=== PATIENT | female | born 1935 | race Caucasian/White ===

== ENCOUNTER 2022-05-05 15:39 | Inpatient (IN) ==
[2022-05-05] MEDS ORDERED: IOPAMIDOL 100 ML BOTTLE IV ONE (15:40)
[2022-05-05] MEDS ORDERED: DILTIAZEM 25 MG/5 ML VIAL IV ONE ×2 (16:05→16:45)
[2022-05-05 17:00] LABS: POC Calcium, Ionized 1.21 (1.16-1.32); POC Creatinine 0.6 (0.6-1.2); POC Potassium 4.7 (3.3-5.1)
[2022-05-05] MEDS: DILTIAZEM 125 MG in DEXTROSE 5% IN WATER 100 ML IV SCH (17:00)
[2022-05-05 17:12] LABS: Basophils # (Auto) 0.02 K/mcL (0.00-0.30); Basophils % (Auto) 0.2 % (0.0-2.0); Eosinophils # (Auto) 0 K/mcL (0.00-0.70); Eosinophils % (Auto) 0 % (0.0-7.0); Hematocrit 31.5 % (34.1-44.9); Hemoglobin 10.1 g/dL (11.2-15.7); Lymphocytes # (Auto) 0.75 K/mcL (1.50-4.80); Lymphocytes % (Auto) 5.7 % (15.5-49.0); Mean Cell Volume 96.3 fL (80.0-100.0); Mean Corpuscular HGB Conc 32.1 g/dL (31.0-36.0); Mean Platelet Volume 9.5 fL (8.8-12.5); Monocytes # (Auto) 1.39 K/mcL (0.10-0.90); Monocytes % (Auto) 10.6 % (1.0-12.0); Neutrophils % (Auto) 81.9 % (38.0-78.0); Platelet Count 271 K/mcL (140-440); RBC 3.27 M/mcL (3.59-5.38); Red Cell Distribution Width 15.8 % (11.5-14.5); WBC 13.1 K/mcL (4.5-11.0)
--- NOTE | 2022-05-05 17:13 | Emergency Department Note ---
HPI General Chief complaint: Weakness Stated complaint: weakness Time Seen by Provider: 05/05/22 15:51 Source: patient and EMS Mode of arrival: EMS Limitations: altered mental status History of Present Illness HPI Narrative: Narrative: Is an 86-year-old female with a history of atrial fibrillation, on Eliquis Cardi zem and metoprolol presents to the emergency department with weakness. She lives alone but her neighbors and friends check on her frequently they checked on her today and felt that she was not acting right. Patient reports that she did not take her medications this morning and is unclear why she did not take her medications. Patient denies any focal weakness she did just noticed that the right side of her face is swollen she does not believe that she has had any fevers. She does report some associated shortness of breath but no chest pain or lightheadedness. Patient states that she has had some falls she is unsure if she hit her head but she denies hitting the right side of her face. Related Data Home Medications Medication Instructions Recorded Confirmed apixaban 2.5 mg tablet (Eliquis) 2.5 mg PO BID 05/05/22 05/08/22 aspirin 81 mg tablet,delayed 81 mg PO QDAY 05/05/22 05/08/22 release atorvastatin 80 mg tablet 40 mg PO HS 05/05/22 05/08/22 diltiazem HCl 180 mg 180 mg PO QDAY 05/05/22 05/08/22 capsule,extended release 24 hr ferrous sulfate 325 mg (65 mg 325 mg PO QDAY 05/05/22 05/08/22 iron) tablet (FeroSul) furosemide 20 mg tablet 20 mg PO QDAY 05/05/22 05/08/22 gabapentin 100 mg capsule 100 mg PO HS 05/05/22 05/08/22 glipizide 2.5 mg tablet, extended 2.5 mg PO QDAY 05/05/22 05/08/22 release 24 hr hydrocodone 10 mg-acetaminophen 2 tab PO BIDP PRN Pain 05/05/22 05/08/22 325 mg tablet metformin 1,000 mg tablet 1,000 mg PO BIDCC 05/05/22 05/08/22 metoprolol succinate 100 mg 100 mg PO BID 05/05/22 05/08/22 tablet,extended release 24 hr omeprazole 20 mg capsule,delayed 20 mg PO QAMAC 05/05/22 05/08/22 release Allergies Allergy/AdvReac Type Severity Reaction Status Date / Time No Known Drug Allergies Allergy Verified 02/26/22 10:01 Review of Systems ROS ROS Narrative: Narrative: All systems ED: reviewed and negative except as stated. 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) Hip pain, bilateral (Chronic) Compression fracture of spine (Chronic) Other hyperlipidemia (Chronic) Supraventricular tachycardia (Chronic) Pacemaker (Chronic) Other iron deficiency anemias (Chronic) Dyspnea (Chronic) 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 arterial hypertension (Chronic) Trigger finger, right ring finger (Chronic) Dependent edema (Chronic) Chronic kidney disease, stage 3a (Chronic) 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, stage I (Chronic) DM (diabetes mellitus), type 2, uncontrolled w/neurologic complication (Chronic) Other low back pain (Chronic) Bilateral sacroiliitis (Acute) Medical History (Updated 05/07/22 @ 09:18 by Alejandro Johnson MD) Adenomatous colon polyp Atherosclerotic heart disease of [place] coronary artery with angina pectoris Back pain 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, stage I Chronic kidney disease, stage 3a Compression fracture of spine Dependent edema DM (diabetes mellitus), type 2, uncontrolled w/neurologic complication Dyspnea Encephalitis age 5 Hip pain, bilateral Myocardial infarction (~1992) Osteopenia Other hyperlipidemia Other iron deficiency anemias Other low back pain Pacemaker Secondary pulmonary arterial hypertension Supraventricular tachycardia Trigger finger, right ring finger Ulnar neuropathy of right upper extremity Surgical History (Updated 03/02/22 @ 16:31 by Rossi Ochoa) History of angioplasty and stent History of hysterectomy History of oophorectomy cyst History of permanent cardiac pacemaker placement (~11/03/09) History of surgery (~03/23/19) Proximal left anterior descending artery drug eluting stent History of tonsillectomy and adenoidectomy Hx of atrioventricular node ablation (~04/05/19) Family History (Updated 03/02/22 @ 16:38 by Rossi Ochoa) Mother Stroke Coronary heart disease Father Stroke Sister Breast cancer Other Family history of coronary artery disease Family history of diabetes mellitus type II Social History Smoking Status: Never smoker Alcohol Intake Frequency: a few times a week Substance Use: does not use Exam Narrative Narrative: Narrative: Vital signs noted General: Awake. Alert. No distress. HEENT: Swelling to the right angle of the mandible, there is slight erythema that extends down the neck Neck: Supple, trachea midline Cardiovascular: Tachycardic irregularly irregular. No murmur. No rubs. No gallops. Respiratory: No respiratory distress. Breath sounds equal. Lungs clear. Gastrointestinal: Soft. No tenderness Musculoskeletal: No pain. No soft tissue swelling. Good ROM. No signs injury Skin: Right facial erythema Neurologic: Alert and oriented x3 moves all extremities equally and fully, speech is fluent face is symmetric General Limitations: altered mental status Course Vital Signs Vital signs: Vital Signs Temperature 97.7 F 05/05/22 15:43 Pulse Rate 161 H 05/05/22 15:43 Respiratory Rate 18 05/05/22 15:43 Blood Pressure 141/98 05/05/22 15:43 Pulse Oximetry (%) 97 05/05/22 15:43 Oxygen Delivery Method 05/05/22 15:43 Temperature 98.5 F 05/10/22 00:01 Pulse Rate 103 H 05/08/22 21:01 Respiratory Rate 22 05/09/22 00:01 Blood Pressure 109/64 05/10/22 00:01 Pulse Oximetry (%) 96 05/10/22 00:01 Oxygen Delivery Method 05/10/22 00:01 Oxygen Flow Rate (L/min) 0 05/07/22 20:00 [facility] Narrative Medical decision making narrative: Narrative: Patient presents to the emergency department with weakness she is found to be in A. fib with RVR her heart rate is 160. Labs are drawn patient was given a bolus of 10 mg diltiazem she did have some improvement in her heart rate she will be given another 10 mg bolus and started on a diltiazem drip. Chemistry is p ending. Patient is signed out to oncoming physician I have also obtained a CT scan of her head given that she is on anticoagulation and of her face to ensure that there is no fluid collection or other surgical process. Lab Data Result diagrams: 05/09/22 05:59 05/09/22 05:58 Labs: Lab Results 05/05/22 05/05/22 05/05/22 Range/Units 16:00 16:00 16:00 WBC 13.1 H (4.5-11.0) K/mcL RBC 3.27 L (3.59-5.38) M/mcL Hgb 10.1 L (11.2-15.7) g/dL Hct 31.5 L (34.1-44.9) % POC Hct (36-48) MCV 96.3 (80.0-100.0) fL MCH 30.9 (26.0-34.0) pg MCHC 32.1 (31.0-36.0) g/dL RDW 15.8 H (11.5-14.5) % Plt Count 271 (140-440) K/mcL MPV 9.5 (8.8-12.5) fL Immature Gran % (Auto) 1.6 H (0.0-0.5) % Neut % (Auto) 81.9 H (38.0-78.0) % Lymph % (Auto) 5.7 L (15.5-49.0) % [place] % (Auto) 10.6 (1.0-12.0) % Eos % (Auto) 0 (0.0-7.0) % Baso % (Auto) 0.2 (0.0-2.0) % Lymph # (Auto) 0.75 L (1.50-4.80) K/mcL [place] # (Auto) 1.39 H (0.10-0.90) K/mcL Eos # (Auto) 0 (0.00-0.70) K/mcL Baso # (Auto) 0.02 (0.00-0.30) K/mcL Immature Gran # 0.21 H (0.00-0.05) K/mcl Absolute Neutrophils 10.73 H (1.80-8.00) K/mcL D-Dimer 0.87 H (0.27-0.50) ug/mL POC Sodium (133-145) POC Potassium (3.3-5.1) POC Chloride (96-108) POC Total CO2 (22-30) POC BUN (6-20) POC Creatinine (0.6-1.2) POC Glucose (70-105) POC WB Ioniz Calcium (1.16-1.32) Phosphorus 2.4 L (2.5-4.5) mg/dL Magnesium 1.5 L (1.6-2.5) mg/dL Total Bilirubin 1.1 H (0.1-1.0) mg/dL Direct Bilirubin 0.4 H (<0.3) mg/dL AST 19 (<32) U/L ALT 10 (<40) U/L Alkaline Phosphatase 99 (39-117) U/L Total Creatine Kinase 85 (24-170) U/L Total Protein 5.5 L (5.9-8.4) gm/dL Albumin 3.0 L (3.2-5.2) gm/dL Globulin 2.5 (2.2-3.7) gm/dL TSH (0.27-5.01) uIU/mL POC Troponin I (0.02-0.08) 05/05/22 05/05/22 05/05/22 Range/Units 16:00 16:44 16:47 WBC (4.5-11.0) K/mcL RBC (3.59-5.38) M/mcL Hgb (11.2-15.7) g/dL Hct (34.1-44.9) % POC Hct 33.0 L (36-48) MCV (80.0-100.0) fL MCH (26.0-34.0) pg MCHC (31.0-36.0) g/dL RDW (11.5-14.5) % Plt Count (140-440) K/mcL MPV (8.8-12.5) fL Immature Gran % (Auto) (0.0-0.5) % Neut % (Auto) (38.0-78.0) % Lymph % (Auto) (15.5-49.0) % [place] % (Auto) (1.0-12.0) % Eos % (Auto) (0.0-7.0) % Baso % (Auto) (0.0-2.0) % Lymph # (Auto) (1.50-4.80) K/mcL [place] # (Auto) (0.10-0.90) K/mcL Eos # (Auto) (0.00-0.70) K/mcL Baso # (Auto) (0.00-0.30) K/mcL Immature Gran # (0.00-0.05) K/mcl Absolute Neutrophils (1.80-8.00) K/mcL D-Dimer (0.27-0.50) ug/mL POC Sodium 142 (133-145) POC Potassium 4.7 (3.3-5.1) POC Chloride 112 H (96-108) POC Total CO2 21.0 L (22-30) POC BUN 21 H (6-20) POC Creatinine 0.6 (0.6-1.2) POC Glucose 184 H (70-105) POC WB Ioniz Calcium 1.21 (1.16-1.32) Phosphorus (2.5-4.5) mg/dL Magnesium (1.6-2.5) mg/dL Total Bilirubin (0.1-1.0) mg/dL Direct Bilirubin (<0.3) mg/dL AST (<32) U/L ALT (<40) U/L Alkaline Phosphatase (39-117) U/L Total Creatine Kinase (24-170) U/L Total Protein (5.9-8.4) gm/dL Albumin (3.2-5.2) gm/dL Globulin (2.2-3.7) gm/dL TSH 0.64 (0.27-5.01) uIU/mL POC Troponin I 0.02 (0.02-0.08) 05/05/22 Range/Units 19:35 WBC (4.5-11.0) K/mcL RBC (3.59-5.38) M/mcL Hgb (11.2-15.7) g/dL Hct (34.1-44.9) % POC Hct (36-48) MCV (80.0-100.0) fL MCH (26.0-34.0) pg MCHC (31.0-36.0) g/dL RDW (11.5-14.5) % Plt Count (140-440) K/mcL MPV (8.8-12.5) fL Immature Gran % (Auto) (0.0-0.5) % Neut % (Auto) (38.0-78.0) % Lymph % (Auto) (15.5-49.0) % [place] % (Auto) (1.0-12.0) % Eos % (Auto) (0.0-7.0) % Baso % (Auto) (0.0-2.0) % Lymph # (Auto) (1.50-4.80) K/mcL [place] # (Auto) (0.10-0.90) K/mcL Eos # (Auto) (0.00-0.70) K/mcL Baso # (Auto) (0.00-0.30) K/mcL Immature Gran # (0.00-0.05) K/mcl Absolute Neutrophils (1.80-8.00) K/mcL D-Dimer (0.27-0.50) ug/mL POC Sodium (133-145) POC Potassium (3.3-5.1) POC Chloride (96-108) POC Total CO2 (22-30) POC BUN (6-20) POC Creatinine (0.6-1.2) POC Glucose (70-105) POC WB Ioniz Calcium (1.16-1.32) Phosphorus (2.5-4.5) mg/dL Magnesium (1.6-2.5) mg/dL Total Bilirubin (0.1-1.0) mg/dL Direct Bilirubin (<0.3) mg/dL AST (<32) U/L ALT (<40) U/L Alkaline Phosphatase (39-117) U/L Total Creatine Kinase (24-170) U/L Total Protein (5.9-8.4) gm/dL Albumin (3.2-5.2) gm/dL Globulin (2.2-3.7) gm/dL TSH (0.27-5.01) uIU/mL POC Troponin I 0.01 L (0.02-0.08) EKG Data EKG #1: EKG attestation: Yes I reviewed and interpreted this EKG., Yes There are no EKG findings of acute coronary syndrome and Yes This EKG will be read by face man EKG results narrative: A. fib with RVR rate is 160 there is left anterior fascicular block no evidence of acute ischemia, QTC is 545 Discharge Plan Patient/Caregiver Discharge Instructions Pt seen by SUPERVISOR PIPE JOINTS/PA only: No Clinical Impression: Atrial fibrillation with rapid ventricular response Patient Disposition: Still a Patient Condition: Serious Discharge Date/Time: 05/06/22 00:08
[2022-05-05 17:39] LABS: ALT/SGPT 10 U/L (<40); AST/SGOT 19 U/L (<32); Alkaline Phosphatase 99 U/L (39-117); Bilirubin,Direct 0.4 mg/dL (<0.3); Bilirubin,Total 1.1 mg/dL (0.1-1.0); Creatine Kinase 85 U/L (24-170); Globulin 2.5 gm/dL (2.2-3.7); Phosphorous 2.4 mg/dL (2.5-4.5)
[2022-05-05] MEDS ORDERED: MAGNESIUM SULFATE 2 GM/50 ML BAG IV ONE (17:42)
--- NOTE | 2022-05-05 18:03 | Cat Scan Report ---
History: Bruise in the right side of the face and head, poor historian, probable fall TECHNIQUE: The brain was imaged without contrast in axial plane at 2.5 mm intervals. Intravenous nonionic contrast was injected and the face was then scanned in and axial plane. Sagittal and coronal reformats of the brain and face were created separately. The radiation exposure was limited using dose reduction technology. FINDINGS: Brain: There is a moderate-sized old infarct with encephalomalacia in the right cerebellar hemisphere. There is an ill-defined zone of decreased attenuation in the right globus pallidus measuring approximately 4 x 5 mm in size. This most likely represents an infarct but is of undetermined age. No intracranial hemorrhage or cerebral edema are present. There has mild to moderate generalized atrophy. Patchy areas of decreased attenuation are present in the centrum semiovale above the tentorium due to age-related ischemia or degeneration. Ventricles are prominent but proportionate to the atrophy. There is no abnormal extra-axial fluid collection. Bone show no skull fracture. Face: The right mandibular condyle is subluxed anteriorly. There is no associated fracture. Mild arthritis is present in both TMJs with flattening of the articular surfaces of both condyles. No facial fracture is present. There is moderate edema in the right side of the face in the region of the right ear, right masseter muscle, right parotid gland and lateral to the temporal mandibular joint. No hematoma is present. The orbits are normal. The sinuses are clear, except for a trace amount of fluid in the right side of the sphenoid sinus.. The mastoids are normally aerated. No skull base fracture is present. There is degenerative disc disease and arthritis throughout the neck. There is mild grade 1 spondylolisthesis at C4-5 and severe disc space narrowing at C5-6. IMPRESSION: Edema in the right side of the face with no associated fracture or hematoma. 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 Benitez was called with the results Interpreted and Authenticated by: Yoni Da Silva 05/05/22
[2022-05-05] MEDS ORDERED: METOPROLOL TARTRATE 5 MG/5 ML VIAL IV ONE (18:08)
--- NOTE | 2022-05-05 18:14 | Emergency Department Note ---
Course Vital Signs Vital signs: Vital Signs Temperature 36.5 C 05/05/22 15:43 Pulse Rate 161 H 05/05/22 15:43 Respiratory Rate 18 05/05/22 15:43 Blood Pressure 141/98 05/05/22 15:43 Pulse Oximetry (%) 97 05/05/22 15:43 Oxygen Delivery Method 05/05/22 15:43 Temperature 36.5 C 05/05/22 15:43 Pulse Rate 166 H 05/05/22 23:18 Respiratory Rate 22 05/05/22 23:18 Blood Pressure 140/92 05/05/22 23:00 Pulse Oximetry (%) 99 05/05/22 23:18 Oxygen Delivery Method 05/05/22 15:43 MDM MDM Narrative Medical decision making narrative: Patient with a history of A. fib on Eliquis Cardizem and Lopressor noncompliant her medication today brought in for weakness evaluated by Dr. Gore found to be in A. fib RVR given several rounds of Cardizem and started on an infusion as well as received 1 L of fluids. Other than the rapid heart rate vital signs are otherwise stable. Remains on the drip at 10 heart rate still around 150s to 160s Signed out to me pending diagnostic results and admission: On my evaluation she is very pleasant, no chest pain no shortness of breath. CBC mild leukocytosis nonspecific 13 electrolytes showed normal sodium potassium, normal creatinine. Magnesium slightly low 1.5 replenished with 2 g IV Troponin negative Chest x-ray per my preliminary interpretation no obvious acute finding CT of the head shows no acute intracranial process, CT of the face shows some right-sided edema without any bony fractures or dislocations or acute infection, spoke with Dr. Da Silva he thinks it is more of a bruise. Given she is still in RVR and takes both Cardizem and metoprolol at baseline and missed both of her medications today and will give her 5 of Lopressor to attempt further rate control, which did not seem to do much. D-dimer elevated CT PE is negative, TSH within normal On reevaluation no new complaints however still remains in RVR runs 160, did repeat her EKG; Continues to show A. fib RVR heart rate [address] elevations. Did discuss case with cardiology Dr. Emery, given her persistent tachycardia/RVR: he recommends that we can titrate the Cardizem drip up to 20, however if she still remains tachycardic at that point he would not get more aggressive for now and would simply let her continue overnight and see how she is tomorrow after more time on the infusion. Other considerations would be eventual cardioversion, amiodarone, digoxin etc. but he would not recommend any of these at this time and would not be too aggressive considering blood pressure stable, no active chest pain, and labs otherwise reassuring/negative troponin etc. Dr Johnson agree to admit Lab Data Result diagrams: 05/05/22 16:00 Labs: Lab Results 05/05/22 05/05/22 05/05/22 Range/Units 16:00 16:00 16:00 WBC 13.1 H (4.5-11.0) K/mcL RBC 3.27 L (3.59-5.38) M/mcL Hgb 10.1 L (11.2-15.7) g/dL Hct 31.5 L (34.1-44.9) % POC Hct (36-48) MCV 96.3 (80.0-100.0) fL MCH 30.9 (26.0-34.0) pg MCHC 32.1 (31.0-36.0) g/dL RDW 15.8 H (11.5-14.5) % Plt Count 271 (140-440) K/mcL MPV 9.5 (8.8-12.5) fL Immature Gran % (Auto) 1.6 H (0.0-0.5) % Neut % (Auto) 81.9 H (38.0-78.0) % Lymph % (Auto) 5.7 L (15.5-49.0) % [place] % (Auto) 10.6 (1.0-12.0) % Eos % (Auto) 0 (0.0-7.0) % Baso % (Auto) 0.2 (0.0-2.0) % Lymph # (Auto) 0.75 L (1.50-4.80) K/mcL [place] # (Auto) 1.39 H (0.10-0.90) K/mcL Eos # (Auto) 0 (0.00-0.70) K/mcL Baso # (Auto) 0.02 (0.00-0.30) K/mcL Immature Gran # 0.21 H (0.00-0.05) K/mcl Absolute Neutrophils 10.73 H (1.80-8.00) K/mcL D-Dimer 0.87 H (0.27-0.50) ug/mL POC Sodium (133-145) POC Potassium (3.3-5.1) POC Chloride (96-108) POC Total CO2 (22-30) POC BUN (6-20) POC Creatinine (0.6-1.2) POC Glucose (70-105) POC WB Ioniz Calcium (1.16-1.32) Phosphorus 2.4 L (2.5-4.5) mg/dL Magnesium 1.5 L (1.6-2.5) mg/dL Total Bilirubin 1.1 H (0.1-1.0) mg/dL Direct Bilirubin 0.4 H (<0.3) mg/dL AST 19 (<32) U/L ALT 10 (<40) U/L Alkaline Phosphatase 99 (39-117) U/L Total Creatine Kinase 85 (24-170) U/L Total Protein 5.5 L (5.9-8.4) gm/dL Albumin 3.0 L (3.2-5.2) gm/dL Globulin 2.5 (2.2-3.7) gm/dL TSH (0.27-5.01) uIU/mL POC Troponin I (0.02-0.08) 05/05/22 05/05/22 05/05/22 Range/Units 16:00 16:44 16:47 WBC (4.5-11.0) K/mcL RBC (3.59-5.38) M/mcL Hgb (11.2-15.7) g/dL Hct (34.1-44.9) % POC Hct 33.0 L (36-48) MCV (80.0-100.0) fL MCH (26.0-34.0) pg MCHC (31.0-36.0) g/dL RDW (11.5-14.5) % Plt Count (140-440) K/mcL MPV (8.8-12.5) fL Immature Gran % (Auto) (0.0-0.5) % Neut % (Auto) (38.0-78.0) % Lymph % (Auto) (15.5-49.0) % [place] % (Auto) (1.0-12.0) % Eos % (Auto) (0.0-7.0) % Baso % (Auto) (0.0-2.0) % Lymph # (Auto) (1.50-4.80) K/mcL [place] # (Auto) (0.10-0.90) K/mcL Eos # (Auto) (0.00-0.70) K/mcL Baso # (Auto) (0.00-0.30) K/mcL Immature Gran # (0.00-0.05) K/mcl Absolute Neutrophils (1.80-8.00) K/mcL D-Dimer (0.27-0.50) ug/mL POC Sodium 142 (133-145) POC Potassium 4.7 (3.3-5.1) POC Chloride 112 H (96-108) POC Total CO2 21.0 L (22-30) POC BUN 21 H (6-20) POC Creatinine 0.6 (0.6-1.2) POC Glucose 184 H (70-105) POC WB Ioniz Calcium 1.21 (1.16-1.32) Phosphorus (2.5-4.5) mg/dL Magnesium (1.6-2.5) mg/dL Total Bilirubin (0.1-1.0) mg/dL Direct Bilirubin (<0.3) mg/dL AST (<32) U/L ALT (<40) U/L Alkaline Phosphatase (39-117) U/L Total Creatine Kinase (24-170) U/L Total Protein (5.9-8.4) gm/dL Albumin (3.2-5.2) gm/dL Globulin (2.2-3.7) gm/dL TSH 0.64 (0.27-5.01) uIU/mL POC Troponin I 0.02 (0.02-0.08) 05/05/22 Range/Units 19:35 WBC (4.5-11.0) K/mcL RBC (3.59-5.38) M/mcL Hgb (11.2-15.7) g/dL Hct (34.1-44.9) % POC Hct (36-48) MCV (80.0-100.0) fL MCH (26.0-34.0) pg MCHC (31.0-36.0) g/dL RDW (11.5-14.5) % Plt Count (140-440) K/mcL MPV (8.8-12.5) fL Immature Gran % (Auto) (0.0-0.5) % Neut % (Auto) (38.0-78.0) % Lymph % (Auto) (15.5-49.0) % [place] % (Auto) (1.0-12.0) % Eos % (Auto) (0.0-7.0) % Baso % (Auto) (0.0-2.0) % Lymph # (Auto) (1.50-4.80) K/mcL [place] # (Auto) (0.10-0.90) K/mcL Eos # (Auto) (0.00-0.70) K/mcL Baso # (Auto) (0.00-0.30) K/mcL Immature Gran # (0.00-0.05) K/mcl Absolute Neutrophils (1.80-8.00) K/mcL D-Dimer (0.27-0.50) ug/mL POC Sodium (133-145) POC Potassium (3.3-5.1) POC Chloride (96-108) POC Total CO2 (22-30) POC BUN (6-20) POC Creatinine (0.6-1.2) POC Glucose (70-105) POC WB Ioniz Calcium (1.16-1.32) Phosphorus (2.5-4.5) mg/dL Magnesium (1.6-2.5) mg/dL Total Bilirubin (0.1-1.0) mg/dL Direct Bilirubin (<0.3) mg/dL AST (<32) U/L ALT (<40) U/L Alkaline Phosphatase (39-117) U/L Total Creatine Kinase (24-170) U/L Total Protein (5.9-8.4) gm/dL Albumin (3.2-5.2) gm/dL Globulin (2.2-3.7) gm/dL TSH (0.27-5.01) uIU/mL POC Troponin I 0.01 L (0.02-0.08) Discharge Plan Patient/Caregiver Discharge Instructions Pt seen by RAILROAD OPERATING ENGINEER/PA only: No Clinical Impression: Atrial fibrillation with rapid ventricular response Patient Disposition: Xfer As Inpt ([facility]) Condition: Serious Discharge Date/Time: 05/06/22 00:08
--- NOTE | 2022-05-05 23:35 | Internal Med History&Physical ---
HPI History of Present Illness Patient information: Note initiated : 05/05/22 at 11:34 pm Service Date, if different from initiated Date: [] Patient: Nolvia Jalloh 86 y/o F admitted on for weakness. Chief Complaint: [] Chief complaint: atrial fibrillation History of present illness: Ms. 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 The following history is severely limited by the patient's clinical situations and lack of family or caregiver at the bedside. Patient does not recall why she is being sent to the hospital. She currently denies any chest pain palpitations or chest pressure. She denies any shortness of breath. She denies any lightheadedness or dizziness. She denies any pain or discomfort at the moment. Vital signs at ED presentation significant for severe tachycardia with heart rate up to the 160s beats per minutes. Labs significant for leukocytosis with WBC 13.1, as well as hemoglobin and hematocrit 10.1 and 31.5, respectively. Only remarkable electrolyte imbalance is mild hypodysemia with serum magnesium level 1.5. D- dimer 0.87. Serum troponin 0.01. CT angiogram of the chest negative for any pulmonary embolism or any focal infiltrate. Patient was started on Cardizem drip after several rounds of Cardizem pushes failed to successfully rate controlled the patient. Constitutional Constitutional: Absent chills, excessive sweating, fatigue, fever(s) or weakness EENT Eyes: Absent blurry vision, change in vision, loss of vision or other visual disturbances Ears: Absent decreased hearing or tinnitus Nose, mouth and throat: Absent abnormal hearing, dry mouth, headache(s), nasal congestion or sore throat Cardiovascular Cardiovascular: Absent chest pain, chest pain at rest, edema, irregular heart rhythm or palpatations Respiratory Respiratory: Absent cough, dyspnea or wheezing Gastrointestinal Gastrointestinal: Absent abdominal pain, constipation, diarrhea, nausea or vomiting Musculoskeletal Musculoskeletal: Absent back pain, deformity, limited range of motion, muscle cramps, muscle weakness or numbness Integumentary Integumentary: Absent lesions, rash or wounds Neurological Neurological: Absent focal weakness, headache(s) or numbness Psychiatric Psychiatric: Absent anxiety, depression or hallucinations PFSH PFSH All Active Problems (Updated 05/06/22 @ 00:20 by Alejandro Johnson MD) Hypomagnesemia (Acute) Anemia, normocytic normochromic (Acute) Diabetic polyneuropathy associated with type 2 diabetes mellitus (Acute) Atrial fibrillation with rapid ventricular response (Acute) Encephalitis (Chronic) Myocardial infarction (Chronic ~1992) Adenomatous colon polyp (Chronic) Back pain (Chronic) Osteopenia (Chronic) 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) Hip pain, bilateral (Chronic) Compression fracture of spine (Chronic) Other hyperlipidemia (Chronic) Supraventricular tachycardia (Chronic) Pacemaker (Chronic) Other iron deficiency anemias (Chronic) Dyspnea (Chronic) 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) Trigger finger, right ring finger (Chronic) Dependent edema (Chronic) Chronic kidney disease, stage 3a (Chronic) 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, stage I (Chronic) DM (diabetes mellitus), type 2, uncontrolled w/neurologic complication (Chronic) Other low back pain (Chronic) Bilateral sacroiliitis (Acute) Medical History (Updated 05/06/22 @ 00:20 by Alejandro Johnson MD) Adenomatous colon polyp Atherosclerotic heart disease of [place] coronary artery with angina pectoris Back pain 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, stage I Chronic kidney disease, stage 3a Compression fracture of spine Dependent edema DM (diabetes mellitus), type 2, uncontrolled w/neurologic complication Dyspnea Encephalitis age 5 Hip pain, bilateral Myocardial infarction (~1992) Osteopenia Other hyperlipidemia Other iron deficiency anemias Other low back pain Pacemaker Secondary pulmonary arterial hypertension Supraventricular tachycardia Trigger finger, right ring finger Ulnar neuropathy of right upper extremity Surgical History (Updated 03/02/22 @ 16:31 by Rossi Ochoa) History of angioplasty and stent History of hysterectomy History of oophorectomy cyst History of permanent cardiac pacemaker placement (~11/03/09) History of surgery (~03/23/19) Proximal left anterior descending artery drug eluting stent History of tonsillectomy and adenoidectomy Hx of atrioventricular node ablation (~04/05/19) Family History (Updated 03/02/22 @ 16:38 by Rossi Ochoa) Mother Stroke Coronary heart disease Father Stroke Sister Breast cancer Other Family history of coronary artery disease Family history of diabetes mellitus type II Social History (Updated 03/02/22 @ 16:35 by Rossi Ochoa) marital status: occupational status: retired smoking status: Never smoker alcohol intake frequency: a few times a week substance use type: does not use MEDS/ALLERGIES Home Medications and Allergies Home Medications Medication Instructions Recorded Confirmed Type apixaban 2.5 mg tablet (Eliquis) 1 tab PO BID 05/05/22 05/06/22 History aspirin 81 mg tablet,delayed 1 tab PO QDAY 05/05/22 05/05/22 History release atorvastatin 80 mg tablet 0.5 tab PO HS 05/05/22 05/05/22 History diltiazem HCl 180 mg 1 cap PO QDAY 05/05/22 05/06/22 History capsule,extended release 24 hr ferrous sulfate 325 mg (65 mg 1 tab PO QDAY 05/05/22 05/06/22 History iron) tablet (FeroSul) furosemide 20 mg tablet 1 tab PO QDAY 05/05/22 05/06/22 History gabapentin 100 mg capsule 1 cap PO HS 05/05/22 05/06/22 History glipizide 2.5 mg tablet, extended 1 tab PO QDAY 05/05/22 05/06/22 History release 24 hr hydrocodone 10 mg-acetaminophen 2 tab PO BID 05/05/22 05/06/22 History 325 mg tablet metformin 1,000 mg tablet 1 tab PO BID 05/05/22 05/06/22 History metoprolol succinate 100 mg 1 tab PO BID 05/05/22 05/06/22 History tablet,extended release 24 hr omeprazole 20 mg capsule,delayed 1 cap PO QDAY 05/05/22 05/06/22 History release Allergies Allergy/AdvReac Type Severity Reaction Status Date / Time No Known Drug Allergies Allergy Verified 02/26/22 10:01 EXAM Constitutional Vitals: Temp Pulse Resp BP Pulse Ox O2 Del Method 36.5 C 166 H 22 140/92 99 05/05/22 15:43 05/05/22 23:18 05/05/22 23:18 05/05/22 23:00 05/05/22 23:18 05/05/22 15:43 General appearance: cooperative and no acute distress Head Head exam: Present atraumatic and normocephalic Eye Eye exam: Present EOMI and PERRL ENT ENT exam: Present mucous membranes moist, normal exam and normal external ear exam Neck Neck exam: Present normal inspection; Absent lymphadenopathy, tenderness or thyromegaly Respiratory Respiratory exam: Absent accessory muscle use, respiratory distress or wheezes Cardiovascular Cardiovascular exam: Present irregular rhythm and tachycardia; Absent JVD Additional comments: pacemaker GI/Abdominal GI/Abdominal exam: Present normal bowel sounds and soft; Absent organomegaly or tenderness Extremities Exam Extremities exam: Present full ROM, normal capillary refill and normal inspection; Absent tenderness Neurological Exam Neurological exam: Present alert and CN II-XII intact; Absent motor sensory deficit or oriented X3 Psychiatric Psychiatric exam: Present normal affect and normal mood; Absent anxious or depressed Skin Skin exam: Present dry and intact DATA Data Completed and Pending Labs: Labs from last 24 hours 05/05/22 05/05/22 05/05/22 19:35 16:47 16:44 WBC RBC Hgb Hct POC Hct 33.0 L MCV MCH MCHC RDW Plt Count MPV Immature Gran % (Auto) Neut % (Auto) Lymph % (Auto) [place] % (Auto) Eos % (Auto) Baso % (Auto) Lymph # (Auto) [place] # (Auto) Eos # (Auto) Baso # (Auto) Immature Gran # Absolute Neutrophils D-Dimer POC Sodium 142 POC Potassium 4.7 POC Chloride 112 H POC Total CO2 21.0 L POC BUN 21 H POC Creatinine 0.6 POC Glucose 184 H POC WB Ioniz Calcium 1.21 Phosphorus Magnesium Total Bilirubin Direct Bilirubin AST ALT Alkaline Phosphatase Total Creatine Kinase Total Protein Albumin Globulin TSH POC Troponin I 0.01 L 0.02 05/05/22 05/05/22 05/05/22 16:00 16:00 16:00 WBC RBC Hgb Hct POC Hct MCV MCH MCHC RDW Plt Count MPV Immature Gran % (Auto) Neut % (Auto) Lymph % (Auto) [place] % (Auto) Eos % (Auto) Baso % (Auto) Lymph # (Auto) [place] # (Auto) Eos # (Auto) Baso # (Auto) Immature Gran # Absolute Neutrophils D-Dimer 0.87 H POC Sodium POC Potassium POC Chloride POC Total CO2 POC BUN POC Creatinine POC Glucose POC WB Ioniz Calcium Phosphorus 2.4 L Magnesium 1.5 L Total Bilirubin 1.1 H Direct Bilirubin 0.4 H AST 19 ALT 10 Alkaline Phosphatase 99 Total Creatine Kinase 85 Total Protein 5.5 L Albumin 3.0 L Globulin 2.5 TSH 0.64 POC Troponin I Pending 05/05/22 16:00 WBC 13.1 H RBC 3.27 L Hgb 10.1 L Hct 31.5 L POC Hct MCV 96.3 MCH 30.9 MCHC 32.1 RDW 15.8 H Plt Count 271 MPV 9.5 Immature Gran % (Auto) 1.6 H Neut % (Auto) 81.9 H Lymph % (Auto) 5.7 L [place] % (Auto) 10.6 Eos % (Auto) 0 Baso % (Auto) 0.2 Lymph # (Auto) 0.75 L [place] # (Auto) 1.39 H Eos # (Auto) 0 Baso # (Auto) 0.02 Immature Gran # 0.21 H Absolute Neutrophils 10.73 H D-Dimer POC Sodium POC Potassium POC Chloride POC Total CO2 POC BUN POC Creatinine POC Glucose POC WB Ioniz Calcium Phosphorus Magnesium Total Bilirubin Direct Bilirubin AST ALT Alkaline Phosphatase Total Creatine Kinase Total Protein Albumin Globulin TSH POC Troponin I A/P Assessment and plan (1) Atrial fibrillation with rapid ventricular response: Status: Acute (2) Other hyperlipidemia: Status: Chronic (3) Pacemaker: Status: Chronic (4) 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 Atrial fibrillation with RVR: Inpatient ICU with telemetry Diltiazem drip, with max rate of 20mg/hr. Okay to have the heart rate up in the 150s bpm once the max rate of Diltiazem drip is reached Hold Diltiazem extended release formula, switch to immediate release formula for now for dose titration, start with Cardizem immediate release 60mg PO QID Metoprolol ER Eliquis 2D echocardiogram Physical therapy Occupational therapy 2. T2DM with associated diabetic polyneuropathy and nephropathy: HgA1c Hold oral hypoglycemics Insulin Lispro SSI AC HS Accu Chek AC HS Hypoglycemia protocol Diabetic diet Neurontin 3. Essential HTN: Hold Diltiazem extended release formula, switch to immediate release formula for now for dose titration, start with Cardizem immediate release 60mg PO QID Metoprolol ER Lasix PO 4. Dyslipidemia: Continue statin therapy 5. Normocytic normochromic anemia: Ferrous sulfate cbc w/ auto diff in the morning to trend H/H 6. Hypomagnesemia: Mg oral replacement Repeat serum Mg level in the morning to trend GI ppx: oral PPI DVT ppx: Eliquis Code statin: Full Prongosis: extremely guarded Disposition: Inpatient ICU; PT OT Critical Care Time: 60min Time Spent With Patient Time: Total time spent is greater than 50% in coordination of care (as documented) at patient's floor/unit and/or counseling patient: Total time spent with greater than 50% in coordination of care (as documented) at patient's floor/unit and/or counseling patient:: 50 - 70 minutes Total Critical Care Time: 60
[2022-05-06] MEDS ORDERED: HYDROcodone/APAP 10/325MG TABLET PO PRN (00:22)
[2022-05-06] MEDS ORDERED: DEXTROSE 50% 50 ML VIAL IV PRN (00:22)
[2022-05-06] MEDS ORDERED: PROMETHAZINE 25 MG/ML VIAL IV PRN (00:22)
[2022-05-06] MEDS ORDERED: IPRATROPIUM/ALBUTEROL 3 ML AMPUL.NEB NEB PRN (00:22)
[2022-05-06] MEDS ORDERED: DEXTROSE 31 GM ORAL.SUSP PO PRN (00:22)
[2022-05-06] MEDS ORDERED: ONDANSETRON 4 MG/2 ML VIAL IV PRN (00:22)
[2022-05-06] MEDS ORDERED: HYDROcodone/APAP 10/325MG TABLET PO ONE ×2 (00:49→00:54)
[2022-05-06] MEDS: DILTIAZEM 30 MG TABLET PO SCH ×5 (01:00→21:02)
[2022-05-06] MEDS ORDERED: DILTIAZEM 30 MG TABLET ONE (01:04)
[2022-05-06] MEDS: DILTIAZEM 125 MG in DEXTROSE 5% IN WATER 100 ML IV SCH ×5 (03:05→21:03)
[2022-05-06] MEDS ORDERED: DILTIAZEM 125 MG/25 ML VIAL IV ONE (03:22)
[2022-05-06 07:24] LABS: ALT/SGPT 10 U/L (<40); AST/SGOT 19 U/L (<32); Albumin 2.8 gm/dL (3.2-5.2); Alkaline Phosphatase 112 U/L (39-117); Bilirubin,Total 1.1 mg/dL (0.1-1.0); Blood Urea Nitrogen 14 mg/dL (8-23); Calcium 9.1 mg/dL (8.6-10.4); Carbon Dioxide 18 mmol/L (22-30); Chloride 105 mmol/L (96-108); Globulin 2.9 gm/dL (2.2-3.7); Glomerular Filtration Rate 77; Glucose 176 mg/dL (70-105); Phosphorous 2.8 mg/dL (2.5-4.5)
[2022-05-06 07:26] LABS: Basophils # (Auto) 0.02 K/mcL (0.00-0.30); Basophils % (Auto) 0.2 % (0.0-2.0); Eosinophils # (Auto) 0 K/mcL (0.00-0.70); Eosinophils % (Auto) 0 % (0.0-7.0); Hematocrit 34.4 % (34.1-44.9); Hemoglobin 11.1 g/dL (11.2-15.7); Lymphocytes # (Auto) 0.97 K/mcL (1.50-4.80); Lymphocytes % (Auto) 7.6 % (15.5-49.0); Mean Cell Volume 95.6 fL (80.0-100.0); Mean Corpuscular HGB Conc 32.3 g/dL (31.0-36.0); Mean Platelet Volume 9.3 fL (8.8-12.5); Monocytes # (Auto) 1.36 K/mcL (0.10-0.90); Monocytes % (Auto) 10.7 % (1.0-12.0); Neutrophils % (Auto) 80.6 % (38.0-78.0); Platelet Count 270 K/mcL (140-440); Red Cell Distribution Width 15.9 % (11.5-14.5); WBC 12.7 K/mcL (4.5-11.0)
[2022-05-06] MEDS ORDERED: SENNOSIDES 1 TABLET PO PRN (07:41)
[2022-05-06 08:33] LABS: Hemoglobin A1C 7.5 % Hgb (4.0-6.0)
[2022-05-06] MEDS: 0.9 % SODIUM CHLORIDE 10 ML SYRINGE IV SCH ×3 (08:58→21:04)
[2022-05-06] MEDS: FUROSEMIDE 20 MG TABLET PO SCH (09:03)
[2022-05-06] MEDS: METOPROLOL SUCCINATE 50 MG TAB.XL.24H PO SCH ×2 (09:03→21:02)
[2022-05-06] MEDS: ASPIRIN 81 MG TAB.CHEW PO SCH (09:03)
[2022-05-06] MEDS: FERROUS SULFATE 325 MG TABLET PO SCH (09:03)
[2022-05-06] MEDS: DOCUSATE SODIUM 100 MG CAPSULE PO SCH ×2 (09:03→21:01)
[2022-05-06] MEDS: OMEPRAZOLE 20 MG CAPSULE PO SCH (09:03)
[2022-05-06] MEDS: APIXABAN 5 MG TABLET PO SCH ×2 (09:03→21:04)
[2022-05-06] MEDS: MAGNESIUM OXIDE 400 MG TABLET PO SCH (09:03)
--- NOTE | 2022-05-06 09:11 | XRay Report ---
HISTORY: Increased weakness FINDINGS: The lungs are clear and well expanded. There is no evidence of pneumonia, mass or congestive heart failure. Heart size is within upper limits of normal. There is a dual-chamber pacemaker. No pleural effusion is present. Large amount calcified plaque is present along the wall of a normal caliber thoracic aorta. IMPRESSION: No acute abnormality Interpreted and Authenticated by: Yoni Da Silva 05/06/22
--- NOTE | 2022-05-06 09:37 | Cat Scan Report ---
History: Elevated serum d-dimer level, chest pain, short of breath, increased weakness and confusion, atrial fibrillation TECHNIQUE: Following injection of intravenous nonionic contrast the chest was imaged during the pulmonary arterial phase from the thoracic inlet through the diaphragms. Sagittal, coronal and MIPS images were created. The radiation exposure was limited using dose reduction technology. FINDINGS: The pulmonary arteries are normal with no filling defects. Main pulmonary arteries are within upper limits of normal in diameter. The main pulmonary artery is 3.6 cm. This corresponds to ascending aorta measuring 3.9 cm. The heart is mildly enlarged. There is moderate dilatation of the right atrium and milder dilatation left atrium. There is a dual-chamber pacemaker in the right atrium and right ventricle. Large amount calcified plaque is present in the coronary arteries. Aorta is normal in caliber and also has moderate atherosclerotic disease. There are linear opacities in the lingula and right middle lobe and both lower lobes which may be scar or discoid atelectasis. There is no evidence of pneumonia or emphysema. No lung mass or pleural effusion are present. There are no abnormally enlarged lymph nodes. There are several old compression fractures. There is cement in the bodies of T11 and L2 and there are mild to moderate compression fractures involving the superior endplates of L1 and L3. No acute fracture is detected. There are couple nonobstructing stones in the left kidney. They measure up to 6 mm. Is also an ill-defined zone of increased attenuation in the cortex laterally in the upper third of the left kidney. This is a nonspecific finding. IMPRESSION: No evidence of pulmonary emboli Scar versus discoid atelectasis in both lung bases Cardiomegaly with atherosclerotic coronary artery disease Interpreted and Authenticated by: Yoni Da Silva 05/06/22
[2022-05-06] MEDS ORDERED: morphine 2 MG/ML VIAL IV PRN (09:43)
--- NOTE | 2022-05-06 09:53 | Internal Med Progress Note ---
SUBJECTIVE Subjective Patient information: Note initiated : 05/06/22 at 9:51 am Service Date, if different from initiated Date: [] Patient: Nolvia Jalloh 86 y/o F admitted on 05/06/22 for weakness. Chief Complaint: [] Interval history: Ms. 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 The following history is sev erely limited by the patient's clinical situations and lack of family or caregiver at the bedside. Patient does not recall why she is being sent to the hospital. She currently denies any chest pain palpitations or chest pressure. She denies any shortness of breath. She denies any lightheadedness or dizziness. She denies any pain or discomfort at the moment. Vital signs at ED presentation significant for severe tachycardia with heart rate up to the 160s beats per minutes. Labs significant for leukocytosis with WBC 13.1, as well as hemoglobin and hematocrit 10.1 and 31.5, respectively. Only remarkable electrolyte imbalance is mild hypodysemia with serum magnesium level 1.5. D- dimer 0.87. Serum troponin 0.01. CT angiogram of the chest negative for any pulmonary embolism or any focal infiltrate. Patient was started on Cardizem drip after several rounds of Cardizem pushes failed to successfully rate controlled the patient. 05/06: Patient's heart rate was up in the 150s earlier this morning but when I saw the patient at the bedside and it went down to 110 beats per minutes. Patient denies any chest pain palpitations or shortness of breath. She is still complaining of right facial swelling and pain. She denies any fever chills or diaphoresis. She is complain of general body weakness. Will start IV antibiotics with Zosyn after blood cultures. We will also offer pain regimen including ibuprofen, oxycodone, and IV morphine as needed for mild to moderate or severe pain, respectively. Continue Cardizem and metoprolol ER while attempting to down titrate Cardizem drip. 2D echocardiogram. Physical therapy and Occupational Therapy evaluation and treatments for placement pending. Constitutional Vitals: Vital Signs Temp Pulse Resp BP Pulse Ox O2 Del Method 36.7 C 106 H 18 123/77 100 05/06/22 08:00 05/06/22 03:31 05/06/22 09:00 05/06/22 09:00 05/06/22 09:00 05/06/22 06:00 Period Temp Pulse Resp BP Sys/Tidwell Pulse Ox O2 Del Method O2 Flow Rate Last 24 Hr 36.5 C-37.1 C 106-169 14-34 102-151/68-126 84-100 Room Air- Room Air Intake and Output 05/05/22 05/06/22 05/06/22 21:59 05:59 13:59 Intake Total 5 170 125 Output Total 150 Balance 5 170 -25 Weight 53.977 kg 50.802 kg Intake & Output: Intake & Output 05/05/22 05/06/22 05/06/22 21:59 05:59 13:59 Intake Total 5 170 125 Output Total 150 Balance 5 170 -25 Weight 53.977 kg 50.802 kg Intake: IV 5 170 125 Cardizem 125 mg In Dextrose 5% 5 120 125 in Water 100 ml @ 5 MG/HR 5 mls /hr IV Q12H [facility] Rx#:[id number] Oral 0 Output: Void Amount 150 Other: Urine Appearance Clear Urine Color Yellow Bright Yellow Urine Odor Normal Head Head exam: Present atraumatic and normal inspection Eye Eye exam: Present normal appearance ENT ENT exam: Present mucous membranes moist, normal exam and normal external ear exam Additional comments: Right facial swelling, warmth, tenderness to palpation Neck Neck exam: Present normal inspection Respiratory Respiratory exam: Present normal respiratory exam Cardiovascular Cardiovascular exam: Present irregular rhythm and tachycardia Additional comments: Pacemaker in place GI/Abdominal GI/Abdominal exam: Present normal bowel sounds Back Exam Back exam: Present normal inspection Neurological Exam Neurological exam: Present alert and oriented X3 Skin Skin exam: Present intact and warm OBJ DATA Labs CBC & Chem 7: 05/06/22 05:53 05/06/22 05:53 Labs: Abnormal Lab Results 05/06/22 05/06/22 05/06/22 05:53 05:53 05:53 WBC 12.7 H RBC Hgb 11.1 L Hct POC Hct RDW 15.9 H Immature Gran % (Auto) 0.9 H Neut % (Auto) 80.6 H Lymph % (Auto) 7.6 L Lymph # (Auto) 0.97 L [place] # (Auto) 1.36 H Immature Gran # 0.12 H Absolute Neutrophils 10.22 H D-Dimer POC Chloride Carbon Dioxide 18 L POC Total CO2 POC BUN Glucose 176 H POC Glucose Hemoglobin A1c 7.5 H Phosphorus Magnesium Total Bilirubin 1.1 H Direct Bilirubin Total Protein 5.7 L Albumin 2.8 L POC Troponin I 05/05/22 05/05/22 05/05/22 19:35 16:44 16:00 WBC RBC Hgb Hct POC Hct 33.0 L RDW Immature Gran % (Auto) Neut % (Auto) Lymph % (Auto) Lymph # (Auto) [place] # (Auto) Immature Gran # Absolute Neutrophils D-Dimer 0.87 H POC Chloride 112 H Carbon Dioxide POC Total CO2 21.0 L POC BUN 21 H Glucose POC Glucose 184 H Hemoglobin A1c Phosphorus Magnesium Total Bilirubin Direct Bilirubin Total Protein Albumin POC Troponin I 0.01 L 05/05/22 05/05/22 16:00 16:00 WBC 13.1 H RBC 3.27 L Hgb 10.1 L Hct 31.5 L POC Hct RDW 15.8 H Immature Gran % (Auto) 1.6 H Neut % (Auto) 81.9 H Lymph % (Auto) 5.7 L Lymph # (Auto) 0.75 L [place] # (Auto) 1.39 H Immature Gran # 0.21 H Absolute Neutrophils 10.73 H D-Dimer POC Chloride Carbon Dioxide POC Total CO2 POC BUN Glucose POC Glucose Hemoglobin A1c Phosphorus 2.4 L Magnesium 1.5 L Total Bilirubin 1.1 H Direct Bilirubin 0.4 H Total Protein 5.5 L Albumin 3.0 L POC Troponin I Meds: Medications Acetaminophen (Acetaminophen 325 Mg Tablet) 650 mg PO Q4-6HP PRN; Protocol PRN Reason: Per Pain Protocol/Fever > 101 Hydrocodone Bitart/Acetaminophen (Hydrocodone/Apap 10/325mg Tablet) 2 tab PO BIDP PRN; Protocol PRN Reason: PAIN LEVEL > 6 Albuterol/Ipratropium (Ipratropium/Albuterol 3 Ml Ampul.Neb) 3 ml NEB Q4HRT PRN PRN Reason: Wheezing Apixaban (Apixaban 5 Mg Tablet) 2.5 mg PO BID [facility] Last Admin: 05/06/22 09:03 Dose: 2.5 mg Aspirin (Aspirin 81 Mg Tab.Chew) 81 mg PO DAILY [facility] Last Admin: 05/06/22 09:03 Dose: 81 mg Atorvastatin Calcium (Atorvastatin 40 Mg Tablet) 40 mg PO HS [facility] Dextrose (Dextrose 50% 50 Ml Vial) 0 ml IV UD PRN PRN Reason: Per Sliding Scale Diagnostic Test (Pha) (Accu-Chek 1 Each Strip) 1 each FS ACHS [facility] Last Admin: 05/06/22 08:58 Dose: 1 each Diltiazem HCl (Diltiazem 30 Mg Tablet) 60 mg PO QID [facility] Last Admin: 05/06/22 09:03 Dose: 60 mg Docusate Sodium (Docusate Sodium 100 Mg Capsule) 100 mg PO BID [facility] Last Admin: 05/06/22 09:03 Dose: 100 mg Ferrous Sulfate (Ferrous Sulfate 325 Mg Tablet) [facility] Last Admin: 05/06/22 09:03 Dose: 325 mg Furosemide (Furosemide 20 Mg Tablet) 20 mg PO QDAY [facility] Last Admin: 05/06/22 09:03 Dose: 20 mg Gabapentin (Gabapentin 100 Mg Capsule) 100 mg PO HS [facility] Glucose (Dextrose 31 Gm Oral.Susp) 15 gm PO PRN PRN PRN Reason: Hypoglycemia Diltiazem HCl 125 mg/ Dextrose 125 mls @ 5 mls/hr IV Q6H [facility]; Protocol Last Admin: 05/06/22 09:43 Dose: 20 mg/hr, 20 mls/hr Ibuprofen (Ibuprofen 600 Mg Tablet) 600 mg PO QIDP PRN; Protocol PRN Reason: PAIN/FEVER > 101 Insulin Human Lispro (Insulin Lispro 1 Unit/0.01 Ml Unit) 0 unit SQ [facility]; Protocol Magnesium Oxide (Magnesium Oxide 400 Mg Tablet) 400 mg PO DAILY [facility] Last Admin: 05/06/22 09:03 Dose: 400 mg Metoprolol Succinate (Metoprolol Succinate 50 Mg Tab.Xl.24h) 100 mg PO BID [facility] Last Admin: 05/06/22 09:03 Dose: 100 mg Morphine Sulfate (Morphine 2 Mg/Ml Vial) 2 mg IV Q4HP PRN; Protocol PRN Reason: Per Pain Protocol Omeprazole (Omeprazole 20 Mg Capsule) 20 mg PO QAMAC [facility] Last Admin: 05/06/22 09:03 Dose: 20 mg Ondansetron HCl (Ondansetron 4 Mg/2 Ml Vial) 4 mg IV Q4-6HP PRN; Protocol PRN Reason: Nausea And Vomiting Oxycodone HCl (Oxycodone Hcl 5 Mg Tablet) 5 mg PO Q4-6HP PRN; Protocol PRN Reason: Per Pain Protocol Promethazine HCl (Promethazine 25 Mg/Ml Vial) 25 mg IV Q4-6HP PRN; Protocol PRN Reason: Nausea And Vomiting Senna (Sennosides 1 Tablet) 1 tab PO DAILYP PRN PRN Reason: Constipation Sodium Chloride (0.9 % Sodium Chloride 10 Ml Syringe) 10 ml IV Q8 [facility] Last Admin: 05/06/22 08:58 Dose: Not Given A/P Assessment and plan (1) Atrial fibrillation with rapid ventricular response: Status: Acute (2) Other hyperlipidemia: Status: Chronic (3) Pacemaker: Status: Chronic (4) 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 Atrial fibrillation with RVR: Inpatient ICU with telemetry Diltiazem drip, with max rate of 20mg/hr. Okay to have the heart rate up in the 150s bpm once the max rate of Diltiazem drip is reached Hold Diltiazem extended release formula, switch to immediate release formula for now for dose titration, start with Cardizem immediate release 60mg PO QID Metoprolol ER Eliquis 2D echocardiogram Physical therapy Occupational therapy 2. T2DM with associated diabetic polyneuropathy and nephropathy: HgA1c 7.5 Hold oral hypoglycemics Insulin Lispro SSI AC HS Accu Chek AC HS Hypoglycemia protocol Diabetic diet Neurontin 3. Essential HTN: Hold Diltiazem extended release formula, switch to immediate release formula for now for dose titration, start with Cardizem immediate release 60mg PO QID Metoprolol ER Lasix PO 4. Dyslipidemia: Continue statin therapy 5. Normocytic normochromic anemia: Ferrous sulfate cbc w/ auto diff in the morning to trend H/H 6. Hypomagnesemia: Mg oral replacement Repeat serum Mg level in the morning to trend 7. Right parotitis: DDx: infectious causes such as mumps, influenza, coxsackievirus, and noninfectious causes such as sialolithiasis, tumors (not seen by facial CT) Lactic acid Procalcitonin Blood culture cbc w/ auto diff in the morning to trend WBC Zosyn, switch to Augmentin when discharge We will also offer pain regimen including ibuprofen, oxycodone, and IV morphine as needed for mild to moderate or severe pain, respectively GI ppx: oral PPI DVT ppx: Eliquis Code statin: DNR Prongosis: Guarded Disposition: Inpatient ICU; PT OT Critical Care Time: 60min Time Spent With Patient Time: Total time spent is greater than 50% in coordination of care (as documented) at patient's floor/unit and/or counseling patient: Total time spent with greater than 50% in coordination of care (as documented) at patient's floor/unit and/or counseling patient:: 50 - 70 minutes Critical Care Time: Yes Total Critical Care Time: 60 QUALITY VTE Deep Vein Thrombosis/Pulmonary Embolism Present on Admission: Yes
[2022-05-06] MEDS: PIPERACILLIN SODIUM/TAZOBACTAM 3.375 GM in DEXTROSE 5% IN WATER 50 ML IV SCH ×3 (10:44→21:05)
[2022-05-06] MEDS: INSULIN LISPRO 1 UNIT/0.01 ML UNIT SQ SCH ×4 (11:07→21:02)
[2022-05-06] MEDS: ACETAMINOPHEN 325 MG TABLET PO PRN (16:52)
[2022-05-06] MEDS: GABAPENTIN 100 MG CAPSULE PO SCH (21:01)
[2022-05-06] MEDS: ATORVASTATIN 40 MG TABLET PO SCH (21:02)
[2022-05-07] MEDS: DILTIAZEM 125 MG in DEXTROSE 5% IN WATER 100 ML IV SCH ×3 (00:35→10:40)
[2022-05-07] MEDS: 0.9 % SODIUM CHLORIDE 10 ML SYRINGE IV SCH ×3 (05:38→21:24)
[2022-05-07] MEDS: PIPERACILLIN SODIUM/TAZOBACTAM 3.375 GM in DEXTROSE 5% IN WATER 50 ML IV SCH ×3 (05:38→21:28)
[2022-05-07 07:09] LABS: Basophils # (Auto) 0.02 K/mcL (0.00-0.30); Basophils % (Auto) 0.2 % (0.0-2.0); Eosinophils # (Auto) 0.02 K/mcL (0.00-0.70); Eosinophils % (Auto) 0.2 % (0.0-7.0); Hemoglobin 9.9 g/dL (11.2-15.7); Lymphocytes # (Auto) 0.81 K/mcL (1.50-4.80); Lymphocytes % (Auto) 7.2 % (15.5-49.0); Mean Cell Volume 100.3 fL (80.0-100.0); Mean Corpuscular HGB Conc 31.9 g/dL (31.0-36.0); Mean Platelet Volume 9.5 fL (8.8-12.5); Monocytes # (Auto) 1.25 K/mcL (0.10-0.90); Monocytes % (Auto) 11.1 % (1.0-12.0); Neutrophils % (Auto) 80.4 % (38.0-78.0); Platelet Count 289 K/mcL (140-440); RBC 3.09 M/mcL (3.59-5.38); WBC 11.3 K/mcL (4.5-11.0)
[2022-05-07 07:18] LABS: ALT/SGPT 10 U/L (<40); AST/SGOT 19 U/L (<32); Albumin 2.6 gm/dL (3.2-5.2); Alkaline Phosphatase 125 U/L (39-117); Bilirubin,Total 1.1 mg/dL (0.1-1.0); Blood Urea Nitrogen 16 mg/dL (8-23); Carbon Dioxide 20 mmol/L (22-30); Chloride 108 mmol/L (96-108); Globulin 2.5 gm/dL (2.2-3.7); Glomerular Filtration Rate 66; Glucose 164 mg/dL (70-105)
[2022-05-07] MEDS: DILTIAZEM 30 MG TABLET PO SCH (08:11)
[2022-05-07] MEDS: OMEPRAZOLE 20 MG CAPSULE PO SCH (08:11)
[2022-05-07] MEDS: DOCUSATE SODIUM 100 MG CAPSULE PO SCH ×2 (08:11→21:23)
[2022-05-07] MEDS: ASPIRIN 81 MG TAB.CHEW PO SCH (08:11)
[2022-05-07] MEDS: FERROUS SULFATE 325 MG TABLET PO SCH (08:11)
[2022-05-07] MEDS: MAGNESIUM OXIDE 400 MG TABLET PO SCH (08:11)
[2022-05-07] MEDS: APIXABAN 5 MG TABLET PO SCH ×2 (08:12→21:23)
[2022-05-07] MEDS: FUROSEMIDE 20 MG TABLET PO SCH (08:12)
[2022-05-07] MEDS: METOPROLOL SUCCINATE 50 MG TAB.XL.24H PO SCH ×2 (08:12→21:23)
[2022-05-07] MEDS: INSULIN LISPRO 1 UNIT/0.01 ML UNIT SQ SCH ×4 (08:16→21:23)
--- NOTE | 2022-05-07 09:09 | Internal Med Progress Note ---
SUBJECTIVE Subjective Patient information: Note initiated : 05/07/22 at 9:07 am Service Date, if different from initiated Date: [] Patient: Nolvia Jalloh 86 y/o F admitted on 05/06/22 for weakness. Chief Complaint: [] Interval history: Ms. 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 The following history is sev erely limited by the patient's clinical situations and lack of family or caregiver at the bedside. Patient does not recall why she is being sent to the hospital. She currently denies any chest pain palpitations or chest pressure. She denies any shortness of breath. She denies any lightheadedness or dizziness. She denies any pain or discomfort at the moment. Vital signs at ED presentation significant for severe tachycardia with heart rate up to the 160s beats per minutes. Labs significant for leukocytosis with WBC 13.1, as well as hemoglobin and hematocrit 10.1 and 31.5, respectively. Only remarkable electrolyte imbalance is mild hypodysemia with serum magnesium level 1.5. D- dimer 0.87. Serum troponin 0.01. CT angiogram of the chest negative for any pulmonary embolism or any focal infiltrate. Patient was started on Cardizem drip after several rounds of Cardizem pushes failed to successfully rate controlled the patient. 05/06: Patient's heart rate was up in the 150s earlier this morning but when I saw the patient at the bedside and it went down to 110 beats per minutes. Patient denies any chest pain palpitations or shortness of breath. She is still complaining of right facial swelling and pain. She denies any fever chills or diaphoresis. She is complain of general body weakness. Will start IV antibiotics with Zosyn after blood cultures. We will also offer pain regimen including ibuprofen, oxycodone, and IV morphine as needed for mild to moderate or severe pain, respectively. Continue Cardizem and metoprolol ER while attempting to down titrate Cardizem drip. 2D echocardiogram. Physical therapy and Occupational Therapy evaluation and treatments for placement pending. 05/07: Low-grade fever 37.7 this morning. Blood culture growing gram-positive cocci in both sets. Heart rate in the 1 teens, Cardizem drip still on at 10 Mg per hour. 2D echocardiogram preformed, results pending. Patient denies any chest pain palpitations or shortness of breath. She is still complaining of right facial swelling and pain. She denies any fever chills or diaphoresis. She is complain of general body weakness. Repeat blood cultures X2 on 05/08. Continue to watch for echocardiogram results. Continue Zosyn. Switch from Diltiazem from 60mg PO QID to Diltiazem extended release 360mg PO daily, continue metoprolol ER 100mg PO BID. Continue to wean down/off Diltiazem drip. Physical therapy and Occupational Therapy evaluation and treatments for placement pending. Constitutional Vitals: Vital Signs Temp Pulse Resp BP Pulse Ox O2 Del Method O2 Flow Rate 36.6 C 102 H 21 124/91 93 0 05/07/22 08:01 05/07/22 07:01 05/07/22 08:01 05/07/22 08:01 05/07/22 07:01 05/07/22 05:00 05/07/22 00:00 Period Temp Pulse Resp BP Sys/Tidwell Pulse Ox O2 Del Method O2 Flow Rate Last 24 Hr 36.6 C-37.7 C 53-136 13-25 96-128/56-103 92-100 Room Air-Room Air 0-0 Intake and Output 05/06/22 05/07/22 05/07/22 21:59 05:59 13:59 Intake Total 589 200 124 Output Total 125 401 Balance 464 -201 124 Weight 51.71 kg Intake & Output: Intake & Output 05/06/22 05/07/22 05/07/22 21:59 05:59 13:59 Intake Total 589 200 124 Output Total 125 401 Balance 464 -201 124 Weight 51.71 kg Intake: IV 109 100 124 Cardizem 125 mg In Dextrose 5% 9 100 74 in Water 100 ml @ 5 MG/HR 5 mls /hr IV Q6H [facility] Rx#:[id number] Zosyn 3.375 gm In Dextrose 5% 100 50 in Water 50 ml @ 100 mls/hr IV Q8H [facility] Rx#:[id number] Oral 480 100 Output: Urine Catheter Amount 400 Void Amount 125 # of times incontinent of urine 1 Other: Meal Dinner Percent of Meal Consumed 75% Feeding Ability Independent Urine Appearance Clear Uretheral ([place]) Clear Clear Urine Color Dark Radha Yellow Uretheral ([place]) Yellow Yellow Urine Odor Normal Head Head exam: Present atraumatic and normal inspection Eye Eye exam: Present normal appearance ENT ENT exam: Present mucous membranes moist, normal exam and normal external ear exam Additional comments: Right facial swelling, warmth, tenderness to palpation Neck Neck exam: Present normal inspection Respiratory Respiratory exam: Present normal respiratory exam Cardiovascular Cardiovascular exam: Present irregular rhythm and tachycardia Additional comments: Pacemaker in place GI/Abdominal GI/Abdominal exam: Present normal bowel sounds Back Exam Back exam: Present normal inspection Neurological Exam Neurological exam: Present alert and oriented X3 Skin Skin exam: Present intact and warm OBJ DATA Labs CBC & Chem 7: 05/07/22 05:56 05/07/22 05:56 Labs: Abnormal Lab Results 05/07/22 05/07/22 05/06/22 05:56 05:56 09:58 WBC 11.3 H RBC 3.09 L Hgb 9.9 L Hct 31.0 L POC Hct MCV 100.3 H RDW 16.0 H Immature Gran % (Auto) 0.9 H Neut % (Auto) 80.4 H Lymph % (Auto) 7.2 L Lymph # (Auto) 0.81 L [place] # (Auto) 1.25 H Immature Gran # 0.10 H Absolute Neutrophils 9.09 H D-Dimer POC Chloride Carbon Dioxide 20 L POC Total CO2 POC BUN Glucose 164 H POC Glucose Hemoglobin A1c Phosphorus Magnesium Total Bilirubin 1.1 H Direct Bilirubin Alkaline Phosphatase 125 H Total Protein 5.1 L Albumin 2.6 L Procalcitonin 0.28 H POC Troponin I 05/06/22 05/06/22 05/06/22 05:53 05:53 05:53 WBC 12.7 H RBC Hgb 11.1 L Hct POC Hct MCV RDW 15.9 H Immature Gran % (Auto) 0.9 H Neut % (Auto) 80.6 H Lymph % (Auto) 7.6 L Lymph # (Auto) 0.97 L [place] # (Auto) 1.36 H Immature Gran # 0.12 H Absolute Neutrophils 10.22 H D-Dimer POC Chloride Carbon Dioxide 18 L POC Total CO2 POC BUN Glucose 176 H POC Glucose Hemoglobin A1c 7.5 H Phosphorus Magnesium Total Bilirubin 1.1 H Direct Bilirubin Alkaline Phosphatase Total Protein 5.7 L Albumin 2.8 L Procalcitonin POC Troponin I 05/05/22 05/05/22 05/05/22 19:35 16:44 16:00 WBC RBC Hgb Hct POC Hct 33.0 L MCV RDW Immature Gran % (Auto) Neut % (Auto) Lymph % (Auto) Lymph # (Auto) [place] # (Auto) Immature Gran # Absolute Neutrophils D-Dimer 0.87 H POC Chloride 112 H Carbon Dioxide POC Total CO2 21.0 L POC BUN 21 H Glucose POC Glucose 184 H Hemoglobin A1c Phosphorus Magnesium Total Bilirubin Direct Bilirubin Alkaline Phosphatase Total Protein Albumin Procalcitonin POC Troponin I 0.01 L 05/05/22 05/05/22 16:00 16:00 WBC 13.1 H RBC 3.27 L Hgb 10.1 L Hct 31.5 L POC Hct MCV RDW 15.8 H Immature Gran % (Auto) 1.6 H Neut % (Auto) 81.9 H Lymph % (Auto) 5.7 L Lymph # (Auto) 0.75 L [place] # (Auto) 1.39 H Immature Gran # 0.21 H Absolute Neutrophils 10.73 H D-Dimer POC Chloride Carbon Dioxide POC Total CO2 POC BUN Glucose POC Glucose Hemoglobin A1c Phosphorus 2.4 L Magnesium 1.5 L Total Bilirubin 1.1 H Direct Bilirubin 0.4 H Alkaline Phosphatase Total Protein 5.5 L Albumin 3.0 L Procalcitonin POC Troponin I Meds: Medications Acetaminophen (Acetaminophen 325 Mg Tablet) 650 mg PO Q4-6HP PRN; Protocol PRN Reason: Per Pain Protocol/Fever > 101 Hydrocodone Bitart/Acetaminophen (Hydrocodone/Apap 10/325mg Tablet) 2 tab PO BIDP PRN; Protocol PRN Reason: PAIN LEVEL > 6 Albuterol/Ipratropium (Ipratropium/Albuterol 3 Ml Ampul.Neb) 3 ml NEB Q4HRT PRN PRN Reason: Wheezing Apixaban (Apixaban 5 Mg Tablet) 2.5 mg PO BID [facility] Last Admin: 05/07/22 08:12 Dose: 2.5 mg Aspirin (Aspirin 81 Mg Tab.Chew) 81 mg PO DAILY [facility] Last Admin: 05/07/22 08:11 Dose: 81 mg Atorvastatin Calcium (Atorvastatin 40 Mg Tablet) 40 mg PO HS [facility] Last Admin: 05/06/22 21:02 Dose: 40 mg Dextrose (Dextrose 50% 50 Ml Vial) 0 ml IV UD PRN PRN Reason: Per Sliding Scale Diagnostic Test (Pha) (Accu-Chek 1 Each Strip) 1 each FS [facility] Last Admin: 05/07/22 08:04 Dose: 1 each Diltiazem HCl (Diltiazem 180 Mg Cap.Xl.24h) 360 mg PO DAILY [facility] Docusate Sodium (Docusate Sodium 100 Mg Capsule) 100 mg PO BID [facility] Last Admin: 05/07/22 08:11 Dose: 100 mg Ferrous Sulfate (Ferrous Sulfate 325 Mg Tablet) 325 mg PO QAC [facility] Last Admin: 05/07/22 08:11 Dose: 325 mg Furosemide (Furosemide 20 Mg Tablet) 20 mg PO QDAY [facility] Last Admin: 05/07/22 08:12 Dose: 20 mg Gabapentin (Gabapentin 100 Mg Capsule) 100 mg PO [facility] Last Admin: 05/06/22 21:01 Dose: 100 mg Glucose (Dextrose 31 Gm Oral.Susp) 15 gm PO PRN PRN PRN Reason: Hypoglycemia Diltiazem HCl 125 mg/ Dextrose 125 mls @ 5 mls/hr IV Q6H [facility]; Protocol Last Titration: 05/07/22 08:20 Dose: 10 mg/hr, 10 mls/hr Piperacillin Sod/Tazobactam (Sod 3.375 gm/ Dextrose) 50 mls @ 100 mls/hr IV Q8H [facility]; Protocol Last Infusion: 05/07/22 06:08 Dose: Infused Ibuprofen (Ibuprofen 600 Mg Tablet) 600 mg PO QIDP PRN; Protocol PRN Reason: PAIN/FEVER > 101 Insulin Human Lispro (Insulin Lispro 1 Unit/0.01 Ml Unit) 0 unit SQ [facility]; Protocol Last Admin: 05/07/22 08:16 Dose: 1 units Magnesium Oxide (Magnesium Oxide 400 Mg Tablet) 400 mg PO DAILY [facility] Last Admin: 05/07/22 08:11 Dose: 400 mg Metoprolol Succinate (Metoprolol Succinate 50 Mg Tab.Xl.24h) 100 mg PO BID [facility] Last Admin: 05/07/22 08:12 Dose: 100 mg Morphine Sulfate (Morphine 2 Mg/Ml Vial) 2 mg IV Q4HP PRN; Protocol PRN Reason: Per Pain Protocol Omeprazole (Om[facility]ole 20 Mg Capsule) [facility] Admin: 05/07/22 08:11 Dose: 20 mg Ondansetron HCl (Ondansetron 4 Mg/2 Ml Vial) 4 mg IV Q4-6HP PRN; Protocol PRN Reason: Nausea And Vomiting Oxycodone HCl (Oxycodone Hcl 5 Mg Tablet) 5 mg PO Q4-6HP PRN; Protocol PRN Reason: Per Pain Protocol Promethazine HCl (Promethazine 25 Mg/Ml Vial) 25 mg IV Q4-6HP PRN; Protocol PRN Reason: Nausea And Vomiting Senna (Sennosides 1 Tablet) 1 tab PO DAILYP PRN PRN Reason: Constipation Sodium Chloride (0.9 % Sodium Chloride 10 Ml Syringe) 10 ml IV Q8 [facility] Last Admin: 05/07/22 05:38 Dose: 10 ml A/P Assessment and plan (1) Atrial fibrillation with rapid ventricular response: Status: Acute (2) Other hyperlipidemia: Status: Chronic (3) Pacemaker: Status: Chronic (4) 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 Atrial fibrillation with RVR: Inpatient ICU with telemetry Diltiazem drip, with max rate of 20mg/hr. Okay to have the heart rate up in the 150s bpm once the max rate of Diltiazem drip is reached Hold Diltiazem extended release formula, switch to immediate release formula for now for dose titration, start with Cardizem immediate release 60mg PO QID Switch from Diltiazem from 60mg PO QID to Diltiazem extended release 360mg PO daily Eliquis 2D echocardiogram, results pending Physical therapy Occupational therapy 2. T2DM with associated diabetic polyneuropathy and nephropathy: HgA1c 7.5 Hold oral hypoglycemics Insulin Lispro SSI AC HS Accu Chek AC HS Hypoglycemia protocol Diabetic diet Neurontin 3. Essential HTN: Switch from Diltiazem from 60mg PO QID to Diltiazem extended release 360mg PO daily Metoprolol ER Lasix PO 4. Dyslipidemia: Continue statin therapy 5. Normocytic normochromic anemia: Ferrous sulfate cbc w/ auto diff in the morning to trend H/H 6. Hypomagnesemia: Mg oral replacement Repeat serum Mg level in the morning to trend 7. Right parotitis: DDx: infectious causes such as mumps, influenza, coxsackievirus, and noninfectious causes such as sialolithiasis, tumors (not seen by facial CT) Lactic acid Procalcitonin Blood cultures, gram positive cocci in both sets, see #8 cbc w/ auto diff in the morning to trend WBC Zosyn, switch to Augmentin when discharge We will also offer pain regimen including ibuprofen, oxycodone, and IV morphine as needed for mild to moderate or severe pain, respectively 8. Gram positive cocci bacteremia: Repeat blood cultures X2 on 05/08 2D echocardiogram results pending Zosyn cbc w/ auto diff in the morning to trend WBC GI ppx: oral PPI DVT ppx: Eliquis Code statin: DNR Prongosis: Guarded Disposition: Inpatient ICU; PT OT Critical Care Time: 60min Time Spent With Patient Time: Total time spent is greater than 50% in coordination of care (as documented) at patient's floor/unit and/or counseling patient: Total time spent with greater than 50% in coordination of care (as documented) at patient's floor/unit and/or counseling patient:: 50 - 70 minutes Critical Care Time: Yes Total Critical Care Time: 60 QUALITY VTE Deep Vein Thrombosis/Pulmonary Embolism Present on Admission: Yes
[2022-05-07] MEDS: DILTIAZEM 180 MG CAP.XL.24H PO SCH (10:12)
[2022-05-07] MEDS ORDERED: DILTIAZEM 125 MG in DEXTROSE 5% IN WATER 100 ML IV PRN (10:30)
[2022-05-07] MEDS: ACETAMINOPHEN 325 MG TABLET PO PRN (12:52)
--- NOTE | 2022-05-07 13:45 | EKG ---
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 Measurements Intervals [place] Rate: 160 P: MT: QRS: -78 QRSD: 73 T: 243 QT: 334 QTc: 545 Interpretive Statements Atrial fibrillation with rapid V-rate Low voltage, extremity leads Repolarization abnormality, prob rate related Electronically Signed On 05-07-2022 13:45:04 PDT by Felipe Bella D.O. /store/M0/[id number]
--- NOTE | 2022-05-07 13:49 | EKG ---
[facility] Test Date: 2022-05-05 Pat Name: Nolvia Jalloh Department: ED Room: Gender: Female Family Caseworker: : 1935 Requested By: Jose Rodriguez Order Number: [id number] Reading MD: Felipe Bella D.O. Measurements Intervals [place] Rate: 162 P: ND: QRS: 269 QRSD: 79 T: 256 QT: 259 QTc: 426 Interpretive Statements Atrial fibrillation with rapid V-rate repolarization abnormalities, probably rate related Electronically Signed On 05-07-2022 13:49:09 PDT by Felipe Bella D.O. /store/M0/[id number]
[2022-05-07] MEDS: ATORVASTATIN 40 MG TABLET PO SCH (21:23)
[2022-05-07] MEDS: GABAPENTIN 100 MG CAPSULE PO SCH (21:23)
[2022-05-08] MEDS: 0.9 % SODIUM CHLORIDE 10 ML SYRINGE IV SCH ×3 (05:46→20:46)
[2022-05-08] MEDS: PIPERACILLIN SODIUM/TAZOBACTAM 3.375 GM in DEXTROSE 5% IN WATER 50 ML IV SCH ×3 (05:46→20:46)
[2022-05-08] MEDS: HYDROcodone/APAP 10/325MG TABLET PO PRN ×2 (05:57→20:45)
[2022-05-08] MEDS: FERROUS SULFATE 325 MG TABLET PO SCH (07:37)
[2022-05-08] MEDS: OMEPRAZOLE 20 MG CAPSULE PO SCH (07:37)
[2022-05-08] MEDS: ASPIRIN 81 MG TAB.CHEW PO SCH (07:38)
[2022-05-08] MEDS: MAGNESIUM OXIDE 400 MG TABLET PO SCH (07:38)
[2022-05-08] MEDS: FUROSEMIDE 20 MG TABLET PO SCH (07:38)
[2022-05-08] MEDS: DOCUSATE SODIUM 100 MG CAPSULE PO SCH ×2 (07:38→20:45)
[2022-05-08] MEDS: APIXABAN 5 MG TABLET PO SCH ×2 (07:38→20:43)
[2022-05-08] MEDS: METOPROLOL SUCCINATE 50 MG TAB.XL.24H PO SCH ×2 (07:38→20:44)
[2022-05-08] MEDS: INSULIN LISPRO 1 UNIT/0.01 ML UNIT SQ SCH ×4 (07:38→20:43)
[2022-05-08] MEDS: DILTIAZEM 180 MG CAP.XL.24H PO SCH (07:38)
[2022-05-08 07:50] LABS: Basophils # (Auto) 0.03 K/mcL (0.00-0.30); Basophils % (Auto) 0.2 % (0.0-2.0); Eosinophils # (Auto) 0.07 K/mcL (0.00-0.70); Eosinophils % (Auto) 0.6 % (0.0-7.0); Hematocrit 33.8 % (34.1-44.9); Hemoglobin 10.7 g/dL (11.2-15.7); Lymphocytes # (Auto) 1.12 K/mcL (1.50-4.80); Lymphocytes % (Auto) 9.1 % (15.5-49.0); Mean Cell Volume 99.1 fL (80.0-100.0); Mean Corpuscular HGB Conc 31.7 g/dL (31.0-36.0); Mean Platelet Volume 9.7 fL (8.8-12.5); Monocytes # (Auto) 1.09 K/mcL (0.10-0.90); Monocytes % (Auto) 8.8 % (1.0-12.0); Neutrophils % (Auto) 80.7 % (38.0-78.0); Platelet Count 329 K/mcL (140-440); RBC 3.41 M/mcL (3.59-5.38); Red Cell Distribution Width 15.8 % (11.5-14.5); WBC 12.3 K/mcL (4.5-11.0)
[2022-05-08 08:13] LABS: ALT/SGPT 20 U/L (<40); AST/SGOT 44 U/L (<32); Albumin 2.8 gm/dL (3.2-5.2); Albumin/Globulin Ratio 0.9 (1.0-2.3); Alkaline Phosphatase 149 U/L (39-117); Bilirubin,Total 0.9 mg/dL (0.1-1.0); Blood Urea Nitrogen 18 mg/dL (8-23); Calcium 9.1 mg/dL (8.6-10.4); Carbon Dioxide 22 mmol/L (22-30); Chloride 106 mmol/L (96-108); Glomerular Filtration Rate 57; Glucose 137 mg/dL (70-105); Phosphorous 2.2 mg/dL (2.5-4.5)
--- NOTE | 2022-05-08 09:31 | Internal Med Progress Note ---
SUBJECTIVE Subjective Patient information: Note initiated : 05/08/22 at 9:26 am Service Date, if different from initiated Date: [] Patient: Nolvia Jalloh 86 y/o F admitted on 05/06/22 for weakness. Chief Complaint: [] Interval history: Ms. 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 The following history is sev erely limited by the patient's clinical situations and lack of family or caregiver at the bedside. Patient does not recall why she is being sent to the hospital. She currently denies any chest pain palpitations or chest pressure. She denies any shortness of breath. She denies any lightheadedness or dizziness. She denies any pain or discomfort at the moment. Vital signs at ED presentation significant for severe tachycardia with heart rate up to the 160s beats per minutes. Labs significant for leukocytosis with WBC 13.1, as well as hemoglobin and hematocrit 10.1 and 31.5, respectively. Only remarkable electrolyte imbalance is mild hypodysemia with serum magnesium level 1.5. D- dimer 0.87. Serum troponin 0.01. CT angiogram of the chest negative for any pulmonary embolism or any focal infiltrate. Patient was started on Cardizem drip after several rounds of Cardizem pushes failed to successfully rate controlled the patient. 05/06: Patient's heart rate was up in the 150s earlier this morning but when I saw the patient at the bedside and it went down to 110 beats per minutes. Patient denies any chest pain palpitations or shortness of breath. She is still complaining of right facial swelling and pain. She denies any fever chills or diaphoresis. She is complain of general body weakness. Will start IV antibiotics with Zosyn after blood cultures. We will also offer pain regimen including ibuprofen, oxycodone, and IV morphine as needed for mild to moderate or severe pain, respectively. Continue Cardizem and metoprolol ER while attempting to down titrate Cardizem drip. 2D echocardiogram. Physical therapy and Occupational Therapy evaluation and treatments for placement pending. 05/07: Low-grade fever 37.7 this morning. Blood culture growing gram-positive cocci in both sets. Heart rate in the 1 teens, Cardizem drip still on at 10 Mg per hour. 2D echocardiogram preformed, results pending. Patient denies any chest pain palpitations or shortness of breath. She is still complaining of right facial swelling and pain. She denies any fever chills or diaphoresis. She is complain of general body weakness. Repeat blood cultures X2 on 05/08. Continue to watch for echocardiogram results. Continue Zosyn. Switch from Diltiazem from 60mg PO QID to Diltiazem extended release 360mg PO daily, continue metoprolol ER 100mg PO BID. Continue to wean down/off Diltiazem drip. Physical therapy and Occupational Therapy evaluation and treatments for placement pending. 05/08: Afebrile overnight. Patient is on room air. Patient's has been off Cardizem drip since yesterday morning, on Cardizem extended release 360 mg p.o. daily and metoprolol ER 100 mg p.o. twice daily. Current heart rates up in the 130s beats per minutes. Blood pressure normal. WBC 12.3, initial blood culture still growing gram-positive cocci no further identity is available at the moment. Patient is still commenting of same degree of right facial pain. She is able to tolerate her diet and chew on her food. Denies chest pain or palpitation. Repeat blood cultures X2 today. MRI face w/ w/o. Continue Zosyn. Diltiazem extended release 360mg PO daily, continue metoprolol ER 100mg PO BID. Cardizem drip stands by. Physical therapy and Occupational Therapy evaluation and treatments for placement pending. Constitutional Vitals: Vital Signs Temp Pulse Resp BP Pulse Ox O2 Del Method O2 Flow Rate 36.4 C 131 H 19 102/75 92 0 05/08/22 08:14 05/08/22 05:00 05/08/22 09:01 05/08/22 09:01 05/08/22 07:01 05/07/22 20:00 05/07/22 20:00 Period Temp Pulse Resp BP Sys/[place] Pulse Ox O2 Del Method O2 Flow Rate Last 24 Hr 36.4 C-36.8 C 65-140 13-27 86-168/51-155 92-99 Room Air-Room Air 0 Intake and Output 05/07/22 05/08/22 05/08/22 21:59 05:59 13:59 Intake Total 100 730 Output Total 101 Balance -1 730 Weight 52.889 kg Intake & Output: Intake & Output 05/07/22 05/08/22 05/08/22 21:59 05:59 13:59 Intake Total 100 730 Output Total 101 Balance -1 730 Weight 52.889 kg Intake: IV 100 50 Cardizem 125 mg In Dextrose 5% 0 in Water 100 ml @ 5 MG/HR 5 mls /hr IV Q6H [facility] Rx#:[id number] Zosyn 3.375 gm In Dextrose 5% 100 50 in Water 50 ml @ 100 mls/hr IV Q8H [facility] Rx#:[id number] Oral 680 Output: Void Amount 100 # of times incontinent of urine 1 Other: Urine Color Dark Yellow Urine Odor Strong Stool Color Black Stool Consistency Iram Head Head exam: Present atraumatic and normal inspection Eye Eye exam: Present normal appearance ENT ENT exam: Present mucous membranes moist, normal exam and normal external ear exam Additional comments: Right facial tenderness, swelling, induration. Neck Neck exam: Present normal inspection Respiratory Respiratory exam: Present normal respiratory exam Cardiovascular Cardiovascular exam: Present irregular rhythm and tachycardia GI/Abdominal GI/Abdominal exam: Present normal bowel sounds Back Exam Back exam: Present normal inspection Neurological Exam Neurological exam: Present alert and oriented X3 Skin Skin exam: Present intact and warm OBJ DATA Labs CBC & Chem 7: 05/08/22 05:54 05/08/22 05:54 Labs: Abnormal Lab Results 05/08/22 05/08/22 05/07/22 05:54 05:54 05:56 WBC 12.3 H RBC 3.41 L Hgb 10.7 L Hct 33.8 L POC Hct MCV RDW 15.8 H Immature Gran % (Auto) 0.6 H Neut % (Auto) 80.7 H Lymph % (Auto) 9.1 L Lymph # (Auto) 1.12 L Moffat # (Auto) 1.09 H Immature Gran # 0.07 H Absolute Neutrophils 9.94 H D-Dimer POC Chloride Carbon Dioxide 20 L POC Total CO2 POC BUN Glucose 137 H 164 H POC Glucose Hemoglobin A1c Phosphorus 2.2 L Magnesium Total Bilirubin 1.1 H Direct Bilirubin AST 44 H Alkaline Phosphatase 149 H 125 H Total Protein 5.8 L 5.1 L Albumin 2.8 L 2.6 L Albumin/Globulin Ratio 0.9 L Procalcitonin POC Troponin I 05/07/22 05/06/22 05/06/22 05:56 09:58 05:53 WBC 11.3 H RBC 3.09 L Hgb 9.9 L Hct 31.0 L POC Hct MCV 100.3 H RDW 16.0 H Immature Gran % (Auto) 0.9 H Neut % (Auto) 80.4 H Lymph % (Auto) 7.2 L Lymph # (Auto) 0.81 L Moffat # (Auto) 1.25 H Immature Gran # 0.10 H Absolute Neutrophils 9.09 H D-Dimer POC Chloride Carbon Dioxide 18 L POC Total CO2 POC BUN Glucose 176 H POC Glucose Hemoglobin A1c Phosphorus Magnesium Total Bilirubin 1.1 H Direct Bilirubin AST Alkaline Phosphatase Total Protein 5.7 L Albumin 2.8 L Albumin/Globulin Ratio Procalcitonin 0.28 H POC Troponin I 05/06/22 05/06/22 05/05/22 05:53 05:53 19:35 WBC 12.7 H RBC Hgb 11.1 L Hct POC Hct MCV RDW 15.9 H Immature Gran % (Auto) 0.9 H Neut % (Auto) 80.6 H Lymph % (Auto) 7.6 L Lymph # (Auto) 0.97 L Moffat # (Auto) 1.36 H Immature Gran # 0.12 H Absolute Neutrophils 10.22 H D-Dimer POC Chloride Carbon Dioxide POC Total CO2 POC BUN Glucose POC Glucose Hemoglobin A1c 7.5 H Phosphorus Magnesium Total Bilirubin Direct Bilirubin AST Alkaline Phosphatase Total Protein Albumin Albumin/Globulin Ratio Procalcitonin POC Troponin I 0.01 L 05/05/22 05/05/22 05/05/22 16:44 16:00 16:00 WBC RBC Hgb Hct POC Hct 33.0 L MCV RDW Immature Gran % (Auto) Neut % (Auto) Lymph % (Auto) Lymph # (Auto) Moffat # (Auto) Immature Gran # Absolute Neutrophils D-Dimer 0.87 H POC Chloride 112 H Carbon Dioxide POC Total CO2 21.0 L POC BUN 21 H Glucose POC Glucose 184 H Hemoglobin A1c Phosphorus 2.4 L Magnesium 1.5 L Total Bilirubin 1.1 H Direct Bilirubin 0.4 H AST Alkaline Phosphatase Total Protein 5.5 L Albumin 3.0 L Albumin/Globulin Ratio Procalcitonin POC Troponin I 05/05/22 16:00 WBC 13.1 H RBC 3.27 L Hgb 10.1 L Hct 31.5 L POC Hct MCV RDW 15.8 H Immature Gran % (Auto) 1.6 H Neut % (Auto) 81.9 H Lymph % (Auto) 5.7 L Lymph # (Auto) 0.75 L Moffat # (Auto) 1.39 H Immature Gran # 0.21 H Absolute Neutrophils 10.73 H D-Dimer POC Chloride Carbon Dioxide POC Total CO2 POC BUN Glucose POC Glucose Hemoglobin A1c Phosphorus Magnesium Total Bilirubin Direct Bilirubin AST Alkaline Phosphatase Total Protein Albumin Albumin/Globulin Ratio Procalcitonin POC Troponin I Meds: Medications Acetaminophen (Acetaminophen 325 Mg Tablet) 650 mg PO Q4-6HP PRN; Protocol PRN Reason: Per Pain Protocol/Fever > 101 Last Admin: 05/07/22 12:52 Dose: 650 mg Hydrocodone Bitart/Acetaminophen (Hydrocodone/Apap 10/325mg Tablet) 2 tab PO BIDP PRN; Protocol PRN Reason: PAIN LEVEL > 6 Last Admin: 05/08/22 05:57 Dose: 2 tab Albuterol/Ipratropium (Ipratropium/Albuterol 3 Ml Ampul.Neb) 3 ml NEB Q4HRT PRN PRN Reason: Wheezing Apixaban (Apixaban 5 Mg Tablet) 2.5 mg PO BID [facility] Last Admin: 05/08/22 07:38 Dose: 2.5 mg Aspirin (Aspirin 81 Mg Tab.Chew) 81 mg PO DAILY [facility] Last Admin: 05/08/22 07:38 Dose: 81 mg Atorvastatin Calcium (Atorvastatin 40 Mg Tablet) 40 mg PO HS [facility] Last Admin: 05/07/22 21:23 Dose: 40 mg Dextrose (Dextrose 50% 50 Ml Vial) 0 ml IV UD PRN PRN Reason: Per Sliding Scale Diagnostic Test (Pha) (Accu-Chek 1 Each Strip) 1 each FS ACHS [facility] Last Admin: 05/08/22 07:27 Dose: 1 each Diltiazem HCl (Diltiazem 180 Mg Cap.Xl.24h) 360 mg PO DAILY [facility] Last Admin: 05/08/22 07:38 Dose: 360 mg Docusate Sodium (Docusate Sodium 100 Mg Capsule) 100 mg PO BID [facility] Last Admin: 05/08/22 07:38 Dose: 100 mg Ferrous Sulfate (Ferrous Sulfate 325 Mg Tablet) 325 mg PO QAC [facility] Last Admin: 05/08/22 07:37 Dose: 325 mg Furosemide (Furosemide 20 Mg Tablet) 20 mg PO QDAY [facility] Last Admin: 05/08/22 07:38 Dose: 20 mg Gabapentin (Gabapentin 100 Mg Capsule) 100 mg PO [facility] Last Admin: 05/07/22 21:23 Dose: 100 mg Glucose (Dextrose 31 Gm Oral.Susp) 15 gm PO PRN PRN PRN Reason: Hypoglycemia Piperacillin Sod/Tazobactam (Sod 3.375 gm/ Dextrose) 50 mls @ 100 mls/hr IV Q8H [facility]; Protocol Last Infusion: 05/08/22 06:17 Dose: Infused Diltiazem HCl 125 mg/ Dextrose 125 mls @ 5 mls/hr IV Q12HP PRN; Protocol PRN Reason: Tachyarrhythmias Ibuprofen (Ibuprofen 600 Mg Tablet) 600 mg PO QIDP PRN; Protocol PRN Reason: PAIN/FEVER > 101 Insulin Human Lispro (Insulin Lispro 1 Unit/0.01 Ml Unit) 0 unit SQ [facility]; Protocol Last Admin: 05/08/22 07:38 Dose: 2 units Magnesium Oxide (Magnesium Oxide 400 Mg Tablet) 400 mg PO DAILY [facility] Last Admin: 05/08/22 07:38 Dose: 400 mg Metoprolol Succinate (Metoprolol Succinate 50 Mg Tab.Xl.24h) 100 mg PO BID [facility] Last Admin: 05/08/22 07:38 Dose: 100 mg Morphine Sulfate (Morphine 2 Mg/Ml Vial) 2 mg IV Q4HP PRN; Protocol PRN Reason: Per Pain Protocol Omeprazole (Omeprazole 20 Mg Capsule) 20 mg PO [facility] Last Admin: 05/08/22 07:37 Dose: 20 mg Ondansetron HCl (Ondansetron 4 Mg/2 Ml Vial) 4 mg IV Q4-6HP PRN; Protocol PRN Reason: Nausea And Vomiting Oxycodone HCl (Oxycodone Hcl 5 Mg Tablet) 5 mg PO Q4-6HP PRN; Protocol PRN Reason: Per Pain Protocol Promethazine HCl (Promethazine 25 Mg/Ml Vial) 25 mg IV Q4-6HP PRN; Protocol PRN Reason: Nausea And Vomiting Senna (Sennosides 1 Tablet) 1 tab PO DAILYP PRN PRN Reason: Constipation Last Admin: 05/08/22 07:38 Dose: 1 tab Sodium Chloride (0.9 % Sodium Chloride 10 Ml Syringe) 10 ml IV Q8 [facility] Last Admin: 05/08/22 05:46 Dose: 10 ml A/P Assessment and plan (1) Atrial fibrillation with rapid ventricular response: Status: Acute (2) Other hyperlipidemia: Status: Chronic (3) Pacemaker: Status: Chronic (4) 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 Atrial fibrillation with RVR: Inpatient ICU with telemetry Diltiazem drip, with max rate of 20mg/hr. Okay to have the heart rate up in the 150s bpm once the max rate of Diltiazem drip is reached Diltiazem extended release 360mg PO daily, continue metoprolol ER 100mg PO BID. Cardizem drip stands by [employer] 2D echocardiogram Physical therapy Occupational therapy 2. T2DM with associated diabetic polyneuropathy and nephropathy: HgA1c 7.5 Hold oral hypoglycemics Insulin Lispro SSI AC HS Accu Chek AC HS Hypoglycemia protocol Diabetic diet Neurontin 3. Essential HTN: Diltiazem extended release 360mg PO daily Metoprolol ER 100mg PO BID Cardizem drip stands by Lasix PO 4. Dyslipidemia: Continue statin therapy 5. Normocytic normochromic anemia: Ferrous sulfate cbc w/ auto diff in the morning to trend H/H 6. Hypomagnesemia: Mg oral replacement Repeat serum Mg level in the morning to trend 7. Right parotitis: DDx: infectious causes such as mumps, influenza, coxsackievirus, and noninfectious causes such as sialolithiasis, tumors (not seen by facial CT) Lactic acid Procalcitonin Blood cultures, gram positive cocci in both sets, see #8 cbc w/ auto diff in the morning to trend WBC Zosyn, switch to Augmentin when discharge We will also offer pain regimen including ibuprofen, oxycodone, and IV morphine as needed for mild to moderate or severe pain, respectively MRI face w/ w/o 8. Gram positive cocci bacteremia: Repeat blood cultures X2 on 05/08 2D echocardiogram, no vegetations Zosyn cbc w/ auto diff in the morning to trend WBC GI ppx: oral PPI DVT ppx: Eliquis Code statin: DNR Prongosis: Guarded Disposition: Inpatient ICU; PT OT Critical Care Time: 60min Time Spent With Patient Time: Total time spent is greater than 50% in coordination of care (as documented) at patient's floor/unit and/or counseling patient: Total time spent with greater than 50% in coordination of care (as documented) at patient's floor/unit and/or counseling patient:: 50 - 70 minutes Critical Care Time: Yes Total Critical Care Time: 60 QUALITY VTE Deep Vein Thrombosis/Pulmonary Embolism Present on Admission: Yes
[2022-05-08] MEDS ORDERED: IOPAMIDOL 100 ML BOTTLE IV ONE ×2 (12:06→12:31)
[2022-05-08] MEDS: ATORVASTATIN 40 MG TABLET PO SCH (20:45)
[2022-05-08] MEDS: GABAPENTIN 100 MG CAPSULE PO SCH (20:45)
[2022-05-09] MEDS: PIPERACILLIN SODIUM/TAZOBACTAM 3.375 GM in DEXTROSE 5% IN WATER 50 ML IV SCH (05:51)
[2022-05-09] MEDS: 0.9 % SODIUM CHLORIDE 10 ML SYRINGE IV SCH ×3 (05:52→20:43)
[2022-05-09] MEDS: ACETAMINOPHEN 325 MG TABLET PO PRN ×2 (05:52→12:27)
[2022-05-09 06:47] LABS: Basophils # (Auto) 0.02 K/mcL (0.00-0.30); Basophils % (Auto) 0.2 % (0.0-2.0); Eosinophils # (Auto) 0.14 K/mcL (0.00-0.70); Eosinophils % (Auto) 1.5 % (0.0-7.0); Hematocrit 32.9 % (34.1-44.9); Hemoglobin 10.5 g/dL (11.2-15.7); Lymphocytes # (Auto) 1.15 K/mcL (1.50-4.80); Lymphocytes % (Auto) 12.6 % (15.5-49.0); Mean Corpuscular HGB Conc 31.9 g/dL (31.0-36.0); Mean Platelet Volume 9.6 fL (8.8-12.5); Monocytes # (Auto) 0.92 K/mcL (0.10-0.90); Neutrophils % (Auto) 74.4 % (38.0-78.0); Platelet Count 314 K/mcL (140-440); RBC 3.29 M/mcL (3.59-5.38); Red Cell Distribution Width 15.4 % (11.5-14.5); WBC 9.2 K/mcL (4.5-11.0)
[2022-05-09 07:21] LABS: ALT/SGPT 23 U/L (<40); AST/SGOT 37 U/L (<32); Albumin 2.6 gm/dL (3.2-5.2); Albumin/Globulin Ratio 0.9 (1.0-2.3); Alkaline Phosphatase 112 U/L (39-117); Bilirubin,Total 0.6 mg/dL (0.1-1.0); Blood Urea Nitrogen 15 mg/dL (8-23); Calcium 8.8 mg/dL (8.6-10.4); Carbon Dioxide 21 mmol/L (22-30); Chloride 105 mmol/L (96-108); Globulin 2.8 gm/dL (2.2-3.7); Glomerular Filtration Rate 57; Glucose 173 mg/dL (70-105); Phosphorous 2.7 mg/dL (2.5-4.5)
[2022-05-09] MEDS: OMEPRAZOLE 20 MG CAPSULE PO SCH (07:27)
[2022-05-09] MEDS: MAGNESIUM OXIDE 400 MG TABLET PO SCH (08:00)
[2022-05-09] MEDS: ASPIRIN 81 MG TAB.CHEW PO SCH (08:00)
[2022-05-09] MEDS: FUROSEMIDE 20 MG TABLET PO SCH (08:00)
[2022-05-09] MEDS: FERROUS SULFATE 325 MG TABLET PO SCH (08:00)
[2022-05-09] MEDS: DOCUSATE SODIUM 100 MG CAPSULE PO SCH ×2 (08:00→20:40)
[2022-05-09] MEDS: APIXABAN 5 MG TABLET PO SCH ×2 (08:00→20:41)
[2022-05-09] MEDS: INSULIN LISPRO 1 UNIT/0.01 ML UNIT SQ SCH ×5 (08:00→20:42)
[2022-05-09] MEDS: DILTIAZEM 180 MG CAP.XL.24H PO SCH (08:00)
[2022-05-09] MEDS: METOPROLOL SUCCINATE 50 MG TAB.XL.24H PO SCH ×2 (08:01→20:41)
[2022-05-09] MEDS: oxyCODONE HCL 5 MG TABLET PO PRN (08:11)
--- NOTE | 2022-05-09 08:31 | Cat Scan Report ---
INDICATION: right facial swelling COMPARISON: May 05, 2022 FINDINGS: Intravenous contrast was administered and helical images were obtained from above the frontal sinuses through the mandible with multiplanar reformatting. There is senescent change of aging and prominence of the ventricles compatible normal pressure hydrocephalus. No suspicious enhancement is noted. All the paranasal sinuses are clear. There is asymmetric enlargement of the right parotid gland when compared to the left. The axial plane and measures approximately 48 x 40 mm. It is also denser than the left parotid gland. There is no fluid collections identified. No adenopathy is seen. IMPRESSION: Significant asymmetric enlargement of the right parotid gland when compared to the left. Could be related to sialoadenitis. Infiltrative lesions of the right parotid gland such as lymphoma, amyloid, sarcoidosis, Sjogren's disease, or other etiology needs consideration. This is similar to previous examination. No drainable fluid collections. Interpreted and Authenticated by: Enrique Donis M.D. 05/09/22
[2022-05-09] MEDS ORDERED: DEXTROSE 50% 50 ML VIAL IV PRN (12:10)
[2022-05-09] MEDS ORDERED: DEXTROSE 31 GM ORAL.SUSP PO PRN (12:10)
--- NOTE | 2022-05-09 12:11 | Internal Med Progress Note ---
SUBJECTIVE Subjective Patient information: Note initiated : 05/09/22 at 12:05 pm Service Date, if different from initiated Date: [] Patient: Nolvia Jalloh 86 y/o F admitted on 05/06/22 for weakness. Chief Complaint: [] Interval history: Ms. 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 The following history is se verely limited by the patient's clinical situations and lack of family or caregiver at the bedside. Patient does not recall why she is being sent to the hospital. She currently denies any chest pain palpitations or chest pressure. She denies any shortness of breath. She denies any lightheadedness or dizziness. She denies any pain or discomfort at the moment. Vital signs at ED presentation significant for severe tachycardia with heart rate up to the 160s beats per minutes. Labs significant for leukocytosis with WBC 13.1, as well as hemoglobin and hematocrit 10.1 and 31.5, respectively. Only remarkable electrolyte imbalance is mild hypodysemia with serum magnesium level 1.5. D- dimer 0.87. Serum troponin 0.01. CT angiogram of the chest negative for any pulmonary embolism or any focal infiltrate. Patient was started on Cardizem drip after several rounds of Cardizem pushes failed to successfully rate controlled the patient. 05/06: Patient's heart rate was up in the 150s earlier this morning but when I saw the patient at the bedside and it went down to 110 beats per minutes. Patient denies any chest pain palpitations or shortness of breath. She is still complaining of right facial swelling and pain. She denies any fever chills or diaphoresis. She is complain of general body weakness. Will start IV antibiotics with Zosyn after blood cultures. We will also offer pain regimen including ibuprofen, oxycodone, and IV morphine as needed for mild to moderate or severe pain, respectively. Continue Cardizem and metoprolol ER while attempting to down titrate Cardizem drip. 2D echocardiogram. Physical therapy and Occupational Therapy evaluation and treatments for placement pending. 05/07: Low-grade fever 37.7 this morning. Blood culture growing gram-positive cocci in both sets. Heart rate in the 1 teens, Cardizem drip still on at 10 Mg per hour. 2D echocardiogram preformed, results pending. Patient denies any chest pain palpitations or shortness of breath. She is still complaining of right facial swelling and pain. She denies any fever chills or diaphoresis. She is complain of general body weakness. Repeat blood cultures X2 on 05/08. Continue to watch for echocardiogram results. Continue Zosyn. Switch from Diltiazem from 60mg PO QID to Diltiazem extended release 360mg PO daily, continue metoprolol ER 100mg PO BID. Continue to wean down/off Diltiazem drip. Physical therapy and Occupational Therapy evaluation and treatments for placement pending. 05/08: Afebrile overnight. Patient is on room air. Patient's has been off Cardizem drip since yesterday morning, on Cardizem extended release 360 mg p.o. daily and metoprolol ER 100 mg p.o. twice daily. Current heart rates up in the 130s beats per minutes. Blood pressure normal. WBC 12.3, initial blood culture still growing gram-positive cocci no further identity is available at the moment. Patient is still commenting of same degree of right facial pain. She is able to tolerate her diet and chew on her food. Denies chest pain or palpitation. Repeat blood cultures X2 today. MRI face w/ w/o. Continue Zosyn. Diltiazem extended release 360mg PO daily, continue metoprolol ER 100mg PO BID. Cardizem drip stands by. Physical therapy and Occupational Therapy evaluation and treatments for placement pending. 05/09: Afebrile overnight. WBC down trended to 9.2 this morning. Initial blood culture grew MSSA. Repeat blood culture no growth today. Echocardiogram did not show any endocardial vegetations. Repeat facial CT again showing right parotid gland inflammation's/swelling with out any stone, abscess, tumor, or suspicious mass. Patient has been off Cardizem drip heart rate controlled. Physical therapy Occupational Therapy recommend SNF placement. Downgraded patient's from ICU to MedSurg with telemetry. Changed antibiotics from Zosyn to Rocephin. Diltiazem extended release 360mg PO daily, continue metoprolol ER 100mg PO BID. Pending SNF placement. Constitutional Vitals: Vital Signs Temp Pulse Resp BP Pulse Ox O2 Del Method O2 Flow Rate 36.5 C 103 H 22 92/82 97 0 05/09/22 08:00 05/08/22 21:01 05/09/22 00:01 05/09/22 11:07 05/09/22 11:07 05/09/22 11:07 05/07/22 20:00 Period Temp Pulse Resp BP Sys/[place] Pulse Ox O2 Del Method O2 Flow Rate Last 24 Hr 36.5 C-36.7 C 79-113 18-22 89-127/53-93 92-97 Room Air-Room Air Intake and Output 05/08/22 05/09/22 05/09/22 21:59 05:59 13:59 Intake Total 820 400 Output Total 300 200 Balance 520 -200 400 Weight 53.615 kg Intake & Output: Intake & Output 05/08/22 05/09/22 05/09/22 21:59 05:59 13:59 Intake Total 820 400 Output Total 300 200 Balance 520 -200 400 Weight 53.615 kg Intake: IV 100 50 Zosyn 3.375 gm In Dextrose 5% 100 50 in Water 50 ml @ 100 mls/hr IV Q8H [facility] Rx#:[id number] Oral 720 350 Output: Void Amount 300 200 Other: Meal Dinner Breakfast Percent of Meal Consumed 75% 100% Feeding Ability Assist with Tray Set Up Assist with Tray Set Up Urine Appearance Clear Urine Color Yellow Bright Yellow Head Head exam: Present atraumatic and normal inspection Eye Eye exam: Present normal appearance ENT ENT exam: Present mucous membranes moist and normal external ear exam; Absent normal exam Additional comments: Right lateral facial induration, erythema, tenderness to palpation, warmth. Neck Neck exam: Present normal inspection Respiratory Respiratory exam: Present normal respiratory exam Cardiovascular Cardiovascular exam: Present irregular rhythm GI/Abdominal GI/Abdominal exam: Present normal bowel sounds Back Exam Back exam: Present normal inspection Neurological Exam Neurological exam: Present alert and oriented X3 Skin Skin exam: Present intact and warm OBJ DATA Labs CBC & Chem 7: 05/09/22 05:59 05/09/22 05:58 Labs: Abnormal Lab Results 05/09/22 05/09/22 05/08/22 05:59 05:58 05:54 WBC RBC 3.29 L Hgb 10.5 L Hct 32.9 L MCV RDW 15.4 H Immature Gran % (Auto) 1.3 H Neut % (Auto) Lymph % (Auto) 12.6 L Lymph # (Auto) 1.15 L [place] # (Auto) 0.92 H Immature Gran # 0.12 H Absolute Neutrophils Carbon Dioxide 21 L Glucose 173 H 137 H Phosphorus 2.2 L Total Bilirubin AST 37 H 44 H Alkaline Phosphatase 149 H Total Protein 5.4 L 5.8 L Albumin 2.6 L 2.8 L Albumin/Globulin Ratio 0.9 L 0.9 L 05/08/22 05/07/22 05/07/22 05:54 05:56 05:56 WBC 12.3 H 11.3 H RBC 3.41 L 3.09 L Hgb 10.7 L 9.9 L Hct 33.8 L 31.0 L MCV 100.3 H RDW 15.8 H 16.0 H Immature Gran % (Auto) 0.6 H 0.9 H Neut % (Auto) 80.7 H 80.4 H Lymph % (Auto) 9.1 L 7.2 L Lymph # (Auto) 1.12 L 0.81 L [place] # (Auto) 1.09 H 1.25 H Immature Gran # 0.07 H 0.10 H Absolute Neutrophils 9.94 H 9.09 H Carbon Dioxide 20 L Glucose 164 H Phosphorus Total Bilirubin 1.1 H AST Alkaline Phosphatase 125 H Total Protein 5.1 L Albumin 2.6 L Albumin/Globulin Ratio Meds: Medications Acetaminophen (Acetaminophen 325 Mg Tablet) 650 mg PO Q4-6HP PRN; Protocol PRN Reason: Per Pain Protocol/Fever > 101 Last Admin: 05/09/22 05:52 Dose: 650 mg Hydrocodone Bitart/Acetaminophen (Hydrocodone/Apap 10/325mg Tablet) 2 tab PO BIDP PRN; Protocol PRN Reason: PAIN LEVEL > 6 Last Admin: 05/08/22 20:45 Dose: 2 tab Albuterol/Ipratropium (Ipratropium/Albuterol 3 Ml Ampul.Neb) 3 ml NEB Q4HRT PRN PRN Reason: Wheezing Apixaban (Apixaban 5 Mg Tablet) 2.5 mg PO BID [facility] Last Admin: 05/09/22 08:00 Dose: 2.5 mg Aspirin (Aspirin 81 Mg Tab.Chew) 81 mg PO DAILY [facility] Last Admin: 05/09/22 08:00 Dose: 81 mg Atorvastatin Calcium (Atorvastatin 40 Mg Tablet) 40 mg PO HS [facility] Last Admin: 05/08/22 20:45 Dose: 40 mg Dextrose (Dextrose 50% 50 Ml Vial) 0 ml IV UD PRN PRN Reason: Per Sliding Scale Diagnostic Test (Pha) (Accu-Chek 1 Each Strip) 1 each FS ACHS [facility] Last Admin: 05/09/22 07:29 Dose: 1 each Diltiazem HCl (Diltiazem 180 Mg Cap.Xl.24h) 360 mg PO DAILY [facility] Last Admin: 05/09/22 08:00 Dose: 360 mg Docusate Sodium (Docusate Sodium 100 Mg Capsule) 100 mg PO BID [facility] Last Admin: 05/09/22 08:00 Dose: 100 mg Ferrous Sulfate (Ferrous Sulfate 325 Mg Tablet) [facility] Last Admin: 05/09/22 08:00 Dose: 325 mg Furosemide (Furosemide 20 Mg Tablet) 20 mg PO QDAY [facility] Last Admin: 05/09/22 08:00 Dose: 20 mg Gabapentin (Gabapentin 100 Mg Capsule) 100 mg PO [facility] Last Admin: 05/08/22 20:45 Dose: 100 mg Glucose (Dextrose 31 Gm Oral.Susp) 15 gm PO PRN PRN PRN Reason: Hypoglycemia Diltiazem HCl 125 mg/ Dextrose 125 mls @ 5 mls/hr IV Q12HP PRN; Protocol PRN Reason: Tachyarrhythmias Ceftriaxone Sodium 2 gm/ (Dextrose) 50 mls @ 100 mls/hr IV Q24H [facility]; Protocol Ibuprofen (Ibuprofen 600 Mg Tablet) 600 mg PO QIDP PRN; Protocol PRN Reason: PAIN/FEVER > 101 Magnesium Oxide (Magnesium Oxide 400 Mg Tablet) 400 mg PO DAILY [facility] Last Admin: 05/09/22 08:00 Dose: 400 mg Metoprolol Succinate (Metoprolol Succinate 50 Mg Tab.Xl.24h) 100 mg PO BID [facility] Last Admin: 05/09/22 08:01 Dose: 100 mg Morphine Sulfate (Morphine 2 Mg/Ml Vial) 2 mg IV Q4HP PRN; Protocol PRN Reason: Per Pain Protocol [facility]ep[facility] ([facility]apsule) [facility] Last Admin: 05/09/22 07:27 Dose: 20 mg Ondansetron HCl (Ondansetron 4 Mg/2 Ml Vial) 4 mg IV Q4-6HP PRN; Protocol PRN Reason: Nausea And Vomiting Oxycodone HCl (Oxycodone Hcl 5 Mg Tablet) 5 mg PO Q4-6HP PRN; Protocol PRN Reason: Per Pain Protocol Last Admin: 05/09/22 08:11 Dose: 5 mg Promethazine HCl (Promethazine 25 Mg/Ml Vial) 25 mg IV Q4-6HP PRN; Protocol PRN Reason: Nausea And Vomiting Senna (Sennosides 1 Tablet) 1 tab PO DAILYP PRN PRN Reason: Constipation Last Admin: 05/08/22 07:38 Dose: 1 tab Sodium Chloride (0.9 % Sodium Chloride 10 Ml Syringe) 10 ml IV Q8 [facility] Last Admin: 05/09/22 05:52 Dose: 10 ml A/P Assessment and plan (1) Atrial fibrillation with rapid ventricular response: Status: Acute (2) Other hyperlipidemia: Status: Chronic (3) Pacemaker: Status: Chronic (4) 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 Atrial fibrillation with RVR: Inpatient ICU with telemetry-->med surg telemetry d/c Cardizem drip Diltiazem extended release 360mg PO daily, continue metoprolol ER 100mg PO BID. Eliquis 2D echocardiogram, no endocardial vegetations Physical therapy-->SNF Occupational therapy-->SNF 2. T2DM with associated diabetic polyneuropathy and nephropathy: HgA1c 7.5 Hold oral hypoglycemics Insulin Lispro SSI AC HS Accu Chek AC HS Hypoglycemia protocol Diabetic diet Neurontin 3. Essential HTN: Diltiazem extended release 360mg PO daily Metoprolol ER 100mg PO BID d/c Cardizem Lasix PO 4. Dyslipidemia: Continue statin therapy 5. Normocytic normochromic anemia: Ferrous sulfate cbc w/ auto diff in the morning to trend H/H 6. Hypomagnesemia: Mg oral replacement Repeat serum Mg level in the morning to trend 7. Right parotitis: DDx: infectious causes such as mumps, influenza, coxsackievirus, and noninfectious causes such as sialolithiasis, tumors (not seen by facial CT) Lactic acid Procalcitonin Blood cultures, gram positive cocci in both sets, see #8 cbc w/ auto diff in the morning to trend WBC Rocephin, switch to Augmentin when discharge We will also offer pain regimen including ibuprofen, oxycodone, and IV morphine as needed for mild to moderate or severe pain, respectively Repeat facial CT again showing right parotid gland inflammation's/swelling with out any stone, abscess, tumor, or suspicious mass 8. MSSA bacteremia: Repeat blood cultures X2 on 05/08, no growth to date 2D echocardiogram, no endocardial vegetations Rocephin, switch to Augmentin when discharge cbc w/ auto diff in the morning to trend WBC GI ppx: oral PPI DVT ppx: Eliquis Code statin: DNR Prongosis: Guarded Disposition: Inpatient ICU-->med surg telemetry; pending SNF Critical Care Time: 45min Time Spent With Patient Time: Total time spent is greater than 50% in coordination of care (as documented) at patient's floor/unit and/or counseling patient: Total time spent with greater than 50% in coordination of care (as documented) at patient's floor/unit and/or counseling patient:: 50 - 70 minutes Critical Care Time: Yes Total Critical Care Time: 60 QUALITY VTE Deep Vein Thrombosis/Pulmonary Embolism Present on Admission: Yes
[2022-05-09] MEDS: cefTRIAXone 2 GM in DEXTROSE 5% IN WATER 50 ML IV SCH (12:28)
[2022-05-09] MEDS ORDERED: INSULIN LISPRO 1 UNIT/0.01 ML UNIT SQ SCH (17:00)
[2022-05-09] MEDS: GABAPENTIN 100 MG CAPSULE PO SCH (20:41)
[2022-05-09] MEDS: ATORVASTATIN 40 MG TABLET PO SCH (20:41)
[2022-05-09] MEDS: IBUPROFEN 600 MG TABLET PO PRN (23:44)
[2022-05-10] MEDS: 0.9 % SODIUM CHLORIDE 10 ML SYRINGE IV SCH ×3 (05:48→20:26)
[2022-05-10 07:05] LABS: Basophils # (Auto) 0.05 K/mcL (0.00-0.30); Basophils % (Auto) 0.5 % (0.0-2.0); Eosinophils # (Auto) 0.23 K/mcL (0.00-0.70); Eosinophils % (Auto) 2.5 % (0.0-7.0); Hematocrit 34.4 % (34.1-44.9); Hemoglobin 10.7 g/dL (11.2-15.7); Lymphocytes # (Auto) 1.35 K/mcL (1.50-4.80); Lymphocytes % (Auto) 14.7 % (15.5-49.0); Mean Cell Volume 98.9 fL (80.0-100.0); Mean Corpuscular HGB Conc 31.1 g/dL (31.0-36.0); Mean Platelet Volume 9.3 fL (8.8-12.5); Monocytes # (Auto) 1.22 K/mcL (0.10-0.90); Monocytes % (Auto) 13.3 % (1.0-12.0); Neutrophils % (Auto) 65.4 % (38.0-78.0); Platelet Count 316 K/mcL (140-440); RBC 3.48 M/mcL (3.59-5.38); Red Cell Distribution Width 15.3 % (11.5-14.5); WBC 9.2 K/mcL (4.5-11.0)
[2022-05-10 07:23] LABS: ALT/SGPT 25 U/L (<40); AST/SGOT 39 U/L (<32); Albumin 2.3 gm/dL (3.2-5.2); Albumin/Globulin Ratio 0.8 (1.0-2.3); Alkaline Phosphatase 108 U/L (39-117); Bilirubin,Total 0.3 mg/dL (0.1-1.0); Blood Urea Nitrogen 17 mg/dL (8-23); Calcium 8.9 mg/dL (8.6-10.4); Carbon Dioxide 21 mmol/L (22-30); Chloride 103 mmol/L (96-108); Glomerular Filtration Rate 50; Glucose 148 mg/dL (70-105); Phosphorous 3.2 mg/dL (2.5-4.5)
[2022-05-10] MEDS: INSULIN LISPRO 1 UNIT/0.01 ML UNIT SQ SCH ×4 (07:54→20:26)
[2022-05-10] MEDS: OMEPRAZOLE 20 MG CAPSULE PO SCH (07:54)
[2022-05-10] MEDS: ASPIRIN 81 MG TAB.CHEW PO SCH (08:29)
[2022-05-10] MEDS: DILTIAZEM 180 MG CAP.XL.24H PO SCH (08:29)
[2022-05-10] MEDS: APIXABAN 5 MG TABLET PO SCH ×2 (08:29→20:24)
[2022-05-10] MEDS: FERROUS SULFATE 325 MG TABLET PO SCH (08:29)
[2022-05-10] MEDS: DOCUSATE SODIUM 100 MG CAPSULE PO SCH ×2 (08:29→20:24)
[2022-05-10] MEDS: FUROSEMIDE 20 MG TABLET PO SCH (08:29)
[2022-05-10] MEDS: MAGNESIUM OXIDE 400 MG TABLET PO SCH (08:29)
[2022-05-10] MEDS: METOPROLOL SUCCINATE 50 MG TAB.XL.24H PO SCH ×2 (08:29→20:24)
[2022-05-10] MEDS: cefTRIAXone 2 GM in DEXTROSE 5% IN WATER 50 ML IV SCH (08:59)
[2022-05-10] MEDS: ACETAMINOPHEN 325 MG TABLET PO PRN (14:23)
--- NOTE | 2022-05-10 15:07 | Internal Med Progress Note ---
SUBJECTIVE Subjective Patient information: Note initiated : 05/10/22 at 3:05 pm Service Date, if different from initiated Date: [] Patient: Nolvia Jalloh 86 y/o F admitted on 05/06/22 for weakness. Chief Complaint: [] Interval history: Ms. 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 The following history is sev erely limited by the patient's clinical situations and lack of family or caregiver at the bedside. Patient does not recall why she is being sent to the hospital. She currently denies any chest pain palpitations or chest pressure. She denies any shortness of breath. She denies any lightheadedness or dizziness. She denies any pain or discomfort at the moment. Vital signs at ED presentation significant for severe tachycardia with heart rate up to the 160s beats per minutes. Labs significant for leukocytosis with WBC 13.1, as well as hemoglobin and hematocrit 10.1 and 31.5, respectively. Only remarkable electrolyte imbalance is mild hypodysemia with serum magnesium level 1.5. D- dimer 0.87. Serum troponin 0.01. CT angiogram of the chest negative for any pulmonary embolism or any focal infiltrate. Patient was started on Cardizem drip after several rounds of Cardizem pushes failed to successfully rate controlled the patient. 05/06: Patient's heart rate was up in the 150s earlier this morning but when I saw the patient at the bedside and it went down to 110 beats per minutes. Patient denies any chest pain palpitations or shortness of breath. She is still complaining of right facial swelling and pain. She denies any fever chills or diaphoresis. She is complain of general body weakness. Will start IV antibiotics with Zosyn after blood cultures. We will also offer pain regimen including ibuprofen, oxycodone, and IV morphine as needed for mild to moderate or severe pain, respectively. Continue Cardizem and metoprolol ER while attempting to down titrate Cardizem drip. 2D echocardiogram. Physical therapy and Occupational Therapy evaluation and treatments for placement pending. 05/07: Low-grade fever 37.7 this morning. Blood culture growing gram-positive cocci in both sets. Heart rate in the 1 teens, Cardizem drip still on at 10 Mg per hour. 2D echocardiogram preformed, results pending. Patient denies any chest pain palpitations or shortness of breath. She is still complaining of right facial swelling and pain. She denies any fever chills or diaphoresis. She is complain of general body weakness. Repeat blood cultures X2 on 05/08. Continue to watch for echocardiogram results. Continue Zosyn. Switch from Diltiazem from 60mg PO QID to Diltiazem extended release 360mg PO daily, continue metoprolol ER 100mg PO BID. Continue to wean down/off Diltiazem drip. Physical therapy and Occupational Therapy evaluation and treatments for placement pending. 05/08: Afebrile overnight. Patient is on room air. Patient's has been off Cardizem drip since yesterday morning, on Cardizem extended release 360 mg p.o. daily and metoprolol ER 100 mg p.o. twice daily. Current heart rates up in the 130s beats per minutes. Blood pressure normal. WBC 12.3, initial blood culture still growing gram-positive cocci no further identity is available at the moment. Patient is still commenting of same degree of right facial pain. She is able to tolerate her diet and chew on her food. Denies chest pain or palpitation. Repeat blood cultures X2 today. MRI face w/ w/o. Continue Zosyn. Diltiazem extended release 360mg PO daily, continue metoprolol ER 100mg PO BID. Cardizem drip stands by. Physical therapy and Occupational Therapy evaluation and treatments for placement pending. 05/09: Afebrile overnight. WBC down trended to 9.2 this morning. Initial blood c ulture grew MSSA. Repeat blood culture no growth today. Echocardiogram did not show any endocardial vegetations. Repeat facial CT again showing right parotid gland inflammation's/swelling with out any stone, abscess, tumor, or suspicious mass. Patient has been off Cardizem drip heart rate controlled. Physical therapy Occupational Therapy recommend SNF placement. Downgraded patient's from ICU to MedSurg with telemetry. Changed antibiotics from Zosyn to Rocephin. Diltiazem extended release 360mg PO daily, continue metoprolol ER 100mg PO BID. Pending SNF placement. 05/10: Afebrile overnight. WBC down trended to 9.2 this morning. Initial blood culture grew MSSA. Repeat blood culture no growth today. Patient is currently comfortable denies any right facial pain. Denies any shortness of breath, chest pain, or palpitations. Denies any fever, chills, or diaphoresis. Continue Rocephin for now and will change to oral antibiotics such as Augmentin. We will plan to discharged to SNF tomorrow. Constitutional Vitals: Vital Signs Temp Pulse Resp BP Pulse Ox O2 Del Method O2 Flow Rate 36.2 C 103 H 19 107/61 100 0 05/10/22 12:57 05/08/22 21:01 05/10/22 12:57 05/10/22 12:57 05/10/22 12:57 05/10/22 07:45 05/10/22 04:00 Period Temp Pulse Resp BP Sys/[place] Pulse Ox O2 Del Method O2 Flow Rate Last 24 Hr 36.2 C-36.9 C 18-19 92-124/53-83 95-100 Room Air-Room Air 0 Intake and Output 05/10/22 05/10/22 05/10/22 05:59 13:59 21:59 Intake Total 550 410 Output Total 250 200 Balance 300 210 Weight 55.973 kg Patient Weight 05/11/22 05:59 Weight 55.973 kg Intake & Output: Intake & Output 05/10/22 05/10/22 05/10/22 05:59 13:59 21:59 Intake Total 550 410 Output Total 250 200 Balance 300 210 Weight 55.973 kg Intake: IV 50 Rocephin 2 gm In Dextrose 5% in 50 Water 50 ml @ 100 mls/hr IV Q24H [facility] Rx#:[id number] Oral 550 360 Output: Void Amount 250 200 Other: Meal Lunch Percent of Meal Consumed 75% Feeding Ability Assist with Tray Set Up Urine Appearance Clear Clear Urine Color Dark Yellow Bright Yellow Urine Odor Normal Stool Size Moderate Small Stool Color Black Brown Stool Consistency Soft Loose # Bowel Movements 1 1 # of times incontinent of 0 Bowels Head Head exam: Present atraumatic and normal inspection Eye Eye exam: Present normal appearance ENT ENT exam: Present mucous membranes moist and normal external ear exam; Absent normal exam Additional comments: Right lateral facial induration, erythema, tenderness to palpation, warmth. Neck Neck exam: Present normal inspection Respiratory Respiratory exam: Present normal respiratory exam Cardiovascular Cardiovascular exam: Present irregular rhythm GI/Abdominal GI/Abdominal exam: Present normal bowel sounds Back Exam Back exam: Present normal inspection Neurological Exam Neurological exam: Present alert and oriented X3 Skin Skin exam: Present intact and warm OBJ DATA Labs CBC & Chem 7: 05/10/22 05:48 05/10/22 05:48 Labs: Abnormal Lab Results 05/10/22 05/10/22 05/09/22 05:48 05:48 05:59 WBC RBC 3.48 L 3.29 L Hgb 10.7 L 10.5 L Hct 32.9 L RDW 15.3 H 15.4 H Immature Gran % (Auto) 3.6 H 1.3 H Neut % (Auto) Lymph % (Auto) 14.7 L 12.6 L [place] % (Auto) 13.3 H Lymph # (Auto) 1.35 L 1.15 L [place] # (Auto) 1.22 H 0.92 H Immature Gran # 0.33 H 0.12 H Absolute Neutrophils Carbon Dioxide 21 L Glucose 148 H Phosphorus AST 39 H Alkaline Phosphatase Total Protein 5.3 L Albumin 2.3 L Albumin/Globulin Ratio 0.8 L 05/09/22 05/08/22 05/08/22 05:58 05:54 05:54 WBC 12.3 H RBC 3.41 L Hgb 10.7 L Hct 33.8 L RDW 15.8 H Immature Gran % (Auto) 0.6 H Neut % (Auto) 80.7 H Lymph % (Auto) 9.1 L [place] % (Auto) Lymph # (Auto) 1.12 L [place] # (Auto) 1.09 H Immature Gran # 0.07 H Absolute Neutrophils 9.94 H Carbon Dioxide 21 L Glucose 173 H 137 H Phosphorus 2.2 L AST 37 H 44 H Alkaline Phosphatase 149 H Total Protein 5.4 L 5.8 L Albumin 2.6 L 2.8 L Albumin/Globulin Ratio 0.9 L 0.9 L Meds: Medications Acetaminophen (Acetaminophen 325 Mg Tablet) 650 mg PO Q4-6HP PRN; Protocol PRN Reason: Per Pain Protocol/Fever > 101 Last Admin: 05/10/22 14:23 Dose: 650 mg Hydrocodone Bitart/Acetaminophen (Hydrocodone/Apap 10/325mg Tablet) 2 tab PO BIDP PRN; Protocol PRN Reason: PAIN LEVEL > 6 Last Admin: 05/08/22 20:45 Dose: 2 tab Albuterol/Ipratropium (Ipratropium/Albuterol 3 Ml Ampul.Neb) 3 ml NEB Q4HRT PRN PRN Reason: Wheezing Apixaban (Apixaban 5 Mg Tablet) 2.5 mg PO BID [facility] Last Admin: 05/10/22 08:29 Dose: 2.5 mg Aspirin (Aspirin 81 Mg Tab.Chew) 81 mg PO DAILY [facility] Last Admin: 05/10/22 08:29 Dose: 81 mg Atorvastatin Calcium (Atorvastatin 40 Mg Tablet) 40 mg PO HS [facility] Last Admin: 05/09/22 20:41 Dose: 40 mg Dextrose (Dextrose 50% 50 Ml Vial) 0 ml IV UD PRN PRN Reason: Per Sliding Scale Dextrose (Dextrose 50% 50 Ml Vial) 0 ml IV UD PRN PRN Reason: Per Sliding Scale Diagnostic Test (Pha) (Accu-Chek 1 Each Strip) 1 each FS ACHS [facility] Last Admin: 05/10/22 12:32 Dose: 1 each Diltiazem HCl (Diltiazem 180 Mg Cap.Xl.24h) 360 mg PO DAILY [facility] Last Admin: 05/10/22 08:29 Dose: 360 mg Docusate Sodium (Docusate Sodium 100 Mg Capsule) 100 mg PO BID [facility] Last Admin: 05/10/22 08:29 Dose: 100 mg Ferrous Sulfate (Ferrous Sulfate 325 Mg Tablet) 325 mg PO [facility] Last Admin: 05/10/22 08:29 Dose: 325 mg Furosemide (Furosemide 20 Mg Tablet) 20 mg PO QDAY [facility] Last Admin: 05/10/22 08:29 Dose: 20 mg Gabapentin (Gabapentin 100 Mg Capsule) 100 mg PO HS [facility] Last Admin: 05/09/22 20:41 Dose: 100 mg Glucose (Dextrose 31 Gm Oral.Susp) 15 gm PO PRN PRN PRN Reason: Hypoglycemia Glucose (Dextrose 31 Gm Oral.Susp) 15 gm PO PRN PRN PRN Reason: Hypoglycemia Ceftriaxone Sodium 2 gm/ (Dextrose) 50 mls @ 100 mls/hr IV Q24H [facility]; Protocol Last Infusion: 05/10/22 09:29 Dose: Infused Ibuprofen (Ibuprofen 600 Mg Tablet) 600 mg PO QIDP PRN; Protocol PRN Reason: PAIN/FEVER > 101 Last Admin: 05/09/22 23:44 Dose: 600 mg Insulin Human Lispro (Insulin Lispro 1 Unit/0.01 Ml Unit) 0 unit SQ ACHS [facility]; Protocol Last Admin: 05/10/22 13:22 Dose: 2 units Magnesium Oxide (Magnesium Oxide 400 Mg Tablet) 400 mg PO DAILY [facility] Last Admin: 05/10/22 08:29 Dose: 400 mg Metoprolol Succinate (Metoprolol Succinate 50 Mg Tab.Xl.24h) 100 mg PO BID [facility] Last Admin: 05/10/22 08:29 Dose: 100 mg Morphine Sulfate (Morphine 2 Mg/Ml Vial) 2 mg IV Q4HP PRN; Protocol PRN Reason: Per Pain Protocol Omeprazole (Omeprazole 20 Mg Capsule) 20 mg PO QAMAC [facility] Last Admin: 05/10/22 07:54 Dose: 20 mg Ondansetron HCl (Ondansetron 4 Mg/2 Ml Vial) 4 mg IV Q4-6HP PRN; Protocol PRN Reason: Nausea And Vomiting Oxycodone HCl (Oxycodone Hcl 5 Mg Tablet) 5 mg PO Q4-6HP PRN; Protocol PRN Reason: Per Pain Protocol Last Admin: 05/09/22 08:11 Dose: 5 mg Promethazine HCl (Promethazine 25 Mg/Ml Vial) 25 mg IV Q4-6HP PRN; Protocol PRN Reason: Nausea And Vomiting Senna (Sennosides 1 Tablet) 1 tab PO DAILYP PRN PRN Reason: Constipation Last Admin: 05/08/22 07:38 Dose: 1 tab Sodium Chloride (0.9 % Sodium Chloride 10 Ml Syringe) 10 ml IV Q8 [facility] Last Admin: 05/10/22 13:26 Dose: 10 ml A/P Assessment and plan (1) Atrial fibrillation with rapid ventricular response: Status: Acute (2) Other hyperlipidemia: Status: Chronic (3) Pacemaker: Status: Chronic (4) 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 Atrial fibrillation with RVR: Inpatient med surg telemetry Diltiazem extended release 360mg PO daily, continue metoprolol ER 100mg PO BID. Eliquis 2D echocardiogram, no endocardial vegetations Physical therapy-->SNF Occupational therapy-->SNF 2. T2DM with associated diabetic polyneuropathy and nephropathy: HgA1c 7.5 Hold oral hypoglycemics Insulin Lispro SSI AC HS Accu Chek AC HS Hypoglycemia protocol Diabetic diet Neurontin 3. Essential HTN: Diltiazem extended release 360mg PO daily Metoprolol ER 100mg PO BID d/c Cardizem Lasix PO 4. Dyslipidemia: Continue statin therapy 5. Normocytic normochromic anemia: Ferrous sulfate cbc w/ auto diff in the morning to trend H/H 6. Hypomagnesemia: Mg oral replacement Repeat serum Mg level in the morning to trend 7. Right parotitis: DDx: infectious causes such as mumps, influenza, coxsackievirus, and noninfectious causes such as sialolithiasis, tumors (not seen by facial CT) Lactic acid Procalcitonin Blood cultures, gram positive cocci in both sets, see #8 cbc w/ auto diff in the morning to trend WBC Rocephin, switch to Augmentin when discharge We will also offer pain regimen including ibuprofen, oxycodone, and IV morphine as needed for mild to moderate or severe pain, respectively Repeat facial CT again showing right parotid gland inflammation's/swelling with out any stone, abscess, tumor, or suspicious mass 8. MSSA bacteremia: Repeat blood cultures X2 on 05/08, no growth to date 2D echocardiogram, no endocardial vegetations Rocephin, switch to Augmentin when discharge cbc w/ auto diff in the morning to trend WBC GI ppx: oral PPI DVT ppx: Eliquis Code statin: DNR Prongosis: Guarded Disposition: Inpatient med surg telemetry; pending SNF Time Spent With Patient Time: Total time spent is greater than 50% in coordination of care (as documented) at patient's floor/unit and/or counseling patient: Total time spent with greater than 50% in coordination of care (as documented) at patient's floor/unit and/or counseling patient:: 25 - 35 minutes QUALITY VTE Deep Vein Thrombosis/Pulmonary Embolism Present on Admission: Yes
[2022-05-10] MEDS: IBUPROFEN 600 MG TABLET PO PRN (17:22)
[2022-05-10] MEDS: GABAPENTIN 100 MG CAPSULE PO SCH (20:24)
[2022-05-10] MEDS: ATORVASTATIN 40 MG TABLET PO SCH (20:25)
[2022-05-11] MEDS: 0.9 % SODIUM CHLORIDE 10 ML SYRINGE IV SCH ×3 (05:55→21:01)
[2022-05-11 07:07] LABS: Basophils # (Auto) 0.04 K/mcL (0.00-0.30); Basophils % (Auto) 0.8 % (0.0-2.0); Eosinophils # (Auto) 0.15 K/mcL (0.00-0.70); Eosinophils % (Auto) 2.8 % (0.0-7.0); Hematocrit 32.4 % (34.1-44.9); Hemoglobin 10.4 g/dL (11.2-15.7); Lymphocytes # (Auto) 0.94 K/mcL (1.50-4.80); Lymphocytes % (Auto) 17.8 % (15.5-49.0); Mean Corpuscular HGB Conc 32.1 g/dL (31.0-36.0); Mean Platelet Volume 9.4 fL (8.8-12.5); Monocytes # (Auto) 0.74 K/mcL (0.10-0.90); Neutrophils % (Auto) 60.4 % (38.0-78.0); Platelet Count 357 K/mcL (140-440); RBC 3.41 M/mcL (3.59-5.38); Red Cell Distribution Width 15.1 % (11.5-14.5); WBC 5.3 K/mcL (4.5-11.0)
[2022-05-11] MEDS: OMEPRAZOLE 20 MG CAPSULE PO SCH (07:51)
[2022-05-11] MEDS: INSULIN LISPRO 1 UNIT/0.01 ML UNIT SQ SCH ×4 (08:02→20:53)
[2022-05-11] MEDS: IBUPROFEN 600 MG TABLET PO PRN (08:23)
[2022-05-11 08:32] LABS: ALT/SGPT 38 U/L (<40); AST/SGOT 56 U/L (<32); Albumin 2.3 gm/dL (3.2-5.2); Albumin/Globulin Ratio 0.8 (1.0-2.3); Alkaline Phosphatase 116 U/L (39-117); Bilirubin,Total 0.3 mg/dL (0.1-1.0); Blood Urea Nitrogen 14 mg/dL (8-23); Calcium 8.8 mg/dL (8.6-10.4); Carbon Dioxide 24 mmol/L (22-30); Chloride 102 mmol/L (96-108); Globulin 2.9 gm/dL (2.2-3.7); Glomerular Filtration Rate 66; Glucose 240 mg/dL (70-105); Phosphorous 2.7 mg/dL (2.5-4.5)
[2022-05-11] MEDS: DOCUSATE SODIUM 100 MG CAPSULE PO SCH ×2 (08:59→21:00)
--- NOTE | 2022-05-11 10:11 | Discharge Summary ---
Discharge Provider Provider IMPORTANT FOLLOW-UP INFORMATION FOR PCP: Patient information: Note initiated : 05/11/22 at 10:09 am Service Date, if different from initiated Date: [] Patient: Nolvia Jalloh 86 y/o F admitted on 05/06/22 for weakness. Chief Complaint: [] Date of admission: 05/06/22 00:08 Discharge date: 05/11/22 Primary care physician: Saige Sotomayor Attending physician on admission: Alejandro Johnson Consults: 05/05/22 Consult to Physician [CONS] Stat Comment: Consulting Provider: Alejandro Johnson Reason For Exam: Physician to Consult Attending physician on discharge: Alejandro Johnson COURSE Hospital Course Hospital course: Ms. 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 The following history is severely limited by the patient's clinical situations and lack of family or caregiver at the bedside. Patient does not recall why she is being sent to the hospital. She currently denies any chest pain palpitations or chest pressure. She denies any shortness of breath. She denies any lightheadedness or dizziness. She denies any pain or discomfort at the moment. Vital signs at ED presentation significant for severe tachycardia with heart rate up to the 160s beats per minutes. Labs significant for leukocytosis with WBC 13.1, as well as hemoglobin and hematocrit 10.1 and 31.5, respectively. Only remarkable electrolyte imbalance is mild hypodysemia with serum magnesium level 1.5. D- dimer 0.87. Serum troponin 0.01. CT angiogram of the chest negative for any pulmonary embolism or any focal infiltrate. Patient was started on Cardizem drip after several rounds of Cardizem pushes failed to successfully rate controlled the patient. 05/06: Patient's heart rate was up in the 150s earlier this morning but when I saw the patient at the bedside and it went down to 110 beats per minutes. Patient denies any chest pain palpitations or shortness of breath. She is still c omplaining of right facial swelling and pain. She denies any fever chills or diaphoresis. She is complain of general body weakness. Will start IV antibiotics with Zosyn after blood cultures. We will also offer pain regimen including ibuprofen, oxycodone, and IV morphine as needed for mild to moderate or severe pain, respectively. Continue Cardizem and metoprolol ER while attempting to down titrate Cardizem drip. 2D echocardiogram. Physical therapy and Occupational Therapy evaluation and treatments for placement pending. 05/07: Low-grade fever 37.7 this morning. Blood culture growing gram-positive cocci in both sets. Heart rate in the 1 teens, Cardizem drip still on at 10 Mg per hour. 2D echocardiogram preformed, results pending. Patient denies any chest pain palpitations or shortness of breath. She is still complaining of right facial swelling and pain. She denies any fever chills or diaphoresis. She is complain of general body weakness. Repeat blood cultures X2 on 05/08. Continue to watch for echocardiogram results. Continue Zosyn. Switch from Diltiazem from 60mg PO QID to Diltiazem extended release 360mg PO daily, continue metoprolol ER 100mg PO BID. Continue to wean down/off Diltiazem drip. Physical therapy and Occupational Therapy evaluation and treatments for placement pending. 05/08: Afebrile overnight. Patient is on room air. Patient's has been off Cardizem drip since yesterday morning, on Cardizem extended release 360 mg p.o. daily and metoprolol ER 100 mg p.o. twice daily. Current heart rates up in the 130s beats per minutes. Blood pressure normal. WBC 12.3, initial blood culture still growing gram-positive cocci no further identity is available at the moment. Patient is still commenting of same degree of right facial pain. She is able to tolerate her diet and chew on her food. Denies chest pain or palpitation. Repeat blood cultures X2 today. MRI face w/ w/o. Continue Zosyn. Diltiazem extended release 360mg PO daily, continue metoprolol ER 100mg PO BID. Cardizem drip stands by. Physical therapy and Occupational Therapy evaluation and treatments for placement pending. 05/09: Afebrile overnight. WBC down trended to 9.2 this morning. Initial blood culture grew MSSA. Repeat blood culture no growth today. Echocardiogram did not show any endocardial vegetations. Repeat facial CT again showing right parotid gland inflammation's/swelling with out any stone, abscess, tumor, or suspicious mass. Patient has been off Cardizem drip heart rate controlled. Physical therapy Occupational Therapy recommend SNF placement. Downgraded patient's from ICU to MedSurg with telemetry. Changed antibiotics from Zosyn to Rocephin. Diltiazem extended release 360mg PO daily, continue metoprolol ER 100mg PO BID. Pending SNF placement. 05/10: Afebrile overnight. WBC down trended to 9.2 this morning. Initial blood culture grew MSSA. Repeat blood culture no growth today. Patient is currently comfortable denies any right facial pain. Denies any shortness of breath, chest pain, or palpitations. Denies any fever, chills, or diaphoresis. Continue Rocephin for now and will change to oral antibiotics such as Augmentin. We will plan to discharged to SNF tomorrow. 05/11: Discharged to SNF. Discharge diagnosis: Parotitis, MSSA bacteremia, atrial fibrillation Time Spent with Patient Time attestation: Total time spent providing and/or coordinating discharge services: Time spent: Greater than 30 minutes EXAM Constitutional Vitals: Temp Pulse Resp BP Pulse Ox O2 Del Method O2 Flow Rate 36.8 C 80 16 126/75 98 0 05/11/22 07:58 05/11/22 04:11 05/11/22 07:58 05/11/22 07:58 05/11/22 08:00 05/11/22 08:00 05/10/22 04:00 General appearance: cooperative and no acute distress Head Head exam: Present atraumatic and normocephalic Eye Eye exam: Present EOMI and PERRL ENT ENT exam: Present mucous membranes moist and normal external ear exam; Absent normal exam Additional comments: Right facial swelling erythema and tenderness Neck Neck exam: Present normal inspection; Absent lymphadenopathy, tenderness or thyromegaly Respiratory Respiratory exam: Absent accessory muscle use, respiratory distress or wheezes Cardiovascular Cardiovascular exam: Present irregular rhythm and tachycardia; Absent JVD GI/Abdominal GI/Abdominal exam: Present normal bowel sounds and soft; Absent organomegaly or tenderness Extremities Exam Extremities exam: Present full ROM, normal capillary refill and normal inspe ction; Absent tenderness Neurological Exam Neurological exam: Present alert, CN II-XII intact and oriented X3; Absent motor sensory deficit Psychiatric Psychiatric exam: Present normal affect and normal mood; Absent anxious or depressed Skin Skin exam: Present dry and intact Discharge Data Data Completed and Pending Labs on day of discharge: Labs from last 24 hours 05/11/22 05/11/22 05:22 05:22 WBC 5.3 RBC 3.41 L Hgb 10.4 L Hct 32.4 L MCV 95.0 MCH 30.5 MCHC 32.1 RDW 15.1 H Plt Count 357 MPV 9.4 Immature Gran % (Auto) 4.2 H Neut % (Auto) 60.4 Lymph % (Auto) 17.8 [place] % (Auto) 14.0 H Eos % (Auto) 2.8 Baso % (Auto) 0.8 Lymph # (Auto) 0.94 L [place] # (Auto) 0.74 Eos # (Auto) 0.15 Baso # (Auto) 0.04 Immature Gran # 0.22 H Absolute Neutrophils 3.18 Sodium 136 Potassium 3.5 Chloride 102 Carbon Dioxide 24 Anion Gap 10.0 BUN 14 Creatinine 0.8 GFR Calculation 66 Glucose 240 H Calcium 8.8 Phosphorus 2.7 Magnesium 1.7 Total Bilirubin 0.3 AST 56 H ALT 38 Alkaline Phosphatase 116 Total Protein 5.2 L Albumin 2.3 L Globulin 2.9 Albumin/Globulin Ratio 0.8 L Preliminary micro results at discharge 05/08/22 06:08 Blood Culture - Preliminary Blood 05/08/22 05:54 Blood Culture - Preliminary Blood Discharge Plan Patient/Caregiver Discharge Instructions Activity: increase activity as tolerated Diet: Consistent Carbohydrate Prescriptions: New diltiazem HCl 180 mg Capsule,Extended Release 24hr 360 mg PO DAILY 30 Days Qty: 30 0RF magnesium oxide 400 mg (241.3 mg magnesium) Tablet 400 mg PO DAILY 30 Days Qty: 30 0RF amoxicillin-pot clavulanate [Augmentin XR] 1,000-62.5 mg tablet extended release 12 hr 1 tab PO BID Qty: 20 0RF Continued atorvastatin 80 mg tablet 40 mg PO HS metoprolol succinate 100 mg tablet extended release 24 hr 100 mg PO BID hydrocodone-acetaminophen 10-325 mg tablet 2 tab PO BIDP PRN (Reason: Pain) aspirin 81 mg tablet,delayed release (DR/EC) 81 mg PO QDAY glipizide 2.5 mg tablet extended release 24hr 2.5 mg PO QDAY ferrous sulfate [FeroSul] 325 mg (65 mg iron) tablet 325 mg PO QDAY metformin 1,000 mg tablet 1,000 mg PO BIDCC omeprazole 20 mg capsule,delayed release(DR/EC) 20 mg PO QAMAC furosemide 20 mg tablet 20 mg PO QDAY gabapentin 100 mg capsule 100 mg PO HS Eliquis 2.5 mg tablet 2.5 mg PO BID Discontinued diltiazem HCl 180 mg capsule,extended release 24hr 180 mg PO QDAY Follow Up Plan Follow up with: Saige Sotomayor MD [Primary Care Provider] - Patient Disposition: Xfer SNF Prognosis: Serious Rehab Potential: Good I certify that the patient requires SNF services: Yes Overall status at discharge: patient is progressing back to baseline Discharge Orders: Discharge Order (Routine); Ordered 05/11/22 Ordered By: Alejandro STEWART VTE Deep Vein Thrombosis/Pulmonary Embolism Present on Admission: Yes
[2022-05-11] MEDS: FUROSEMIDE 20 MG TABLET PO SCH (12:20)
[2022-05-11] MEDS: ASPIRIN 81 MG TAB.CHEW PO SCH (12:20)
[2022-05-11] MEDS: MAGNESIUM OXIDE 400 MG TABLET PO SCH (12:20)
[2022-05-11] MEDS: APIXABAN 5 MG TABLET PO SCH ×2 (12:22→20:54)
[2022-05-11] MEDS: FERROUS SULFATE 325 MG TABLET PO SCH (12:23)
[2022-05-11] MEDS: DILTIAZEM 180 MG CAP.XL.24H PO SCH (12:23)
[2022-05-11] MEDS: METOPROLOL SUCCINATE 50 MG TAB.XL.24H PO SCH ×2 (12:28→20:54)
[2022-05-11] MEDS: cefTRIAXone 2 GM in DEXTROSE 5% IN WATER 50 ML IV SCH (12:40)
--- NOTE | 2022-05-11 14:47 | Internal Med Progress Note ---
SUBJECTIVE Subjective Patient information: Note initiated : 05/11/22 at 2:42 pm Service Date, if different from initiated Date: [] Patient: Nolvia Jalloh 86 y/o F admitted on 05/06/22 for weakness. Chief Complaint: [] Interval history: Ms. 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 The following history is sev erely limited by the patient's clinical situations and lack of family or caregiver at the bedside. Patient does not recall why she is being sent to the hospital. She currently denies any chest pain palpitations or chest pressure. She denies any shortness of breath. She denies any lightheadedness or dizziness. She denies any pain or discomfort at the moment. Vital signs at ED presentation significant for severe tachycardia with heart rate up to the 160s beats per minutes. Labs significant for leukocytosis with WBC 13.1, as well as hemoglobin and hematocrit 10.1 and 31.5, respectively. Only remarkable electrolyte imbalance is mild hypodysemia with serum magnesium level 1.5. D- dimer 0.87. Serum troponin 0.01. CT angiogram of the chest negative for any pulmonary embolism or any focal infiltrate. Patient was started on Cardizem drip after several rounds of Cardizem pushes failed to successfully rate controlled the patient. 05/06: Patient's heart rate was up in the 150s earlier this morning but when I saw the patient at the bedside and it went down to 110 beats per minutes. Patient denies any chest pain palpitations or shortness of breath. She is still complaining of right facial swelling and pain. She denies any fever chills or diaphoresis. She is complain of general body weakness. Will start IV antibiotics with Zosyn after blood cultures. We will also offer pain regimen including ibuprofen, oxycodone, and IV morphine as needed for mild to moderate or severe pain, respectively. Continue Cardizem and metoprolol ER while attempting to down titrate Cardizem drip. 2D echocardiogram. Physical therapy and Occupational Therapy evaluation and treatments for placement pending. 05/07: Low-grade fever 37.7 this morning. Blood culture growing gram-positive cocci in both sets. Heart rate in the 1 teens, Cardizem drip still on at 10 Mg per hour. 2D echocardiogram preformed, results pending. Patient denies any chest pain palpitations or shortness of breath. She is still complaining of right facial swelling and pain. She denies any fever chills or diaphoresis. She is complain of general body weakness. Repeat blood cultures X2 on 05/08. Continue to watch for echocardiogram results. Continue Zosyn. Switch from Diltiazem from 60mg PO QID to Diltiazem extended release 360mg PO daily, continue metoprolol ER 100mg PO BID. Continue to wean down/off Diltiazem drip. Physical therapy and Occupational Therapy evaluation and treatments for placement pending. 05/08: Afebrile overnight. Patient is on room air. Patient's has been off Cardizem drip since yesterday morning, on Cardizem extended release 360 mg p.o. daily and metoprolol ER 100 mg p.o. twice daily. Current heart rates up in the 130s beats per minutes. Blood pressure normal. WBC 12.3, initial blood culture still growing gram-positive cocci no further identity is available at the moment. Patient is still commenting of same degree of right facial pain. She is able to tolerate her diet and chew on her food. Denies chest pain or palpitation. Repeat blood cultures X2 today. MRI face w/ w/o. Continue Zosyn. Diltiazem extended release 360mg PO daily, continue metoprolol ER 100mg PO BID. Cardizem drip stands by. Physical therapy and Occupational Therapy evaluation and treatments for placement pending. 05/09: Afebrile overnight. WBC down trended to 9.2 this morning. Initial blood c ulture grew MSSA. Repeat blood culture no growth today. Echocardiogram did not show any endocardial vegetations. Repeat facial CT again showing right parotid gland inflammation's/swelling with out any stone, abscess, tumor, or suspicious mass. Patient has been off Cardizem drip heart rate controlled. Physical therapy Occupational Therapy recommend SNF placement. Downgraded patient's from ICU to MedSurg with telemetry. Changed antibiotics from Zosyn to Rocephin. Diltiazem extended release 360mg PO daily, continue metoprolol ER 100mg PO BID. Pending SNF placement. 05/10: Afebrile overnight. WBC down trended to 9.2 this morning. Initial blood culture grew MSSA. Repeat blood culture no growth today. Patient is currently comfortable denies any right facial pain. Denies any shortness of breath, chest pain, or palpitations. Denies any fever, chills, or diaphoresis. Continue Rocephin for now and will change to oral antibiotics such as Augmentin. We will plan to discharged to SNF tomorrow. 05/11: Discharged to SNF held due to insurance authorization. 05/12 Constitutional Vitals: Vital Signs Temp Pulse Resp BP Pulse Ox O2 Del Method O2 Flow Rate 99 F 80 20 129/84 95 0 05/11/22 12:00 05/11/22 04:11 05/11/22 12:00 05/11/22 12:32 05/11/22 12:00 05/11/22 12:00 05/10/22 04:00 Period Temp Pulse Resp BP Sys/Tidwell Pulse Ox O2 Del Method O2 Flow Rate Last 24 Hr 96.4 F-99 F 79-98 16-20 105-132/60-84 95-98 Room Air-Room Air Intake and Output 05/11/22 05/11/22 05/11/22 05:59 13:59 21:59 Intake Total 780 150 Balance 780 150 Intake & Output: Intake & Output 05/11/22 05/11/22 05/11/22 05:59 13:59 21:59 Intake Total 780 150 Balance 780 150 Intake: IV 50 Rocephin 2 gm In Dextrose 5% in 50 Water 50 ml @ 100 mls/hr IV Q24H [facility] Rx#:[id number] Oral 780 100 Other: Meal Lunch Percent of Meal Consumed 50% Feeding Ability Independent Stool Size Moderate Moderate Stool Color Green Brown Stool Consistency Soft Loose # Voids 1 1 # Bowel Movements 1 Exam: General: Alert, Awake, No acute Distress Eyes/N/T: EOMI, Right facial swelling erythema and tenderness Head/Neck: neck supple, CV: irreg irreg, No murmurs, Pulm: Clear b/l, no wheezing/rhonchi/rales Abd: soft, nontender, +BS x4 Ext: no clubbing/cyanosis/edema Neuro: Alert, no focal deficits, moves all extremities, Skin: warm/dry OBJ DATA Labs CBC & Chem 7: 05/11/22 05:22 05/11/22 05:22 Labs: Abnormal Lab Results 05/11/22 05/11/22 05/10/22 05:22 05:22 05:48 RBC 3.41 L Hgb 10.4 L Hct 32.4 L RDW 15.1 H Immature Gran % (Auto) 4.2 H Lymph % (Auto) [place] % (Auto) 14.0 H Lymph # (Auto) 0.94 L [place] # (Auto) Immature Gran # 0.22 H Carbon Dioxide 21 L Glucose 240 H 148 H AST 56 H 39 H Total Protein 5.2 L 5.3 L Albumin 2.3 L 2.3 L Albumin/Globulin Ratio 0.8 L 0.8 L 05/10/22 05/09/22 05/09/22 05:48 05:59 05:58 RBC 3.48 L 3.29 L Hgb 10.7 L 10.5 L Hct 32.9 L RDW 15.3 H 15.4 H Immature Gran % (Auto) 3.6 H 1.3 H Lymph % (Auto) 14.7 L 12.6 L Martin % (Auto) 13.3 H Lymph # (Auto) 1.35 L 1.15 L [place] # (Auto) 1.22 H 0.92 H Immature Gran # 0.33 H 0.12 H Carbon Dioxide 21 L Glucose 173 H AST 37 H Total Protein 5.4 L Albumin 2.6 L Albumin/Globulin Ratio 0.9 L Meds: Medications Acetaminophen (Acetaminophen 325 Mg Tablet) 650 mg PO Q4-6HP PRN; Protocol PRN Reason: Per Pain Protocol/Fever > 101 Last Admin: 05/10/22 14:23 Dose: 650 mg Hydrocodone Bitart/Acetaminophen (Hydrocodone/Apap 10/325mg Tablet) 2 tab PO BIDP PRN; Protocol PRN Reason: PAIN LEVEL > 6 Last Admin: 05/08/22 20:45 Dose: 2 tab Albuterol/Ipratropium (Ipratropium/Albuterol 3 Ml Ampul.Neb) 3 ml NEB Q4HRT PRN PRN Reason: Wheezing Apixaban (Apixaban 5 Mg Tablet) 2.5 mg PO BID [facility] Last Admin: 05/11/22 12:22 Dose: 2.5 mg Aspirin (Aspirin 81 Mg Tab.Chew) 81 mg PO DAILY [facility] Last Admin: 05/11/22 12:20 Dose: 81 mg Atorvastatin Calcium (Atorvastatin 40 Mg Tablet) 40 mg PO HS [facility] Last Admin: 05/10/22 20:25 Dose: 40 mg Dextrose (Dextrose 50% 50 Ml Vial) 0 ml IV UD PRN PRN Reason: Per Sliding Scale Dextrose (Dextrose 50% 50 Ml Vial) 0 ml IV UD PRN PRN Reason: Per Sliding Scale Diagnostic Test (Pha) (Accu-Chek 1 Each Strip) 1 each FS ACHS [facility] Last Admin: 05/11/22 12:10 Dose: 1 each Diltiazem HCl (Diltiazem 180 Mg Cap.Xl.24h) 360 mg PO DAILY [facility] Last Admin: 05/11/22 12:23 Dose: 360 mg Docusate Sodium (Docusate Sodium 100 Mg Capsule) 100 mg PO BID [facility] Last Admin: 05/11/22 08:59 Dose: Not Given Ferrous Sulfate ([facility] S[facility] 325 Mg Tablet) [facility] Admin: 05/11/22 12:23 Dose: 325 mg Furosemide (Furosemide 20 Mg Tablet) 20 mg PO QDAY [facility] Last Admin: 05/11/22 12:20 Dose: 20 mg Gabapentin (Gabapentin 100 Mg Capsule) 100 mg PO [facility] Last Admin: 05/10/22 20:24 Dose: 100 mg Glucose (Dextrose 31 Gm Oral.Susp) 15 gm PO PRN PRN PRN Reason: Hypoglycemia Glucose (Dextrose 31 Gm Oral.Susp) 15 gm PO PRN PRN PRN Reason: Hypoglycemia Ceftriaxone Sodium 2 gm/ (Dextrose) 50 mls @ 100 mls/hr IV Q24H [facility]; Protocol Last Infusion: 05/11/22 13:15 Dose: Infused Ibuprofen (Ibuprofen 600 Mg Tablet) 600 mg PO QIDP PRN; Protocol PRN Reason: PAIN/FEVER > 101 Last Admin: 05/11/22 08:23 Dose: 600 mg Insulin Human Lispro (Insulin Lispro 1 Unit/0.01 Ml Unit) 0 unit SQ [facility]; Protocol Last Admin: 05/11/22 12:11 Dose: 4 units Magnesium Oxide (Magnesium Oxide 400 Mg Tablet) 400 mg PO DAILY [facility] Last Admin: 05/11/22 12:20 Dose: 400 mg Metoprolol Succinate (Metoprolol Succinate 50 Mg Tab.Xl.24h) 100 mg PO BID [facility] Last Admin: 05/11/22 12:28 Dose: 100 mg Metoprolol Tartrate (Metoprolol Tartrate 5 Mg/5 Ml Vial) 5 mg IV Q2HP PRN PRN Reason: Tachyarrhythmias HR>110 Morphine Sulfate (Morphine 2 Mg/Ml Vial) 2 mg IV Q4HP PRN; Protocol PRN Reason: Per Pain Protocol Omeprazole (Omeprazole 20 Mg Capsule) 20 mg PO QAMAC [facility] Last Admin: 05/11/22 07:51 Dose: 20 mg Ondansetron HCl (Ondansetron 4 Mg/2 Ml Vial) 4 mg IV Q4-6HP PRN; Protocol PRN Reason: Nausea And Vomiting Oxycodone HCl (Oxycodone Hcl 5 Mg Tablet) 5 mg PO Q4-6HP PRN; Protocol PRN Reason: Per Pain Protocol Last Admin: 05/09/22 08:11 Dose: 5 mg Promethazine HCl (Promethazine 25 Mg/Ml Vial) 25 mg IV Q4-6HP PRN; Protocol PRN Reason: Nausea And Vomiting Senna (Sennosides 1 Tablet) 1 tab PO DAILYP PRN PRN Reason: Constipation Last Admin: 05/08/22 07:38 Dose: 1 tab Sodium Chloride (0.9 % Sodium Chloride 10 Ml Syringe) 10 ml IV Q8 [facility] Last Admin: 05/11/22 13:24 Dose: 10 ml A/P Narrative A/P Narrative: A: *Atrial fibrillation w/RVR: -has PPM *Right parotitis: DDx: infectious causes such as mumps/influenza/coxsackievirus/noninfectious causes such as sialolithiasis -Repeat facial CT showing right parotid gland inflammation's/swelling w/o stone/abscess/tumor *MSSA bacteremia: 2/2 above -echo no vegetations *T2DM w/polyneuropathy & nephropathy: -HgA1c 7.5 *HTN/HLD: *Anemia (PENELOPE): *Hypomagnesemia: P: -Start Dig and decrease Diltiazem, continue metoprolol ER 100mg PO BID -Eliquis -Rocephin, switch to Augmentin on d/c -cont asa/statin - -ssi -pt/ot -CM for placement -ppx: Eliquis / ppi Code statin: DNR Time Spent With Patient Time: Total time spent is greater than 50% in coordination of care (as documented) at patient's floor/unit and/or counseling patient: QUALITY VTE Deep Vein Thrombosis/Pulmonary Embolism Present on Admission: Yes
[2022-05-11] MEDS: METOPROLOL TARTRATE 5 MG/5 ML VIAL IV PRN ×2 (15:08→17:10)
[2022-05-11] MEDS: ACETAMINOPHEN 325 MG TABLET PO PRN (16:44)
[2022-05-11] MEDS ORDERED: DIGOXIN 500 MCG/2 ML AMPUL IV SCH (17:30)
[2022-05-11] MEDS: oxyCODONE HCL 5 MG TABLET PO PRN (20:53)
[2022-05-11] MEDS: GABAPENTIN 100 MG CAPSULE PO SCH (20:54)
[2022-05-11] MEDS: ATORVASTATIN 40 MG TABLET PO SCH (20:54)
[2022-05-12] MEDS: IBUPROFEN 600 MG TABLET PO PRN (00:30)
[2022-05-12] MEDS: DIGOXIN 500 MCG/2 ML AMPUL IV SCH ×2 (01:36→09:10)
[2022-05-12] MEDS: oxyCODONE HCL 5 MG TABLET PO PRN ×3 (05:57→20:02)
[2022-05-12] MEDS: 0.9 % SODIUM CHLORIDE 10 ML SYRINGE IV SCH ×3 (06:04→21:35)
[2022-05-12 07:19] LABS: Basophils # (Auto) 0.04 K/mcL (0.00-0.30); Basophils % (Auto) 0.6 % (0.0-2.0); Eosinophils # (Auto) 0.14 K/mcL (0.00-0.70); Eosinophils % (Auto) 2.2 % (0.0-7.0); Hematocrit 33.1 % (34.1-44.9); Hemoglobin 10.5 g/dL (11.2-15.7); Lymphocytes # (Auto) 1.22 K/mcL (1.50-4.80); Lymphocytes % (Auto) 19.4 % (15.5-49.0); Mean Cell Volume 97.4 fL (80.0-100.0); Mean Corpuscular HGB Conc 31.7 g/dL (31.0-36.0); Mean Platelet Volume 9.2 fL (8.8-12.5); Monocytes # (Auto) 0.79 K/mcL (0.10-0.90); Monocytes % (Auto) 12.6 % (1.0-12.0); Neutrophils % (Auto) 61.4 % (38.0-78.0); Platelet Count 379 K/mcL (140-440); Red Cell Distribution Width 15.2 % (11.5-14.5); WBC 6.3 K/mcL (4.5-11.0)
[2022-05-12] MEDS: OMEPRAZOLE 20 MG CAPSULE PO SCH (07:20)
[2022-05-12] MEDS: ACETAMINOPHEN 325 MG TABLET PO PRN ×2 (07:20→15:42)
[2022-05-12] MEDS: INSULIN LISPRO 1 UNIT/0.01 ML UNIT SQ SCH ×4 (07:27→20:14)
[2022-05-12 08:05] LABS: ALT/SGPT 58 U/L (<40); AST/SGOT 88 U/L (<32); Albumin 2.8 gm/dL (3.2-5.2); Albumin/Globulin Ratio 1.3 (1.0-2.3); Alkaline Phosphatase 132 U/L (39-117); Bilirubin,Total 0.3 mg/dL (0.1-1.0); Blood Urea Nitrogen 8 mg/dL (8-23); Calcium 8.8 mg/dL (8.6-10.4); Carbon Dioxide 22 mmol/L (22-30); Chloride 102 mmol/L (96-108); Globulin 2.1 gm/dL (2.2-3.7); Glomerular Filtration Rate 77; Glucose 188 mg/dL (70-105); Phosphorous 2.7 mg/dL (2.5-4.5)
--- NOTE | 2022-05-12 08:57 | Internal Med Progress Note ---
SUBJECTIVE Subjective Patient information: Note initiated : 05/12/22 at 8:55 am Service Date, if different from initiated Date: [] Patient: Nolvia Jalloh 86 y/o F admitted on 05/06/22 for weakness. Chief Complaint: [] Interval history: Ms. 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 The following history is sev erely limited by the patient's clinical situations and lack of family or caregiver at the bedside. Patient does not recall why she is being sent to the hospital. She currently denies any chest pain palpitations or chest pressure. She denies any shortness of breath. She denies any lightheadedness or dizziness. She denies any pain or discomfort at the moment. Vital signs at ED presentation significant for severe tachycardia with heart rate up to the 160s beats per minutes. Labs significant for leukocytosis with WBC 13.1, as well as hemoglobin and hematocrit 10.1 and 31.5, respectively. Only remarkable electrolyte imbalance is mild hypodysemia with serum magnesium level 1.5. D- dimer 0.87. Serum troponin 0.01. CT angiogram of the chest negative for any pulmonary embolism or any focal infiltrate. Patient was started on Cardizem drip after several rounds of Cardizem pushes failed to successfully rate controlled the patient. 05/06: Patient's heart rate was up in the 150s earlier this morning but when I saw the patient at the bedside and it went down to 110 beats per minutes. Patient denies any chest pain palpitations or shortness of breath. She is still complaining of right facial swelling and pain. She denies any fever chills or diaphoresis. She is complain of general body weakness. Will start IV antibiotics with Zosyn after blood cultures. We will also offer pain regimen including ibuprofen, oxycodone, and IV morphine as needed for mild to moderate or severe pain, respectively. Continue Cardizem and metoprolol ER while attempting to down titrate Cardizem drip. 2D echocardiogram. Physical therapy and Occupational Therapy evaluation and treatments for placement pending. 05/07: Low-grade fever 37.7 this morning. Blood culture growing gram-positive cocci in both sets. Heart rate in the 1 teens, Cardizem drip still on at 10 Mg per hour. 2D echocardiogram preformed, results pending. Patient denies any chest pain palpitations or shortness of breath. She is still complaining of right facial swelling and pain. She denies any fever chills or diaphoresis. She is complain of general body weakness. Repeat blood cultures X2 on 05/08. Continue to watch for echocardiogram results. Continue Zosyn. Switch from Diltiazem from 60mg PO QID to Diltiazem extended release 360mg PO daily, continue metoprolol ER 100mg PO BID. Continue to wean down/off Diltiazem drip. Physical therapy and Occupational Therapy evaluation and treatments for placement pending. 05/08: Afebrile overnight. Patient is on room air. Patient's has been off Cardizem drip since yesterday morning, on Cardizem extended release 360 mg p.o. daily and metoprolol ER 100 mg p.o. twice daily. Current heart rates up in the 130s beats per minutes. Blood pressure normal. WBC 12.3, initial blood culture still growing gram-positive cocci no further identity is available at the moment. Patient is still commenting of same degree of right facial pain. She is able to tolerate her diet and chew on her food. Denies chest pain or palpitation. Repeat blood cultures X2 today. MRI face w/ w/o. Continue Zosyn. Diltiazem extended release 360mg PO daily, continue metoprolol ER 100mg PO BID. Cardizem drip stands by. Physical therapy and Occupational Therapy evaluation and treatments for placement pending. 05/09: Afebrile overnight. WBC down trended to 9.2 this morning. Initial blood c ulture grew MSSA. Repeat blood culture no growth today. Echocardiogram did not show any endocardial vegetations. Repeat facial CT again showing right parotid gland inflammation's/swelling with out any stone, abscess, tumor, or suspicious mass. Patient has been off Cardizem drip heart rate controlled. Physical therapy Occupational Therapy recommend SNF placement. Downgraded patient's from ICU to MedSurg with telemetry. Changed antibiotics from Zosyn to Rocephin. Diltiazem extended release 360mg PO daily, continue metoprolol ER 100mg PO BID. Pending SNF placement. 05/10: Afebrile overnight. WBC down trended to 9.2 this morning. Initial blood culture grew MSSA. Repeat blood culture no growth today. Patient is currently comfortable denies any right facial pain. Denies any shortness of breath, chest pain, or palpitations. Denies any fever, chills, or diaphoresis. Continue Rocephin for now and will change to oral antibiotics such as Augmentin. We will plan to discharged to SNF tomorrow. 05/11: Discharged to SNF held due to insurance authorization. 05/12 Started dig load yesterday afternoon given poor response to other therapy. Patient has no overnight event or new complaints. Review of Systems: denies headache/fever/chills/nausea/vomiting/chest or abdominal pain/co ugh/dyspnea/diarrhea. Otherwise see above. Constitutional Vitals: Vital Signs Temp Pulse Resp BP Pulse Ox O2 Del Method O2 Flow Rate 97.8 F 103 H 20 144/82 96 0 05/12/22 08:00 05/12/22 03:44 05/12/22 08:00 05/12/22 08:00 05/12/22 08:00 05/12/22 08:00 05/10/22 04:00 Period Temp Pulse Resp BP Sys/Tidwell Pulse Ox O2 Del Method O2 Flow Rate Last 24 Hr 97.4 F-99.7 F 72-149 16-20 118-144/58-84 93-100 Room Air-Room Air Intake and Output 05/11/22 05/12/22 05/12/22 21:59 05:59 13:59 Intake Total 360 240 Output Total 0 Balance 360 240 Weight 56.954 kg Intake & Output: Intake & Output 05/11/22 05/12/22 05/12/22 21:59 05:59 13:59 Intake Total 360 240 Output Total 0 Balance 360 240 Weight 56.954 kg Intake: Oral 360 240 Output: # of times incontinent of urine 0 Other: Meal Dinner Percent of Meal Consumed 75% Feeding Ability Independent Urine Appearance Clear Clear Urine Color Yellow Bright Yellow Stool Size Small Small Smear Stool Color Brown Green Green Green Stool Consistency Liquid Soft Soft Formed Formed # Voids 1 1 1 # Bowel Movements 1 1 0 # of times incontinent of 1 0 Bowels Exam: General: Alert, Awake, No acute Distress Eyes/N/T: EOMI, Right facial swelling erythema and tenderness improved Head/Neck: neck supple, CV: irreg irreg, 3/6SM, Pulm: Clear b/l, no wheezing/rhonchi/rales Abd: soft, nontender, +BS x4 Ext: no clubbing/cyanosis/edema Neuro: Alert, no focal deficits, moves all extremities, Skin: warm/dry OBJ DATA Labs CBC & Chem 7: 05/12/22 05:55 05/12/22 05:54 Labs: Abnormal Lab Results 05/12/22 05/12/22 05/11/22 05:55 05:54 05:22 RBC 3.40 L Hgb 10.5 L Hct 33.1 L RDW 15.2 H Immature Gran % (Auto) 3.8 H Lymph % (Auto) [place] % (Auto) 12.6 H Lymph # (Auto) 1.22 L [place] # (Auto) Immature Gran # 0.24 H Carbon Dioxide Glucose 188 H 240 H AST 88 H 56 H ALT 58 H Alkaline Phosphatase 132 H Total Protein 4.9 L 5.2 L Albumin 2.8 L 2.3 L Globulin 2.1 L Albumin/Globulin Ratio 0.8 L 05/11/22 05/10/22 05/10/22 05:22 05:48 05:48 RBC 3.41 L 3.48 L Hgb 10.4 L 10.7 L Hct 32.4 L RDW 15.1 H 15.3 H Immature Gran % (Auto) 4.2 H 3.6 H Lymph % (Auto) 14.7 L [place] % (Auto) 14.0 H 13.3 H Lymph # (Auto) 0.94 L 1.35 L [place] # (Auto) 1.22 H Immature Gran # 0.22 H 0.33 H Carbon Dioxide 21 L Glucose 148 H AST 39 H ALT Alkaline Phosphatase Total Protein 5.3 L Albumin 2.3 L Globulin Albumin/Globulin Ratio 0.8 L Meds: Medications Acetaminophen (Acetaminophen 325 Mg Tablet) 650 mg PO Q4-6HP PRN; Protocol PRN Reason: Per Pain Protocol/Fever > 101 Last Admin: 05/12/22 07:20 Dose: 650 mg Hydrocodone Bitart/Acetaminophen (Hydrocodone/Apap 10/325mg Tablet) 2 tab PO BIDP PRN; Protocol PRN Reason: PAIN LEVEL > 6 Last Admin: 05/08/22 20:45 Dose: 2 tab Albuterol/Ipratropium (Ipratropium/Albuterol 3 Ml Ampul.Neb) 3 ml NEB Q4HRT PRN PRN Reason: Wheezing Apixaban (Apixaban 5 Mg Tablet) 2.5 mg PO BID [facility] Last Admin: 05/11/22 20:54 Dose: 2.5 mg Aspirin (Aspirin 81 Mg Tab.Chew) 81 mg PO DAILY [facility] Last Admin: 05/11/22 12:20 Dose: 81 mg Atorvastatin Calcium (Atorvastatin 40 Mg Tablet) 40 mg PO HS [facility] Last Admin: 05/11/22 20:54 Dose: 40 mg Dextrose (Dextrose 50% 50 Ml Vial) 0 ml IV UD PRN PRN Reason: Per Sliding Scale Dextrose (Dextrose 50% 50 Ml Vial) 0 ml IV UD PRN PRN Reason: Per Sliding Scale Diagnostic Test (Pha) (Accu-Chek 1 Each Strip) 1 each FS ACHS [facility] Last Admin: 05/12/22 07:22 Dose: 1 each Digoxin (Digoxin 500 Mcg/2 Ml Ampul) 125 mcg IV Q8H [facility] Stop: 05/12/22 09:31 Last Admin: 05/12/22 01:36 Dose: 125 mcg Diltiazem HCl (Diltiazem 180 Mg Cap.Xl.24h) 180 mg PO DAILY [facility] Docusate Sodium (Docusate Sodium 100 Mg Capsule) 100 mg PO BID [facility] Last Admin: 05/11/22 21:00 Dose: Not Given Ferrous Sulfate (Ferrous Sulfate 325 Mg Tablet) [facility] Last Admin: 05/11/22 12:23 Dose: 325 mg Furosemide (Furosemide 20 Mg Tablet) 20 mg PO QDAY [facility] Last Admin: 05/11/22 12:20 Dose: 20 mg Gabapentin (Gabapentin 100 Mg Capsule) 100 mg PO [facility] Last Admin: 05/11/22 20:54 Dose: 100 mg Glucose (Dextrose 31 Gm Oral.Susp) 15 gm PO PRN PRN PRN Reason: Hypoglycemia Glucose (Dextrose 31 Gm Oral.Susp) 15 gm PO PRN PRN PRN Reason: Hypoglycemia Ceftriaxone Sodium 2 gm/ (Dextrose) 50 mls @ 100 mls/hr IV Q24H [facility]; Protocol Last Infusion: 05/11/22 13:15 Dose: Infused Ibuprofen (Ibuprofen 600 Mg Tablet) 600 mg PO QIDP PRN; Protocol PRN Reason: PAIN/FEVER > 101 Last Admin: 05/12/22 00:30 Dose: 600 mg Insulin Human Lispro (Insulin Lispro 1 Unit/0.01 Ml Unit) 0 unit SQ [facility]; Protocol Last Admin: 05/12/22 07:27 Dose: 4 units Magnesium Oxide (Magnesium Oxide 400 Mg Tablet) 400 mg PO DAILY [facility] Last Admin: 05/11/22 12:20 Dose: 400 mg Metoprolol Succinate (Metoprolol Succinate 50 Mg Tab.Xl.24h) 100 mg PO BID [facility] Last Admin: 05/11/22 20:54 Dose: 100 mg Metoprolol Tartrate (Metoprolol Tartrate 5 Mg/5 Ml Vial) 5 mg IV Q2HP PRN PRN Reason: Tachyarrhythmias HR>110 Last Admin: 05/11/22 17:10 Dose: 5 mg Morphine Sulfate (Morphine 2 Mg/Ml Vial) 2 mg IV Q4HP PRN; Protocol PRN Reason: Per Pain Protocol Omeprazole (Omeprazole 20 Mg Capsule) 20 mg PO QAMAC [facility] Last Admin: 05/12/22 07:20 Dose: 20 mg Ondansetron HCl (Ondansetron 4 Mg/2 Ml Vial) 4 mg IV Q4-6HP PRN; Protocol PRN Reason: Nausea And Vomiting Oxycodone HCl (Oxycodone Hcl 5 Mg Tablet) 5 mg PO Q4-6HP PRN; Protocol PRN Reason: Per Pain Protocol Last Admin: 05/12/22 05:57 Dose: 5 mg Promethazine HCl (Promethazine 25 Mg/Ml Vial) 25 mg IV Q4-6HP PRN; Protocol PRN Reason: Nausea And Vomiting Senna (Sennosides 1 Tablet) 1 tab PO DAILYP PRN PRN Reason: Constipation Last Admin: 05/08/22 07:38 Dose: 1 tab Sodium Chloride (0.9 % Sodium Chloride 10 Ml Syringe) 10 ml IV Q8 [facility] Last Admin: 05/12/22 06:04 Dose: 10 ml A/P Narrative A/P Narrative: A: *Atrial fibrillation w/RVR: -has PPM, good EF on echo *Right parotitis: DDx: infectious causes such as mumps/influenza/coxsackievirus/noninfectious causes such as sialolithiasis -Repeat facial CT showing right parotid gland inflammation's/swelling w/o stone/abscess/tumor *Bacteremia (MSSA, uncomplicated): 2/2 above -echo no vegetations *T2DM w/polyneuropathy & nephropathy: -HgA1c 7.5 *HTN/HLD: *Anemia: *Hypomagnesemia: improved P: -Started Dig and decreased Diltiazem, continue metoprolol ER 100mg PO BID -Eliquis -IV abx for 2-weeks -cont asa/statin -ssi -pt/ot -CM for placement -ppx: Eliquis / ppi Code statin: DNR Time Spent With Patient Time: Total time spent is greater than 50% in coordination of care (as documented) at patient's floor/unit and/or counseling patient: Total time spent with greater than 50% in coordination of care (as documented) at patient's floor/unit and/or counseling patient:: 25 - 35 minutes QUALITY VTE Deep Vein Thrombosis/Pulmonary Embolism Present on Admission: Yes
[2022-05-12] MEDS: cefTRIAXone 2 GM in DEXTROSE 5% IN WATER 50 ML IV SCH (09:10)
[2022-05-12] MEDS: APIXABAN 5 MG TABLET PO SCH ×2 (09:11→20:00)
[2022-05-12] MEDS: DOCUSATE SODIUM 100 MG CAPSULE PO SCH ×2 (09:11→20:01)
[2022-05-12] MEDS: METOPROLOL SUCCINATE 50 MG TAB.XL.24H PO SCH ×2 (09:11→20:00)
[2022-05-12] MEDS: MAGNESIUM OXIDE 400 MG TABLET PO SCH (09:11)
[2022-05-12] MEDS: DILTIAZEM 180 MG CAP.XL.24H PO SCH (09:11)
[2022-05-12] MEDS: ASPIRIN 81 MG TAB.CHEW PO SCH (09:11)
[2022-05-12] MEDS: FUROSEMIDE 20 MG TABLET PO SCH (09:11)
[2022-05-12] MEDS: FERROUS SULFATE 325 MG TABLET PO SCH (09:11)
[2022-05-12] MEDS ORDERED: DIGOXIN 125 MCG TABLET PO SCH (18:00)
[2022-05-12] MEDS: ATORVASTATIN 40 MG TABLET PO SCH (20:00)
[2022-05-12] MEDS: GABAPENTIN 100 MG CAPSULE PO SCH (20:00)
[2022-05-13 07:29] LABS: Digoxin 1.6 ng/mL
[2022-05-13 07:31] LABS: ALT/SGPT 40 U/L (<40); AST/SGOT 46 U/L (<32); Albumin 2.4 gm/dL (3.2-5.2); Albumin/Globulin Ratio 0.8 (1.0-2.3); Alkaline Phosphatase 108 U/L (39-117); Bilirubin,Direct < 0.2 mg/dL (0-0.3); Bilirubin,Total 0.3 mg/dL (0.1-1.0); Blood Urea Nitrogen 7 mg/dL (8-23); Calcium 8.8 mg/dL (8.6-10.4); Carbon Dioxide 24 mmol/L (22-30); Chloride 103 mmol/L (96-108); Globulin 2.9 gm/dL (2.2-3.7); Glomerular Filtration Rate 77; Glucose 179 mg/dL (70-105); Lactate Dehydrogenase 297 U/L (135-225); Phosphorous 2.8 mg/dL (2.5-4.5); Triglycerides 109 mg/dL (<150); Uric Acid 4.9 mg/dL (2.5-8.0)
[2022-05-13] MEDS: INSULIN LISPRO 1 UNIT/0.01 ML UNIT SQ SCH ×4 (07:53→20:38)
[2022-05-13] MEDS: 0.9 % SODIUM CHLORIDE 10 ML SYRINGE IV SCH ×3 (07:53→23:12)
[2022-05-13] MEDS: OMEPRAZOLE 20 MG CAPSULE PO SCH (07:54)
[2022-05-13] MEDS: oxyCODONE HCL 5 MG TABLET PO PRN ×3 (07:54→20:48)
[2022-05-13] MEDS: APIXABAN 5 MG TABLET PO SCH ×2 (07:56→20:29)
[2022-05-13] MEDS: DILTIAZEM 180 MG CAP.XL.24H PO SCH (07:57)
[2022-05-13] MEDS: FUROSEMIDE 20 MG TABLET PO SCH (07:57)
[2022-05-13] MEDS: METOPROLOL SUCCINATE 50 MG TAB.XL.24H PO SCH ×2 (07:57→20:29)
[2022-05-13] MEDS: ASPIRIN 81 MG TAB.CHEW PO SCH (07:58)
[2022-05-13] MEDS: MAGNESIUM OXIDE 400 MG TABLET PO SCH (07:58)
[2022-05-13] MEDS: DOCUSATE SODIUM 100 MG CAPSULE PO SCH ×2 (07:58→20:29)
[2022-05-13] MEDS: FERROUS SULFATE 325 MG TABLET PO SCH (07:58)
--- NOTE | 2022-05-13 09:00 | Internal Med Progress Note ---
SUBJECTIVE Subjective Patient information: Note initiated : 05/13/22 at 8:55 am Service Date, if different from initiated Date: [] Patient: Nolvia Jalloh 86 y/o F admitted on 05/06/22 for weakness. Chief Complaint: [] Interval history: Ms. 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 The following history is sev erely limited by the patient's clinical situations and lack of family or caregiver at the bedside. Patient does not recall why she is being sent to the hospital. She currently denies any chest pain palpitations or chest pressure. She denies any shortness of breath. She denies any lightheadedness or dizziness. She denies any pain or discomfort at the moment. Vital signs at ED presentation significant for severe tachycardia with heart rate up to the 160s beats per minutes. Labs significant for leukocytosis with WBC 13.1, as well as hemoglobin and hematocrit 10.1 and 31.5, respectively. Only remarkable electrolyte imbalance is mild hypodysemia with serum magnesium level 1.5. D- dimer 0.87. Serum troponin 0.01. CT angiogram of the chest negative for any pulmonary embolism or any focal infiltrate. Patient was started on Cardizem drip after several rounds of Cardizem pushes failed to successfully rate controlled the patient. 05/06: Patient's heart rate was up in the 150s earlier this morning but when I saw the patient at the bedside and it went down to 110 beats per minutes. Patient denies any chest pain palpitations or shortness of breath. She is still complaining of right facial swelling and pain. She denies any fever chills or diaphoresis. She is complain of general body weakness. Will start IV antibiotics with Zosyn after blood cultures. We will also offer pain regimen including ibuprofen, oxycodone, and IV morphine as needed for mild to moderate or severe pain, respectively. Continue Cardizem and metoprolol ER while attempting to down titrate Cardizem drip. 2D echocardiogram. Physical therapy and Occupational Therapy evaluation and treatments for placement pending. 05/07: Low-grade fever 37.7 this morning. Blood culture growing gram-positive cocci in both sets. Heart rate in the 1 teens, Cardizem drip still on at 10 Mg per hour. 2D echocardiogram preformed, results pending. Patient denies any chest pain palpitations or shortness of breath. She is still complaining of right facial swelling and pain. She denies any fever chills or diaphoresis. She is complain of general body weakness. Repeat blood cultures X2 on 05/08. Continue to watch for echocardiogram results. Continue Zosyn. Switch from Diltiazem from 60mg PO QID to Diltiazem extended release 360mg PO daily, continue metoprolol ER 100mg PO BID. Continue to wean down/off Diltiazem drip. Physical therapy and Occupational Therapy evaluation and treatments for placement pending. 05/08: Afebrile overnight. Patient is on room air. Patient's has been off Cardizem drip since yesterday morning, on Cardizem extended release 360 mg p.o. daily and metoprolol ER 100 mg p.o. twice daily. Current heart rates up in the 130s beats per minutes. Blood pressure normal. WBC 12.3, initial blood culture still growing gram-positive cocci no further identity is available at the moment. Patient is still commenting of same degree of right facial pain. She is able to tolerate her diet and chew on her food. Denies chest pain or palpitation. Repeat blood cultures X2 today. MRI face w/ w/o. Continue Zosyn. Diltiazem extended release 360mg PO daily, continue metoprolol ER 100mg PO BID. Cardizem drip stands by. Physical therapy and Occupational Therapy evaluation and treatments for placement pending. 05/09: Afebrile overnight. WBC down trended to 9.2 this morning. Initial blood c ulture grew MSSA. Repeat blood culture no growth today. Echocardiogram did not show any endocardial vegetations. Repeat facial CT again showing right parotid gland inflammation's/swelling with out any stone, abscess, tumor, or suspicious mass. Patient has been off Cardizem drip heart rate controlled. Physical therapy Occupational Therapy recommend SNF placement. Downgraded patient's from ICU to MedSurg with telemetry. Changed antibiotics from Zosyn to Rocephin. Diltiazem extended release 360mg PO daily, continue metoprolol ER 100mg PO BID. Pending SNF placement. 05/10: Afebrile overnight. WBC down trended to 9.2 this morning. Initial blood culture grew MSSA. Repeat blood culture no growth today. Patient is currently comfortable denies any right facial pain. Denies any shortness of breath, chest pain, or palpitations. Denies any fever, chills, or diaphoresis. Continue Rocephin for now and will change to oral antibiotics such as Augmentin. We will plan to discharged to SNF tomorrow. 05/11: Discharged to SNF held due to insurance authorization. 05/12 Started dig load yesterday afternoon given poor response to other therapy. Patient has no overnight event or new complaints. 05/13 Patient seems to doing little better again today. Facial swelling continues to improve. No overnight event or new complaints. Heart rate 70s to low 100s. Transaminitis better. Review of Systems: denies headache/fever/chills/nausea/vomiting/chest or abdominal pain/cough/dyspnea/diarrhea. Otherwise see above. Constitutional Vitals: Vital Signs Temp Pulse Resp BP Pulse Ox O2 Del Method O2 Flow Rate 97.9 F 111 H 16 158/90 95 0 05/13/22 07:17 05/13/22 07:17 05/13/22 07:17 05/13/22 07:17 05/13/22 07:17 05/13/22 08:00 05/10/22 04:00 Period Temp Pulse Resp BP Sys/[place] Pulse Ox O2 Del Method O2 Flow Rate Last 24 Hr 97.9 F-99.4 F 72-111 16-18 127-158/69-90 95-98 Room Air-Room Air Intake and Output 05/12/22 05/13/22 05/13/22 21:59 05:59 13:59 Intake Total 360 Output Total 201 750 350 Balance 159 -750 -350 Weight 56.897 kg Intake & Output: Intake & Output 05/12/22 05/13/22 05/13/22 21:59 05:59 13:59 Intake Total 360 Output Total 201 750 350 Balance 159 -750 -350 Weight 56.897 kg Intake: Oral 360 Output: Void Amount 200 750 350 # of times incontinent of urine 1 0 Other: Meal Dinner Percent of Meal Consumed 75% Feeding Ability Independent Urine Appearance Clear Clear Urine Color Yellow Bright Yellow Urine Odor Normal Stool Size Moderate Smear Stool Color Green Stool Consistency Soft Formed # Bowel Movements 1 1 Exam: General: Alert, Awake, No acute Distress Eyes/N/T: EOMI, Right facial swelling erythema and tenderness much improved Head/Neck: neck supple, CV: irreg irreg, 3/6SM, Pulm: Clear b/l, no wheezing/rhonchi/rales Abd: soft, nontender, +BS x4 Ext: no clubbing/cyanosis/edema Neuro: Alert, no focal deficits, moves all extremities, Skin: warm/dry OBJ DATA Labs CBC & Chem 7: 05/12/22 05:55 05/13/22 05:45 Labs: Abnormal Lab Results 05/13/22 05/12/22 05/12/22 05:45 05:55 05:54 RBC 3.40 L Hgb 10.5 L Hct 33.1 L RDW 15.2 H Immature Gran % (Auto) 3.8 H Hendricks % (Auto) 12.6 H Lymph # (Auto) 1.22 L Immature Gran # 0.24 H BUN 7 L Glucose 179 H 188 H GGT 79 H AST 46 H 88 H ALT 40 H 58 H Alkaline Phosphatase 132 H Lactate Dehydrogenase 297 H Total Protein 5.3 L 4.9 L Albumin 2.4 L 2.8 L Globulin 2.1 L Albumin/Globulin Ratio 0.8 L 05/11/22 05/11/22 05:22 05:22 RBC 3.41 L Hgb 10.4 L Hct 32.4 L RDW 15.1 H Immature Gran % (Auto) 4.2 H Hendricks % (Auto) 14.0 H Lymph # (Auto) 0.94 L Immature Gran # 0.22 H BUN Glucose 240 H GGT AST 56 H ALT Alkaline Phosphatase Lactate Dehydrogenase Total Protein 5.2 L Albumin 2.3 L Globulin Albumin/Globulin Ratio 0.8 L Meds: Medications Acetaminophen (Acetaminophen 325 Mg Tablet) 650 mg PO Q4-6HP PRN; Protocol PRN Reason: Per Pain Protocol/Fever > 101 Last Admin: 05/12/22 15:42 Dose: 650 mg Hydrocodone Bitart/Acetaminophen (Hydrocodone/Apap 10/325mg Tablet) 2 tab PO BIDP PRN; Protocol PRN Reason: PAIN LEVEL > 6 Last Admin: 05/08/22 20:45 Dose: 2 tab Albuterol/Ipratropium (Ipratropium/Albuterol 3 Ml Ampul.Neb) 3 ml NEB Q4HRT PRN PRN Reason: Wheezing Apixaban (Apixaban 5 Mg Tablet) 2.5 mg PO BID [facility] Last Admin: 05/13/22 07:56 Dose: 2.5 mg Aspirin (Aspirin 81 Mg Tab.Chew) 81 mg PO DAILY [facility] Last Admin: 05/13/22 07:58 Dose: 81 mg Atorvastatin Calcium (Atorvastatin 40 Mg Tablet) 40 mg PO HS [facility] Last Admin: 05/12/22 20:00 Dose: 40 mg Dextrose (Dextrose 50% 50 Ml Vial) 0 ml IV UD PRN PRN Reason: Per Sliding Scale Diagnostic Test (Pha) (Accu-Chek 1 Each Strip) 1 each FS ACHS [facility] Last Admin: 05/13/22 07:48 Dose: 1 each Digoxin (Digoxin 125 Mcg Tablet) 125 mcg PO 1800 [facility] Last Admin: 05/12/22 17:02 Dose: 125 mcg Diltiazem HCl (Diltiazem 180 Mg Cap.Xl.24h) 180 mg PO DAILY [facility] Last Admin: 05/13/22 07:57 Dose: 180 mg Docusate Sodium (Docusate Sodium 100 Mg Capsule) 100 mg PO BID [facility] Last Admin: 05/13/22 07:58 Dose: 100 mg Ferrous Sulfate (Ferrous Sulfate 325 Mg Tablet) [address] [facility] Last Admin: 05/13/22 07:58 Dose: 325 mg Furosemide (Furosemide 20 Mg Tablet) 20 mg PO QDAY [facility] Last Admin: 05/13/22 07:57 Dose: 20 mg Gabapentin (Gabapentin 100 Mg Capsule) 100 mg PO [facility] Last Admin: 05/12/22 20:00 Dose: 100 mg Glucose (Dextrose 31 Gm Oral.Susp) 15 gm PO PRN PRN PRN Reason: Hypoglycemia Ceftriaxone Sodium 2 gm/ (Dextrose) 50 mls @ 100 mls/hr IV Q24H [facility]; Protocol Last Infusion: 05/12/22 10:00 Dose: Infused Ibuprofen (Ibuprofen 600 Mg Tablet) 600 mg PO QIDP PRN; Protocol PRN Reason: PAIN/FEVER > 101 Last Admin: 05/12/22 00:30 Dose: 600 mg Insulin Human Lispro (Insulin Lispro 1 Unit/0.01 Ml Unit) 0 unit SQ [facility]; Protocol Last Admin: 05/13/22 07:53 Dose: 2 units Magnesium Oxide (Magnesium Oxide 400 Mg Tablet) 400 mg PO DAILY [facility] Last Admin: 05/13/22 07:58 Dose: 400 mg Metoprolol Succinate (Metoprolol Succinate 50 Mg Tab.Xl.24h) 100 mg PO BID [facility] Last Admin: 05/13/22 07:57 Dose: 100 mg Metoprolol Tartrate (Metoprolol Tartrate 5 Mg/5 Ml Vial) 5 mg IV Q2HP PRN PRN Reason: Tachyarrhythmias HR>110 Last Admin: 05/11/22 17:10 Dose: 5 mg Morphine Sulfate (Morphine 2 Mg/Ml Vial) 2 mg IV Q4HP PRN; Protocol PRN Reason: Per Pain Protocol Omeprazole (Omeprazole 20 Mg Capsule) 20 mg PO QAMAC [facility] Last Admin: 05/13/22 07:54 Dose: 20 mg Ondansetron HCl (Ondansetron 4 Mg/2 Ml Vial) 4 mg IV Q4-6HP PRN; Protocol PRN Reason: Nausea And Vomiting Oxycodone HCl (Oxycodone Hcl 5 Mg Tablet) 5 mg PO Q4-6HP PRN; Protocol PRN Reason: Per Pain Protocol Last Admin: 05/13/22 07:54 Dose: 5 mg Promethazine HCl (Promethazine 25 Mg/Ml Vial) 25 mg IV Q4-6HP PRN; Protocol PRN Reason: Nausea And Vomiting Senna (Sennosides 1 Tablet) 1 tab PO DAILYP PRN PRN Reason: Constipation Last Admin: 05/08/22 07:38 Dose: 1 tab Sodium Chloride (0.9 % Sodium Chloride 10 Ml Syringe) 10 ml IV Q8 [facility] Last Admin: 05/13/22 07:53 Dose: 10 ml A/P Narrative A/P Narrative: A: *Atrial fibrillation w/RVR: overall improved still bumps to low 100's -has PPM, good EF on echo *Right parotitis: DDx: infectious causes such as mumps/influenza/coxsackievirus/noninfectious causes such as sialolithiasis -Repeat facial CT showing right parotid gland inflammation's/swelling w/o stone/abscess/tumor *Bacteremia (MSSA, uncomplicated): 2/2 above -echo no vegetations *T2DM w/polyneuropathy & nephropathy: -HgA1c 7.5 *HTN/HLD: *Anemia: *Hypomagnesemia: improved P: -Started Dig and decreased Diltiazem, continue metoprolol ER 100mg PO BID -f/u dig level -Eliquis -IV abx for 2-weeks -cont asa/statin -ssi -pt/ot -CM for placement -f/u with cardio -ppx: Eliquis / ppi Code statin: DNR Time Spent With Patient Time: Total time spent is greater than 50% in coordination of care (as documented) at patient's floor/unit and/or counseling patient: Total time spent with greater than 50% in coordination of care (as documented) at patient's floor/unit and/or counseling patient:: 25 - 35 minutes QUALITY VTE Deep Vein Thrombosis/Pulmonary Embolism Present on Admission: Yes
[2022-05-13] MEDS: cefTRIAXone 2 GM in DEXTROSE 5% IN WATER 50 ML IV SCH (09:28)
[2022-05-13] MEDS: ACETAMINOPHEN 325 MG TABLET PO PRN (11:41)
--- NOTE | 2022-05-13 13:11 | Discharge Summary ---
Discharge Provider Provider IMPORTANT FOLLOW-UP INFORMATION FOR PCP: Patient information: Note initiated : 05/13/22 at 1:09 pm Service Date, if different from initiated Date: [] Patient: Nolvia Jalloh 86 y/o F admitted on 05/06/22 for weakness. Chief Complaint: [] Date of admission: 05/06/22 00:08 Primary care physician: Saige Sotomayor Consults: 05/05/22 Consult to Physician [CONS] Stat Comment: Consulting Provider: Alejandro Johnson Reason For Exam: Physician to Consult 05/11/22 13:15 Consult to Physician [CONS] Routine Comment: snf referral Consulting Provider: [facility] Reason For Exam: Physician to Consult COURSE Hospital Course Hospital course: Interval history: Ms. 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 The following history is severely limited by the patient's clinical situations and lack of family or caregiver at the bedside. Patient does not recall why she is being sent to the hospital. She currently denies any chest pain palpitations or chest pressure. She denies any shortness of breath. She denies any lightheadedness or dizziness. She denies any pain or discomfort at the moment. Vital signs at ED presentation significant for severe tachycardia with heart rate up to the 160s beats per minutes. Labs significant for leukocytosis with WBC 13.1, as well as hemoglobin and hematocrit 10.1 and 31.5, respectively. Only remarkable electrolyte imbalance is mild hypodysemia with serum magnesium level 1.5. D- dimer 0.87. Serum troponin 0.01. CT angiogram of the chest negative for any pulmonary embolism or any focal infiltrate. Patient was started on Cardizem drip after several rounds of Cardizem pushes failed to successfully rate controlled the patient. 05/06: Patient's heart rate was up in the 150s earlier this morning but when I saw the patient at the bedside and it went down to 110 beats per minutes. Patient denies any chest pain palpitations or shortness of breath. She is still complaining of right facial swelling and pain. She denies any fever chills or diaphoresis. She is complain of general body weakness. Will start IV antibiotics with Zosyn after blood cultures. We will also offer pain regimen including ibuprofen, oxycodone, and IV morphine as needed for mild to moderate or severe pain, respectively. Continue Cardizem and metoprolol ER while attempting to down titrate Cardizem drip. 2D echocardiogram. Physical therapy and Occupational Therapy evaluation and treatments for placement pending. 05/07: Low-grade fever 37.7 this morning. Blood culture growing gram-positive cocci in both sets. Heart rate in the 1 teens, Cardizem drip still on at 10 Mg per hour. 2D echocardiogram preformed, results pending. Patient denies any chest pain palpitations or shortness of breath. She is still complaining of right facial swelling and pain. She denies any fever chills or diaphoresis. She is complain of general body weakness. Repeat blood cultures X2 on 05/08. Continue to watch for echocardiogram results. Continue Zosyn. Switch from Diltiazem from 60mg PO QID to Diltiazem extended release 360mg PO daily, continue metoprolol ER 100mg PO BID. Continue to wean down/off Diltiazem drip. Physical therapy and Occupational Therapy evaluation and treatments for placement pending. 05/08: Afebrile overnight. Patient is on room air. Patient's has been off Cardizem drip since yesterday morning, on Cardizem extended release 360 mg p.o. daily and metoprolol ER 100 mg p.o. twice daily. Current heart rates up in the 130s beats per minutes. Blood pressure normal. WBC 12.3, initial blood culture still growing gram-positive cocci no further identity is available at the moment. Patient is still commenting of same degree of right facial pain. She is able to tolerate her diet and chew on her food. Denies chest pain or palpitation. Repeat blood cultures X2 today. MRI face w/ w/o. Continue Zosyn. Diltiazem extended release 360mg PO daily, continue metoprolol ER 100mg PO BID. Cardizem drip stands by. Physical therapy and Occupational Therapy evaluation and treatments for placement pending. 05/09: Afebrile overnight. WBC down trended to 9.2 this morning. Initial blood culture grew MSSA. Repeat blood culture no growth today. Echocardiogram did not show any endocardial vegetations. Repeat facial CT again showing right parotid gland inflammation's/swelling with out any stone, abscess, tumor, or suspicious mass. Patient has been off Cardizem drip heart rate controlled. Physical therapy Occupational Therapy recommend SNF placement. Downgraded patient's from ICU to MedSurg with telemetry. Changed antibiotics from Zosyn to Rocephin. Diltiazem extended release 360mg PO daily, continue metoprolol ER 100mg PO BID. Pending SNF placement. 05/10: Afebrile overnight. WBC down trended to 9.2 this morning. Initial blood culture grew MSSA. Repeat blood culture no growth today. Patient is currently comfortable denies any right facial pain. Denies any shortness of breath, chest pain, or palpitations. Denies any fever, chills, or diaphoresis. Continue Rocephin for now and will change to oral antibiotics such as Augmentin. We will plan to discharged to SNF tomorrow. 05/11: Discharged to SNF held due to insurance authorization. Will start digoxin as per discussion with cardiology nurse practitioner. 05/12 Started dig load yesterday afternoon given poor response to other therapy. Patient has no overnight event or new complaints. 05/13 Patient seems to doing little better again today. Facial swelling continues to improve. No overnight event or new complaints. Heart rate 70s to low 100s. Transaminitis better. 05/14 Patient's heart rate has been 70s to low 100s. Patient has no overnight event or new complaints. A: *Atrial fibrillation w/RVR: overall improved still bumps to low 100's -has PPM, good EF on echo *Right parotitis: -Repeat facial CT showing right parotid gland inflammation's/swelling w/o stone/abscess/tumor *Bacteremia (MSSA, uncomplicated): 2/2 above -echo no vegetations *T2DM w/polyneuropathy & nephropathy: -HgA1c 7.5 *HTN/HLD: *Anemia: *Hypomagnesemia: improved P: -Started Dig and decreased Diltiazem, continue metoprolol ER 100mg PO BID -f/u dig level -IV abx for 2-weeks -f/u with cardio Discharge diagnosis: A. fib with RVR right parotitis MSSA bacteremia Secondary discharge diagnosis: Diabetes hypertension anemia hypomagnesemia Time Spent with Patient Time attestation: Total time spent providing and/or coordinating discharge services: Time spent: Greater than 30 minutes EXAM Constitutional Vitals: Temp Pulse Resp BP Pulse Ox O2 Del Method O2 Flow Rate 98.3 F 108 H 18 150/83 96 0 05/13/22 11:23 05/13/22 11:23 05/13/22 11:23 05/13/22 11:23 05/13/22 11:23 05/13/22 11:23 05/10/22 04:00 Discharge Data Data Completed and Pending Labs on day of discharge: Labs from last 24 hours 05/13/22 05/13/22 05/13/22 05:45 05:45 05:45 Sodium 137 Potassium 4.3 Chloride 103 Carbon Dioxide 24 Anion Gap 10.0 BUN 7 L Creatinine 0.7 GFR Calculation 77 Glucose 179 H Uric Acid 4.9 Calcium 8.8 Phosphorus 2.8 Magnesium 1.7 Total Bilirubin 0.3 Direct Bilirubin < 0.2 GGT 79 H AST 46 H ALT 40 H Alkaline Phosphatase 108 Lactate Dehydrogenase 297 H Troponin T < 0.01 Total Protein 5.3 L Albumin 2.4 L Globulin 2.9 Albumin/Globulin Ratio 0.8 L Triglycerides 109 Digoxin 1.6 Discharge Plan Patient/Caregiver Discharge Instructions Activity: increase activity as tolerated Diet: Consistent Carbohydrate Instructions: A-fib (Atrial Fibrillation) (DC), Bacteremia (DC), Mumps in Adults (DC) Activity Restrictions/Additional Instructions: Increase activity as tolerated. Consistent carbohydrate diet as tolerated. Call your physician for sustained fever greater than 100.5, increase in facial pain, or any questions/concerns. This discharge packet is provided to you to help keep you informed about your care. We want to ensure you get everything you need when you go home. You will also be receiving a call from us in a few days to follow up with you and see how you are doing since your discharge. This gives us a chance to listen to any concerns you maybe experiencing since you were discharged or any additional needs you may have, as well as providing us feedback on your care experience. We strive to always provide excellent care and thank you for your feedback and for choosing [facility]. Prescriptions: New diltiazem HCl 180 mg Capsule,Extended Release 24hr 180 mg PO DAILY Qty: 30 0RF digoxin 125 mcg (0.125 mg) Tablet 125 mcg PO DAILY@1400 Qty: 30 0RF Continued atorvastatin 80 mg tablet 40 mg PO HS metoprolol succinate 100 mg tablet extended release 24 hr 100 mg PO BID aspirin 81 mg tablet,delayed release (DR/EC) 81 mg PO QDAY glipizide 2.5 mg tablet extended release 24hr 2.5 mg PO QDAY ferrous sulfate [FeroSul] 325 mg (65 mg iron) tablet 325 mg PO QDAY metformin 1,000 mg tablet 1,000 mg PO BIDCC omeprazole 20 mg capsule,delayed release(DR/EC) 20 mg PO QAMAC furosemide 20 mg tablet 20 mg PO QDAY gabapentin 100 mg capsule 100 mg PO HS Eliquis 2.5 mg tablet 2.5 mg PO BID hydrocodone-acetaminophen 10-325 mg tablet 2 tab PO BIDP PRN (Reason: Pain) Qty: 10 0RF Discontinued diltiazem HCl 180 mg capsule,extended release 24hr 180 mg PO QDAY Other Ambulatory Orders: Digoxin (Routine) Timeframe: 2 Days Facility: [facility] - Location: Laboratory Ordered By: Samuel Clemente OT Discharge Order (Routine) Location: None Selected Ordered By: Alejandro Johnson Physical Therapy at Discharge - General (Routine) Location: None Selected Ordered By: Alejandro Johnson Follow Up Plan Follow up with: Saige Sotomayor MD [Primary Care Provider] - (Please call and schedule a hospital follow up to be seen in 7-10 days.) Antionette Ceron ARNP [Nurse Practitioner] - Patient Disposition: Xfer SNF Prognosis: Fair Rehab Potential: Fair I certify that the patient requires SNF services: Yes Overall status at discharge: patient is progressing back to baseline QUALITY VTE Deep Vein Thrombosis/Pulmonary Embolism Present on Admission: Yes
[2022-05-13] MEDS: GABAPENTIN 100 MG CAPSULE PO SCH (20:29)
[2022-05-13] MEDS: ATORVASTATIN 40 MG TABLET PO SCH (20:29)
[2022-05-14] MEDS: 0.9 % SODIUM CHLORIDE 10 ML SYRINGE IV SCH ×4 (05:32→22:07)
[2022-05-14] MEDS: INSULIN LISPRO 1 UNIT/0.01 ML UNIT SQ SCH ×4 (07:33→22:05)
[2022-05-14] MEDS: FERROUS SULFATE 325 MG TABLET PO SCH (07:34)
[2022-05-14] MEDS: OMEPRAZOLE 20 MG CAPSULE PO SCH (07:34)
[2022-05-14] MEDS: HYDROcodone/APAP 10/325MG TABLET PO PRN ×2 (07:35→22:05)
--- NOTE | 2022-05-14 08:17 | EKG ---
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 Measurements Intervals [place] Rate: 119 P: CT: QRS: -39 QRSD: 85 T: 225 QT: 324 QTc: 456 Interpretive Statements Atrial fibrillation Probable anterior infarct, age indeterminate Lateral leads are also involved Electronically Signed On 05-14-2022 8:17:42 PDT by Franklyn Da Silva M.D. /[id number]/[id number]
[2022-05-14] MEDS: METOPROLOL SUCCINATE 50 MG TAB.XL.24H PO SCH ×2 (08:27→21:35)
[2022-05-14] MEDS: FUROSEMIDE 20 MG TABLET PO SCH (08:28)
[2022-05-14] MEDS: DILTIAZEM 180 MG CAP.XL.24H PO SCH (08:28)
[2022-05-14] MEDS: DOCUSATE SODIUM 100 MG CAPSULE PO SCH ×2 (08:28→21:48)
[2022-05-14] MEDS: MAGNESIUM OXIDE 400 MG TABLET PO SCH (08:29)
[2022-05-14] MEDS: ASPIRIN 81 MG TAB.CHEW PO SCH (08:29)
[2022-05-14] MEDS: APIXABAN 5 MG TABLET PO SCH ×2 (08:29→21:35)
--- NOTE | 2022-05-14 10:24 | Internal Med Progress Note ---
SUBJECTIVE Subjective Patient information: Note initiated : 05/14/22 at 10:20 am Service Date, if different from initiated Date: [] Patient: Nolvia Jalloh 86 y/o F admitted on 05/06/22 for weakness. Chief Complaint: [] Interval history: Ms. 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 The following history is se verely limited by the patient's clinical situations and lack of family or caregiver at the bedside. Patient does not recall why she is being sent to the hospital. She currently denies any chest pain palpitations or chest pressure. She denies any shortness of breath. She denies any lightheadedness or dizziness. She denies any pain or discomfort at the moment. Vital signs at ED presentation significant for severe tachycardia with heart rate up to the 160s beats per minutes. Labs significant for leukocytosis with WBC 13.1, as well as hemoglobin and hematocrit 10.1 and 31.5, respectively. Only remarkable electrolyte imbalance is mild hypodysemia with serum magnesium level 1.5. D- dimer 0.87. Serum troponin 0.01. CT angiogram of the chest negative for any pulmonary embolism or any focal infiltrate. Patient was started on Cardizem drip after several rounds of Cardizem pushes failed to successfully rate controlled the patient. 05/06: Patient's heart rate was up in the 150s earlier this morning but when I saw the patient at the bedside and it went down to 110 beats per minutes. Patient denies any chest pain palpitations or shortness of breath. She is still complaining of right facial swelling and pain. She denies any fever chills or diaphoresis. She is complain of general body weakness. Will start IV antibiotics with Zosyn after blood cultures. We will also offer pain regimen including ibuprofen, oxycodone, and IV morphine as needed for mild to moderate or severe pain, respectively. Continue Cardizem and metoprolol ER while attempting to down titrate Cardizem drip. 2D echocardiogram. Physical therapy and Occupational Therapy evaluation and treatments for placement pending. 05/07: Low-grade fever 37.7 this morning. Blood culture growing gram-positive cocci in both sets. Heart rate in the 1 teens, Cardizem drip still on at 10 Mg per hour. 2D echocardiogram preformed, results pending. Patient denies any chest pain palpitations or shortness of breath. She is still complaining of right facial swelling and pain. She denies any fever chills or diaphoresis. She is complain of general body weakness. Repeat blood cultures X2 on 05/08. Continue to watch for echocardiogram results. Continue Zosyn. Switch from Diltiazem from 60mg PO QID to Diltiazem extended release 360mg PO daily, continue metoprolol ER 100mg PO BID. Continue to wean down/off Diltiazem drip. Physical therapy and Occupational Therapy evaluation and treatments for placement pending. 05/08: Afebrile overnight. Patient is on room air. Patient's has been off Cardizem drip since yesterday morning, on Cardizem extended release 360 mg p.o. daily and metoprolol ER 100 mg p.o. twice daily. Current heart rates up in the 130s beats per minutes. Blood pressure normal. WBC 12.3, initial blood culture still growing gram-positive cocci no further identity is available at the moment. Patient is still commenting of same degree of right facial pain. She is able to tolerate her diet and chew on her food. Denies chest pain or palpitation. Repeat blood cultures X2 today. MRI face w/ w/o. Continue Zosyn. Diltiazem extended release 360mg PO daily, continue metoprolol ER 100mg PO BID. Cardizem drip stands by. Physical therapy and Occupational Therapy evaluation and treatments for placement pending. 05/09: Afebrile overnight. WBC down trended to 9.2 this morning. Initial blood culture grew MSSA. Repeat blood culture no growth today. Echocardiogram did not show any endocardial vegetations. Repeat facial CT again showing right parotid gland inflammation's/swelling with out any stone, abscess, tumor, or suspicious mass. Patient has been off Cardizem drip heart rate controlled. Physical therapy Occupational Therapy recommend SNF placement. Downgraded patient's from ICU to MedSurg with telemetry. Changed antibiotics from Zosyn to Rocephin. Diltiazem extended release 360mg PO daily, continue metoprolol ER 100mg PO BID. Pending SNF placement. 05/10: Afebrile overnight. WBC down trended to 9.2 this morning. Initial blood culture grew MSSA. Repeat blood culture no growth today. Patient is currently comfortable denies any right facial pain. Denies any shortness of breath, chest pain, or palpitations. Denies any fever, chills, or diaphoresis. Continue Rocephin for now and will change to oral antibiotics such as Augmentin. We will plan to discharged to SNF tomorrow. 05/11: Discharged to SNF held due to insurance authorization. 05/12 Started dig load yesterday afternoon given poor response to other therapy. Patient has no overnight event or new complaints. 05/13 Patient seems to doing little better again today. Facial swelling continues to improve. No overnight event or new complaints. Heart rate 70s to low 100s. Transaminitis better. 05/14 Patient's heart rate has been 70s to low 100s. Patient has no overnight event or new complaints. Will continue with digoxin as per discussion with cardiology nurse practitioner. Review of Systems: denies headache/fever/chills/nausea/vomiting/chest or abdominal pain/cough/dyspnea/diarrhea. Otherwise see above. Constitutional Vitals: Vital Signs Temp Pulse Resp BP Pulse Ox O2 Del Method O2 Flow Rate 98.3 F 96 H 28 H 139/71 96 0 05/14/22 07:11 05/14/22 07:11 05/14/22 07:11 05/14/22 07:11 05/14/22 07:11 05/14/22 07:11 05/10/22 04:00 Period Temp Pulse Resp BP Sys/[place] Pulse Ox O2 Del Method O2 Flow Rate Last 24 Hr 97.3 F-98.5 F 70-111 16-28 134-155/71-83 95-96 Room Air-Room Air Intake and Output 05/13/22 05/14/22 05/14/22 21:59 05:59 13:59 Intake Total 1150 Output Total 600 100 Balance -600 1050 Weight 57.294 kg Intake & Output: Intake & Output 05/13/22 05/14/22 05/14/22 21:59 05:59 13:59 Intake Total 1150 Output Total 600 100 Balance -600 1050 Weight 57.294 kg Intake: Oral 1150 Output: Void Amount 400 100 Urine/Stool Mix 200 Other: Meal Lunch Breakfast Percent of Meal Consumed 50% 100% Feeding Ability Independent Urine Appearance Clear Clear Urine Color Yellow Yellow Yellow Urine Odor Normal Normal Stool Size Small Small Moderate Stool Color Brown Green Green Stool Consistency Formed Soft Formed Formed Iram # Voids 1 # Bowel Movements 1 1 Exam: General: Alert, Awake, No acute Distress Eyes/N/T: EOMI, Right facial swelling erythema and tenderness much improved Head/Neck: neck supple, CV: much more regular today, 3/6SM, Pulm: Clear b/l, no wheezing/rhonchi/rales Abd: soft, nontender, +BS x4 Ext: no clubbing/cyanosis/edema Neuro: Alert, no focal deficits, moves all extremities, Skin: warm/dry OBJ DATA Labs CBC & Chem 7: 05/12/22 05:55 05/13/22 05:45 Labs: Abnormal Lab Results 05/13/22 05/12/22 05/12/22 05:45 05:55 05:54 RBC 3.40 L Hgb 10.5 L Hct 33.1 L RDW 15.2 H Immature Gran % (Auto) 3.8 H [place] % (Auto) 12.6 H Lymph # (Auto) 1.22 L Immature Gran # 0.24 H BUN 7 L Glucose 179 H 188 H GGT 79 H AST 46 H 88 H ALT 40 H 58 H Alkaline Phosphatase 132 H Lactate Dehydrogenase 297 H Total Protein 5.3 L 4.9 L Albumin 2.4 L 2.8 L Globulin 2.1 L Albumin/Globulin Ratio 0.8 L Meds: Medications Acetaminophen (Acetaminophen 325 Mg Tablet) 650 mg PO Q4-6HP PRN; Protocol PRN Reason: Per Pain Protocol/Fever > 101 Last Admin: 05/13/22 11:41 Dose: 650 mg Hydrocodone Bitart/Acetaminophen (Hydrocodone/Apap 10/325mg Tablet) 2 tab PO BIDP PRN; Protocol PRN Reason: PAIN LEVEL > 6 Last Admin: 05/14/22 07:35 Dose: 2 tab Albuterol/Ipratropium (Ipratropium/Albuterol 3 Ml Ampul.Neb) 3 ml NEB Q4HRT PRN PRN Reason: Wheezing Apixaban (Apixaban 5 Mg Tablet) 2.5 mg PO BID [facility]ON[facility] Last Admin: 05/14/22 08:29 Dose: 2.5 mg Aspirin (Aspirin 81 Mg Tab.Chew) 81 mg PO DAILY [facility] Last Admin: 05/14/22 08:29 Dose: 81 mg Atorvastatin Calcium (Atorvastatin 40 Mg Tablet) 40 mg PO HS [facility] Last Admin: 05/13/22 20:29 Dose: 40 mg Dextrose (Dextrose 50% 50 Ml Vial) 0 ml IV UD PRN PRN Reason: Per Sliding Scale Diagnostic Test (Pha) (Accu-Chek 1 Each Strip) 1 each FS ACHS [facility] Last Admin: 05/14/22 07:36 Dose: 1 each Digoxin (Digoxin 125 Mcg Tablet) 125 mcg PO DAILY@1400 [facility] Diltiazem HCl (Diltiazem 180 Mg Cap.Xl.24h) 180 mg PO DAILY [facility] Last Admin: 05/14/22 08:28 Dose: 180 mg Docusate Sodium (Docusate Sodium 100 Mg Capsule) 100 mg PO BID [facility] Last Admin: 05/14/22 08:28 Dose: 100 mg Ferrous Sulfate (Ferrous Sulfate 325 Mg Tablet) [facility] Last Admin: 05/14/22 07:34 Dose: 325 mg Furosemide (Furosemide 20 Mg Tablet) 20 mg PO QDAY [facility] Last Admin: 05/14/22 08:28 Dose: 20 mg Gabapentin (Gabapentin 100 Mg Capsule) 100 mg PO [facility] Last Admin: 05/13/22 20:29 Dose: 100 mg Glucose (Dextrose 31 Gm Oral.Susp) 15 gm PO PRN PRN PRN Reason: Hypoglycemia Ceftriaxone Sodium 2 gm/ (Dextrose) 50 mls @ 100 mls/hr IV Q24H [facility]; Protocol Last Infusion: 05/13/22 10:05 Dose: Infused Ibuprofen (Ibuprofen 600 Mg Tablet) 600 mg PO QIDP PRN; Protocol PRN Reason: PAIN/FEVER > 101 Last Admin: 05/12/22 00:30 Dose: 600 mg Insulin Human Lispro (Insulin Lispro 1 Unit/0.01 Ml Unit) 0 unit SQ [facility]; Protocol Last Admin: 05/14/22 07:33 Dose: 2 units Magnesium Oxide (Magnesium Oxide 400 Mg Tablet) 400 mg PO DAILY [facility] Last Admin: 05/14/22 08:29 Dose: 400 mg Metoprolol Succinate (Metoprolol Succinate 50 Mg Tab.Xl.24h) 100 mg PO BID [facility] Last Admin: 05/14/22 08:27 Dose: 100 mg Metoprolol Tartrate (Metoprolol Tartrate 5 Mg/5 Ml Vial) 5 mg IV Q2HP PRN PRN Reason: Tachyarrhythmias HR>110 Last Admin: 05/11/22 17:10 Dose: 5 mg Morphine Sulfate (Morphine 2 Mg/Ml Vial) 2 mg IV Q4HP PRN; Protocol PRN Reason: Per Pain Protocol Omeprazole (Omeprazole 20 Mg Capsule) 20 mg PO QAMAC [facility] Last Admin: 05/14/22 07:34 Dose: 20 mg Ondansetron HCl (Ondansetron 4 Mg/2 Ml Vial) 4 mg IV Q4-6HP PRN; Protocol PRN Reason: Nausea And Vomiting Oxycodone HCl (Oxycodone Hcl 5 Mg Tablet) 5 mg PO Q4-6HP PRN; Protocol PRN Reason: Per Pain Protocol Last Admin: 05/13/22 20:48 Dose: 5 mg Promethazine HCl (Promethazine 25 Mg/Ml Vial) 25 mg IV Q4-6HP PRN; Protocol PRN Reason: Nausea And Vomiting Senna (Sennosides 1 Tablet) 1 tab PO DAILYP PRN PRN Reason: Constipation Last Admin: 05/08/22 07:38 Dose: 1 tab Sodium Chloride (0.9 % Sodium Chloride 10 Ml Syringe) 10 ml IV Q8 [facility] Last Admin: 05/14/22 05:32 Dose: 10 ml A/P Narrative A/P Narrative: A: *Atrial fibrillation w/RVR: overall improved still bumps to low 100's -has PPM, good EF on echo *Right parotitis: DDx: infectious causes such as mumps/influenza/coxsackievirus/noninfectious causes such as sialolithiasis -Repeat facial CT showing right parotid gland inflammation's/swelling w/o stone/abscess/tumor *Bacteremia (MSSA, uncomplicated): 2/2 above -echo no vegetations *T2DM w/polyneuropathy & nephropathy: -HgA1c 7.5 *HTN/HLD: *Anemia: *Hypomagnesemia: improved P: -Started Dig and decreased Diltiazem, continue metoprolol ER 100mg PO BID -monitor dig level -Eliquis -IV abx for 2-weeks -cont asa/statin -ssi -pt/ot -CM for placement -f/u with cardio -ppx: Eliquis / ppi Code statin: DNR Time Spent With Patient Time: Total time spent is greater than 50% in coordination of care (as documented) at patient's floor/unit and/or counseling patient: Total time spent with greater than 50% in coordination of care (as documented) at patient's floor/unit and/or counseling patient:: 25 - 35 minutes QUALITY VTE Deep Vein Thrombosis/Pulmonary Embolism Present on Admission: Yes
[2022-05-14] MEDS: cefTRIAXone 2 GM in DEXTROSE 5% IN WATER 50 ML IV SCH (10:46)
[2022-05-14] MEDS: ceFAZolin 1 GM VIAL IV SCH ×2 (11:32→21:36)
[2022-05-14] MEDS: DIGOXIN 125 MCG TABLET PO SCH (14:34)
[2022-05-14] MEDS: oxyCODONE HCL 5 MG TABLET PO PRN (19:04)
[2022-05-14] MEDS: ATORVASTATIN 40 MG TABLET PO SCH (21:36)
[2022-05-14] MEDS: GABAPENTIN 100 MG CAPSULE PO SCH (21:36)
[2022-05-15] MEDS: ceFAZolin 1 GM VIAL IV SCH ×3 (06:06→21:17)
[2022-05-15] MEDS: 0.9 % SODIUM CHLORIDE 10 ML SYRINGE IV SCH ×5 (06:06→21:33)
[2022-05-15] MEDS: INSULIN LISPRO 1 UNIT/0.01 ML UNIT SQ SCH ×4 (07:27→21:33)
[2022-05-15] MEDS: FERROUS SULFATE 325 MG TABLET PO SCH (07:28)
[2022-05-15] MEDS: OMEPRAZOLE 20 MG CAPSULE PO SCH (07:28)
[2022-05-15] MEDS: METOPROLOL SUCCINATE 50 MG TAB.XL.24H PO SCH ×2 (09:18→21:14)
[2022-05-15] MEDS: ASPIRIN 81 MG TAB.CHEW PO SCH (09:18)
[2022-05-15] MEDS: FUROSEMIDE 20 MG TABLET PO SCH (09:19)
[2022-05-15] MEDS: MAGNESIUM OXIDE 400 MG TABLET PO SCH (09:19)
[2022-05-15] MEDS: APIXABAN 5 MG TABLET PO SCH ×2 (09:19→21:14)
[2022-05-15] MEDS: DOCUSATE SODIUM 100 MG CAPSULE PO SCH ×2 (09:20→21:15)
[2022-05-15] MEDS: DILTIAZEM 180 MG CAP.XL.24H PO SCH (09:20)
--- NOTE | 2022-05-15 10:12 | Internal Med Progress Note ---
SUBJECTIVE Subjective Patient information: Note initiated : 05/15/22 at 10:10 am Service Date, if different from initiated Date: [] Patient: Nolvia Jalloh 86 y/o F admitted on 05/06/22 for weakness. Chief Complaint: [] Interval history: Ms. 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 The following history is se verely limited by the patient's clinical situations and lack of family or caregiver at the bedside. Patient does not recall why she is being sent to the hospital. She currently denies any chest pain palpitations or chest pressure. She denies any shortness of breath. She denies any lightheadedness or dizziness. She denies any pain or discomfort at the moment. Vital signs at ED presentation significant for severe tachycardia with heart rate up to the 160s beats per minutes. Labs significant for leukocytosis with WBC 13.1, as well as hemoglobin and hematocrit 10.1 and 31.5, respectively. Only remarkable electrolyte imbalance is mild hypodysemia with serum magnesium level 1.5. D- dimer 0.87. Serum troponin 0.01. CT angiogram of the chest negative for any pulmonary embolism or any focal infiltrate. Patient was started on Cardizem drip after several rounds of Cardizem pushes failed to successfully rate controlled the patient. 05/06: Patient's heart rate was up in the 150s earlier this morning but when I saw the patient at the bedside and it went down to 110 beats per minutes. Patient denies any chest pain palpitations or shortness of breath. She is still complaining of right facial swelling and pain. She denies any fever chills or diaphoresis. She is complain of general body weakness. Will start IV antibiotics with Zosyn after blood cultures. We will also offer pain regimen including ibuprofen, oxycodone, and IV morphine as needed for mild to moderate or severe pain, respectively. Continue Cardizem and metoprolol ER while attempting to down titrate Cardizem drip. 2D echocardiogram. Physical therapy and Occupational Therapy evaluation and treatments for placement pending. 05/07: Low-grade fever 37.7 this morning. Blood culture growing gram-positive cocci in both sets. Heart rate in the 1 teens, Cardizem drip still on at 10 Mg per hour. 2D echocardiogram preformed, results pending. Patient denies any chest pain palpitations or shortness of breath. She is still complaining of right facial swelling and pain. She denies any fever chills or diaphoresis. She is complain of general body weakness. Repeat blood cultures X2 on 05/08. Continue to watch for echocardiogram results. Continue Zosyn. Switch from Diltiazem from 60mg PO QID to Diltiazem extended release 360mg PO daily, continue metoprolol ER 100mg PO BID. Continue to wean down/off Diltiazem drip. Physical therapy and Occupational Therapy evaluation and treatments for placement pending. 05/08: Afebrile overnight. Patient is on room air. Patient's has been off Cardizem drip since yesterday morning, on Cardizem extended release 360 mg p.o. daily and metoprolol ER 100 mg p.o. twice daily. Current heart rates up in the 130s beats per minutes. Blood pressure normal. WBC 12.3, initial blood culture still growing gram-positive cocci no further identity is available at the moment. Patient is still commenting of same degree of right facial pain. She is able to tolerate her diet and chew on her food. Denies chest pain or palpitation. Repeat blood cultures X2 today. MRI face w/ w/o. Continue Zosyn. Diltiazem extended release 360mg PO daily, continue metoprolol ER 100mg PO BID. Cardizem drip stands by. Physical therapy and Occupational Therapy evaluation and treatments for placement pending. 05/09: Afebrile overnight. WBC down trended to 9.2 this morning. Initial blood culture grew MSSA. Repeat blood culture no growth today. Echocardiogram did not show any endocardial vegetations. Repeat facial CT again showing right parotid gland inflammation's/swelling with out any stone, abscess, tumor, or suspicious mass. Patient has been off Cardizem drip heart rate controlled. Physical therapy Occupational Therapy recommend SNF placement. Downgraded patient's from ICU to MedSurg with telemetry. Changed antibiotics from Zosyn to Rocephin. Diltiazem extended release 360mg PO daily, continue metoprolol ER 100mg PO BID. Pending SNF placement. 05/10: Afebrile overnight. WBC down trended to 9.2 this morning. Initial blood culture grew MSSA. Repeat blood culture no growth today. Patient is currently comfortable denies any right facial pain. Denies any shortness of breath, chest pain, or palpitations. Denies any fever, chills, or diaphoresis. Continue Rocephin for now and will change to oral antibiotics such as Augmentin. We will plan to discharged to SNF tomorrow. 05/11: Discharged to SNF held due to insurance authorization. 05/12 Started dig load yesterday afternoon given poor response to other therapy. Patient has no overnight event or new complaints. 05/13 Patient seems to doing little better again today. Facial swelling continues to improve. No overnight event or new complaints. Heart rate 70s to low 100s. Transaminitis better. 05/14 Patient's heart rate has been 70s to low 100s. Patient has no overnight event or new complaints. Will continue with digoxin as per discussion with cardiology nurse practitioner. 05/15 Patient sitting up in chair. No overnight acute new complaints. Patient refused therapies yesterday. Sorting out placement. Will need IV antibiotics probably another 5 or 6 days. Review of Systems: denies headache/fever/chills/nausea/vomiting/chest or abdominal pain/cough/dyspnea/diarrhea. Otherwise see above. Constitutional Vitals: Vital Signs Temp Pulse Resp BP Pulse Ox O2 Del Method O2 Flow Rate 98.9 F 87 20 136/64 93 0 05/15/22 08:00 05/15/22 08:00 05/15/22 08:00 05/15/22 08:00 05/15/22 08:00 05/15/22 08:00 05/10/22 04:00 Period Temp Pulse Resp BP Sys/[place] Pulse Ox O2 Del Method O2 Flow Rate Last 24 Hr 97.0 F-98.9 F 70-95 14-20 120-136/62-72 92-97 Room Air-Room Air Intake and Output 05/14/22 05/15/22 05/15/22 21:59 05:59 13:59 Intake Total 200 340 Output Total 450 0 Balance -250 340 Weight 57.153 kg Intake & Output: Intake & Output 05/14/22 05/15/22 05/15/22 21:59 05:59 13:59 Intake Total 200 340 Output Total 450 0 Balance -250 340 Weight 57.153 kg Intake: Oral 200 340 Output: Void Amount 450 0 Other: Meal Dinner Percent of Meal Consumed 75% Urine Appearance Clear Urine Color Bright Yellow Urine Odor Normal Stool Size Smear Stool Color Black Stool Consistency Soft # Bowel Movements 2 Exam: General: Alert, Awake, No acute Distress Eyes/N/T: EOMI, Right facial swelling erythema and tenderness much improved Head/Neck: neck supple, CV: much more regular today, 3/6SM, Pulm: Clear b/l, no wheezing/rhonchi/rales Abd: soft, nontender, +BS x4 Ext: no clubbing/cyanosis/edema Neuro: Alert, no focal deficits, moves all extremities, Skin: warm/dry OBJ DATA Labs CBC & Chem 7: 05/12/22 05:55 05/13/22 05:45 Labs: Abnormal Lab Results 05/13/22 05:45 BUN 7 L Glucose 179 H GGT 79 H AST 46 H ALT 40 H Lactate Dehydrogenase 297 H Total Protein 5.3 L Albumin 2.4 L Albumin/Globulin Ratio 0.8 L Meds: Medications Acetaminophen (Acetaminophen 325 Mg Tablet) 650 mg PO Q4-6HP PRN; Protocol PRN Reason: Per Pain Protocol/Fever > 101 Last Admin: 05/13/22 11:41 Dose: 650 mg Hydrocodone Bitart/Acetaminophen (Hydrocodone/Apap 10/325mg Tablet) 2 tab PO BIDP PRN; Protocol PRN Reason: PAIN LEVEL > 6 Last Admin: 05/14/22 22:05 Dose: 2 tab Albuterol/Ipratropium (Ipratropium/Albuterol 3 Ml Ampul.Neb) 3 ml NEB Q4HRT PRN PRN Reason: Wheezing Apixaban (Apixaban 5 Mg Tablet) 2.5 mg PO BID [facility] Last Admin: 05/15/22 09:19 Dose: 2.5 mg Aspirin (Aspirin 81 Mg Tab.Chew) 81 mg PO DAILY [facility] Last Admin: 05/15/22 09:18 Dose: 81 mg Atorvastatin Calcium (Atorvastatin 40 Mg Tablet) 40 mg PO HS [facility] Last Admin: 05/14/22 21:36 Dose: 40 mg Cefazolin Sodium (Cefazolin 1 Gm Vial) 2 gm IV Q8H [facility] Last Admin: 05/15/22 06:06 Dose: 2 gm Dextrose (Dextrose 50% 50 Ml Vial) 0 ml IV UD PRN PRN Reason: Per Sliding Scale Diagnostic Test (Pha) (Accu-Chek 1 Each Strip) 1 each FS [facility] Last Admin: 05/15/22 07:28 Dose: 1 each Digoxin (Digoxin 125 Mcg Tablet) 125 mcg PO DAILY@1400 [facility] Last Admin: 05/14/22 14:34 Dose: 125 mcg Diltiazem HCl (Diltiazem 180 Mg Cap.Xl.24h) 180 mg PO DAILY [facility] Last Admin: 05/15/22 09:20 Dose: 180 mg Docusate Sodium (Docusate Sodium 100 Mg Capsule) 100 mg PO BID [facility] Last Admin: 05/15/22 09:20 Dose: 100 mg Ferrous Sulfate ([facility]ous Sulfate 325 Mg Tablet) [facility] Last Admin: 05/15/22 07:28 Dose: 325 mg Furosemide (Furosemide 20 Mg Tablet) 20 mg PO QDAY [facility] Last Admin: 05/15/22 09:19 Dose: 20 mg Gabapentin (Gabapentin 100 Mg Capsule) 100 mg PO HS [facility] Last Admin: 05/14/22 21:36 Dose: 100 mg Glucose (Dextrose 31 Gm Oral.Susp) 15 gm PO PRN PRN PRN Reason: Hypoglycemia Heparin Sodium (Porcine) (Heparin Flush 10 Units/Ml 5 Ml Syringe) 2 ml IV Q12 [facility] Last Admin: 05/15/22 09:21 Dose: 2 ml Ibuprofen (Ibuprofen 600 Mg Tablet) 600 mg PO QIDP PRN; Protocol PRN Reason: PAIN/FEVER > 101 Last Admin: 05/12/22 00:30 Dose: 600 mg Insulin Human Lispro (Insulin Lispro 1 Unit/0.01 Ml Unit) 0 unit SQ [facility]; Protocol Last Admin: 05/15/22 07:27 Dose: 4 units Magnesium Oxide (Magnesium Oxide 400 Mg Tablet) 400 mg PO DAILY [facility] Last Admin: 05/15/22 09:19 Dose: 400 mg Metoprolol Succinate (Metoprolol Succinate 50 Mg Tab.Xl.24h) 100 mg PO BID [facility] Last Admin: 05/15/22 09:18 Dose: 100 mg Metoprolol Tartrate (Metoprolol Tartrate 5 Mg/5 Ml Vial) 5 mg IV Q2HP PRN PRN Reason: Tachyarrhythmias HR>110 Last Admin: 05/11/22 17:10 Dose: 5 mg Morphine Sulfate (Morphine 2 Mg/Ml Vial) 2 mg IV Q4HP PRN; Protocol PRN Reason: Per Pain Protocol Omeprazole (Omeprazole 20 Mg Capsule) 20 mg PO QAMAC [facility] Last Admin: 05/15/22 07:28 Dose: 20 mg Ondansetron HCl (Ondansetron 4 Mg/2 Ml Vial) 4 mg IV Q4-6HP PRN; Protocol PRN Reason: Nausea And Vomiting Oxycodone HCl (Oxycodone Hcl 5 Mg Tablet) 5 mg PO Q4-6HP PRN; Protocol PRN Reason: Per Pain Protocol Last Admin: 05/14/22 19:04 Dose: 5 mg Promethazine HCl (Promethazine 25 Mg/Ml Vial) 25 mg IV Q4-6HP PRN; Protocol PRN Reason: Nausea And Vomiting Senna (Sennosides 1 Tablet) 1 tab PO DAILYP PRN PRN Reason: Constipation Last Admin: 05/08/22 07:38 Dose: 1 tab Sodium Chloride (0.9 % Sodium Chloride 10 Ml Syringe) 10 ml IV Q8 [facility] Last Admin: 05/15/22 06:06 Dose: 10 ml Sodium Chloride (0.9 % Sodium Chloride 10 Ml Syringe) 10 ml IV Q12 [facility] Last Admin: 05/15/22 09:22 Dose: 10 ml A/P Narrative A/P Narrative: A: *Atrial fibrillation w/RVR: overall improved still bumps to low 100's -has PPM, good EF on echo *Right parotitis: DDx: infectious causes such as mumps/influenza/coxsackievirus/noninfectious causes such as sialolithiasis -Repeat facial CT showing right parotid gland inflammation's/swelling w/o stone/abscess/tumor *Bacteremia (MSSA, uncomplicated): 2/2 above -echo no vegetations *T2DM w/polyneuropathy & nephropathy: -HgA1c 7.5 *HTN/HLD: *Anemia: *Hypomagnesemia: improved P: -Started Dig and decreased Diltiazem, continue metoprolol ER 100mg PO BID -monitor dig level -Eliquis -IV abx for 2-weeks -cont asa/statin -ssi -pt/ot -CM for placement -f/u with cardio -ppx: Eliquis / ppi Code statin: DNR Time Spent With Patient Time: Total time spent is greater than 50% in coordination of care (as documented) at patient's floor/unit and/or counseling patient: QUALITY VTE Deep Vein Thrombosis/Pulmonary Embolism Present on Admission: Yes
[2022-05-15] MEDS: DIGOXIN 125 MCG TABLET PO SCH (15:11)
[2022-05-15] MEDS: ATORVASTATIN 40 MG TABLET PO SCH (21:14)
[2022-05-15] MEDS: GABAPENTIN 100 MG CAPSULE PO SCH (21:14)
[2022-05-15] MEDS: oxyCODONE HCL 5 MG TABLET PO PRN (23:47)
[2022-05-16] MEDS: ceFAZolin 1 GM VIAL IV SCH ×3 (05:57→21:08)
[2022-05-16] MEDS: 0.9 % SODIUM CHLORIDE 10 ML SYRINGE IV SCH ×4 (05:57→21:08)
[2022-05-16] MEDS: OMEPRAZOLE 20 MG CAPSULE PO SCH (07:09)
[2022-05-16] MEDS: FERROUS SULFATE 325 MG TABLET PO SCH (07:09)
[2022-05-16] MEDS: INSULIN LISPRO 1 UNIT/0.01 ML UNIT SQ SCH ×4 (07:21→21:22)
--- NOTE | 2022-05-16 08:21 | Internal Med Progress Note ---
SUBJECTIVE Subjective Patient information: Note initiated : 05/16/22 at 8:20 am Service Date, if different from initiated Date: [] Patient: Nolvia Jalloh 86 y/o F admitted on 05/06/22 for weakness. Chief Complaint: [] Interval history: Ms. 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 The following history is sev erely limited by the patient's clinical situations and lack of family or caregiver at the bedside. Patient does not recall why she is being sent to the hospital. She currently denies any chest pain palpitations or chest pressure. She denies any shortness of breath. She denies any lightheadedness or dizziness. She denies any pain or discomfort at the moment. Vital signs at ED presentation significant for severe tachycardia with heart rate up to the 160s beats per minutes. Labs significant for leukocytosis with WBC 13.1, as well as hemoglobin and hematocrit 10.1 and 31.5, respectively. Only remarkable electrolyte imbalance is mild hypodysemia with serum magnesium level 1.5. D- dimer 0.87. Serum troponin 0.01. CT angiogram of the chest negative for any pulmonary embolism or any focal infiltrate. Patient was started on Cardizem drip after several rounds of Cardizem pushes failed to successfully rate controlled the patient. 05/06: Patient's heart rate was up in the 150s earlier this morning but when I saw the patient at the bedside and it went down to 110 beats per minutes. Patient denies any chest pain palpitations or shortness of breath. She is still complaining of right facial swelling and pain. She denies any fever chills or diaphoresis. She is complain of general body weakness. Will start IV antibiotics with Zosyn after blood cultures. We will also offer pain regimen including ibuprofen, oxycodone, and IV morphine as needed for mild to moderate or severe pain, respectively. Continue Cardizem and metoprolol ER while attempting to down titrate Cardizem drip. 2D echocardiogram. Physical therapy and Occupational Therapy evaluation and treatments for placement pending. 05/07: Low-grade fever 37.7 this morning. Blood culture growing gram-positive cocci in both sets. Heart rate in the 1 teens, Cardizem drip still on at 10 Mg per hour. 2D echocardiogram preformed, results pending. Patient denies any chest pain palpitations or shortness of breath. She is still complaining of right facial swelling and pain. She denies any fever chills or diaphoresis. She is complain of general body weakness. Repeat blood cultures X2 on 05/08. Continue to watch for echocardiogram results. Continue Zosyn. Switch from Diltiazem from 60mg PO QID to Diltiazem extended release 360mg PO daily, continue metoprolol ER 100mg PO BID. Continue to wean down/off Diltiazem drip. Physical therapy and Occupational Therapy evaluation and treatments for placement pending. 05/08: Afebrile overnight. Patient is on room air. Patient's has been off Cardizem drip since yesterday morning, on Cardizem extended release 360 mg p.o. daily and metoprolol ER 100 mg p.o. twice daily. Current heart rates up in the 130s beats per minutes. Blood pressure normal. WBC 12.3, initial blood culture still growing gram-positive cocci no further identity is available at the moment. Patient is still commenting of same degree of right facial pain. She is able to tolerate her diet and chew on her food. Denies chest pain or palpitation. Repeat blood cultures X2 today. MRI face w/ w/o. Continue Zosyn. Diltiazem extended release 360mg PO daily, continue metoprolol ER 100mg PO BID. Cardizem drip stands by. Physical therapy and Occupational Therapy evaluation and treatments for placement pending. 05/09: Afebrile overnight. WBC down trended to 9.2 this morning. Initial blood c ulture grew MSSA. Repeat blood culture no growth today. Echocardiogram did not show any endocardial vegetations. Repeat facial CT again showing right parotid gland inflammation's/swelling with out any stone, abscess, tumor, or suspicious mass. Patient has been off Cardizem drip heart rate controlled. Physical therapy Occupational Therapy recommend SNF placement. Downgraded patient's from ICU to MedSurg with telemetry. Changed antibiotics from Zosyn to Rocephin. Diltiazem extended release 360mg PO daily, continue metoprolol ER 100mg PO BID. Pending SNF placement. 05/10: Afebrile overnight. WBC down trended to 9.2 this morning. Initial blood culture grew MSSA. Repeat blood culture no growth today. Patient is currently comfortable denies any right facial pain. Denies any shortness of breath, chest pain, or palpitations. Denies any fever, chills, or diaphoresis. Continue Rocephin for now and will change to oral antibiotics such as Augmentin. We will plan to discharged to SNF tomorrow. 05/11: Discharged to SNF held due to insurance authorization. 05/12 Started dig load yesterday afternoon given poor response to other therapy. Patient has no overnight event or new complaints. 05/13 Patient seems to doing little better again today. Facial swelling continues to improve. No overnight event or new complaints. Heart rate 70s to low 100s. Transaminitis better. 05/14 Patient's heart rate has been 70s to low 100s. Patient has no overnight event or new complaints. Will continue with digoxin as per discussion with cardiology nurse practitioner. 05/15 Patient sitting up in chair. No overnight acute new complaints. Patient refused therapies yesterday. Sorting out placement. Will need IV antibiotics probably another 5 or 6 days. 05/16 Patient feeling well today. No overnight event or new complaints. Heart rate seems better controlled. Follow-up dig level in the morning. Review of Systems: denies headache/fever/chills/nausea/vomiting/chest or abdominal p ain/cough/dyspnea/diarrhea. Otherwise see above. Constitutional Vitals: Vital Signs Temp Pulse Resp BP Pulse Ox O2 Del Method O2 Flow Rate 97.7 F 79 20 150/85 96 0 05/16/22 03:51 05/16/22 03:51 05/16/22 03:51 05/16/22 03:51 05/16/22 03:51 05/16/22 03:51 05/10/22 04:00 Period Temp Pulse Resp BP Sys/[place] Pulse Ox O2 Del Method O2 Flow Rate Last 24 Hr 97.7 F-98.6 F 70-99 20-20 119-150/65-85 94-97 Room Air-Room Air Intake and Output 05/15/22 05/16/22 05/16/22 21:59 05:59 13:59 Intake Total 400 200 Output Total 300 250 Balance 100 -50 Weight 57.788 kg Intake & Output: Intake & Output 05/15/22 05/16/22 05/16/22 21:59 05:59 13:59 Intake Total 400 200 Output Total 300 250 Balance 100 -50 Weight 57.788 kg Intake: Oral 400 200 Output: Void Amount 100 Urine/Stool Mix 200 250 Other: Meal Dinner Percent of Meal Consumed 75% Feeding Ability Assist with Tray Set Up Stool Size Small Stool Color Black Black Stool Consistency Soft Liquid Loose Exam: General: Alert, Awake, No acute Distress Eyes/N/T: EOMI, Right facial swelling erythema nearly resolved Head/Neck: neck supple, CV: regular with occ irreg, 3/6SM, Pulm: Clear b/l, no wheezing/rhonchi/rales Abd: soft, nontender, +BS x4 Ext: no clubbing/cyanosis/edema Neuro: Alert, no focal deficits, moves all extremities, Skin: warm/dry OBJ DATA Labs CBC & Chem 7: 05/12/22 05:55 05/13/22 05:45 Meds: Medications Acetaminophen (Acetaminophen 325 Mg Tablet) 650 mg PO Q4-6HP PRN; Protocol PRN Reason: Per Pain Protocol/Fever > 101 Last Admin: 05/13/22 11:41 Dose: 650 mg Hydrocodone Bitart/Acetaminophen (Hydrocodone/Apap 10/325mg Tablet) 2 tab PO BIDP PRN; Protocol PRN Reason: PAIN LEVEL > 6 Last Admin: 05/14/22 22:05 Dose: 2 tab Albuterol/Ipratropium (Ipratropium/Albuterol 3 Ml Ampul.Neb) 3 ml NEB Q4HRT PRN PRN Reason: Wheezing Apixaban (Apixaban 5 Mg Tablet) 2.5 mg PO BID [facility] Last Admin: 05/15/22 21:14 Dose: 2.5 mg Aspirin (Aspirin 81 Mg Tab.Chew) 81 mg PO DAILY [facility] Last Admin: 05/15/22 09:18 Dose: 81 mg Atorvastatin Calcium (Atorvastatin 40 Mg Tablet) 40 mg PO HS [facility] Last Admin: 05/15/22 21:14 Dose: 40 mg Cefazolin Sodium (Cefazolin 1 Gm Vial) 2 gm IV Q8H [facility] Last Admin: 05/16/22 05:57 Dose: 2 gm Dextrose (Dextrose 50% 50 Ml Vial) 0 ml IV UD PRN PRN Reason: Per Sliding Scale Diagnostic Test (Pha) (Accu-Chek 1 Each Strip) 1 each FS ACHS [facility] Last Admin: 05/16/22 07:15 Dose: 1 each Digoxin (Digoxin 125 Mcg Tablet) 125 mcg PO DAILY@1400 [facility] Last Admin: 05/15/22 15:11 Dose: 125 mcg Diltiazem HCl (Diltiazem 180 Mg Cap.Xl.24h) 180 mg PO DAILY [facility] Last Admin: 05/15/22 09:20 Dose: 180 mg Docusate Sodium (Docusate Sodium 100 Mg Capsule) 100 mg PO BID [facility] Last Admin: 05/15/22 21:15 Dose: Not Given Ferrous Sulfate (Ferrous Sulfate 325 Mg Tablet) [facility] Last Admin: 05/16/22 07:09 Dose: 325 mg Furosemide (Furosemide 20 Mg Tablet) 20 mg PO QDAY [facility] Last Admin: 05/15/22 09:19 Dose: 20 mg Gabapentin (Gabapentin 100 Mg Capsule) 100 mg PO HS [facility] Last Admin: 05/15/22 21:14 Dose: 100 mg Glucose (Dextrose 31 Gm Oral.Susp) 15 gm PO PRN PRN PRN Reason: Hypoglycemia Heparin Sodium (Porcine) (Heparin Flush 10 Units/Ml 5 Ml Syringe) 2 ml IV Q12 [facility] Last Admin: 05/15/22 21:18 Dose: 2 ml Ibuprofen (Ibuprofen 600 Mg Tablet) 600 mg PO QIDP PRN; Protocol PRN Reason: PAIN/FEVER > 101 Last Admin: 05/12/22 00:30 Dose: 600 mg Insulin Human Lispro (Insulin Lispro 1 Unit/0.01 Ml Unit) 0 unit SQ [facility]; Protocol Last Admin: 05/16/22 07:21 Dose: 2 units Magnesium Oxide (Magnesium Oxide 400 Mg Tablet) 400 mg PO DAILY [facility] Last Admin: 05/15/22 09:19 Dose: 400 mg Metoprolol Succinate (Metoprolol Succinate 50 Mg Tab.Xl.24h) 100 mg PO BID [facility] Last Admin: 05/15/22 21:14 Dose: 100 mg Metoprolol Tartrate (Metoprolol Tartrate 5 Mg/5 Ml Vial) 5 mg IV Q2HP PRN PRN Reason: Tachyarrhythmias HR>110 Last Admin: 05/11/22 17:10 Dose: 5 mg Morphine Sulfate (Morphine 2 Mg/Ml Vial) 2 mg IV Q4HP PRN; Protocol PRN Reason: Per Pain Protocol Omeprazole (Omeprazole 20 Mg Capsule) 20 mg PO QAMAC [facility] Last Admin: 05/16/22 07:09 Dose: 20 mg Ondansetron HCl (Ondansetron 4 Mg/2 Ml Vial) 4 mg IV Q4-6HP PRN; Protocol PRN Reason: Nausea And Vomiting Oxycodone HCl (Oxycodone Hcl 5 Mg Tablet) 5 mg PO Q4-6HP PRN; Protocol PRN Reason: Per Pain Protocol Last Admin: 05/15/22 23:47 Dose: 5 mg Promethazine HCl (Promethazine 25 Mg/Ml Vial) 25 mg IV Q4-6HP PRN; Protocol PRN Reason: Nausea And Vomiting Senna (Sennosides 1 Tablet) 1 tab PO DAILYP PRN PRN Reason: Constipation Last Admin: 05/08/22 07:38 Dose: 1 tab Sodium Chloride (0.9 % Sodium Chloride 10 Ml Syringe) 10 ml IV Q8 [facility] Last Admin: 05/16/22 05:57 Dose: 10 ml Sodium Chloride (0.9 % Sodium Chloride 10 Ml Syringe) 10 ml IV Q12 [facility] Last Admin: 05/15/22 21:18 Dose: 10 ml A/P Narrative A/P Narrative: A: *Atrial fibrillation w/RVR: -has PPM, good EF on echo *Right parotitis: DDx: infectious causes such as mumps/influenza/coxsackievirus/noninfectious causes such as sialolithiasis -Repeat facial CT showing right parotid gland inflammation's/swelling w/o stone/abscess/tumor *Bacteremia (MSSA, uncomplicated): 2/2 above -echo no vegetations *T2DM w/polyneuropathy & nephropathy: -HgA1c 7.5 *HTN/HLD: *Anemia: *Hypomagnesemia: improved P: -Started Dig and decreased Diltiazem, continue metoprolol ER 100mg PO BID -monitor dig level -Eliquis -IV abx for 2-weeks -cont asa/statin -ssi -pt/ot -CM for placement -f/u with cardio -ppx: Eliquis / ppi Code statin: DNR Time Spent With Patient Time: Total time spent is greater than 50% in coordination of care (as documented) at patient's floor/unit and/or counseling patient: QUALITY VTE Deep Vein Thrombosis/Pulmonary Embolism Present on Admission: Yes
[2022-05-16] MEDS: FUROSEMIDE 20 MG TABLET PO SCH (08:58)
[2022-05-16] MEDS: METOPROLOL SUCCINATE 50 MG TAB.XL.24H PO SCH ×2 (08:58→21:04)
[2022-05-16] MEDS: ASPIRIN 81 MG TAB.CHEW PO SCH (08:58)
[2022-05-16] MEDS: MAGNESIUM OXIDE 400 MG TABLET PO SCH (08:58)
[2022-05-16] MEDS: APIXABAN 5 MG TABLET PO SCH ×2 (08:58→21:04)
[2022-05-16] MEDS: DILTIAZEM 180 MG CAP.XL.24H PO SCH (08:58)
[2022-05-16] MEDS: ACETAMINOPHEN 325 MG TABLET PO PRN ×2 (09:05→21:46)
[2022-05-16] MEDS: DOCUSATE SODIUM 100 MG CAPSULE PO SCH ×2 (09:09→21:04)
[2022-05-16] MEDS: DIGOXIN 125 MCG TABLET PO SCH (13:23)
[2022-05-16] MEDS: IBUPROFEN 600 MG TABLET PO PRN (13:37)
[2022-05-16] MEDS: ATORVASTATIN 40 MG TABLET PO SCH (21:04)
[2022-05-16] MEDS: GABAPENTIN 100 MG CAPSULE PO SCH (21:04)
[2022-05-17] MEDS: ceFAZolin 1 GM VIAL IV SCH ×3 (06:10→21:42)
[2022-05-17] MEDS: FERROUS SULFATE 325 MG TABLET PO SCH (06:58)
[2022-05-17] MEDS: OMEPRAZOLE 20 MG CAPSULE PO SCH (06:58)
[2022-05-17 07:46] LABS: Digoxin 1.1 ng/mL
[2022-05-17] MEDS: INSULIN LISPRO 1 UNIT/0.01 ML UNIT SQ SCH ×4 (07:51→21:42)
[2022-05-17] MEDS: FUROSEMIDE 20 MG TABLET PO SCH (08:27)
[2022-05-17] MEDS: MAGNESIUM OXIDE 400 MG TABLET PO SCH (08:27)
[2022-05-17] MEDS: ASPIRIN 81 MG TAB.CHEW PO SCH (08:27)
--- NOTE | 2022-05-17 08:27 | EKG ---
[facility] Test Date: 2022-05-14 Pat Name: Nolvia Jalloh Department: [facility] Room: 129 Gender: Female [employer]: : 1935 Requested By: Samuel Clemnete Order Number: [id number] Reading MD: Felipe Bella D.O. Measurements Intervals [place] Rate: 77 P: [place]: QRS: -37 QRSD: 94 T: 223 QT: 378 QTc: 428 Interpretive Statements Atrial fibrillation Probable anterior infarct, age indeterminate Lateral leads are also involved Electronically Signed On 05-17-2022 8:27:24 PDT by Felipe Bella D.O. /[id number]
[2022-05-17] MEDS: APIXABAN 5 MG TABLET PO SCH ×2 (08:28→21:41)
[2022-05-17] MEDS: DILTIAZEM 180 MG CAP.XL.24H PO SCH (08:28)
[2022-05-17] MEDS: METOPROLOL SUCCINATE 50 MG TAB.XL.24H PO SCH ×2 (08:28→21:42)
[2022-05-17] MEDS: INSULIN GLARGINE, HUMAN 1 UNIT/0.01 ML SQ SCH (08:29)
[2022-05-17] MEDS: 0.9 % SODIUM CHLORIDE 10 ML SYRINGE IV SCH ×2 (08:33→21:42)
[2022-05-17] MEDS: DOCUSATE SODIUM 100 MG CAPSULE PO SCH ×2 (08:37→19:47)
[2022-05-17] MEDS: ACETAMINOPHEN 325 MG TABLET PO PRN (10:03)
[2022-05-17] MEDS: IBUPROFEN 600 MG TABLET PO PRN (10:34)
[2022-05-17] MEDS: oxyCODONE HCL 5 MG TABLET PO PRN (13:28)
--- NOTE | 2022-05-17 14:05 | Internal Med Progress Note ---
SUBJECTIVE Subjective Patient information: Note initiated : 05/17/22 at 2:04 pm Service Date, if different from initiated Date: [] Patient: Nolvia Jalloh 86 y/o F admitted on 05/06/22 for weakness. Chief Complaint: [] Interval history: Ms. 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 The following history is sev erely limited by the patient's clinical situations and lack of family or caregiver at the bedside. Patient does not recall why she is being sent to the hospital. She currently denies any chest pain palpitations or chest pressure. She denies any shortness of breath. She denies any lightheadedness or dizziness. She denies any pain or discomfort at the moment. Vital signs at ED presentation significant for severe tachycardia with heart rate up to the 160s beats per minutes. Labs significant for leukocytosis with WBC 13.1, as well as hemoglobin and hematocrit 10.1 and 31.5, respectively. Only remarkable electrolyte imbalance is mild hypodysemia with serum magnesium level 1.5. D- dimer 0.87. Serum troponin 0.01. CT angiogram of the chest negative for any pulmonary embolism or any focal infiltrate. Patient was started on Cardizem drip after several rounds of Cardizem pushes failed to successfully rate controlled the patient. 05/06: Patient's heart rate was up in the 150s earlier this morning but when I saw the patient at the bedside and it went down to 110 beats per minutes. Patient denies any chest pain palpitations or shortness of breath. She is still complaining of right facial swelling and pain. She denies any fever chills or diaphoresis. She is complain of general body weakness. Will start IV antibiotics with Zosyn after blood cultures. We will also offer pain regimen including ibuprofen, oxycodone, and IV morphine as needed for mild to moderate or severe pain, respectively. Continue Cardizem and metoprolol ER while attempting to down titrate Cardizem drip. 2D echocardiogram. Physical therapy and Occupational Therapy evaluation and treatments for placement pending. 05/07: Low-grade fever 37.7 this morning. Blood culture growing gram-positive cocci in both sets. Heart rate in the 1 teens, Cardizem drip still on at 10 Mg per hour. 2D echocardiogram preformed, results pending. Patient denies any chest pain palpitations or shortness of breath. She is still complaining of right facial swelling and pain. She denies any fever chills or diaphoresis. She is complain of general body weakness. Repeat blood cultures X2 on 05/08. Continue to watch for echocardiogram results. Continue Zosyn. Switch from Diltiazem from 60mg PO QID to Diltiazem extended release 360mg PO daily, continue metoprolol ER 100mg PO BID. Continue to wean down/off Diltiazem drip. Physical therapy and Occupational Therapy evaluation and treatments for placement pending. 05/08: Afebrile overnight. Patient is on room air. Patient's has been off Cardizem drip since yesterday morning, on Cardizem extended release 360 mg p.o. daily and metoprolol ER 100 mg p.o. twice daily. Current heart rates up in the 130s beats per minutes. Blood pressure normal. WBC 12.3, initial blood culture still growing gram-positive cocci no further identity is available at the moment. Patient is still commenting of same degree of right facial pain. She is able to tolerate her diet and chew on her food. Denies chest pain or palpitation. Repeat blood cultures X2 today. MRI face w/ w/o. Continue Zosyn. Diltiazem extended release 360mg PO daily, continue metoprolol ER 100mg PO BID. Cardizem drip stands by. Physical therapy and Occupational Therapy evaluation and treatments for placement pending. 05/09: Afebrile overnight. WBC down trended to 9.2 this morning. Initial blood cultur e grew MSSA. Repeat blood culture no growth today. Echocardiogram did not show any endocardial vegetations. Repeat facial CT again showing right parotid gland inflammation's/swelling with out any stone, abscess, tumor, or suspicious mass. Patient has been off Cardizem drip heart rate controlled. Physical therapy Occupational Therapy recommend SNF placement. Downgraded patient's from ICU to MedSurg with telemetry. Changed antibiotics from Zosyn to Rocephin. Diltiazem extended release 360mg PO daily, continue metoprolol ER 100mg PO BID. Pending SNF placement. 05/10: Afebrile overnight. WBC down trended to 9.2 this morning. Initial blood culture grew MSSA. Repeat blood culture no growth today. Patient is currently comfortable denies any right facial pain. Denies any shortness of breath, chest pain, or palpitations. Denies any fever, chills, or diaphoresis. Continue Rocephin for now and will change to oral antibiotics such as Augmentin. We will plan to discharged to SNF tomorrow. 05/11: Discharged to SNF held due to insurance authorization. 05/12 Started dig load yesterday afternoon given poor response to other therapy. Patient has no overnight event or new complaints. 05/13 Patient seems to doing little better again today. Facial swelling continues to improve. No overnight event or new complaints. Heart rate 70s to low 100s. Transaminitis better. 05/14 Patient's heart rate has been 70s to low 100s. Patient has no overnight event or new complaints. Will continue with digoxin as per discussion with cardiology nurse practitioner. 05/15 Patient sitting up in chair. No overnight acute new complaints. Patient refused therapies yesterday. Sorting out placement. Will need IV antibiotics probably another 5 or 6 days. 05/16 Patient feeling well today. No overnight event or new complaints. Heart rate seems better controlled. Follow-up dig level in the morning. 05/17 Vital stable overnight, started Lantus 10 units daily and increased sliding scale Humalog to high-dose for elevated blood sugars. Discussed the patient with infectious disease at [facility] in [place], [place] recommended 6 weeks of IV antibiotic treatment because the patient has pacemaker cardiac leads. Infectious disease also recommended serial blood cultures after completing 6 weeks of IV antibiotic treatment to monitor for recurrent bacteremia. Physical exam Head: Atraumatic, normal inspection. Eyes: normal appearance, no scleral icterus. Neck: full ROM Respiratory: no respiratory distress. Cardiovascular: normal rate and rhythm, S1, S2. GI/Abdominal: soft, nontender, no guarding. Extremities: full range of motion, nontender. Neurological: CN II-XII intact, intact motor, intact sensation. Psychiatric: normal mood. Skin: warm, normal color Constitutional Vitals: Vital Signs Temp Pulse Resp BP Pulse Ox O2 Del Method O2 Flow Rate 98.4 F 81 20 135/77 93 0 05/17/22 12:00 05/17/22 12:00 05/17/22 12:00 05/17/22 12:00 05/17/22 12:00 05/17/22 12:00 05/10/22 04:00 Period Temp Pulse Resp BP Sys/[place] Pulse Ox O2 Del Method O2 Flow Rate Last 24 Hr 97.7 F-99.0 F 70-85 - 113-140/60-83 93-96 Room Air-Room Air Intake and Output 05/17/22 05/17/22 05/17/22 05:59 13:59 21:59 Intake Total 0 200 Output Total 450 200 Balance -450 0 Intake & Output: Intake & Output 05/17/22 05/17/22 05/17/22 05:59 13:59 21:59 Intake Total 0 200 Output Total 450 200 Balance -450 0 Intake: Oral 0 200 Output: Void Amount 450 Urine/Stool Mix 200 Other: Meal Lunch Percent of Meal Consumed 95 Feeding Ability Independent Stool Size Small Stool Color Brown Stool Consistency Soft Loose OBJ DATA Labs CBC & Chem 7: 05/12/22 05:55 05/13/22 05:45 Meds: Medications Acetaminophen (Acetaminophen 325 Mg Tablet) 650 mg PO Q4-6HP PRN; Protocol PRN Reason: Per Pain Protocol/Fever > 101 Last Admin: 05/17/22 10:03 Dose: 650 mg Hydrocodone Bitart/Acetaminophen (Hydrocodone/Apap 10/325mg Tablet) 2 tab PO BIDP PRN; Protocol PRN Reason: PAIN LEVEL > 6 Last Admin: 05/14/22 22:05 Dose: 2 tab Albuterol/Ipratropium (Ipratropium/Albuterol 3 Ml Ampul.Neb) 3 ml NEB Q4HRT PRN PRN Reason: Wheezing Apixaban (Apixaban 5 Mg Tablet) 2.5 mg PO BID [facility] Last Admin: 05/17/22 08:28 Dose: 2.5 mg Aspirin (Aspirin 81 Mg Tab.Chew) 81 mg PO DAILY [facility] Last Admin: 05/17/22 08:27 Dose: 81 mg Atorvastatin Calcium (Atorvastatin 40 Mg Tablet) 40 mg PO HS [facility] Last Admin: 05/16/22 21:04 Dose: 40 mg Cefazolin Sodium (Cefazolin 1 Gm Vial) 2 gm IV Q8H [facility] Last Admin: 05/17/22 06:10 Dose: 2 gm Dextrose (Dextrose 50% 50 Ml Vial) 0 ml IV UD PRN PRN Reason: Per Sliding Scale Diagnostic Test (Pha) (Accu-Chek 1 Each Strip) 1 each FS ACHS [facility] Last Admin: 05/17/22 11:04 Dose: 1 each Digoxin (Digoxin 125 Mcg Tablet) 125 mcg PO DAILY@1400 [facility] Last Admin: 05/16/22 13:23 Dose: 125 mcg Diltiazem HCl (Diltiazem 180 Mg Cap.Xl.24h) 180 mg PO DAILY [facility] Last Admin: 05/17/22 08:28 Dose: 180 mg Docusate Sodium (Docusate Sodium 100 Mg Capsule) 100 mg PO BID [facility] Last Admin: 05/17/22 08:37 Dose: Not Given Ferrous Sulfate ([facility] S[facility]ate 325 Mg Tablet) [facility] Last Admin: 05/17/22 06:58 Dose: 325 mg Furosemide (Furosemide 20 Mg Tablet) 20 mg PO QDAY [facility] Last Admin: 05/17/22 08:27 Dose: 20 mg Gabapentin (Gabapentin 100 Mg Capsule) 100 mg PO [facility] Last Admin: 05/16/22 21:04 Dose: 100 mg Glucose (Dextrose 31 Gm Oral.Susp) 15 gm PO PRN PRN PRN Reason: Hypoglycemia Heparin Sodium (Porcine) (Heparin Flush 10 Units/Ml 5 Ml Syringe) 2 ml IV Q12 [facility] Last Admin: 05/17/22 08:28 Dose: 2 ml Ibuprofen (Ibuprofen 600 Mg Tablet) 600 mg PO QIDP PRN; Protocol PRN Reason: PAIN/FEVER > 101 Last Admin: 05/17/22 10:34 Dose: 600 mg Insulin Glargine (Insulin Glargine, Human 1 Unit/0.01 Ml) 10 unit SQ DAILY [facility] Last Admin: 05/17/22 08:29 Dose: 10 units Insulin Human Lispro (Insulin Lispro 1 Unit/0.01 Ml Unit) 0 unit SQ [facility]; Protocol Last Admin: 05/17/22 11:12 Dose: 12 units Magnesium Oxide (Magnesium Oxide 400 Mg Tablet) 400 mg PO DAILY [facility] Last Admin: 05/17/22 08:27 Dose: 400 mg Metoprolol Succinate (Metoprolol Succinate 50 Mg Tab.Xl.24h) 100 mg PO BID [facility] Last Admin: 05/17/22 08:28 Dose: 100 mg Metoprolol Tartrate (Metoprolol Tartrate 5 Mg/5 Ml Vial) 5 mg IV Q2HP PRN PRN Reason: Tachyarrhythmias HR>110 Last Admin: 05/11/22 17:10 Dose: 5 mg Morphine Sulfate (Morphine 2 Mg/Ml Vial) 2 mg IV Q4HP PRN; Protocol PRN Reason: Per Pain Protocol Omeprazole (Omeprazole 20 Mg Capsule) 20 mg PO QAMAC [facility] Last Admin: 05/17/22 06:58 Dose: 20 mg Ondansetron HCl (Ondansetron 4 Mg/2 Ml Vial) 4 mg IV Q4-6HP PRN; Protocol PRN Reason: Nausea And Vomiting Oxycodone HCl (Oxycodone Hcl 5 Mg Tablet) 5 mg PO Q4-6HP PRN; Protocol PRN Reason: Per Pain Protocol Last Admin: 05/17/22 13:28 Dose: 5 mg Promethazine HCl (Promethazine 25 Mg/Ml Vial) 25 mg IV Q4-6HP PRN; Protocol PRN Reason: Nausea And Vomiting Senna (Sennosides 1 Tablet) 1 tab PO DAILYP PRN PRN Reason: Constipation Last Admin: 05/08/22 07:38 Dose: 1 tab Sodium Chloride (0.9 % Sodium Chloride 10 Ml Syringe) 10 ml IV Q12 [facility] Last Admin: 05/17/22 08:33 Dose: 10 ml A/P Narrative A/P Narrative: Assessment: 86-year-old female admitted with MSSA bacteremia secondary to right parotitis/facial cellulitis. The patient also had atrial fibrillation with rapid ventricular response, normal ejection fraction on TTE. *Atrial fibrillation w/RVR: -has PPM, good EF on echo *Right parotitis: DDx: infectious causes such as mumps/influenza/coxsackievirus/noninfectious causes such as sialolithiasis -Repeat facial CT showing right parotid gland inflammation's/swelling w/o stone/abscess/tumor *MSSA bacteremia: 2/2 above -echo no vegetations -Patient has cardiac pacemaker leads *T2DM w/polyneuropathy & nephropathy: -HgA1c 7.5 *HTN/HLD: *Anemia: *Hypomagnesemia: improved P: -Continue Cardizem 188 mg daily. -Lopressor 100 mg twice daily. -Continue digoxin 125 mcg daily. -monitor dig level -Eliquis -IV abx for 6 weeks per ID recommendation followed by serial blood culture to monitor for recurrent bacteremia. -cont asa/statin -ssi -pt/ot -CM for placement -f/u with cardio -ppx: Eliquis / ppi -Code statin: DNR -Disposition: longterm facility for rehab and prolonged IV antibiotic treatment. Time Spent With Patient Time: Total time spent is greater than 50% in coordination of care (as documented) at patient's floor/unit and/or counseling patient: QUALITY VTE Deep Vein Thrombosis/Pulmonary Embolism Present on Admission: Yes
[2022-05-17] MEDS: DIGOXIN 125 MCG TABLET PO SCH (14:07)
[2022-05-17] MEDS: GABAPENTIN 100 MG CAPSULE PO SCH (21:42)
[2022-05-17] MEDS: ATORVASTATIN 40 MG TABLET PO SCH (21:42)
[2022-05-18] MEDS: ceFAZolin 1 GM VIAL IV SCH (05:19)
[2022-05-18] MEDS: INSULIN LISPRO 1 UNIT/0.01 ML UNIT SQ SCH (07:51)
[2022-05-18] MEDS: OMEPRAZOLE 20 MG CAPSULE PO SCH (08:38)
[2022-05-18] MEDS: INSULIN GLARGINE, HUMAN 1 UNIT/0.01 ML SQ SCH (08:38)
[2022-05-18] MEDS: ASPIRIN 81 MG TAB.CHEW PO SCH (08:38)
[2022-05-18] MEDS: METOPROLOL SUCCINATE 50 MG TAB.XL.24H PO SCH (08:38)
[2022-05-18] MEDS: MAGNESIUM OXIDE 400 MG TABLET PO SCH (08:38)
[2022-05-18] MEDS: APIXABAN 5 MG TABLET PO SCH (08:39)
[2022-05-18] MEDS: FUROSEMIDE 20 MG TABLET PO SCH (08:39)
[2022-05-18] MEDS: DILTIAZEM 180 MG CAP.XL.24H PO SCH (08:40)
[2022-05-18] MEDS: DOCUSATE SODIUM 100 MG CAPSULE PO SCH (08:40)
[2022-05-18] MEDS: FERROUS SULFATE 325 MG TABLET PO SCH (08:40)
[2022-05-18] MEDS: 0.9 % SODIUM CHLORIDE 10 ML SYRINGE IV SCH (08:40)
--- NOTE | 2022-05-18 10:58 | Discharge Summary ---
Discharge Provider Provider IMPORTANT FOLLOW-UP INFORMATION FOR PCP: Patient information: Note initiated : 05/18/22 at 10:55 am Service Date, if different from initiated Date: [] Patient: Nolvia Jalloh 86 y/o F admitted on 05/06/22 for weakness. Chief Complaint: [] Date of admission: 05/06/22 00:08 Discharge date: 05/18/22 Primary care physician: Saige Sotomayor Consults: 05/05/22 Consult to Physician [CONS] Stat Comment: Consulting Provider: Alejandro Johnson Reason For Exam: Physician to Consult 05/11/22 13:15 Consult to Physician [CONS] Routine Comment: snf referral Consulting Provider: [facility] Reason For Exam: Physician to Consult COURSE Hospital Course Hospital course: Ms. 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 The following history is severely limited by the patient's clinical situations and lack of family or caregiver at the bedside. Patient does not recall why she is being sent to the hospital. She currently denies any chest pain palpitations or chest pressure. She denies any shortness of breath. She denies any lightheadedness or dizziness. She denies any pain or discomfort at the moment. Vital signs at ED presentation significant for severe tachycardia with heart rate up to the 160s beats per minutes. Labs significant for leukocytosis with WBC 13.1, as well as hemoglobin and hematocrit 10.1 and 31.5, respectively. Only remarkable electrolyte imbalance is mild hypodysemia with serum magnesium level 1.5. D- dimer 0.87. Serum troponin 0.01. CT angiogram of the chest negative for any pulmonary embolism or any focal infiltrate. Patient was started on Cardizem drip after several rounds of Cardizem pushes failed to successfully rate controlled the patient. 05/06: Patient's heart rate was up in the 150s earlier this morning but when I saw the patient at the bedside and it went down to 110 beats per minutes. Patient denies any chest pain palpitations or shortness of breath. She is still complaining of right facial swelling and pain. She denies any fever chills or diaphoresis. She is complain of general body weakness. Will start IV antibiotics with Zosyn after blood cultures. We will also offer pain regimen including ibuprofen, oxycodone, and IV morphine as needed for mild to moderate or severe pain, respectively. Continue Cardizem and metoprolol ER while attempting to down titrate Cardizem drip. 2D echocardiogram. Physical therapy and Occupational Therapy evaluation and treatments for placement pending. 05/07: Low-grade fever 37.7 this morning. Blood culture growing gram-positive cocci in both sets. Heart rate in the 1 teens, Cardizem drip still on at 10 Mg per hour. 2D echocardiogram preformed, results pending. Patient denies any chest pain palpitations or shortness of breath. She is still complaining of right facial swelling and pain. She denies any fever chills or diaphoresis. She is complain of general body weakness. Repeat blood cultures X2 on 05/08. Continue to watch for echocardiogram results. Continue Zosyn. Switch from Diltiazem from 60mg PO QID to Diltiazem extended release 360mg PO daily, continue metoprolol ER 100mg PO BID. Continue to wean down/off Diltiazem drip. Physical therapy and Occupational Therapy evaluation and treatments for placement pending. 05/08: Afebrile overnight. Patient is on room air. Patient's has been off Cardizem drip since yesterday morning, on Cardizem extended release 360 mg p.o. daily and metoprolol ER 100 mg p.o. twice daily. Current heart rates up in the 130s beats per minutes. Blood pressure normal. WBC 12.3, initial blood culture still growing gram-positive cocci no further identity is available at the moment. Patient is still commenting of same degree of right facial pain. She is able to tolerate her diet and chew on her food. Denies chest pain or palpitation. Repeat blood cultures X2 today. MRI face w/ w/o. Continue Zosyn. Diltiazem extended release 360mg PO daily, continue metoprolol ER 100mg PO BID. Cardizem drip stands by. Physical therapy and Occupational Therapy evaluation and treatments for placement pending. 05/09: Afebrile overnight. WBC down trended to 9.2 this morning. Initial blood culture grew MSSA. Repeat blood culture no growth today. Echocardiogram did not show any endocardial vegetations. Repeat facial CT again showing right parotid gland inflammation's/swelling with out any stone, abscess, tumor, or suspicious mass. Patient has been off Cardizem drip heart rate controlled. Physical therapy Occupational Therapy recommend SNF placement. Downgraded patient's from ICU to MedSurg with telemetry. Changed antibiotics from Zosyn to Rocephin. Diltiazem extended release 360mg PO daily, continue metoprolol ER 100mg PO BID. Pending SNF placement. 05/10: Afebrile overnight. WBC down trended to 9.2 this morning. Initial blood culture grew MSSA. Repeat blood culture no growth today. Patient is currently comfortable denies any right facial pain. Denies any shortness of breath, chest pain, or palpitations. Denies any fever, chills, or diaphoresis. Continue Rocephin for now and will change to oral antibiotics such as Augment in. We will plan to discharged to SNF tomorrow. 05/11: Discharged to SNF held due to insurance authorization. 05/12 Started dig load yesterday afternoon given poor response to other therapy. Patient has no overnight event or new complaints. 05/13 Patient seems to doing little better again today. Facial swelling continues to improve. No overnight event or new complaints. Heart rate 70s to low 100s. Transaminitis better. 05/14 Patient's heart rate has been 70s to low 100s. Patient has no overnight event or new complaints. Will continue with digoxin as per discussion with cardiology nurse practitioner. 05/15 Patient sitting up in chair. No overnight acute new complaints. Patient refused therapies yesterday. Sorting out placement. Will need IV antibiotics probably another 5 or 6 days. 05/16 Patient feeling well today. No overnight event or new complaints. Heart rate seems better controlled. Follow-up dig level in the morning. 05/17 Vital stable overnight, started Lantus 10 units daily and increased sliding scale Humalog to high-dose for elevated blood sugars. Discussed the patient with infectious disease at [facility] in [place], [place] recommended 6 weeks of IV antibiotic treatment because the patient has pacemaker cardiac leads. Infectious disease also recommended serial blood cultures after completing 6 weeks of IV antibiotic treatment to monitor for recurrent bacteremia. 05/18 Discharge to a correction facility, [facility], for low intensity rehab and prolonged IV antibiotic treatment for MSSA bacteremia. The plan at discharge is for the patient to complete 6 weeks of IV cefazolin followed by weekly blood cultures to monitor for recurrent bacteremia. In the discharge orders I ordered weekly CBC, BMP, LFTs, CRP at the correction facility. Physical exam Head: Atraumatic, normal inspection. Eyes: normal appearance, no scleral icterus. Neck: full ROM Respiratory: no respiratory distress. Cardiovascular: normal rate and rhythm, S1, S2. GI/Abdominal: soft, nontender, no guarding. Extremities: full range of motion, nontender. Neurological: CN II-XII intact, intact motor, intact sensation. Psychiatric: normal mood. Skin: warm, normal color Discharge diagnosis: MSSA bacteremia Time Spent with Patient Time attestation: Total time spent providing and/or coordinating discharge services: Time spent: Greater than 30 minutes EXAM Constitutional Vitals: Temp Pulse Resp BP Pulse Ox O2 Del Method O2 Flow Rate 97.2 F 71 16 141/69 96 0 05/18/22 04:13 05/18/22 04:13 05/18/22 04:13 05/18/22 04:13 05/18/22 04:13 05/18/22 04:13 05/10/22 04:00 Discharge Plan Patient/Caregiver Discharge Instructions Activity: increase activity as tolerated Diet: Consistent Carbohydrate Instructions: A-fib (Atrial Fibrillation) (DC), Bacteremia (DC), Mumps in Adults (DC) Activity Restrictions/Additional Instructions: Check weekly CBC, BMP, LFTs, and CRP while the patient is receiving IV Cefazolin for bacteremia. The total treatment duration for Cefazolin is 6 weeks including time spend receiving antibiotics in the hospital. Following completion of IV antibiotic treatment for bacteremia obtain weekly blood cultures for 4 weeks to ensure the patient does not have recurrent bacteremia. The patient is at risk for recurrent bacteremia because she has a cardiac pacemaker. Increase activity as tolerated. Consistent carbohydrate diet as tolerated. Call your physician for sustained fever greater than 100.5, increase in facial pain, or any questions/concerns. This discharge packet is provided to you to help keep you informed about your care. We want to ensure you get everything you need when you go home. You will also be receiving a call from us in a few days to follow up with you and see how you are doing since your discharge. This gives us a chance to listen to any concerns you maybe experiencing since you were discharged or any additional needs you may have, as well as providing us feedback on your care experience. We strive to always provide excellent care and thank you for your feedback and for choosing [facility]. Prescriptions: New diltiazem HCl 180 mg Capsule,Extended Release 24hr 180 mg PO DAILY Qty: 30 0RF digoxin 125 mcg (0.125 mg) Tablet 125 mcg PO DAILY@1400 Qty: 30 0RF cefazolin 1 gram Recon Soln 2 g IV Q8H 17 Days Qty: 51 0RF Continued atorvastatin 80 mg tablet 40 mg PO HS metoprolol succinate 100 mg tablet extended release 24 hr 100 mg PO BID aspirin 81 mg tablet,delayed release (DR/EC) 81 mg PO QDAY glipizide 2.5 mg tablet extended release 24hr 2.5 mg PO QDAY ferrous sulfate [FeroSul] 325 mg (65 mg iron) tablet 325 mg PO QDAY metformin 1,000 mg tablet 1,000 mg PO BIDCC omeprazole 20 mg capsule,delayed release(DR/EC) 20 mg PO QAMAC furosemide 20 mg tablet 20 mg PO QDAY gabapentin 100 mg capsule 100 mg PO HS Eliquis 2.5 mg tablet 2.5 mg PO BID hydrocodone-acetaminophen 10-325 mg tablet 2 tab PO BIDP PRN (Reason: Pain) Qty: 10 0RF Discontinued diltiazem HCl 180 mg capsule,extended release 24hr 180 mg PO QDAY Other Ambulatory Orders: Digoxin (Routine) Timeframe: 2 Days Facility: [facility] - Location: Laboratory Ordered By: Samuel Clemente OT Discharge Order (Routine) Location: None Selected Ordered By: Alejandro Johnson OT Discharge Order (Routine) Location: None Selected Ordered By: Hieu Sal Physical Therapy at Discharge - General (Routine) Location: None Selected Ordered By: Alejandro Johnson Physical Therapy at Discharge - General (Routine) Location: None Selected Ordered By: Hieu Sal Follow Up Plan Follow up with: Saige Sotomayor MD [Primary Care Provider] - (Please call and schedule a hospital follow up to be seen in 7-10 days.) Antionette Ceron ARNP [Nurse Practitioner] - (Please call for a follow up appointment for A-Fib.) Patient Disposition: Xfer SNF Prognosis: Fair Rehab Potential: Fair I certify that the patient requires SNF services: Yes Overall status at discharge: patient is progressing back to baseline Discharge Orders: Discharge Order (Routine); Ordered 05/18/22 Ordered By: Hieu STEWART VTE Deep Vein Thrombosis/Pulmonary Embolism Present on Admission: Yes
== END 2022-05-18 11:10 | DRG 155 ==
LOC: ED 15:39 → ICU 05-06 00:08 → MEDSUR 05-10 14:27
PROVIDERS: ADMIT Internal Medicine; ATTEND Internal Medicine

== ENCOUNTER 2022-11-10 18:13 | Inpatient (IN) ==
[2022-11-10] MEDS ORDERED: HYDROmorphone 0.5 MG/0.5 ML SYRINGE IV ONE (18:39)
--- NOTE | 2022-11-10 18:39 | Emergency Department Note ---
HPI General Chief complaint: Trauma Stated complaint: Fall, on blood thinner Time Seen by Provider: 11/10/22 18:20 Source: EMS Mode of arrival: EMS Limitations: no limitations History of Present Illness HPI Narrative: Narrative: Patient is an 87-year-old female with a history of anemia, type 2 diabetes, atrial fibrillation, CKD, and pacemaker who presents to the emergency department due to a fall and right arm pain. She states that she was trying to adjust her pants and then fell. She does have difficulty explaining exactly what caused the fall. She denies lightheadedness, headache, hitting her head, loss of consciousness, chest pain, shortness of breath, and palpitations. She does endorse significant right arm pain near her shoulder. She denies pain in any other location. She states that any movement makes the pain worse. Related Data Home Medications Medication Instructions Recorded Confirmed apixaban 2.5 mg tablet (Eliquis) 2.5 mg PO BID 05/05/22 05/08/22 aspirin 81 mg tablet,delayed 81 mg PO QDAY 05/05/22 05/08/22 release atorvastatin 80 mg tablet 40 mg PO HS 05/05/22 05/08/22 ferrous sulfate 325 mg (65 mg 325 mg PO QDAY 05/05/22 05/08/22 iron) tablet (FeroSul) furosemide 20 mg tablet 20 mg PO QDAY 05/05/22 05/08/22 gabapentin 100 mg capsule 100 mg PO HS 05/05/22 05/08/22 glipizide 2.5 mg tablet, extended 2.5 mg PO QDAY 05/05/22 05/08/22 release 24 hr metformin 1,000 mg tablet 1,000 mg PO BIDCC 05/05/22 05/08/22 metoprolol succinate 100 mg 100 mg PO BID 05/05/22 05/08/22 tablet,extended release 24 hr omeprazole 20 mg capsule,delayed 20 mg PO QAMAC 05/05/22 05/08/22 release Previous Rx's Medication Instructions Recorded hydrocodone 10 mg-acetaminophen 2 tab PO BIDP PRN Pain #10 tabs 05/11/22 325 mg tablet digoxin 125 mcg (0.125 mg) tablet 125 mcg PO DAILY@1400 #30 tabs 05/13/22 diltiazem HCl 180 mg 180 mg PO DAILY #30 caps 10/02/22 capsule,extended release 24 hr Allergies Allergy/AdvReac Type Severity Reaction Status Date / Time No Known Drug Allergies Allergy Verified 11/10/22 18:16 Review of Systems ROS ROS Narrative: Narrative: Constitutional: Denies fever or weakness Eyes: Denies eye pain or vision change ENT ED: Denies throat pain, hearing loss or rhinorrhea Cardiovascular: Denies chest pain, dyspnea on exertion, orthopnea or edema Respiratory: Denies shortness of breath or cough Gastrointestinal: Denies abdominal pain, nausea, vomiting, diarrhea, constipation, hematochezia or melena Musculoskeletal: Reports other (Right upper arm pain); Denies back pain or myalgia Integumentary: Denies rash or lesions Neurological: Denies headache, weakness, numbness, confusion, abnormal gait or dizziness PFSH Narrative Patient History Narrative: Narrative: Medical/Surgical/Family History All Active Problems (Updated 11/10/22 @ 19:34 by Juan Hawthorne MD) Fracture of proximal end of humerus (Acute) Gram-positive cocci bacteremia (Acute) Parotitis (Acute) Hypomagnesemia (Acute) Anemia, normocytic normochromic (Acute) Diabetic polyneuropathy associated with type 2 diabetes mellitus (Acute) Atrial fibrillation with rapid ventricular response (Acute) Encephalitis (Chronic) Myocardial infarction (Chronic ~1992) Adenomatous colon polyp (Chronic) Back pain (Chronic) Osteopenia (Chronic) 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) Hip pain, bilateral (Chronic) Compression fracture of spine (Chronic) Other hyperlipidemia (Chronic) Supraventricular tachycardia (Chronic) Pacemaker (Chronic) Other iron deficiency anemias (Chronic) Dyspnea (Chronic) 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 pulmonary arterial hypertension (Chronic) Trigger finger, right ring finger (Chronic) Dependent edema (Chronic) Chronic kidney disease, stage 3a (Chronic) 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, stage I (Chronic) DM (diabetes mellitus), type 2, uncontrolled w/neurologic complication (Chronic) Other low back pain (Chronic) Bilateral sacroiliitis (Acute) Medical History (Updated 11/10/22 @ 19:34 by Juan Hawthorne MD) Adenomatous colon polyp Atherosclerotic heart disease of [place] coronary artery with angina pectoris Back pain 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, stage I Chronic kidney disease, stage 3a Compression fracture of spine Dependent edema DM (diabetes mellitus), type 2, uncontrolled w/neurologic complication Dyspnea Encephalitis age 5 Hip pain, bilateral Myocardial infarction (~1992) Osteopenia Other hyperlipidemia Other iron deficiency anemias Other low back pain Pacemaker Secondary pulmonary arterial hypertension Supraventricular tachycardia Trigger finger, right ring finger Ulnar neuropathy of right upper extremity Surgical History (Updated 03/02/22 @ 16:31 by Rossi Ochoa) History of angioplasty and stent History of hysterectomy History of oophorectomy cyst History of permanent cardiac pacemaker placement (~11/03/09) History of surgery (~03/23/19) Proximal left anterior descending artery drug eluting stent History of tonsillectomy and adenoidectomy Hx of atrioventricular node ablation (~04/05/19) Family History (Updated 03/02/22 @ 16:38 by Rossi Ochoa) Mother Stroke Coronary heart disease Father Stroke Sister Breast cancer Other Family history of coronary artery disease Family history of diabetes mellitus type II Social History Smoking Status: Never smoker Alcohol Intake Frequency: a few times a week Substance Use: does not use Exam Narrative Narrative: Narrative: General Limitations: no limitations General appearance: Present alert and in no apparent distress; Absent anxious, appears intoxicated or sleepy Head Head: Present atraumatic and normocephalic Eye Eye: Present EOMI; Absent scleral icterus or nystagmus ENT ENT: Present mucous membranes moist; Absent nasal congestion Neck Neck: Present full ROM; Absent tenderness Chest Chest: Present normal inspection and symmetric chest wall rise; Absent tenderness Respiratory Respiratory: Present normal lung sounds bilaterally; Absent respiratory distress, rales/crackles, wheezes, stridor or accessory muscle use Cardiovascular Cardiovascular: Present regular rate, normal rhythm and normal heart sounds Adbominal Abdominal: Present soft and normal bowel sounds; Absent distention or tenderness Extremities Extremities: Present normal inspection, full ROM and tenderness (Right shoulder) Back Back: Present normal inspection and full ROM; Absent tenderness Neurological Neurological: Present alert and oriented X3; Absent motor sensory deficit Psychiatric Psychiatric: Present normal affect and normal mood Skin Skin: Present warm (WNL), dry and normal color Course Vital Signs Vital signs: Vital Signs Temperature 97.3 F 11/10/22 18:13 Pulse Rate 90 11/10/22 18:13 Respiratory Rate 18 11/10/22 18:13 Blood Pressure 147/121 11/10/22 18:13 Pulse Oximetry (%) 100 11/10/22 18:13 Oxygen Delivery Method Room Air 11/10/22 18:13 Temperature 97.3 F 11/10/22 18:13 Pulse Rate 70 11/10/22 19:16 Respiratory Rate 18 11/10/22 18:13 Blood Pressure 145/76 11/10/22 19:16 Pulse Oximetry (%) 100 11/10/22 19:16 Oxygen Delivery Method Room Air 11/10/22 18:13 MDM MDM Narrative Medical decision making narrative: Narrative: Patient is an 87-year-old female who presents to the emergency department due to fall and right arm pain. Differential diagnoses include fracture and dislocation. Differential diagnoses as cause of the fall include mechanical fall, dysrhythmia, anemia, and dehydration. Patient's EKG is reassuring overall. Labs are pending. Patient has been signed out to Dr. Waggoner. Lab Data 11/10/22 18:20 Labs: Lab Results 11/10/22 Range/Units 18:56 POC Hct 36.0 (36-48) POC Sodium 129 L (133-145) POC Potassium 4.7 (3.3-5.1) POC Chloride 96 (96-108) POC Total CO2 22.0 (22-30) POC BUN 17 (6-20) POC Creatinine 1.1 (0.6-1.2) POC Glucose 640 H* (70-105) POC WB Ioniz Calcium 1.09 L (1.16-1.32) EKG Data EKG #1: EKG attestation: Yes I reviewed and interpreted this EKG. EKG results narrative: Ventricular paced rhythm with a rate of 71, left axis deviation, NV of 234, QRS of 159, QTc of 538, T wave flattening in lead I, T wave inversions in aVL and V3, and absence of ST elevation or depression. Discharge Plan Patient/Caregiver Discharge Instructions Pt seen by HEAD TRANSFER CLERK/PA only: No Clinical Impression: Fracture of proximal end of humerus Patient Disposition: Still a Patient Follow up with: Saige Sotomayor MD [Primary Care Provider] - Prescriptions: No Action atorvastatin 80 mg tablet 40 mg PO HS metoprolol succinate 100 mg tablet extended release 24 hr 100 mg PO BID aspirin 81 mg tablet,delayed release (DR/EC) 81 mg PO QDAY glipizide 2.5 mg tablet extended release 24hr 2.5 mg PO QDAY ferrous sulfate [FeroSul] 325 mg (65 mg iron) tablet 325 mg PO QDAY metformin 1,000 mg tablet 1,000 mg PO BIDCC omeprazole 20 mg capsule,delayed release(DR/EC) 20 mg PO QAMAC furosemide 20 mg tablet 20 mg PO QDAY gabapentin 100 mg capsule 100 mg PO HS Eliquis 2.5 mg tablet 2.5 mg PO BID hydrocodone-acetaminophen 10-325 mg tablet 2 tab PO BIDP PRN (Reason: Pain) Qty: 10 0RF diltiazem HCl 180 mg Capsule,Extended Release 24hr 180 mg PO DAILY Qty: 30 0RF digoxin 125 mcg (0.125 mg) Tablet 125 mcg PO DAILY@1400 Qty: 30 0RF
--- NOTE | 2022-11-10 18:45 | XRay Report ---
INDICATION: Pain after fall TECHNIQUE: AP internal and external rotation, Y view COMPARISON: None. FINDINGS: Fracture of the surgical neck of the proximal right humerus. There is displacement consistent with Neer 2 part fracture. Scapula and clavicle are negative. No fracture. Visualized portions of the right lung are negative IMPRESSION: Displaced fracture through the surgical neck of the proximal right humerus Interpreted and Authenticated by: Franklyn Miguel 11/10/22
[2022-11-10 18:59] LABS: POC Calcium, Ionized 1.09 (1.16-1.32); POC Creatinine 1.1 (0.6-1.2); POC Potassium 4.7 (3.3-5.1)
[2022-11-10 19:50] LABS: Basophils # (Auto) 0.02 K/mcL (0.00-0.30); Basophils % (Auto) 0.3 % (0.0-2.0); Eosinophils # (Auto) 0.06 K/mcL (0.00-0.70); Hematocrit 34.9 % (34.1-44.9); Hemoglobin 11.7 g/dL (11.2-15.7); Lymphocytes # (Auto) 1.84 K/mcL (1.50-4.80); Lymphocytes % (Auto) 29.8 % (15.5-49.0); Mean Cell Volume 89.3 fL (80.0-100.0); Mean Corpuscular HGB Conc 33.5 g/dL (31.0-36.0); Mean Platelet Volume 10.6 fL (8.8-12.5); Monocytes # (Auto) 0.65 K/mcL (0.10-0.90); Monocytes % (Auto) 10.5 % (1.0-12.0); Neutrophils % (Auto) 57.9 % (38.0-78.0); Platelet Count 250 K/mcL (140-440); RBC 3.91 M/mcL (3.59-5.38); Red Cell Distribution Width 13.9 % (11.5-14.5); WBC 6.2 K/mcL (4.5-11.0)
[2022-11-10 20:04] LABS: INR 1.2 (0.9-1.1); Partial Thromboplastin Time 26.6 sec (20.0-37.0); Prothrombin Time 15.1 sec (11.9-14.5)
--- NOTE | 2022-11-10 20:27 | Emergency Department Note ---
Course Course Course Narrative: I assumed care of patient at 1900 pending lab results. Please refer to Dr. Hawthorne note for care up to this point. Labs are unremarkable. Patient be discharged home. She is to follow-up with orthopedic surgery. She is to maintain sling. Upon initial arrival patient had a blood sugar greater than 600. That did not improve while she was here. I went ahead and got a VBG pa tient was not acidotic but was actually alkalotic with a pH of 7.5. Lactic acid was elevated at 2.7. Labs were obtained and show that her white cell count was normal so she does not have leukocytosis. UA concerning for UTI. Patient given IV fluids, IV insulin, IV Rocephin. Labs also shows that she was hyponatremic which we will continue to monitor. Patient does not meet DKA criteria though w as considered. Patient most likely has HHS or uncontrolled type 2 diabetes with hyperglycemia. With her fracture and current medical condition I do not think it is safe to send patient home. Shared decision-making conversation was had with patient and her friend was at bedside and they agree with admission. Case was discussed with hospitalist who has agreed to admit the patient. Vital Signs Vital signs: Vital Signs Temperature 97.3 F 11/10/22 18:13 Pulse Rate 90 11/10/22 18:13 Respiratory Rate 18 11/10/22 18:13 Blood Pressure 147/121 11/10/22 18:13 Pulse Oximetry (%) 100 11/10/22 18:13 Oxygen Delivery Method Room Air 11/10/22 18:13 Temperature 97.3 F 11/10/22 18:13 Pulse Rate 69 11/10/22 21:15 Respiratory Rate 18 11/10/22 18:13 Blood Pressure 152/77 11/10/22 21:02 Pulse Oximetry (%) 100 11/10/22 21:15 Oxygen Delivery Method Room Air 11/10/22 18:13 [facility] MDM Narrative Medical decision making narrative: Narrative: Differential Diagnosis Differential Diagnosis: Extremity fracture, dka,hhs, uti Medical Records Medical records reviewed: Yes I reviewed the patient's medical records. Lab Data Lab results reviewed: Yes I reviewed the patient's lab results. 11/10/22 18:20 Labs: Lab Results 11/10/22 11/10/22 11/10/22 Range/Units 18:20 18:20 18:56 WBC 6.2 (4.5-11.0) K/mcL RBC 3.91 (3.59-5.38) M/mcL Hgb 11.7 (11.2-15.7) g/dL Hct 34.9 (34.1-44.9) % POC Hct 36.0 (36-48) MCV 89.3 (80.0-100.0) fL MCH 29.9 (26.0-34.0) pg MCHC 33.5 (31.0-36.0) g/dL RDW 13.9 (11.5-14.5) % Plt Count 250 (140-440) K/mcL MPV 10.6 (8.8-12.5) fL Immature Gran % (Auto) 0.5 (0.0-0.5) % Neut % (Auto) 57.9 (38.0-78.0) % Lymph % (Auto) 29.8 (15.5-49.0) % [place] % (Auto) 10.5 (1.0-12.0) % Eos % (Auto) 1.0 (0.0-7.0) % Baso % (Auto) 0.3 (0.0-2.0) % Lymph # (Auto) 1.84 (1.50-4.80) K/mcL [place] # (Auto) 0.65 (0.10-0.90) K/mcL Eos # (Auto) 0.06 (0.00-0.70) K/mcL Baso # (Auto) 0.02 (0.00-0.30) K/mcL Immature Gran # 0.03 (0.00-0.05) K/mcl Absolute Neutrophils 3.58 (1.80-8.00) K/mcL PT 15.1 H (11.9-14.5) sec INR 1.2 H (0.9-1.1) APTT 26.6 (20.0-37.0) sec POC VBG pH (7.32-7.42) POC VBG pCO2 at Temp (41-51) POC VBG pO2 (25-40) POC VBG HCO3 (24-28) POC VBG Total CO2 (25-29) POC Venous O2 Sat (40-70) POC VBG Base Excess (-2-2) VBG Lactic Acid (0.5-2) POC Sodium 129 L (133-145) POC Potassium 4.7 (3.3-5.1) POC Chloride 96 (96-108) POC Total CO2 22.0 (22-30) POC BUN 17 (6-20) POC Creatinine 1.1 (0.6-1.2) POC Glucose 640 H* (70-105) POC WB Ioniz Calcium 1.09 L (1.16-1.32) 11/10/22 Range/Units 21:08 WBC (4.5-11.0) K/mcL RBC (3.59-5.38) M/mcL Hgb (11.2-15.7) g/dL Hct (34.1-44.9) % POC Hct (36-48) MCV (80.0-100.0) fL MCH (26.0-34.0) pg MCHC (31.0-36.0) g/dL RDW (11.5-14.5) % Plt Count (140-440) K/mcL MPV (8.8-12.5) fL Immature Gran % (Auto) (0.0-0.5) % Neut % (Auto) (38.0-78.0) % Lymph % (Auto) (15.5-49.0) % [place] % (Auto) (1.0-12.0) % Eos % (Auto) (0.0-7.0) % Baso % (Auto) (0.0-2.0) % Lymph # (Auto) (1.50-4.80) K/mcL [place] # (Auto) (0.10-0.90) K/mcL Eos # (Auto) (0.00-0.70) K/mcL Baso # (Auto) (0.00-0.30) K/mcL Immature Gran # (0.00-0.05) K/mcl Absolute Neutrophils (1.80-8.00) K/mcL PT (11.9-14.5) sec INR (0.9-1.1) APTT (20.0-37.0) sec POC VBG pH 7.58 H (7.32-7.42) POC VBG pCO2 at Temp 24.4 L (41-51) POC VBG pO2 61 H (25-40) POC VBG HCO3 23.1 L (24-28) POC VBG Total CO2 24.0 L (25-29) POC Venous O2 Sat 95.0 H (40-70) POC VBG Base Excess 1.0 (-2-2) VBG Lactic Acid 2.7 H (0.5-2) POC Sodium (133-145) POC Potassium (3.3-5.1) POC Chloride (96-108) POC Total CO2 (22-30) POC BUN (6-20) POC Creatinine (0.6-1.2) POC Glucose (70-105) POC WB Ioniz Calcium (1.16-1.32) Radiology Data Radiology results reviewed: Yes I reviewed the patient's radiology results. Core Measures AMI Core Measures Followed: Yes Discharge Plan Patient/Caregiver Discharge Instructions Pt seen by [employer]UD[employer] DIRECTOR/PA only: No Clinical Impression: Type 2 diabetes mellitus with hyperosmolar hyperglycemic state (HHS), Acute UTI, Acute hyponatremia Fracture of proximal end of humerus Qualifiers: Encounter type: initial encounter Fracture type: closed Fracture morphology: unspecified fracture morphology Laterality: right Qualified Code(s): S42.201A - Unspecified fracture of upper end of right humerus, initial encounter for closed fracture Activity: resume usual activities as tolerated Instructions: Arm Fracture in Adults (ED) Activity Restrictions/Additional Instructions: Follow with orthopedic surgery within 3 to 4 days Maintain arm in a sling Use [place] pain medication As prescribed Seek medical attention symptoms worsen Patient Disposition: Xfer As Outpt/Obs ([facility]) Condition: Fair Follow up with: Karlene Moreno MD [Physician] - 11/13/22 (Right surgical neck fracture) Saige Sotomayor MD [Primary Care Provider] - Prescriptions: New hydrocodone-acetaminophen 5-325 mg tablet 1 tab PO TID PRN (Reason: pain) Qty: 15 0RF No Action atorvastatin 80 mg tablet 40 mg PO HS metoprolol succinate 100 mg tablet extended release 24 hr 100 mg PO BID aspirin 81 mg tablet,delayed release (DR/EC) 81 mg PO QDAY glipizide 2.5 mg tablet extended release 24hr 2.5 mg PO QDAY ferrous sulfate [FeroSul] 325 mg (65 mg iron) tablet 325 mg PO QDAY metformin 1,000 mg tablet 1,000 mg PO BIDCC omeprazole 20 mg capsule,delayed release(DR/EC) 20 mg PO QAMAC furosemide 20 mg tablet 20 mg PO QDAY gabapentin 100 mg capsule 100 mg PO HS Eliquis 2.5 mg tablet 2.5 mg PO BID hydrocodone-acetaminophen 10-325 mg tablet 2 tab PO BIDP PRN (Reason: Pain) Qty: 10 0RF diltiazem HCl 180 mg Capsule,Extended Release 24hr 180 mg PO DAILY Qty: 30 0RF digoxin 125 mcg (0.125 mg) Tablet 125 mcg PO DAILY@1400 Qty: 30 0RF
[2022-11-10] MEDS ORDERED: HYDROcodone/APAP (PP) 5/325MG TABLET (#4) PO ONE (20:33)
[2022-11-10] MEDS ORDERED: 0.9 % SODIUM CHLORIDE 1,000 ML IV ONE (20:46)
[2022-11-10] MEDS ORDERED: INSULIN REGULAR, HUMAN 1 UNIT/0.01 ML UNIT IV ONE (20:46)
[2022-11-10] MEDS ORDERED: cefTRIAXone 2 GM in DEXTROSE 5% IN WATER 50 ML IV ONE (21:29)
[2022-11-10 21:50] LABS: Appearance,Urine CLEAR (Clear); Bilirubin,Urine Negative (Negative); Color,Urine YELLOW; Culture Indicated,Urine yes; Glucose,Urine (UA) >=500 mg/dL (Negative); Ketones,Urine Negative (Negative); Leukocyte Esterase,Urine 25 /uL (Negative); Nitrate,Urine POS (Negative); Protein,Urine Negative (Negative); Urine Blood 0.03 mg/dL (Negative); Urine RBC < 1 /hpf (0-3); Urine Squamous Epithelial Cell 0 /hpf (0-4); Urine WBC 26 /hpf (0-4); Urobilinogen,Urine Negative
--- NOTE | 2022-11-10 22:08 | Internal Med History&Physical ---
HPI History of Present Illness Patient information: Note initiated : 11/10/22 at 10:04 pm Service Date, if different from initiated Date: [] Patient: Nolvia Jalloh a 87 y/o F admitted on for Fall, on blood thinner. Chief Complaint: [fall] Chief complaint: fall History of present illness: Ms. Jalloh is a 87 year old F history of atrial fibrillation status post pacemaker, type 2 diabetes mellitus, chronic kidney disease, presenting with accidental fall. Earlier this evening when she was getting out of the bathroom, she had to put her pants on but she lost her balance and she fell and landed on her right shoulder. She denies hitting her head. She denies any loss of consciousness. She denies any chest pain palpitations or shortness of breath. She is currently complaining of 10 out of 10 sharp constant pain of her right shoulder and right upper arm. X-ray performed in the ED showing displaced fracture through the surgical neck of the proximal right humerus. In addition, labs also showing elevated blood sugar of 640. Serum pH 7.58, serum bicarb 23.1, lactic acid 2.7, and anion gap 11. In additions, patient is also commenting of increased urinary frequency over the past couple weeks but she denies any urgency or hesitancy and she denies any dysuria. UA pending. ER physicians contacted orthopedic surgeon Dr. Moreno who recommend against emergent surgery at this point. Instead, he recommended putting a sling on and he will see the patient in his office. Admission request is called for symptoms controlled of new onset right humeral fracture, uncontrolled type 2 diabetes mellitus with hyperglycemia, and suspected urinary tract infections. Constitutional Constitutional: Present weakness; Absent chills, excessive sweating, fatigue or fever(s) EENT Eyes: Absent blurry vision, change in vision, loss of vision or other visual disturbances Ears: Absent decreased hearing or tinnitus Nose, mouth and throat: Absent abnormal hearing, dry mouth, headache(s), nasal congestion or sore throat Cardiovascular Cardiovascular: Absent chest pain, chest pain at rest, edema, irregular heart rhythm or palpatations Respiratory Respiratory: Absent cough, dyspnea or wheezing Gastrointestinal Gastrointestinal: Absent abdominal pain, constipation, diarrhea, nausea or vomiting Genitourinary Genitourinary: Present urinary frequency Musculoskeletal Musculoskeletal: Absent back pain, deformity, limited range of motion, muscle cramps, muscle weakness or numbness Additional comments: Right shoulder and upper arm pain Integumentary Integumentary: Absent lesions, rash or wounds Neurological Neurological: Absent focal weakness, headache(s) or numbness Psychiatric Psychiatric: Absent anxiety, depression or hallucinations PFSH PFSH All Active Problems (Updated 11/10/22 @ 22:17 by Alejandro Johnson MD) Displaced fracture of right humerus (Acute) Hyperglycemia due to type 2 diabetes mellitus (Acute) Fracture of proximal end of humerus (Acute) Type 2 diabetes mellitus with hyperosmolar hyperglycemic state (HHS) (Acute) Acute UTI (Acute) Acute hyponatremia (Acute) Gram-positive cocci bacteremia (Acute) Parotitis (Acute) Hypomagnesemia (Acute) Anemia, normocytic normochromic (Acute) Diabetic polyneuropathy associated with type 2 diabetes mellitus (Acute) Atrial fibrillation with rapid ventricular response (Acute) Encephalitis (Chronic) Myocardial infarction (Chronic ~1992) Adenomatous colon polyp (Chronic) Back pain (Chronic) Osteopenia (Chronic) 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) Hip pain, bilateral (Chronic) Compression fracture of spine (Chronic) Other hyperlipidemia (Chronic) Supraventricular tachycardia (Chronic) Pacemaker (Chronic) Other iron deficiency anemias (Chronic) Dyspnea (Chronic) 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 arterial hypertension (Chronic) Trigger finger, right ring finger (Chronic) Dependent edema (Chronic) Chronic kidney disease, stage 3a (Chronic) 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, stage I (Chronic) DM (diabetes mellitus), type 2, uncontrolled w/neurologic complication (Chronic) Other low back pain (Chronic) Bilateral sacroiliitis (Acute) Medical History (Updated 11/10/22 @ 22:17 by Alejandro Johnson MD) Adenomatous colon polyp Atherosclerotic heart disease of [place] coronary artery with angina pectoris Back pain 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, stage I Chronic kidney disease, stage 3a Compression fracture of spine Dependent edema DM (diabetes mellitus), type 2, uncontrolled w/neurologic complication Dyspnea Encephalitis age 5 Hip pain, bilateral Myocardial infarction (~1992) Osteopenia Other hyperlipidemia Other iron deficiency anemias Other low back pain Pacemaker Secondary pulmonary arterial hypertension Supraventricular tachycardia Trigger finger, right ring finger Ulnar neuropathy of right upper extremity Surgical History (Updated 03/02/22 @ 16:31 by Rossi Ochoa) History of angioplasty and stent History of hysterectomy History of oophorectomy cyst History of permanent cardiac pacemaker placement (~11/03/09) History of surgery (~03/23/19) Proximal left anterior descending artery drug eluting stent History of tonsillectomy and adenoidectomy Hx of atrioventricular node ablation (~04/05/19) Family History (Updated 03/02/22 @ 16:38 by Rossi Ochoa) Mother Stroke Coronary heart disease Father Stroke Sister Breast cancer Other Family history of coronary artery disease Family history of diabetes mellitus type II Social History (Updated 03/02/22 @ 16:35 by Rossi Ochoa) marital status: occupational status: retired smoking status: Never smoker alcohol intake frequency: a few times a week substance use type: does not use MEDS/ALLERGIES Home Medications and Allergies Home Medications Medication Instructions Recorded Confirmed Type apixaban 2.5 mg tablet (Eliquis) 2.5 mg PO BID 05/05/22 05/08/22 History aspirin 81 mg tablet,delayed 81 mg PO QDAY 05/05/22 05/08/22 History release atorvastatin 80 mg tablet 40 mg PO HS 05/05/22 05/08/22 History ferrous sulfate 325 mg (65 mg 325 mg PO QDAY 05/05/22 05/08/22 History iron) tablet (FeroSul) furosemide 20 mg tablet 20 mg PO QDAY 05/05/22 05/08/22 History gabapentin 100 mg capsule 100 mg PO HS 05/05/22 05/08/22 History glipizide 2.5 mg tablet, extended 2.5 mg PO QDAY 05/05/22 05/08/22 History release 24 hr metformin 1,000 mg tablet 1,000 mg PO BIDCC 05/05/22 05/08/22 History metoprolol succinate 100 mg 100 mg PO BID 05/05/22 05/08/22 History tablet,extended release 24 hr omeprazole 20 mg capsule,delayed 20 mg PO QAMAC 05/05/22 05/08/22 History release hydrocodone 10 mg-acetaminophen 2 tab PO BIDP PRN Pain #10 tabs 05/11/22 Rx 325 mg tablet digoxin 125 mcg (0.125 mg) tablet 125 mcg PO DAILY@1400 #30 tabs 05/13/22 Rx diltiazem HCl 180 mg 180 mg PO DAILY #30 caps 05/13/22 Rx capsule,extended release 24 hr hydrocodone 5 mg-acetaminophen 325 1 tab PO TID PRN pain #15 tabs 11/10/22 Rx mg tablet Allergies Allergy/AdvReac Type Severity Reaction Status Date / Time No Known Drug Allergies Allergy Verified 11/10/22 18:16 EXAM Constitutional Vitals: Temp Pulse Resp BP Pulse Ox O2 Del Method 36.3 C 73 18 129/65 96 Room Air 11/10/22 18:13 11/10/22 21:46 11/10/22 18:13 11/10/22 21:46 11/10/22 21:46 11/10/22 18:13 General appearance: cooperative and no acute distress Head Head exam: Present atraumatic and normocephalic Eye Eye exam: Present EOMI and PERRL ENT ENT exam: Present mucous membranes moist, normal exam and normal external ear exam Neck Neck exam: Present normal inspection; Absent lymphadenopathy, tenderness or thyromegaly Respiratory Respiratory exam: Absent accessory muscle use, respiratory distress or wheezes Cardiovascular Cardiovascular exam: Present normal rate and rhythm; Absent JVD Additional comments: Pacemaker in place GI/Abdominal GI/Abdominal exam: Present normal bowel sounds and soft; Absent organomegaly or tenderness Extremities Exam Extremities exam: Present normal capillary refill and tenderness; Absent full ROM or normal inspection Additional comments: Right upper arm deformed Neurological Exam Neurological exam: Present alert, CN II-XII intact and oriented X3; Absent motor sensory deficit Psychiatric Psychiatric exam: Present normal affect and normal mood; Absent anxious or depressed Skin Skin exam: Present dry and intact DATA Data Completed and Pending Labs: Labs from last 24 hours 11/10/22 11/10/22 11/10/22 21:08 21:05 18:56 WBC RBC Hgb Hct POC Hct 36.0 MCV MCH MCHC RDW Plt Count MPV Immature Gran % (Auto) Neut % (Auto) Lymph % (Auto) [place] % (Auto) Eos % (Auto) Baso % (Auto) Lymph # (Auto) [place] # (Auto) Eos # (Auto) Baso # (Auto) Immature Gran # Absolute Neutrophils PT INR APTT POC VBG pH 7.58 H POC VBG pCO2 at Temp 24.4 L POC VBG pO2 61 H POC VBG HCO3 23.1 L POC VBG Total CO2 24.0 L POC Venous O2 Sat 95.0 H POC VBG Base Excess 1.0 VBG Lactic Acid 2.7 H POC Sodium 129 L POC Potassium 4.7 POC Chloride 96 POC Total CO2 22.0 POC BUN 17 POC Creatinine 1.1 POC Glucose 640 H* POC WB Ioniz Calcium 1.09 L Urine Color Yellow Urine Appearance Clear Urine pH 5.0 Ur Specific [place] 1.020 Urine Protein Negative Urine Glucose (UA) >=500 A Urine Ketones Negative Urine Occult Blood 0.03 Urine Nitrate Pos A Urine Bilirubin Negative Urine Urobilinogen Negative Ur Leukocyte Esterase 25 A Urine RBC < 1 Urine WBC 26 H Ur Squamous Epith Cells 0 Urine Bacteria None Ur Culture Indicated? yes 11/10/22 11/10/22 18:20 18:20 WBC 6.2 RBC 3.91 Hgb 11.7 Hct 34.9 POC Hct MCV 89.3 MCH 29.9 MCHC 33.5 RDW 13.9 Plt Count 250 MPV 10.6 Immature Gran % (Auto) 0.5 Neut % (Auto) 57.9 Lymph % (Auto) 29.8 [place] % (Auto) 10.5 Eos % (Auto) 1.0 Baso % (Auto) 0.3 Lymph # (Auto) 1.84 [place] # (Auto) 0.65 Eos # (Auto) 0.06 Baso # (Auto) 0.02 Immature Gran # 0.03 Absolute Neutrophils 3.58 PT 15.1 H INR 1.2 H APTT 26.6 POC VBG pH POC VBG pCO2 at Temp POC VBG pO2 POC VBG HCO3 POC VBG Total CO2 POC Venous O2 Sat POC VBG Base Excess VBG Lactic Acid POC Sodium POC Potassium POC Chloride POC Total CO2 POC BUN POC Creatinine POC Glucose POC WB Ioniz Calcium Urine Color Urine Appearance Urine pH Ur Specific [place] Urine Protein Urine Glucose (UA) Urine Ketones Urine Occult Blood Urine Nitrate Urine Bilirubin Urine Urobilinogen Ur Leukocyte Esterase Urine RBC Urine WBC Ur Squamous Epith Cells Urine Bacteria Ur Culture Indicated? A/P Assessment and plan (1) Hyperglycemia due to type 2 diabetes mellitus: Status: Acute (2) Displaced fracture of right humerus: Status: Acute (3) Acute UTI: Status: Acute (4) Atrial fibrillation with rapid ventricular response: Status: Acute (5) Chronic kidney disease, stage 3a: Status: Chronic Narrative A/P Narrative: Assessment and Plans: 1. Displaced fracture through surgical neck of the proximal right humerus: Inpatient med surg ER physicians contacted orthopedic surgeon Dr. Moreno who recommend against emergent surgery at this point. Instead, he recommended putting a sling on and he will see the patient in his office Tylenol [place] Morphine Physical therapy evaluation and treatment Occupational therapy evaluation and treatment 2. Hyperglycemia with type 2 diabetes mellitus: HgA1c Hold Metformin Glipizide Insulin Lispro SSI AC HS NS@100cc/hr Accu Check AC HS Hypoglycemia protocol Diabetic diet 3. UTI, suspected: Serial lactic acid Procalcitonin level UA with urine culture Blood culture cbc w/ auto diff in the morning to trend WBC Rocephin NS@100cc/hr 4. Permanent atrial fibrillation with pacemaker: Eliquis Digoxin Metoprolol ER Diltiazem 5. Chronic kidney disease stage III: Avoid nephrotoxic agents NS@100cc/hr CMP in the morning to trend kidney functions GI ppx: Prilosec DVT ppx: Eliquis Code status: Full Prognosis: Guarded Disposition: inpatient med surg; PT OT Time Spent With Patient Time: Total time spent is greater than 50% in coordination of care (as documented) at patient's floor/unit and/or counseling patient: Initial: Total time with patient: 55 - 74 minutes
[2022-11-10] MEDS ORDERED: METOPROLOL TARTRATE 5 MG/5 ML VIAL IV PRN (22:47)
[2022-11-10] MEDS ORDERED: ONDANSETRON 4 MG/2 ML VIAL IV PRN (22:47)
[2022-11-10] MEDS ORDERED: DEXTROSE 50% 50 ML VIAL IV PRN (22:47)
[2022-11-10] MEDS ORDERED: traZODone HCL 50 MG TABLET PO PRN (22:47)
[2022-11-10] MEDS ORDERED: morphine 4 MG/ML VIAL IV PRN (22:47)
[2022-11-10] MEDS ORDERED: cefTRIAXone 1 GM in DEXTROSE 5% IN WATER 50 ML IV SCH (22:47)
[2022-11-10] MEDS ORDERED: DEXTROSE 31 GM ORAL.SUSP PO PRN (22:47)
[2022-11-10] MEDS ORDERED: IPRATROPIUM/ALBUTEROL 3 ML AMPUL.NEB NEB PRN (22:47)
[2022-11-10] MEDS: 0.9 % SODIUM CHLORIDE 1,000 ML IV SCH (23:00)
[2022-11-10] MEDS ORDERED: morphine 4 MG/ML VIAL ONE (23:00)
[2022-11-10] MEDS: 0.9 % SODIUM CHLORIDE 10 ML SYRINGE IV SCH (23:01)
[2022-11-11] MEDS ORDERED: INSULIN LISPRO 1 UNIT/0.01 ML UNIT SQ ONE (01:17)
[2022-11-11] MEDS: INSULIN LISPRO 1 UNIT/0.01 ML UNIT SQ SCH ×5 (01:19→21:40)
[2022-11-11] MEDS ORDERED: METOPROLOL TARTRATE 5 MG/5 ML VIAL IV ONE (05:20)
[2022-11-11] MEDS: 0.9 % SODIUM CHLORIDE 10 ML SYRINGE IV SCH ×4 (05:59→21:32)
[2022-11-11 06:21] LABS: Basophils # (Auto) 0.03 K/mcL (0.00-0.30); Basophils % (Auto) 0.3 % (0.0-2.0); Eosinophils # (Auto) 0.02 K/mcL (0.00-0.70); Eosinophils % (Auto) 0.2 % (0.0-7.0); Hematocrit 33.8 % (34.1-44.9); Hemoglobin 11.5 g/dL (11.2-15.7); Lymphocytes # (Auto) 2.24 K/mcL (1.50-4.80); Lymphocytes % (Auto) 25.8 % (15.5-49.0); Mean Cell Volume 90.6 fL (80.0-100.0); Mean Platelet Volume 10.1 fL (8.8-12.5); Monocytes # (Auto) 0.94 K/mcL (0.10-0.90); Monocytes % (Auto) 10.8 % (1.0-12.0); Neutrophils % (Auto) 62.4 % (38.0-78.0); Platelet Count 271 K/mcL (140-440); RBC 3.73 M/mcL (3.59-5.38); Red Cell Distribution Width 14.1 % (11.5-14.5); WBC 8.7 K/mcL (4.5-11.0)
[2022-11-11 06:38] LABS: Estimated Average Glucose(eAG) 407 mg/dL; Hemoglobin A1C 15.8 % Hgb (4.0-6.0)
[2022-11-11 06:50] LABS: ALT/SGPT 50 U/L (<40); AST/SGOT 47 U/L (<32); Albumin 3.9 gm/dL (3.2-5.2); Albumin/Globulin Ratio 1.4 (1.0-2.3); Alkaline Phosphatase 121 U/L (39-117); Bilirubin,Total 0.9 mg/dL (0.1-1.0); Blood Urea Nitrogen 15 mg/dL (8-23); Calcium 9.4 mg/dL (8.6-10.4); Carbon Dioxide 27 mmol/L (22-30); Chloride 100 mmol/L (96-108); Globulin 2.7 gm/dL (2.2-3.7); Glomerular Filtration Rate 40; Glucose 104 mg/dL (70-105)
[2022-11-11] MEDS: 0.9 % SODIUM CHLORIDE 1,000 ML IV SCH (07:48)
[2022-11-11] MEDS ORDERED: cefTRIAXone 1 GM VIAL IV SCH (09:00)
[2022-11-11] MEDS ORDERED: DEXTROSE 50% 50 ML VIAL IV PRN (09:09)
[2022-11-11] MEDS ORDERED: DEXTROSE 31 GM ORAL.SUSP PO PRN (09:09)
[2022-11-11] MEDS: FERROUS SULFATE 325 MG TABLET PO SCH (09:11)
[2022-11-11] MEDS: DOCUSATE SODIUM 100 MG CAPSULE PO SCH ×2 (09:11→21:24)
[2022-11-11] MEDS: glipiZIDE 2.5 MG TAB.XL.24H PO SCH (09:11)
[2022-11-11] MEDS: DILTIAZEM 180 MG CAP.XL.24H PO SCH (09:12)
[2022-11-11] MEDS: APIXABAN 5 MG TABLET PO SCH ×2 (09:12→21:22)
[2022-11-11] MEDS: OMEPRAZOLE 20 MG CAPSULE PO SCH (09:13)
[2022-11-11] MEDS: METOPROLOL SUCCINATE 50 MG TAB.XL.24H PO SCH ×2 (09:14→21:21)
--- NOTE | 2022-11-11 09:18 | Internal Med Progress Note ---
SUBJECTIVE Subjective Patient information: Note initiated : 11/11/22 at 9:15 am Service Date, if different from initiated Date: [] Patient: Nolvia Jalloh 87 y/o F admitted on 11/10/22 for Fall, on blood thinner. Chief Complaint: [] Interval history: Ms. Jalloh is a 87 year old F history of atrial fibrillation status post pacemaker, type 2 diabetes mellitus, chronic kidney disease, presenting with accidental fall. Earlier this evening when she was getting out of the bathroom, she had to put her pants on but she lost her balance and she fell and landed on her right shoulder. She denies hitting her head. She denies any loss of consciousness. She denies any chest pain palpitations or shortness of breath. She is currently complaining of 10 out of 10 sharp constant pain of her right shoulder and right upper arm. X-ray performed in the ED showing displaced fracture through the surgical neck of the proximal right humerus. In addition, labs also showing elevated blood sugar of 640. Serum pH 7.58, serum bicarb 23.1, lactic acid 2.7, and anion gap 11. In additions, patient is also commenting of increased urinary frequency over the past couple weeks but she denies any urgency or hesitancy and she denies any dysuria. UA pending. ER physicians contacted orthopedic surgeon Dr. Moreno who recommend against emergent surgery at this point. Instead, he recommended putting a sling on and he will see the patient in his office. Admission request is called for symptoms controlled of new onset right humeral fracture, uncontrolled type 2 diabetes mellitus with hyperglycemia, and suspected urinary tract infections. 4/2: There is no major overnight events. Afebrile overnight. Fasting sugar 113. Blood and urine culture no growth to date. Patient is still coming of severe right arm pain. Keep her right arm sling in place. No plan for surgery for the time being. Focus on symptoms controlled with narcotics as needed. Saline lock the patient's and changed the antibiotics from Rocephin to Bactrim DS for urinary tract infections while keeping an eye on blood and urine culture. Switch the insulin lispro sign scale insulin from high scale to low scale AC adjust. Accu- Chek ACHS. Physical therapy and Occupational Therapy evaluation and treatments. Overall condition stable. Constitutional Vitals: Vital Signs Temp Pulse Resp BP Pulse Ox O2 Del Method 36.7 C 122 H 16 101/70 100 Room Air 11/11/22 07:42 11/11/22 07:42 11/11/22 07:42 11/11/22 07:42 11/11/22 07:42 11/11/22 07:42 Period Temp Pulse Resp BP Sys/Tidwell Pulse Ox O2 Del Method O2 Flow Rate Last 24 Hr 36.3 C-37.1 C 67-129 14-20 90-161/36-121 93-100 Room Air-Room Air Intake and Output 11/10/22 11/11/22 11/11/22 19:59 03:59 11:59 Intake Total 1050 Output Total 1 1 Balance 1049 -1 Weight 50.802 kg 45.858 kg Intake & Output: Intake & Output 11/10/22 11/11/22 11/11/22 19:59 03:59 11:59 Intake Total 1050 Output Total 1 1 Balance 1049 -1 Weight 50.802 kg 45.858 kg Intake: IV 1050 Sodium Chloride 0.9% 1,000 ml @ 1000 Wide Open IV BOLUS ONE Rx#: [id number] Rocephin 2 gm In Dextrose 5% in 50 Water 50 ml @ 100 mls/hr IV ONCE ONE Rx#:[id number] Output: # of times incontinent of urine 1 1 Other: Stool Size Smear Stool Color Brown # Voids 1 1 Head Head exam: Present atraumatic and normal inspection Eye Eye exam: Present normal appearance ENT ENT exam: Present mucous membranes moist, normal exam and normal external ear exam Neck Neck exam: Present normal inspection Respiratory Respiratory exam: Present normal respiratory exam Cardiovascular Cardiovascular exam: Present irregular rhythm and tachycardia Additional comments: Pacemaker in place GI/Abdominal GI/Abdominal exam: Present normal bowel sounds Extremities Exam Extremities exam: Present tenderness; Absent full ROM or normal inspection Additional comments: Right arm sling in place Back Exam Back exam: Present normal inspection Neurological Exam Neurological exam: Present alert and oriented X3 Skin Skin exam: Present intact and warm OBJ DATA Labs 11/11/22 05:48 11/11/22 05:48 Labs: Abnormal Lab Results 11/11/22 11/11/22 11/11/22 05:48 05:48 00:50 Hct 33.8 L [place] # (Auto) 0.94 H PT INR POC VBG pH POC VBG pCO2 at Temp POC VBG pO2 POC VBG HCO3 POC VBG Total CO2 POC Venous O2 Sat VBG Lactic Acid 2.2 H 2.2 H POC Sodium Creatinine 1.2 H POC Glucose Hemoglobin A1c 15.8 H POC WB Ioniz Calcium AST 47 H ALT 50 H Alkaline Phosphatase 121 H Procalcitonin Urine Glucose (UA) Urine Nitrate Ur Leukocyte Esterase Urine WBC 11/10/22 11/10/22 11/10/22 23:49 21:08 21:05 Hct [place] # (Auto) PT INR POC VBG pH 7.58 H POC VBG pCO2 at Temp 24.4 L POC VBG pO2 61 H POC VBG HCO3 23.1 L POC VBG Total CO2 24.0 L POC Venous O2 Sat 95.0 H VBG Lactic Acid 2.7 H POC Sodium Creatinine POC Glucose Hemoglobin A1c POC WB Ioniz Calcium AST ALT Alkaline Phosphatase Procalcitonin 0.11 H Urine Glucose (UA) >=500 A Urine Nitrate Pos A Ur Leukocyte Esterase 25 A Urine WBC 26 H 11/10/22 11/10/22 18:56 18:20 Hct [place] # (Auto) PT 15.1 H INR 1.2 H POC VBG pH POC VBG pCO2 at Temp POC VBG pO2 POC VBG HCO3 POC VBG Total CO2 POC Venous O2 Sat VBG Lactic Acid POC Sodium 129 L Creatinine POC Glucose 640 H* Hemoglobin A1c POC WB Ioniz Calcium 1.09 L AST ALT Alkaline Phosphatase Procalcitonin Urine Glucose (UA) Urine Nitrate Ur Leukocyte Esterase Urine WBC Meds: Medications Acetaminophen (Acetaminophen 325 Mg Tablet) 650 mg PO Q6HP PRN; Protocol PRN Reason: Per Pain Protocol/Fever > 101 Albuterol/Ipratropium (Ipratropium/Albuterol 3 Ml Ampul.Neb) 3 ml NEB Q4HRT PRN PRN Reason: Wheezing Apixaban (Apixaban 5 Mg Tablet) 2.5 mg PO BID [facility] Last Admin: 11/11/22 09:12 Dose: 2.5 mg Atorvastatin Calcium (Atorvastatin 40 Mg Tablet) 40 mg PO HS [facility] Dextrose (Dextrose 50% 50 Ml Vial) 0 ml IV UD PRN PRN Reason: Per Sliding Scale Dextrose (Dextrose 50% 50 Ml Vial) 0 ml IV UD PRN PRN Reason: Per Sliding Scale Diagnostic Test (Pha) (Accu-Chek 1 Each Strip) 1 each FS ACHS [facility] Last Admin: 11/11/22 05:59 Dose: 1 each Diagnostic Test (Pha) (Accu-Chek 1 Each Strip) 1 each [facility] Diltiazem HCl (Diltiazem 180 Mg Cap.Xl.24h) 180 mg PO DAILY [facility] Last Admin: 11/11/22 09:12 Dose: 180 mg Docusate Sodium (Docusate Sodium 100 Mg Capsule) 100 mg PO BID [facility] Last Admin: 11/11/22 09:11 Dose: 100 mg Ferrous Sulfate (Ferrous Sulfate 325 Mg Tablet) 325 mg PO QDAY [facility] Last Admin: 11/11/22 09:11 Dose: 325 mg Gabapentin (Gabapentin 100 Mg Capsule) 100 mg PO [facility] Glipizide (Glipizide 2.5 Mg Tab.Xl.24h) 2.5 mg PO QDAY [facility] Last Admin: 11/11/22 09:11 Dose: 2.5 mg Glucose (Dextrose 31 Gm Oral.Susp) 15 gm PO PRN PRN PRN Reason: Hypoglycemia Glucose (Dextrose 31 Gm Oral.Susp) 15 gm PO PRN PRN PRN Reason: Hypoglycemia Insulin Human Lispro (Insulin Lispro 1 Unit/0.01 Ml Unit) 0 unit SQ [facility]; Protocol Metoprolol Succinate (Metoprolol Succinate 50 Mg Tab.Xl.24h) 100 mg PO BID [facility] Last Admin: 11/11/22 09:14 Dose: 100 mg Metoprolol Tartrate (Metoprolol Tartrate 5 Mg/5 Ml Vial) 5 mg IV Q5M PRN PRN Reason: Tachyarrhythmias Last Admin: 11/11/22 05:51 Dose: 5 mg Morphine Sulfate (Morphine 4 Mg/Ml Vial) 4 mg IV Q2HP PRN; Protocol PRN Reason: Per Pain Protocol Last Admin: 11/10/22 23:00 Dose: 4 mg Omeprazole (Omeprazole 20 Mg Capsule) 20 mg PO DAILY [facility] Last Admin: 11/11/22 09:13 Dose: 20 mg Ondansetron HCl (Ondansetron 4 Mg/2 Ml Vial) 4 mg IV Q6HP PRN PRN Reason: Nausea And Vomiting Senna (Sennosides 1 Tablet) 2 tab PO [facility] Sodium Chloride (0.9 % Sodium Chloride 10 Ml Syringe) 10 ml IV Q8 [facility] Last Admin: 11/11/22 05:59 Dose: Not Given Trazodone HCl (Trazodone Hcl 50 Mg Tablet) 25 mg PO HSP PRN PRN Reason: Insomnia A/P Assessment and plan (1) Hyperglycemia due to type 2 diabetes mellitus: Status: Acute (2) Displaced fracture of right humerus: Status: Acute (3) Acute UTI: Status: Acute (4) Atrial fibrillation with rapid ventricular response: Status: Acute (5) Chronic kidney disease, stage 3a: Status: Chronic Narrative A/P Narrative: Assessment and Plans: 1. Displaced fracture through surgical neck of the proximal right humerus: Inpatient med surg ER physicians contacted orthopedic surgeon Dr. Moreno who recommend against emergent surgery at this point. Instead, he recommended putting a sling on and he will see the patient in his office Tylenol [place] Morphine Physical therapy evaluation and treatment Occupational therapy evaluation and treatment 2. Hyperglycemia with type 2 diabetes mellitus: HgA1c 15.8 Hold Metformin Glipizide Insulin Lispro SSI AC HS Saline lock Accu Check AC HS Hypoglycemia protocol Diabetic diet 3. UTI, suspected: Serial lactic acid Procalcitonin level UA with urine culture, no growth to date Blood culture, no growth to date cbc w/ auto diff in the morning to trend WBC Saline lock Bactrim DS 4. Permanent atrial fibrillation with pacemaker: Eliquis Digoxin Metoprolol ER Diltiazem 5. Chronic kidney disease stage III: Avoid nephrotoxic agents Saline lock CMP in the morning to trend kidney functions GI ppx: Prilosec DVT ppx: Eliquis Code status: Full Prognosis: Stable Disposition: inpatient med surg; PT OT Time Spent With Patient Time: Total time spent is greater than 50% in coordination of care (as documented) at patient's floor/unit and/or counseling patient: Subsequent: Total time with patient: 35 - 49 minutes
[2022-11-11] MEDS: morphine 15 MG TAB.SR.12H PO SCH ×2 (09:25→21:23)
--- NOTE | 2022-11-11 14:27 | Internal Med Progress Note ---
SUBJECTIVE Subjective Patient information: Note initiated : 11/11/22 at 2:22 pm Service Date, if different from initiated Date: [] Patient: Nolvia Jalloh 87 y/o F admitted on 11/10/22 for Fall, on blood thinner. Chief Complaint: [] Interval history: Ms. Jalloh is a 87 year old F history of atrial fibrillation status post pacemaker, type 2 diabetes mellitus, chronic kidney disease, presenting with accidental fall. Earlier this evening when she was getting out of the bathroom, she had to put her pants on but she lost her balance and she fell and landed on her right shoulder. She denies hitting her head. She denies any loss of consciousness. She denies any chest pain palpitations or shortness of breath. She is currently complaining of 10 out of 10 sharp constant pain of her right shoulder and right upper arm. X-ray performed in the ED showing displaced fracture through the surgical neck of the proximal right humerus. In addition, labs also showing elevated blood sugar of 640. Serum pH 7.58, serum bicarb 23.1, lactic acid 2.7, and anion gap 11. In additions, patient is also commenting of increased urinary frequency over the past couple weeks but she denies any urgency or hesitancy and she denies any dysuria. UA pending. ER physicians contacted orthopedic surgeon Dr. Moreno who recommend against emergent surgery at this point. Instead, he recommended putting a sling on and he will see the patient in his office. Admission request is called for symptoms controlled of new onset right humeral fracture, uncontrolled type 2 diabetes mellitus with hyperglycemia, and suspected urinary tract infections. 4/2: There is no major overnight events. Afebrile overnight. Fasting sugar 113. Blood and urine culture no growth to date. Patient is still coming of severe right arm pain. Keep her right arm sling in place. No plan for surgery for the time being. Focus on symptoms controlled with narcotics as needed. Saline lock the patient's and changed the antibiotics from Rocephin to Bactrim DS for urinary tract infections while keeping an eye on blood and urine culture. Switch the insulin lispro sign scale insulin from high scale to low scale AC adjust. Accu- Chek ACHS. Physical therapy and Occupational Therapy evaluation and treatments. Overall condition stable. 4/3 Review of Systems: denies headache/fever/chills/nausea/vomiting/chest or abdominal pain/cough/dyspnea/diarrhea. Otherwise see above. PHYSICAL EXAM General: Alert, Awake, No acute Distress Eyes/N/T: EOMI, no scleral icterus, Head/Neck: neck supple, full ROM, CV: Irregular no murmurs, Pulm: Clear b/l, no wheezing/rhonchi/rales, no respiratory distress Abd: soft, nontender, +BS x4 Ext: no clubbing/cyanosis/edema, right arm sling in place Neuro: Alert, no focal deficits, moves all extremities,, sensations intact b/l upper/lower Psychiatric: Skin: warm/dry, normal color Constitutional Vitals: Vital Signs Temp Pulse Resp BP Pulse Ox O2 Del Method 97.3 F 106 H 16 92/61 97 Room Air 11/11/22 11:39 11/11/22 11:39 11/11/22 11:39 11/11/22 11:39 11/11/22 11:39 11/11/22 11:39 Period Temp Pulse Resp BP Sys/Tidwell Pulse Ox O2 Del Method O2 Flow Rate Last 24 Hr 97.3 F-98.8 F 67-129 14-20 90-161/36-121 93-100 Room Air-Room Air Intake and Output 11/11/22 11/11/22 11/11/22 03:59 11:59 19:59 Intake Total 1050 1000 Output Total 1 1 Balance 1049 999 Weight 45.858 kg Intake & Output: Intake & Output 11/11/22 11/11/22 11/11/22 03:59 11:59 19:59 Intake Total 1050 1000 Output Total 1 1 Balance 1049 999 Weight 45.858 kg Intake: IV 1050 1000 Sodium Chloride 0.9% 1,000 ml @ 1000 1000 100 mls/hr IV .Q10H [facility] Rx#: [id number] Rocephin 2 gm In Dextrose 5% in 50 Water 50 ml @ 100 mls/hr IV ONCE ONE Rx#:[id number] Output: # of times incontinent of urine 1 1 Other: Stool Size Smear Stool Color Brown # Voids 1 1 OBJ DATA Labs 11/11/22 05:48 11/11/22 05:48 Labs: Abnormal Lab Results 11/11/22 11/11/22 11/11/22 05:48 05:48 00:50 Hct 33.8 L [place] # (Auto) 0.94 H PT INR POC VBG pH POC VBG pCO2 at Temp POC VBG pO2 POC VBG HCO3 POC VBG Total CO2 POC Venous O2 Sat VBG Lactic Acid 2.2 H 2.2 H POC Sodium Creatinine 1.2 H POC Glucose Hemoglobin A1c 15.8 H POC WB Ioniz Calcium AST 47 H ALT 50 H Alkaline Phosphatase 121 H Procalcitonin Urine Glucose (UA) Urine Nitrate Ur Leukocyte Esterase Urine WBC 11/10/22 11/10/22 11/10/22 23:49 21:08 21:05 Hct [place] # (Auto) PT INR POC VBG pH 7.58 H POC VBG pCO2 at Temp 24.4 L POC VBG pO2 61 H POC VBG HCO3 23.1 L POC VBG Total CO2 24.0 L POC Venous O2 Sat 95.0 H VBG Lactic Acid 2.7 H POC Sodium Creatinine POC Glucose Hemoglobin A1c POC WB Ioniz Calcium AST ALT Alkaline Phosphatase Procalcitonin 0.11 H Urine Glucose (UA) >=500 A Urine Nitrate Pos A Ur Leukocyte Esterase 25 A Urine WBC 26 H 11/10/22 11/10/22 18:56 18:20 Hct [place] # (Auto) PT 15.1 H INR 1.2 H POC VBG pH POC VBG pCO2 at Temp POC VBG pO2 POC VBG HCO3 POC VBG Total CO2 POC Venous O2 Sat VBG Lactic Acid POC Sodium 129 L Creatinine POC Glucose 640 H* Hemoglobin A1c POC WB Ioniz Calcium 1.09 L AST ALT Alkaline Phosphatase Procalcitonin Urine Glucose (UA) Urine Nitrate Ur Leukocyte Esterase Urine WBC Meds: Medications Acetaminophen (Acetaminophen 325 Mg Tablet) 650 mg PO Q6HP PRN; Protocol PRN Reason: Per Pain Protocol/Fever > 101 Albuterol/Ipratropium (Ipratropium/Albuterol 3 Ml Ampul.Neb) 3 ml NEB Q4HRT PRN PRN Reason: Wheezing Apixaban (Apixaban 5 Mg Tablet) 2.5 mg PO BID [facility] Last Admin: 11/11/22 09:12 Dose: 2.5 mg Atorvastatin Calcium (Atorvastatin 40 Mg Tablet) 40 mg PO HS [facility] Dextrose (Dextrose 50% 50 Ml Vial) 0 ml IV UD PRN PRN Reason: Per Sliding Scale Dextrose (Dextrose 50% 50 Ml Vial) 0 ml IV UD PRN PRN Reason: Per Sliding Scale Diagnostic Test (Pha) (Accu-Chek 1 Each Strip) 1 each FS [facility] Last Admin: 11/11/22 11:46 Dose: 1 each Diagnostic Test (Pha) (Accu-Chek 1 Each Strip) 1 each FS [facility] Last Admin: 11/11/22 11:14 Dose: Not Given Diltiazem HCl (Diltiazem 180 Mg Cap.Xl.24h) 180 mg PO DAILY [facility] Last Admin: 11/11/22 09:12 Dose: 180 mg Docusate Sodium (Docusate Sodium 100 Mg Capsule) 100 mg PO BID [facility] Last Admin: 11/11/22 09:11 Dose: 100 mg Ferrous Sulfate (Ferrous Sulfate 325 Mg Tablet) 325 mg PO QDAY [facility] Last Admin: 11/11/22 09:11 Dose: 325 mg Gabapentin (Gabapentin 100 Mg Capsule) 100 mg PO [facility] Glipizide (Glipizide 2.5 Mg Tab.Xl.24h) 2.5 mg PO QDAY [facility] Last Admin: 11/11/22 09:11 Dose: 2.5 mg Glucose (Dextrose 31 Gm Oral.Susp) 15 gm PO PRN PRN PRN Reason: Hypoglycemia Glucose (Dextrose 31 Gm Oral.Susp) 15 gm PO PRN PRN PRN Reason: Hypoglycemia Insulin Human Lispro (Insulin Lispro 1 Unit/0.01 Ml Unit) 0 unit SQ [facility]; Protocol Last Admin: 11/11/22 12:41 Dose: Not Given Metoprolol Succinate (Metoprolol Succinate 50 Mg Tab.Xl.24h) 100 mg PO BID [facility] Last Admin: 11/11/22 09:14 Dose: 100 mg Metoprolol Tartrate (Metoprolol Tartrate 5 Mg/5 Ml Vial) 5 mg IV Q5M PRN PRN Reason: Tachyarrhythmias Last Admin: 11/11/22 05:51 Dose: 5 mg Morphine Sulfate (Morphine 4 Mg/Ml Vial) 4 mg IV Q2HP PRN; Protocol PRN Reason: Per Pain Protocol Last Admin: 11/10/22 23:00 Dose: 4 mg Morphine Sulfate (Morphine 15 Mg Tab.Sr.12h) 15 mg PO BID [facility]; Protocol Last Admin: 11/11/22 09:25 Dose: 15 mg Omeprazole (Omeprazole 20 Mg Capsule) 20 mg PO DAILY [facility] Last Admin: 11/11/22 09:13 Dose: 20 mg Ondansetron HCl (Ondansetron 4 Mg/2 Ml Vial) 4 mg IV Q6HP PRN PRN Reason: Nausea And Vomiting Senna (Sennosides 1 Tablet) 2 tab PO HS [facility] Sodium Chloride (0.9 % Sodium Chloride 10 Ml Syringe) 10 ml IV Q8 [facility] Last Admin: 11/11/22 12:42 Dose: Not Given Trazodone HCl (Trazodone Hcl 50 Mg Tablet) 25 mg PO HSP PRN PRN Reason: Insomnia Trimethoprim/Sulfamethoxazole (Sulfamethoxazole/Trimethoprim 1 Tablet) 1 tab PO BID [facility]; Protocol A/P Narrative A/P Narrative: Assessment and Plans: *Displaced fracture through surgical neck of the proximal right humerus: -per Dr. Moreno who recommend against emergent surgery at this point > sling & will see patient in office -Tylenol , [place] , Morphine -Physical therapy evaluation and treatment -Occupational therapy evaluation and treatment *Hyperglycemia with type 2 diabetes mellitus: poorly controlled -HgA1c 15.8 -Hold Metformin ,Glipizide -Insulin Lispro SSI AC HS *UTI (GNB): -Serial lactic acid , Procalcitonin level -pending final UC/BC -cbc w/ auto diff in the morning to trend WBC -Bactrim DS *Permanent atrial fibrillation with pacemaker: -Eliquis , Digoxin , Metoprolol ER , Diltiazem *Chronic kidney disease stage III: -Avoid nephrotoxic agents -CMP in the morning to trend kidney functions *Transaminitis,mild: Chronic *GERD: ppi *ppx: Eliquis / home ppi 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
[2022-11-11] MEDS: ACETAMINOPHEN 325 MG TABLET PO PRN (17:01)
[2022-11-11] MEDS: SENNOSIDES 1 TABLET PO SCH (21:23)
[2022-11-11] MEDS: ATORVASTATIN 40 MG TABLET PO SCH (21:23)
[2022-11-11] MEDS: GABAPENTIN 100 MG CAPSULE PO SCH (21:24)
[2022-11-11] MEDS: SULFAMETHOXAZOLE/TRIMETHOPRIM 1 TABLET PO SCH (21:24)
[2022-11-12] MEDS: 0.9 % SODIUM CHLORIDE 10 ML SYRINGE IV SCH ×3 (05:35→20:25)
--- NOTE | 2022-11-12 07:18 | Internal Med Progress Note ---
SUBJECTIVE Subjective Patient information: Note initiated : 11/12/22 at 7:12 am Service Date, if different from initiated Date: [] Patient: Nolvia Jalloh 87 y/o F admitted on 11/10/22 for Fall, on blood thinner. Chief Complaint: [] Interval history: Ms. Jalloh is a 87 year old F history of atrial fibrillation status post pacemaker, type 2 diabetes mellitus, chronic kidney disease, presenting with accidental fall. Earlier this evening when she was getting out of the bathroom, she had to put her pants on but she lost her balance and she fell and landed on her right shoulder. She denies hitting her head. She denies any loss of consciousness. She denies any chest pain palpitations or shortness of breath. She is currently complaining of 10 out of 10 sharp constant pain of her right shoulder and right upper arm. X-ray performed in the ED showing displaced fracture through the surgical neck of the proximal right humerus. In addition, labs also showing elevated blood sugar of 640. Serum pH 7.58, serum bicarb 23.1, lactic acid 2.7, and anion gap 11. In additions, patient is also commenting of increased urinary frequency over the past couple weeks but she denies any urgency or hesitancy and she denies any dysuria. UA pending. ER physicians contacted orthopedic surgeon Dr. Moreno who recommend against emergent surgery at this point. Instead, he recommended putting a sling on and he will see the patient in his office. Admission request is called for symptoms controlled of new onset right humeral fracture, uncontrolled type 2 diabetes mellitus with hyperglycemia, and suspected urinary tract infections. 4/2: There is no major overnight events. Afebrile overnight. Fasting sugar 113. Blood and urine culture no growth to date. Patient is still coming of severe right arm pain. Keep her right arm sling in place. No plan for surgery for the time being. Focus on symptoms controlled with narcotics as needed. Saline lock the patient's and changed the antibiotics from Rocephin to Bactrim DS for urinary tract infections while keeping an eye on blood and urine culture. Switch the insulin lispro sign scale insulin from high scale to low scale AC adjust. Accu- Chek ACHS. Physical therapy and Occupational Therapy evaluation and treatments. Overall condition stable. 4/3 Patient seems a bit tired this morning. Otherwise no overnight event or new complaints. Urine culture growing Klebsiella. Right arm sling in place. Will need follow-up outpatient with orthopedic surgery. Review of Systems: denies headache/fever/chills/nausea/vomiting/chest or abdominal pain/cough/dyspnea/diarrhea. Otherwise see above. PHYSICAL EXAM General: Alert, Awake, No acute Distress Eyes/N/T: EOMI, no scleral icterus, Head/Neck: neck supple, full ROM, CV: Irregular no murmurs, Pulm: Clear b/l, no wheezing/rhonchi/rales, no respiratory distress Abd: soft, nontender, +BS x4 Ext: no clubbing/cyanosis/edema, right arm sling in place Neuro: Alert, no focal deficits, moves all extremities, sensations intact b/l upper/lower Psychiatric: Skin: warm/dry, normal color Constitutional Vitals: Vital Signs Temp Pulse Resp BP Pulse Ox O2 Del Method 100.4 F H 79 16 100/67 97 Room Air 11/12/22 03:48 11/12/22 03:48 11/12/22 03:48 11/12/22 03:48 11/12/22 03:48 11/12/22 03:48 Period Temp Pulse Resp BP Sys/[place] Pulse Ox O2 Del Method O2 Flow Rate Last 24 Hr 97.3 F-100.4 F 69-122 14-16 92-117/54-70 94-100 Room Air-Room Air Intake and Output 11/11/22 11/12/22 11/12/22 19:59 03:59 11:59 Intake Total 960 100 Output Total 2 Balance 958 100 Weight 46.675 kg Intake & Output: Intake & Output 11/11/22 11/12/22 11/12/22 19:59 03:59 11:59 Intake Total 960 100 Output Total 2 Balance 958 100 Weight 46.675 kg Intake: Oral 960 100 Output: # of times incontinent of urine 2 Other: Meal Dinner Percent of Meal Consumed 50% Feeding Ability Total Assistance OBJ DATA Labs 11/11/22 05:48 11/11/22 05:48 Labs: Abnormal Lab Results 11/11/22 11/11/22 11/11/22 05:48 05:48 00:50 Hct 33.8 L [place] # (Auto) 0.94 H PT INR POC VBG pH POC VBG pCO2 at Temp POC VBG pO2 POC VBG HCO3 POC VBG Total CO2 POC Venous O2 Sat VBG Lactic Acid 2.2 H 2.2 H POC Sodium Creatinine 1.2 H POC Glucose Hemoglobin A1c 15.8 H POC WB Ioniz Calcium AST 47 H ALT 50 H Alkaline Phosphatase 121 H Procalcitonin Urine Glucose (UA) Urine Nitrate Ur Leukocyte Esterase Urine WBC 11/10/22 11/10/22 11/10/22 23:49 21:08 21:05 Hct [place] # (Auto) PT INR POC VBG pH 7.58 H POC VBG pCO2 at Temp 24.4 L POC VBG pO2 61 H POC VBG HCO3 23.1 L POC VBG Total CO2 24.0 L POC Venous O2 Sat 95.0 H VBG Lactic Acid 2.7 H POC Sodium Creatinine POC Glucose Hemoglobin A1c POC WB Ioniz Calcium AST ALT Alkaline Phosphatase Procalcitonin 0.11 H Urine Glucose (UA) >=500 A Urine Nitrate Pos A Ur Leukocyte Esterase 25 A Urine WBC 26 H 11/10/22 11/10/22 18:56 18:20 Hct [place] # (Auto) PT 15.1 H INR 1.2 H POC VBG pH POC VBG pCO2 at Temp POC VBG pO2 POC VBG HCO3 POC VBG Total CO2 POC Venous O2 Sat VBG Lactic Acid POC Sodium 129 L Creatinine POC Glucose 640 H* Hemoglobin A1c POC WB Ioniz Calcium 1.09 L AST ALT Alkaline Phosphatase Procalcitonin Urine Glucose (UA) Urine Nitrate Ur Leukocyte Esterase Urine WBC Meds: Medications Acetaminophen (Acetaminophen 325 Mg Tablet) 650 mg PO Q6HP PRN; Protocol PRN Reason: Per Pain Protocol/Fever > 101 Last Admin: 11/11/22 17:01 Dose: 650 mg Albuterol/Ipratropium (Ipratropium/Albuterol 3 Ml Ampul.Neb) 3 ml NEB Q4HRT PRN PRN Reason: Wheezing Apixaban (Apixaban 5 Mg Tablet) 2.5 mg PO BID BONNY Last Admin: 11/11/22 21:22 Dose: 2.5 mg Atorvastatin Calcium (Atorvastatin 40 Mg Tablet) 40 mg PO HS BONNY Last Admin: 11/11/22 21:23 Dose: 40 mg Dextrose (Dextrose 50% 50 Ml Vial) 0 ml IV UD PRN PRN Reason: Per Sliding Scale Dextrose (Dextrose 50% 50 Ml Vial) 0 ml IV UD PRN PRN Reason: Per Sliding Scale Diagnostic Test (Pha) (Accu-Chek 1 Each Strip) 1 each FS ACHS [facility] Last Admin: 11/11/22 20:02 Dose: 1 each Diltiazem HCl (Diltiazem 180 Mg Cap.Xl.24h) 180 mg PO DAILY [facility] Last Admin: 11/11/22 09:12 Dose: 180 mg Docusate Sodium (Docusate Sodium 100 Mg Capsule) 100 mg PO BID [facility] Last Admin: 11/11/22 21:24 Dose: 100 mg Ferrous Sulfate (Ferrous Sulfate 325 Mg Tablet) 325 mg PO QDAY [facility] Last Admin: 11/11/22 09:11 Dose: 325 mg Gabapentin (Gabapentin 100 Mg Capsule) 100 mg PO HS [facility] Last Admin: 11/11/22 21:24 Dose: 100 mg Glipizide (Glipizide 2.5 Mg Tab.Xl.24h) 2.5 mg PO QDAY [facility] Last Admin: 11/11/22 09:11 Dose: 2.5 mg Glucose (Dextrose 31 Gm Oral.Susp) 15 gm PO PRN PRN PRN Reason: Hypoglycemia Glucose (Dextrose 31 Gm Oral.Susp) 15 gm PO PRN PRN PRN Reason: Hypoglycemia Insulin Human Lispro (Insulin Lispro 1 Unit/0.01 Ml Unit) 0 unit SQ [facility]; Protocol Last Admin: 11/11/22 21:40 Dose: 4 unit Metoprolol Succinate (Metoprolol Succinate 50 Mg Tab.Xl.24h) 100 mg PO BID [facility] Last Admin: 11/11/22 21:21 Dose: 100 mg Metoprolol Tartrate (Metoprolol Tartrate 5 Mg/5 Ml Vial) 5 mg IV Q2HP PRN PRN Reason: Tachyarrhythmias HR>110 Morphine Sulfate (Morphine 4 Mg/Ml Vial) 4 mg IV Q2HP PRN; Protocol PRN Reason: Per Pain Protocol Last Admin: 11/10/22 23:00 Dose: 4 mg Morphine Sulfate (Morphine 15 Mg Tab.Sr.12h) 15 mg PO BID [facility]; Protocol Last Admin: 11/11/22 21:23 Dose: 15 mg Omeprazole (Omeprazole 20 Mg Capsule) 20 mg PO DAILY [facility] Last Admin: 11/11/22 09:13 Dose: 20 mg Ondansetron HCl (Ondansetron 4 Mg/2 Ml Vial) 4 mg IV Q6HP PRN PRN Reason: Nausea And Vomiting Senna (Sennosides 1 Tablet) 2 tab PO HS [facility] Last Admin: 11/11/22 21:23 Dose: 2 tab Sodium Chloride (0.9 % Sodium Chloride 10 Ml Syringe) 10 ml IV Q8 [facility] Last Admin: 11/12/22 05:35 Dose: Not Given Trazodone HCl (Trazodone Hcl 50 Mg Tablet) 25 mg PO HSP PRN PRN Reason: Insomnia Trimethoprim/Sulfamethoxazole (Sulfamethoxazole/Trimethoprim 1 Tablet) 1 tab PO BID [facility]; Protocol Last Admin: 11/11/22 21:24 Dose: 1 tab A/P Narrative A/P Narrative: Assessment and Plans: *Displaced fracture through surgical neck of the proximal right humerus: -per Dr. Moreno who recommend against emergent surgery at this point > sling & will see patient in office -Tylenol , Lagro , Morphine -Physical therapy evaluation and treatment -Occupational therapy evaluation and treatment *Hyperglycemia with type 2 diabetes mellitus: poorly controlled -HgA1c 15.8 -Hold Metformin ,Glipizide -SSI increase to medium, add long-acting insulin, d/c with temporary SSI - may need long-acting, f/u with PCP *UTI (Klebsiella): -pending final UC/BC -cbc w/ auto diff in the morning to trend WBC -Bactrim DS *Permanent atrial fibrillation with pacemaker: -Eliquis , Digoxin , Metoprolol ER , Diltiazem *Chronic kidney disease stage III: -Avoid nephrotoxic agents -CMP in the morning to trend kidney functions *Transaminitis,mild: Chronic *GERD: ppi *ppx: Eliquis / home ppi 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
[2022-11-12] MEDS: INSULIN LISPRO 1 UNIT/0.01 ML UNIT SQ SCH ×4 (07:44→20:24)
[2022-11-12] MEDS ORDERED: INSULIN GLARGINE, HUMAN 1 UNIT/0.01 ML SQ SCH (09:00)
--- NOTE | 2022-11-12 09:24 | EKG ---
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 Measurements Intervals [place] Rate: 71 P: 0 SD: 234 QRS: -87 QRSD: 159 T: 93 QT: 493 QTc: 538 Interpretive Statements Ventricular-paced rhythm No further analysis attempted due to paced rhythm Electronically Signed On 11-12-2022 9:24:16 PDT by Franklyn Da Silva M.D. /[email or web address]/[email or web address]/[id number]
[2022-11-12] MEDS: SULFAMETHOXAZOLE/TRIMETHOPRIM 1 TABLET PO SCH ×2 (10:01→22:08)
[2022-11-12] MEDS: DILTIAZEM 180 MG CAP.XL.24H PO SCH (10:04)
[2022-11-12] MEDS: DOCUSATE SODIUM 100 MG CAPSULE PO SCH ×2 (10:06→22:08)
[2022-11-12] MEDS: APIXABAN 5 MG TABLET PO SCH ×2 (10:07→22:08)
[2022-11-12] MEDS: FERROUS SULFATE 325 MG TABLET PO SCH (10:10)
[2022-11-12] MEDS: glipiZIDE 2.5 MG TAB.XL.24H PO SCH (10:12)
[2022-11-12] MEDS: morphine 15 MG TAB.SR.12H PO SCH (10:13)
[2022-11-12] MEDS: OMEPRAZOLE 20 MG CAPSULE PO SCH (10:14)
[2022-11-12] MEDS: METOPROLOL SUCCINATE 50 MG TAB.XL.24H PO SCH ×2 (10:15→22:09)
--- NOTE | 2022-11-12 11:12 | Discharge Summary ---
Discharge Provider Provider IMPORTANT FOLLOW-UP INFORMATION FOR PCP: -Pt to monitor blood glucose ACHS, keep log and bring to PCP. Patient information: Note initiated : 11/12/22 at 11:09 am Service Date, if different from initiated Date: [] Patient: Nolvia Jalloh 87 y/o F admitted on 11/10/22 for Fall, on blood thinner. Chief Complaint: [] Date of admission: 11/10/22 22:39 Primary care physician: Saige Sotomayor Consults: 11/10/22 Consult to Physician [CONS] Stat Comment: Consulting Provider: Alejandro Johnson Reason For Exam: Physician to Consult COURSE Hospital Course Hospital course: HPI: Ms. Jalloh is a 87 year old F history of atrial fibrillation status post pacemaker, type 2 diabetes mellitus, chronic kidney disease, presenting with accidental fall. Earlier this evening when she was getting out of the bathroom, she had to put her pants on but she lost her balance and she fell and landed on her right shoulder. She denies hitting her head. She denies any loss of consciousness. She denies any chest pain palpitations or shortness of breath. She is currently complaining of 10 out of 10 sharp constant pain of her right shoulder and right upper arm. X-ray performed in the ED showing displaced fracture through the surgical neck of the proximal right humerus. In addition, labs also showing elevated blood sugar of 640. Serum pH 7.58, serum bicarb 23.1, lactic acid 2.7, and anion gap 11. In additions, patient is also commenting of increased urinary frequency over the past couple weeks but she denies any urgency or hesitancy and she denies any dysuria. UA pending. ER physicians contacted orthopedic surgeon Dr. Moreno who recommend against emergent surgery at this point. Instead, he recommended putting a sling on and he will see the patient in his office. Admission request is called for symptoms controlled of new onset right humeral fracture, uncontrolled type 2 diabetes mellitus with hyperglycemia, and suspected urinary tract infections. 4/2: There is no major overnight events. Afebrile overnight. Fasting sugar 113. Blood and urine culture no growth to date. Patient is still coming of severe right arm pain. Keep her right arm sling in place. No plan for surgery for the time being. Focus on symptoms controlled with narcotics as needed. Saline lock the patient's and changed the antibiotics from Rocephin to Bactrim DS for urinary tract infections while keeping an eye on blood and urine culture. Switch the insulin lispro sign scale insulin from high scale to low scale AC adjust. Accu- Chek ACHS. Physical therapy and Occupational Therapy evaluation and treatments. Overall condition stable. 11/12 Patient seems a bit tired this morning. Otherwise no overnight event or new complaints. Urine culture growing Klebsiella. Right arm sling in place. Will need follow-up outpatient with orthopedic surgery. 11/13 No overnight events or new complaints. However blood pressure has been running fairly soft. She is on Toprol 100 twice daily will decrease that to once a day. And monitor. 11/14 Patient has no subjective complaints. States she feels fine. Does appear tired though. Per nursing she has had poor urine output although she has been incontinent. Although she does admit to poor oral intake and she does have this low normal blood pressure. We will d/c her diltiazem and continue her Toprol. give her IV fluid today. Assessment and Plans: *Displaced fracture through surgical neck of the proximal right humerus: -f/u with Dr. Moreno outpt, keep in sling -pain meds *Hyperglycemia with type 2 diabetes mellitus: poorly controlled -HgA1c 15.8, did have good control last fall -on metformin and glipizide -d/c with temporary SSI - may need long-acting, f/u with PCP -Monitor blood glucose ACHS, keep log and bring to PCP *UTI (Klebsiella): -treated with Bactrim DS *Permanent atrial fibrillation with pacemaker: -Eliquis , Digoxin , Metoprolol ER *Chronic kidney disease stage III: *Transaminitis,mild: Chronic *GERD: ppi Discharge diagnosis: Right humerus fracture hyperglycemia UTI Secondary discharge diagnosis: Atrial fibrillation chronic kidney disease transaminitis GERD Time Spent with Patient Time attestation: Total time spent providing and/or coordinating discharge services: Time spent: Greater than 30 minutes EXAM Constitutional Vitals: Temp Pulse Resp BP Pulse Ox O2 Del Method 98.9 F 76 18 123/64 94 Room Air 11/12/22 08:00 11/12/22 08:00 11/12/22 08:00 11/12/22 08:00 11/12/22 08:00 11/12/22 08:00 Discharge Data Data Completed and Pending Labs on day of discharge: Preliminary micro results at discharge 11/10/22 23:47 Blood Culture - Preliminary Blood 11/10/22 23:41 Blood Culture - Preliminary Blood Discharge Plan Patient/Caregiver Discharge Instructions Activity: increase activity as tolerated and resume usual activities as tolerated Diet: Regular Diet Instructions: Arm Fracture in Adults (ED) Activity Restrictions/Additional Instructions: Follow with orthopedic surgery within 3 to 4 days Maintain arm in a sling Use Orange pain medication As prescribed Seek medical attention symptoms worsen Prescriptions: New (DME) blood sugar diagnostic Strip See Rx Instructions .ROUTE .MEDSUPPLY Qty: 120 0RF Rx Instructions: As directed (DME) lancets Misc See Rx Instructions .ROUTE .MEDSUPPLY Qty: 100 0RF Rx Instructions: As directed (DME) blood-glucose meter Kit See Rx Instructions .ROUTE .MEDSUPPLY Qty: 1 0RF Rx Instructions: As directed insulin lispro [Humalog KwikPen Insulin] 100 unit/mL insulin pen See Protocol subcut ACHS MDD 40 units Qty: 15 0RF Protocol: Insulin Sliding Scale, Med Condition: HUMALOG/NOVALOG SC SLIDING Dose/Route: SCALE Condition: FSBS < 70 Dose/Route: Give 4 Oz juice, or 15gm oral Instruction: Glucose, or 25ml D50W IV if Dose/Route: unable to take PO. Recheck in Instruction: 15 min and repeat if FSBS < 70 Condition: FSBS 71-140 Dose/Route: NO COVERAGE Condition: FSBS 141-170 Dose/Route: 2 UNITS Condition: FSBS 171-200 Dose/Route: 4 UNITS Condition: FSBS 201-250 Dose/Route: 6 UNITS Condition: FSBS 251-300 Dose/Route: 8 UNITS Condition: FSBS 301-350 Dose/Route: 10 UNITS Condition: FSBS 351-400 Dose/Route: 12 UNITS Condition: FSBS > 400 Dose/Route: 14 UNITS; REPEAT Q2H X2 Instruction: CONTINUE FOLLOWING SLIDING Condition: SCALE; IF STILL > 400; CALL Dose/Route: PHYSICIAN hydrocodone-acetaminophen 5-325 mg tablet 1 tab PO Q6H PRN (Reason: pain) Qty: 30 0RF Continued atorvastatin 80 mg tablet 40 mg PO HS glipizide 2.5 mg tablet extended release 24hr 2.5 mg PO QDAY ferrous sulfate [FeroSul] 325 mg (65 mg iron) tablet 325 mg PO QDAY metformin 1,000 mg tablet 1,000 mg PO BIDCC omeprazole 20 mg capsule,delayed release(DR/EC) 20 mg PO DAILY furosemide 20 mg tablet 20 mg PO QDAY gabapentin 100 mg capsule 100 mg PO HS Eliquis 2.5 mg tablet 2.5 mg PO BID diltiazem HCl 180 mg Capsule,Extended Release 24hr 180 mg PO DAILY Qty: 30 0RF Changed metoprolol succinate 100 mg tablet extended release 24 hr 100 mg PO DAILY Qty: 1 0RF Follow Up Plan Follow up with: Karlene Moreno MD [Physician] - 11/13/22 (Right surgical neck fracture) Saige Sotomayor MD [Primary Care Provider] - Patient Disposition: Xfer SNF Prognosis: Fair Rehab Potential: Fair I certify that the patient requires SNF services: Yes Overall status at discharge: patient is progressing back to baseline
[2022-11-12] MEDS: ATORVASTATIN 40 MG TABLET PO SCH (22:08)
[2022-11-12] MEDS: SENNOSIDES 1 TABLET PO SCH (22:09)
[2022-11-12] MEDS: GABAPENTIN 100 MG CAPSULE PO SCH (22:09)
[2022-11-13] MEDS: 0.9 % SODIUM CHLORIDE 10 ML SYRINGE IV SCH (05:41)
--- NOTE | 2022-11-13 07:32 | Internal Med Progress Note ---
SUBJECTIVE Subjective Patient information: Note initiated : 11/13/22 at 7:25 am Service Date, if different from initiated Date: [] Patient: Nolvai Jalloh 87 y/o F admitted on 11/10/22 for Fall, on blood thinner. Chief Complaint: [] Interval history: Ms. Jalloh is a 87 year old F history of atrial fibrillation status post pacemaker, type 2 diabetes mellitus, chronic kidney disease, presenting with accidental fall. Earlier this evening when she was getting out of the bathroom, she had to put her pants on but she lost her balance and she fell and landed on her right shoulder. She denies hitting her head. She denies any loss of consciousness. She denies any chest pain palpitations or shortness of breath. She is currently complaining of 10 out of 10 sharp constant pain of her right shoulder and right upper arm. X-ray performed in the ED showing displaced fracture through the surgical neck of the proximal right humerus. In addition, labs also showing elevated blood sugar of 640. Serum pH 7.58, serum bicarb 23.1, lactic acid 2.7, and anion gap 11. In additions, patient is also commenting of increased urinary frequency over the past couple weeks but she denies any urgency or hesitancy and she denies any dysuria. UA pending. ER physicians contacted orthopedic surgeon Dr. Moreno who recommend against emergent surgery at this point. Instead, he recommended putting a sling on and he will see the patient in his office. Admission request is called for symptoms controlled of new onset right humeral fracture, uncontrolled type 2 diabetes mellitus with hyperglycemia, and suspected urinary tract infections. 4/2: There is no major overnight events. Afebrile overnight. Fasting sugar 113. Blood and urine culture no growth to date. Patient is still coming of severe right arm pain. Keep her right arm sling in place. No plan for surgery for the time being. Focus on symptoms controlled with narcotics as needed. Saline lock the patient's and changed the antibiotics from Rocephin to Bactrim DS for urinary tract infections while keeping an eye on blood and urine culture. Switch the insulin lispro sign scale insulin from high scale to low scale AC adjust. Accu- Chek ACHS. Physical therapy and Occupational Therapy evaluation and treatments. Overall condition stable. 4/3 Patient seems a bit tired this morning. Otherwise no overnight event or new complaints. Urine culture growing Klebsiella. Right arm sling in place. Will need follow-up outpatient with orthopedic surgery. 11/13 No overnight events or new complaints. However blood pressure has been running fairly soft. She is on Toprol 100 twice daily will decrease that to once a day. And monitor. Review of Systems: denies headache/fever/chills/nausea/vomiting/chest or abdominal pain/cough/dyspnea/diarrhea. Otherwise see above. PHYSICAL EXAM General: Alert, Awake, No acute Distress Eyes/N/T: EOMI, no scleral icterus, Head/Neck: neck supple, full ROM, CV: Irregular no murmurs, Pulm: Clear b/l, no wheezing/rhonchi/rales, no respiratory distress Abd: soft, nontender, +BS x4 Ext: no clubbing/cyanosis/edema, right arm sling in place Neuro: Alert, no focal deficits, moves all extremities, sensations intact b/l upper/lower Psychiatric: Skin: warm/dry, normal color Constitutional Vitals: Vital Signs Temp Pulse Resp BP Pulse Ox O2 Del Method 98.1 F 71 16 103/52 96 Room Air 11/13/22 07:18 11/13/22 07:18 11/13/22 03:04 11/13/22 07:18 11/13/22 07:18 11/13/22 07:18 Period Temp Pulse Resp BP Sys/Tidwell Pulse Ox O2 Del Method O2 Flow Rate Last 24 Hr 97.9 F-99.1 F 71-94 12-18 94-123/50-76 92-96 Room Air-Room Air Intake and Output 11/12/22 11/13/22 11/13/22 19:59 03:59 11:59 Intake Total 200 Output Total 1 1 Balance -1 199 Weight 47.809 kg Intake & Output: Intake & Output 11/12/22 11/13/22 11/13/22 19:59 03:59 11:59 Intake Total 200 Output Total 1 1 Balance -1 199 Weight 47.809 kg Intake: Oral 200 Output: # of times incontinent of urine 1 1 Other: Meal Dinner Percent of Meal Consumed Refused # Voids 1 OBJ DATA Labs 11/11/22 05:48 11/11/22 05:48 Labs: Abnormal Lab Results 11/11/22 11/11/2223 05:48 05:48 00:50 Hct 33.8 L [place] # (Auto) 0.94 H PT INR POC VBG pH POC VBG pCO2 at Temp POC VBG pO2 POC VBG HCO3 POC VBG Total CO2 POC Venous O2 Sat VBG Lactic Acid 2.2 H 2.2 H POC Sodium Creatinine 1.2 H POC Glucose Hemoglobin A1c 15.8 H POC WB Ioniz Calcium AST 47 H ALT 50 H Alkaline Phosphatase 121 H Procalcitonin Urine Glucose (UA) Urine Nitrate Ur Leukocyte Esterase Urine WBC 11/10/22 11/10/22 11/10/22 23:49 21:08 21:05 Hct [place] # (Auto) PT INR POC VBG pH 7.58 H POC VBG pCO2 at Temp 24.4 L POC VBG pO2 61 H POC VBG HCO3 23.1 L POC VBG Total CO2 24.0 L POC Venous O2 Sat 95.0 H VBG Lactic Acid 2.7 H POC Sodium Creatinine POC Glucose Hemoglobin A1c POC WB Ioniz Calcium AST ALT Alkaline Phosphatase Procalcitonin 0.11 H Urine Glucose (UA) >=500 A Urine Nitrate Pos A Ur Leukocyte Esterase 25 A Urine WBC 26 H 11/10/22 11/10/22 18:56 18:20 Hct [place] # (Auto) PT 15.1 H INR 1.2 H POC VBG pH POC VBG pCO2 at Temp POC VBG pO2 POC VBG HCO3 POC VBG Total CO2 POC Venous O2 Sat VBG Lactic Acid POC Sodium 129 L Creatinine POC Glucose 640 H* Hemoglobin A1c POC WB Ioniz Calcium 1.09 L AST ALT Alkaline Phosphatase Procalcitonin Urine Glucose (UA) Urine Nitrate Ur Leukocyte Esterase Urine WBC Meds: Medications Acetaminophen (Acetaminophen 325 Mg Tablet) 650 mg PO Q6HP PRN; Protocol PRN Reason: Per Pain Protocol/Fever > 101 Last Admin: 11/11/22 17:01 Dose: 650 mg Hydrocodone Bitart/Acetaminophen (Hydrocodone/Apap 5/325mg Tablet) 1 tab PO Q 6HP PRN; Protocol PRN Reason: Per Pain Protocol Albuterol/Ipratropium (Ipratropium/Albuterol 3 Ml Ampul.Neb) 3 ml NEB Q4HRT PRN PRN Reason: Wheezing Apixaban (Apixaban 5 Mg Tablet) 2.5 mg PO BID [facility] Last Admin: 11/12/22 22:08 Dose: Not Given Atorvastatin Calcium (Atorvastatin 40 Mg Tablet) 40 mg PO [facility] Last Admin: 11/12/22 22:08 Dose: Not Given Dextrose (Dextrose 50% 50 Ml Vial) 0 ml IV UD PRN PRN Reason: Per Sliding Scale Dextrose (Dextrose 50% 50 Ml Vial) 0 ml IV UD PRN PRN Reason: Per Sliding Scale Diagnostic Test (Pha) (Accu-Chek 1 Each Strip) 1 each FS [facility] Last Admin: 11/12/22 20:24 Dose: 1 each Diltiazem HCl (Diltiazem 180 Mg Cap.Xl.24h) 180 mg PO DAILY [facility] Last Admin: 11/12/22 10:04 Dose: 180 mg Docusate Sodium (Docusate Sodium 100 Mg Capsule) 100 mg PO BID [facility] Last Admin: 11/12/22 22:08 Dose: Not Given Ferrous Sulfate (Ferrous Sulfate 325 Mg Tablet) 325 mg PO QDAY [facility] Last Admin: 11/12/22 10:10 Dose: 325 mg Gabapentin (Gabapentin 100 Mg Capsule) 100 mg PO [facility] Last Admin: 11/12/22 22:09 Dose: Not Given Glipizide (Glipizide 2.5 Mg Tab.Xl.24h) 2.5 mg PO QDAY [facility] Last Admin: 11/12/22 10:12 Dose: 2.5 mg Glucose (Dextrose 31 Gm Oral.Susp) 15 gm PO PRN PRN PRN Reason: Hypoglycemia Glucose (Dextrose 31 Gm Oral.Susp) 15 gm PO PRN PRN PRN Reason: Hypoglycemia Insulin Glargine (Insulin Glargine, Human 1 Unit/0.01 Ml) 5 unit SQ DAILY [facility] Last Admin: 11/12/22 09:55 Dose: 5 units Insulin Human Lispro (Insulin Lispro 1 Unit/0.01 Ml Unit) 0 unit SQ [facility]; Protocol Last Admin: 11/12/22 20:24 Dose: Not Given Metoprolol Succinate (Metoprolol Succinate 50 Mg Tab.Xl.24h) 100 mg PO BID [facility] Last Admin: 11/12/22 22:09 Dose: Not Given Metoprolol Tartrate (Metoprolol Tartrate 5 Mg/5 Ml Vial) 5 mg IV Q2HP PRN PRN Reason: Tachyarrhythmias HR>110 Morphine Sulfate (Morphine 4 Mg/Ml Vial) 4 mg IV Q2HP PRN; Protocol PRN Reason: Per Pain Protocol Last Admin: 11/10/22 23:00 Dose: 4 mg Omeprazole (Omeprazole 20 Mg Capsule) 20 mg PO DAILY [facility] Last Admin: 11/12/22 10:14 Dose: 20 mg Ondansetron HCl (Ondansetron 4 Mg/2 Ml Vial) 4 mg IV Q6HP PRN PRN Reason: Nausea And Vomiting Senna (Sennosides 1 Tablet) 2 tab PO HS [facility] Last Admin: 11/12/22 22:09 Dose: Not Given Sodium Chloride (0.9 % Sodium Chloride 10 Ml Syringe) 10 ml IV Q8 [facility] Last Admin: 11/13/22 05:41 Dose: Not Given Trazodone HCl (Trazodone Hcl 50 Mg Tablet) 25 mg PO HSP PRN PRN Reason: Insomnia Trimethoprim/Sulfamethoxazole (Sulfamethoxazole/Trimethoprim 1 Tablet) 1 tab PO BID [facility]; Protocol Last Admin: 11/12/22 22:08 Dose: Not Given A/P Narrative A/P Narrative: Assessment and Plans: *Displaced fracture through surgical neck of the proximal right humerus: -per Dr. Moreno who recommends sling & will see patient in office -Tylenol , [place] , Morphine -Physical therapy evaluation and treatment -Occupational therapy evaluation and treatment *Hyperglycemia w/DM2 with polyneuropathy/nephropathy: poorly controlled -HgA1c 15.8, did have good control last fall -Hold Metformin ,Glipizide -SSI increase to medium, d/c with temporary SSI - may need long-acting, f/u with PCP *UTI (Klebsiella): -pending final UC/BC -cbc w/ auto diff in the morning to trend WBC -Bactrim DS *Permanent atrial fibrillation with pacemaker: -Eliquis , Digoxin , Metoprolol ER decrease to qday for soft BP , Diltiazem *Chronic kidney disease stage III: -Avoid nephrotoxic agents -CMP in the morning to trend kidney functions *Anemia, chronic: *HTN: *T2DM w/polyneuropathy & nephropathy: SSI *Transaminitis,mild: Chronic *GERD: ppi *ppx: Eliquis / home ppi 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
[2022-11-13] MEDS ORDERED: METOPROLOL SUCCINATE 50 MG TAB.XL.24H PO SCH (09:00)
[2022-11-13] MEDS: DILTIAZEM 180 MG CAP.XL.24H PO SCH (10:05)
[2022-11-13] MEDS: OMEPRAZOLE 20 MG CAPSULE PO SCH (10:06)
[2022-11-13] MEDS: SULFAMETHOXAZOLE/TRIMETHOPRIM 1 TABLET PO SCH ×2 (10:06→20:47)
[2022-11-13] MEDS: FERROUS SULFATE 325 MG TABLET PO SCH (10:06)
[2022-11-13] MEDS: APIXABAN 5 MG TABLET PO SCH ×2 (10:12→20:44)
[2022-11-13] MEDS: DOCUSATE SODIUM 100 MG CAPSULE PO SCH ×2 (10:12→20:48)
[2022-11-13] MEDS: INSULIN LISPRO 1 UNIT/0.01 ML UNIT SQ SCH ×4 (11:59→20:43)
[2022-11-13] MEDS: glipiZIDE 2.5 MG TAB.XL.24H PO SCH (11:59)
[2022-11-13] MEDS: ACETAMINOPHEN 325 MG TABLET PO PRN ×2 (12:16→19:14)
[2022-11-13] MEDS: GABAPENTIN 100 MG CAPSULE PO SCH (20:48)
[2022-11-13] MEDS: ATORVASTATIN 40 MG TABLET PO SCH (20:48)
[2022-11-13] MEDS: SENNOSIDES 1 TABLET PO SCH (20:48)
--- NOTE | 2022-11-14 07:23 | Internal Med Progress Note ---
SUBJECTIVE Subjective Patient information: Note initiated : 11/14/22 at 7:20 am Service Date, if different from initiated Date: [] Patient: Nolvia Jalloh 87 y/o F admitted on 11/10/22 for Fall, on blood thinner. Chief Complaint: [] Interval history: Ms. Jalloh is a 87 year old F history of atrial fibrillation status post pacemaker, type 2 diabetes mellitus, chronic kidney disease, presenting with accidental fall. Earlier this evening when she was getting out of the bathroom, she had to put her pants on but she lost her balance and she fell and landed on her right shoulder. She denies hitting her head. She denies any loss of consciousness. She denies any chest pain palpitations or shortness of breath. She is currently complaining of 10 out of 10 sharp constant pain of her right shoulder and right upper arm. X-ray performed in the ED showing displaced fracture through the surgical neck of the proximal right humerus. In addition, labs also showing elevated blood sugar of 640. Serum pH 7.58, serum bicarb 23.1, lactic acid 2.7, and anion gap 11. In additions, patient is also commenting of increased urinary frequency over the past couple weeks but she denies any urgency or hesitancy and she denies any dysuria. UA pending. ER physicians contacted orthopedic surgeon Dr. Moreno who recommend against emergent surgery at this point. Instead, he recommended putting a sling on and he will see the patient in his office. Admission request is called for symptoms controlled of new onset right humeral fracture, uncontrolled type 2 diabetes mellitus with hyperglycemia, and suspected urinary tract infections. 4/2: There is no major overnight events. Afebrile overnight. Fasting sugar 113. Blood and urine culture no growth to date. Patient is still coming of severe right arm pain. Keep her right arm sling in place. No plan for surgery for the time being. Focus on symptoms controlled with narcotics as needed. Saline lock the patient's and changed the antibiotics from Rocephin to Bactrim DS for urinary tract infections while keeping an eye on blood and urine culture. Switch the insulin lispro sign scale insulin from high scale to low scale AC adjust. Accu- Chek ACHS. Physical therapy and Occupational Therapy evaluation and treatments. Overall condition stable. 4/3 Patient seems a bit tired this morning. Otherwise no overnight event or new complaints. Urine culture growing Klebsiella. Right arm sling in place. Will need follow-up outpatient with orthopedic surgery. 11/13 No overnight events or new complaints. However blood pressure has been running fairly soft. She is on Toprol 100 twice daily will decrease that to once a day. And monitor. 11/14 Patient has no subjective complaints. States she feels fine. Does appear tired though. Per nursing she has had poor urine output although she has been incontinent. Although she does admit to poor oral intake and she does have this low normal blood pressure. We will d/c her diltiazem and continue her Toprol. give her IV fluid today. Review of Systems: denies headache/fever/chills/nausea/vomiting/chest or abdominal pain/cough/dyspnea/diarrhea. Otherwise see above. PHYSICAL EXAM General: Alert, Awake, No acute Distress Eyes/N/T: EOMI, no scleral icterus, Head/Neck: neck supple, full ROM, CV: Irregular no murmurs, Pulm: Clear b/l, no wheezing/rhonchi/rales, no respiratory distress Abd: soft, nontender, +BS x4 Ext: no clubbing/cyanosis/edema, right arm sling in place Neuro: Alert, no focal deficits, moves all extremities, sensations intact b/l upper/lower Psychiatric: Skin: warm/dry, normal color Constitutional Vitals: Vital Signs Temp Pulse Resp BP Pulse Ox O2 Del Method 97.6 F 72 16 99/57 95 Room Air 11/14/22 02:57 11/14/22 02:57 11/14/22 02:57 11/14/22 02:57 11/14/22 02:57 11/14/22 02:57 Period Temp Pulse Resp BP Sys/Tidwell Pulse Ox O2 Del Method O2 Flow Rate Last 24 Hr 97.6 F-98.2 F 69-72 15-16 93-99/51-57 94-100 Room Air-Room Air Intake and Output 11/13/22 11/14/22 11/14/22 19:59 03:59 11:59 Intake Total 400 50 Balance 400 50 Weight 47.718 kg Intake & Output: Intake & Output 11/13/22 11/14/22 11/14/22 19:59 03:59 11:59 Intake Total 400 50 Balance 400 50 Weight 47.718 kg Intake: Oral 400 50 Other: Meal Dinner Percent of Meal Consumed 25% Feeding Ability Independent OBJ DATA Labs 11/11/22 05:48 11/11/22 05:48 Meds: Medications Acetaminophen (Acetaminophen 325 Mg Tablet) 650 mg PO Q6HP PRN; Protocol PRN Reason: Per Pain Protocol/Fever > 101 Last Admin: 11/13/22 19:14 Dose: 650 mg Hydrocodone Bitart/Acetaminophen (Hydrocodone/Apap 5/325mg Tablet) 1 tab PO Q6HP PRN; Protocol PRN Reason: Per Pain Protocol Albuterol/Ipratropium (Ipratropium/Albuterol 3 Ml Ampul.Neb) 3 ml NEB Q4HRT PRN PRN Reason: Wheezing Apixaban (Apixaban 5 Mg Tablet) 2.5 mg PO BID [facility] Last Admin: 11/13/22 20:44 Dose: 2.5 mg Atorvastatin Calcium (Atorvastatin 40 Mg Tablet) 40 mg PO HS [facility] Last Admin: 11/13/22 20:48 Dose: 40 mg Dextrose (Dextrose 50% 50 Ml Vial) 0 ml IV UD PRN PRN Reason: Per Sliding Scale Dextrose (Dextrose 50% 50 Ml Vial) 0 ml IV UD PRN PRN Reason: Per Sliding Scale Diagnostic Test (Pha) (Accu-Chek 1 Each Strip) 1 each FS ACHS [facility] Last Admin: 11/14/22 02:13 Dose: 1 each Diltiazem HCl (Diltiazem 180 Mg Cap.Xl.24h) 180 mg PO DAILY [facility] Last Admin: 11/13/22 10:05 Dose: 180 mg Docusate Sodium (Docusate Sodium 100 Mg Capsule) 100 mg PO BID [facility] Last Admin: 11/13/22 20:48 Dose: 100 mg Ferrous Sulfate (Ferrous Sulfate 325 Mg Tablet) 325 mg PO QDAY [facility] Last Admin: 11/13/22 10:06 Dose: 325 mg Gabapentin (Gabapentin 100 Mg Capsule) 100 mg PO [facility] Last Admin: 11/13/22 20:48 Dose: 100 mg Glipizide (Glipizide 2.5 Mg Tab.Xl.24h) 2.5 mg PO QDAY [facility] Last Admin: 11/13/22 11:59 Dose: 2.5 mg Glucose (Dextrose 31 Gm Oral.Susp) 15 gm PO PRN PRN PRN Reason: Hypoglycemia Glucose (Dextrose 31 Gm Oral.Susp) 15 gm PO PRN PRN PRN Reason: Hypoglycemia Insulin Human Lispro (Insulin Lispro 1 Unit/0.01 Ml Unit) [address] [facility]; Protocol Last Admin: 11/13/22 20:43 Dose: 148 units Metoprolol Succinate (Metoprolol Succinate 50 Mg Tab.Xl.24h) 100 mg PO DAILY [facility] Last Admin: 11/13/22 10:05 Dose: 100 mg Metoprolol Tartrate (Metoprolol Tartrate 5 Mg/5 Ml Vial) 5 mg IV Q2HP PRN PRN Reason: Tachyarrhythmias HR>110 Omeprazole (Omeprazole 20 Mg Capsule) 20 mg PO DAILY [facility] Last Admin: 11/13/22 10:06 Dose: 20 mg Senna (Sennosides 1 Tablet) 2 tab PO HS [facility] Last Admin: 11/13/22 20:48 Dose: 2 tab Trazodone HCl (Trazodone Hcl 50 Mg Tablet) 25 mg PO HSP PRN PRN Reason: Insomnia A/P Narrative A/P Narrative: Assessment and Plans: *Displaced fracture through surgical neck of the proximal right humerus: -per Dr. Moreno who recommends sling & will see patient in office -Tylenol , [place] , Morphine -Physical therapy evaluation and treatment -Occupational therapy evaluation and treatment *Hyperglycemia w/DM2 with polyneuropathy/nephropathy: poorly controlled -HgA1c 15.8, did have good control last fall -Hold Metformin ,Glipizide -SSI increase to medium, d/c with temporary SSI - may need long-acting, f/u with PCP *UTI (Klebsiella): -cbc w/ auto diff in the morning to trend WBC -Bactrim DS finished *Permanent atrial fibrillation with pacemaker: -Eliquis , Digoxin , Metoprolol ER decreased soft BP , Dilt stopped for low BP *Chronic kidney disease stage III: -Avoid nephrotoxic agents -CMP in the morning to trend kidney functions *Anemia, chronic: *HTN: *T2DM w/polyneuropathy & nephropathy: SSI *Transaminitis,mild: Chronic *poor uop/poor PO intake/low BP: IVF today and encourage PO intake, decrease BP meds *GERD: ppi *ppx: Eliquis / home ppi 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
[2022-11-14] MEDS: INSULIN LISPRO 1 UNIT/0.01 ML UNIT SQ SCH ×4 (08:25→21:20)
[2022-11-14] MEDS: glipiZIDE 2.5 MG TAB.XL.24H PO SCH (08:25)
[2022-11-14] MEDS: APIXABAN 5 MG TABLET PO SCH ×2 (08:25→21:20)
[2022-11-14] MEDS: FERROUS SULFATE 325 MG TABLET PO SCH (08:26)
[2022-11-14] MEDS: DOCUSATE SODIUM 100 MG CAPSULE PO SCH ×2 (08:26→21:20)
[2022-11-14] MEDS: ACETAMINOPHEN 325 MG TABLET PO PRN (08:26)
[2022-11-14] MEDS: OMEPRAZOLE 20 MG CAPSULE PO SCH (08:26)
[2022-11-14] MEDS ORDERED: METOPROLOL SUCCINATE 50 MG TAB.XL.24H PO SCH ×2 (09:00)
[2022-11-14] MEDS ORDERED: DILTIAZEM 120 MG CAP.XL.24H PO SCH (09:00)
[2022-11-14] MEDS: LACTATED RINGERS 500 ML IV SCH ×2 (09:15→17:17)
[2022-11-14] MEDS ORDERED: LACTATED RINGERS 500 ML IV SCH (18:15)
[2022-11-14 19:19] LABS: Appearance,Urine TURBID (Clear); Bilirubin,Urine Negative (Negative); Color,Urine YELLOW; Culture Indicated,Urine yes; Glucose,Urine (UA) Negative (Negative); Ketones,Urine Negative (Negative); Leukocyte Esterase,Urine 250 /uL (Negative); Nitrate,Urine Negative (Negative); Protein,Urine 100 mg/dL (Negative); Specific Gravity,Urine 1.016 (1.000-1.035); Urine Budding Yeast MANY /hpf; Urine RBC > 182 /hpf (0-1); Urine Squamous Epithelial Cell 0 /hpf (0-4); Urine WBC > 182 /hpf (0-4); Urobilinogen,Urine Negative
[2022-11-14] MEDS: HYDROcodone/APAP 5/325MG TABLET PO PRN (19:26)
[2022-11-14] MEDS: GABAPENTIN 100 MG CAPSULE PO SCH (21:20)
[2022-11-14] MEDS: SENNOSIDES 1 TABLET PO SCH (21:20)
[2022-11-14] MEDS: ATORVASTATIN 40 MG TABLET PO SCH (21:20)
[2022-11-14] MEDS: cefTRIAXone 1 GM VIAL IV SCH (22:11)
[2022-11-15] MEDS: 0.9 % SODIUM CHLORIDE 1,000 ML IV SCH ×3 (02:02→20:37)
--- NOTE | 2022-11-15 07:36 | Internal Med Progress Note ---
SUBJECTIVE Subjective Patient information: Note initiated : 11/15/22 at 7:29 am Service Date, if different from initiated Date: [] Patient: Nolvia Jalloh 87 y/o F admitted on 11/10/22 for Fall, on blood thinner. Chief Complaint: [] Interval history: Ms. Jalloh is a 87 year old F history of atrial fibrillation status post pacemaker, type 2 diabetes mellitus, chronic kidney disease, presenting with accidental fall. Earlier this evening when she was getting out of the bathroom, she had to put her pants on but she lost her balance and she fell and landed on her right shoulder. She denies hitting her head. She denies any loss of consciousness. She denies any chest pain palpitations or shortness of breath. She is currently complaining of 10 out of 10 sharp constant pain of her right shoulder and right upper arm. X-ray performed in the ED showing displaced fracture through the surgical neck of the proximal right humerus. In addition, labs also showing elevated blood sugar of 640. Serum pH 7.58, serum bicarb 23.1, lactic acid 2.7, and anion gap 11. In additions, patient is also commenting of increased urinary frequency over the past couple weeks but she denies any urgency or hesitancy and she denies any dysuria. UA pending. ER physicians contacted orthopedic surgeon Dr. Moreno who recommend against emergent surgery at this point. Instead, he recommended putting a sling on and he will see the patient in his office. Admission request is called for symptoms controlled of new onset right humeral fracture, uncontrolled type 2 diabetes mellitus with hyperglycemia, and suspected urinary tract infections. 4/2: There is no major overnight events. Afebrile overnight. Fasting sugar 113. Blood and urine culture no growth to date. Patient is still coming of severe right arm pain. Keep her right arm sling in place. No plan for surgery for the time being. Focus on symptoms controlled with narcotics as needed. Saline lock the patient's and changed the antibiotics from Rocephin to Bactrim DS for urinary tract infections while keeping an eye on blood and urine culture. Switch the insulin lispro sign scale insulin from high scale to low scale AC adjust. Accu- Chek ACHS. Physical therapy and Occupational Therapy evaluation and treatments. Overall condition stable. 4/3 Patient seems a bit tired this morning. Otherwise no overnight event or new complaints. Urine culture growing Klebsiella. Right arm sling in place. Will need follow-up outpatient with orthopedic surgery. 11/13 No overnight events or new complaints. However blood pressure has been running fairly soft. She is on Toprol 100 twice daily will decrease that to once a day. And monitor. 11/14 Patient has no subjective complaints. States she feels fine. Does appear tired though. Per nursing she has had poor urine output although she has been incontinent. Although she does admit to poor oral intake and she does have this low normal blood pressure. We will d/c her diltiazem and continue her Toprol. give her IV fluid today. 11/15 pt found to still have dirty urine, concerning continued UTI, rocephin restarted. Continued IVF d/t poor oral intake and soft BP. hold BP meds for now. Patient complains of shoulder pain but no other specific pains. No nausea vomiting chest pain stomach pain until we palpate on her abdomen. pending CT a/p. Patient denies fever chills. She does admit to feeling weak and tired. urine is dark in the Grider bag. Mild anemia noted on labs at 9.2 with a baseline in the tens. Hyponatremia note d at 127. Creatinine is significantly elevated. Metabolic acidosis. Elevated uric acid. Review of Systems: denies headache/fever/chills/nausea/vomiting/chest or abdominal pain/cough/dyspnea/diarrhea. Otherwise see above. PHYSICAL EXAM General: Alert, Awake, No acute Distress Eyes/N/T: EOMI, no scleral icterus, Head/Neck: neck supple, full ROM, CV: Irregular no murmurs, Pulm: Clear b/l, no wheezing/rhonchi/rales, no respiratory distress Abd: soft, tender RUQ.RLQ, +BS x4 Ext: no clubbing/cyanosis/edema, right arm sling in place Neuro: Alert, no focal deficits, moves all extremities, sensations intact b/l upper/lower Psychiatric: Skin: warm/dry, normal color Constitutional Vitals: Vital Signs Temp Pulse Resp BP Pulse Ox O2 Del Method 98.1 F 93 H 16 90/58 94 Room Air 11/15/22 03:50 11/15/22 03:50 11/15/22 03:50 11/15/22 03:50 11/15/22 03:50 11/15/22 03:50 Period Temp Pulse Resp BP Sys/T[place]well Pulse Ox O2 Del Method O2 Flow Rate Last 24 Hr 97.3 F-98.6 F 70-93 14-18 88-99/47-58 94-99 Nasal Cannula-Room Air Intake and Output 11/14/22 11/15/22 11/15/22 19:59 03:59 11:59 Intake Total 620 540 Output Total 0 Balance 620 540 Weight 47.854 kg Intake & Output: Intake & Output 11/14/22 11/15/22 11/15/22 19:59 03:59 11:59 Intake Total 620 540 Output Total 0 Balance 620 540 Weight 47.854 kg Intake: IV 500 Lactated Ringers 500 ml @ 100 500 mls/hr IV .Q5H [facility] Rx#: [id number] Oral 120 540 Output: Urine Catheter Amount 0 Other: Meal Dinner Nourishment/Supplement Percent of Meal Consumed 10% 100% Feeding Ability Total Assistance Total Assistance Urine Appearance Straight Cloudy Cloudy Urine Color Straight Dark Yellow Yellow OBJ DATA Labs 11/15/22 07:45 11/15/22 07:45 Labs: Abnormal Lab Results 11/14/22 18:20 Urine Appearance Turbid A Urine Protein 100 A Ur Leukocyte Esterase 250 A Urine RBC > 182 H Urine WBC > 182 H Urine Yeast (Budding) Many A Meds: Medications Acetaminophen (Acetaminophen 325 Mg Tablet) 650 mg PO Q6HP PRN; Protocol PRN Reason: Per Pain Protocol/Fever > 101 Last Admin: 11/14/22 08:26 Dose: 650 mg Hydrocodone Bitart/Acetaminophen (Hydrocodone/Apap 5/325mg Tablet) 1 tab PO Q6HP PRN; Protocol PRN Reason: Per Pain Protocol Last Admin: 11/14/22 19:26 Dose: 1 tab Albuterol/Ipratropium (Ipratropium/Albuterol 3 Ml Ampul.Neb) 3 ml NEB Q4HRT PRN PRN Reason: Wheezing Apixaban (Apixaban 5 Mg Tablet) 2.5 mg PO BID [facility] Last Admin: 11/14/22 21:20 Dose: 2.5 mg Atorvastatin Calcium (Atorvastatin 40 Mg Tablet) 40 mg PO HS [facility] Last Admin: 11/14/22 21:20 Dose: 40 mg Ceftriaxone Sodium (Ceftriaxone 1 Gm Vial) 1 gm IV Q24H [facility]; Protocol Last Admin: 11/14/22 22:11 Dose: 1 gm Dextrose (Dextrose 50% 50 Ml Vial) 0 ml IV UD PRN PRN Reason: Per Sliding Scale Dextrose (Dextrose 50% 50 Ml Vial) 0 ml IV UD PRN PRN Reason: Per Sliding Scale Diagnostic Test (Pha) (Accu-Chek 1 Each Strip) 1 each FS [facility] Last Admin: 11/14/22 21:22 Dose: 1 each Docusate Sodium (Docusate Sodium 100 Mg Capsule) 100 mg PO BID [facility] Last Admin: 11/14/22 21:20 Dose: 100 mg Ferrous Sulfate (Ferrous Sulfate 325 Mg Tablet) 325 mg PO QDAY [facility] Last Admin: 11/14/22 08:26 Dose: 325 mg Gabapentin (Gabapentin 100 Mg Capsule) 100 mg PO [facility] Last Admin: 11/14/22 21:20 Dose: 100 mg Glipizide (Glipizide 2.5 Mg Tab.Xl.24h) 2.5 mg PO QDAY [facility] Last Admin: 11/14/22 08:25 Dose: 2.5 mg Glucose (Dextrose 31 Gm Oral.Susp) 15 gm PO PRN PRN PRN Reason: Hypoglycemia Glucose (Dextrose 31 Gm Oral.Susp) 15 gm PO PRN PRN PRN Reason: Hypoglycemia Sodium Chloride (Sodium Chloride 0.9%) 1,000 mls @ 75 mls/hr IV .[id number] [facility] Last Admin: 11/15/22 02:02 Dose: 75 mls/hr Insulin Human Lispro (Insulin Lispro 1 Unit/0.01 Ml Unit) 0 unit SQ [facility]; Protocol Last Admin: 11/14/22 21:20 Dose: 8 units Metoprolol Succinate (Metoprolol Succinate 50 Mg Tab.Xl.24h) 100 mg PO DAILY [facility] Last Admin: 11/14/22 08:27 Dose: Not Given Metoprolol Tartrate (Metoprolol Tartrate 5 Mg/5 Ml Vial) 5 mg IV Q2HP PRN PRN Reason: Tachyarrhythmias HR>110 Omeprazole (Omeprazole 20 Mg Capsule) 20 mg PO DAILY [facility] Last Admin: 11/14/22 08:26 Dose: 20 mg Senna (Sennosides 1 Tablet) 2 tab PO [facility] Last Admin: 11/14/22 21:20 Dose: 2 tab Trazodone HCl (Trazodone Hcl 50 Mg Tablet) 25 mg PO HSP PRN PRN Reason: Insomnia A/P Narrative A/P Narrative: Assessment and Plans: *TANI on CKDIII: likely 2/2 poor oral intake -poor UOP *Metabolic acidosis: *Hyperphosphatemia: *Borderline hypotension: *Abd pain: right side *Displaced fracture through surgical neck of the proximal right humerus: *Permanent atrial fibrillation with pacemaker: *Hyperglycemia w/DM2 with polyneuropathy/nephropathy: poorly controlled -HgA1c 15.8, did have good control last fall *UTI ( ): -Bactrim DS finished, but urine still looks dirty, restarted Rocephin and pending UC *Anemia, chronic: *HTN: *Transaminitis,mild: Chronic but improved *GERD: P: -IVF -f/u renal fxn/uop/fluid balance -Avoid nephrotoxic agents -f/u cbc/cmp -CT a/p -Rocephin pending UC -Dilt/BB stopped for low BP, prn IV lopressor -Hold oral hypoglycemics, SSI, may d/c with temporary SSI - may need long- acting, f/u with PCP -cont statin -per Dr. 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
[2022-11-15 08:18] LABS: Hematocrit 28.4 % (34.1-44.9); Hemoglobin 9.2 g/dL (11.2-15.7); Mean Cell Volume 93.4 fL (80.0-100.0); Mean Corpuscular HGB Conc 32.4 g/dL (31.0-36.0); Mean Platelet Volume 10.1 fL (8.8-12.5); Platelet Count 219 K/mcL (140-440); RBC 3.04 M/mcL (3.59-5.38); Red Cell Distribution Width 14.7 % (11.5-14.5); WBC 7.8 K/mcL (4.5-11.0)
[2022-11-15 08:41] LABS: ALT/SGPT 38 U/L (<40); AST/SGOT 41 U/L (<32); Albumin 2.5 gm/dL (3.2-5.2); Albumin/Globulin Ratio 0.8 (1.0-2.3); Alkaline Phosphatase 100 U/L (39-117); Bilirubin,Direct 0.3 mg/dL (<0.3); Bilirubin,Total 0.6 mg/dL (0.1-1.0); Blood Urea Nitrogen 70 mg/dL (8-23); Calcium 7.8 mg/dL (8.6-10.4); Carbon Dioxide 18 mmol/L (22-30); Chloride 92 mmol/L (96-108); Glomerular Filtration Rate 8; Glucose 248 mg/dL (70-105); Lactate Dehydrogenase 197 U/L (135-225); Phosphorous 8.2 mg/dL (2.5-4.5); Triglycerides 94 mg/dL (<150); Uric Acid 9.6 mg/dL (2.5-8.0)
[2022-11-15] MEDS ORDERED: LACTATED RINGERS 1,000 ML IV ONE (08:54)
[2022-11-15 09:04] LABS: Anisocytosis 1+ (None Seen); Band Neutrophils % 1 % (0-10); Lymphocytes % 8 % (15-49); Monocytes % (Manual) 12 % (1-12); Platelet Estimate NORMAL (Normal); Polychromasia FEW (None Seen); RBC Morphology ABNORMAL (Normal); Segmented Neutrophils % 79 % (38-78)
[2022-11-15] MEDS: INSULIN LISPRO 1 UNIT/0.01 ML UNIT SQ SCH ×4 (10:00→20:47)
--- NOTE | 2022-11-15 11:27 | Cat Scan Report ---
INDICATION: right side pain COMPARISON: None. TECHNIQUE: Axial images were obtained through the abdomen and pelvis. Sagittally and coronally reformatted images. FINDINGS: Lung bases:There is cardiomegaly. No pericardial effusion. Lung bases are negative. No pleural effusion. Liver:Negative to the limits of noncontrast enhanced examination. Liver contour is smooth without evidence for cirrhosis Gallbladder, bilary:Gallbladder is distended. There are small calcified gallstones. Gallbladder wall appears thickened and measures approximately 5 mm. Cholecystitis is possible. Gallbladder ultrasound may be helpful for further evaluation. No dilated bile ducts Spleen:No splenomegaly Pancreas:No pancreatic mass. No peripancreatic abnormality Adrenal glands:Negative Kidneys,ureters,bladder:No solid renal mass. No hydronephrosis. No obstructing or nonobstructing calculi. No hydroureter. No ureteral calculus. There is a Grider catheter in the urinary bladder. Bladder is collapsed Gastrointestinal:No detectable colonic mass. There is no diverticulitis. Negative small bowel. No mechanical small bowel obstruction. No bowel wall thickening. No focal abnormality. Negative stomach and duodenum. No focal abnormality. Appendix: The appendix is not well visualized. No evidence for appendicitis Vascular:There is calcification of the abdominal aorta. No abdominal aortic aneurysm Lymphatic:No retroperitoneal adenopathy. No significant mesenteric adenopathy. Mesentery, peritoneum:No free intraperitoneal fluid. No intra-abdominal abscess. No pneumoperitoneum Reproductive:Findings consistent with hysterectomy. No adnexal mass Musculoskeletal:Previous vertebral body augmentation is at T11, L2, L3. There is superior endplate compression at L1 and L4. No lytic lesion. No paraspinal soft tissue mass. No anterior abdominal wall or inguinal hernia. IMPRESSION: 1. Distended gallbladder with probable collateral wall thickening and stones. Cholecystitis is possible. Gallbladder ultrasound recommended 2. Multiple thoracic and lumbar compression fractures 3. Extensive atherosclerotic calcification The exam was performed using radiation dose optimization techniques including, but not limited to, automated exposure control, adjustment of the mA and/or kV according to patient size and use of iterative reconstruction technique. Interpreted and Authenticated by: Franklyn Miguel 11/15/22
[2022-11-15] MEDS: OMEPRAZOLE 20 MG CAPSULE PO SCH (12:14)
[2022-11-15] MEDS: APIXABAN 5 MG TABLET PO SCH (12:14)
[2022-11-15] MEDS: DOCUSATE SODIUM 100 MG CAPSULE PO SCH ×2 (12:14→20:37)
[2022-11-15] MEDS: glipiZIDE 2.5 MG TAB.XL.24H PO SCH (12:27)
[2022-11-15] MEDS: cefTRIAXone 1 GM VIAL IV SCH (12:32)
--- NOTE | 2022-11-15 13:57 | Ultrasound Report ---
INDICATION: ?cholecystitis TECHNIQUE: Grayscale and color flow Doppler spectral imaging COMPARISON: CT scan dated 11/15/2022 FINDINGS: Gallbladder:Gallbladder is distended and measures approximately 12 cm. There is layering sludge as well as small calculi within the gallbladder lumen. Gallbladder wall measures 8 mm with mild pericholecystic fluid. Patient was asleep during this examination. Sonographic appearance is consistent with cholecystitis Common bile duct:No intra or extrahepatic bile duct dilatation.. Common bile duct [id number] mm proximally and 6 mm distally. Sludge and small stone within the distal common bile duct is possible. IMPRESSION: 1. Distended bladder with stones and sludge. Thickened wall and pericholecystic fluid. Findings are consistent with cholecystitis 2. Mildly dilated common bile duct. Choledocholithiasis is possible Interpreted and Authenticated by: Franklyn Miguel 11/15/22
--- NOTE | 2022-11-15 15:26 | General Surgery Consult Note ---
HPI Date of Consult Consult Date: 11/15/22 Primary Care Provider: Saige Sotomayor Consult Narrative Chief complaint: Cholecystitis History of present illness: This is a pleasant 87-year-old female who was admitted several days ago with a fracture through the surgical head of the right humerus status post fall. Patient was admitted, nonoperative management of the humerus was decided upon, she was waiting on placement. Patient had a CT scan today which is read as possible cholecystitis, follow-up ultrasound is read as possible cholecystitis and a dilated common bile duct of 10 mm. I was asked to see the patient to assist with further possible medical management. Patient denies pain at this time, she has no fevers chills nausea or vomiting at this time she has very poor oral intake. cc:: CC: Alejandro Johnson MD Review of Systems Review of systems: All systems reviewed, negative other than above PFSH PFSH All Active Problems (Updated 11/10/22 @ 22:17 by Alejandro Johnson MD) Displaced fracture of right humerus (Acute) Hyperglycemia due to type 2 diabetes mellitus (Acute) Fracture of proximal end of humerus (Acute) Type 2 diabetes mellitus with hyperosmolar hyperglycemic state (HHS) (Acute) Acute UTI (Acute) Acute hyponatremia (Acute) Gram-positive cocci bacteremia (Acute) Parotitis (Acute) Hypomagnesemia (Acute) Anemia, normocytic normochromic (Acute) Diabetic polyneuropathy associated with type 2 diabetes mellitus (Acute) Atrial fibrillation with rapid ventricular response (Acute) Encephalitis (Chronic) Myocardial infarction (Chronic ~1992) Adenomatous colon polyp (Chronic) Back pain (Chronic) Osteopenia (Chronic) 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) Hip pain, bilateral (Chronic) Compression fracture of spine (Chronic) Other hyperlipidemia (Chronic) Supraventricular tachycardia (Chronic) Pacemaker (Chronic) Other iron deficiency anemias (Chronic) Dyspnea (Chronic) 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 (Chronic) Trigger finger, right ring finger (Chronic) Dependent edema (Chronic) Chronic kidney disease, stage 3a (Chronic) 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, stage I (Chronic) DM (diabetes mellitus), type 2, uncontrolled w/neurologic complication (Chronic) Other low back pain (Chronic) Bilateral sacroiliitis (Acute) Medical History (Updated 11/10/22 @ 22:17 by Alejandro Johnson MD) Adenomatous colon polyp Atherosclerotic heart disease of [place] coronary artery with angina pectoris Back pain 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, stage I Chronic kidney disease, stage 3a Compression fracture of spine Dependent edema DM (diabetes mellitus), type 2, uncontrolled w/neurologic complication Dyspnea Encephalitis age 5 Hip pain, bilateral Myocardial infarction (~1992) Osteopenia Other hyperlipidemia Other iron deficiency anemias Other low back pain Pacemaker Secondary pulmonary arterial hypertension Supraventricular tachycardia Trigger finger, right ring finger Ulnar neuropathy of right upper extremity Surgical History (Updated 03/02/22 @ 16:31 by Rossi Ochoa) History of angioplasty and stent History of hysterectomy History of oophorectomy cyst History of permanent cardiac pacemaker placement (~11/03/09) History of surgery (~03/23/19) Proximal left anterior descending artery drug eluting stent History of tonsillectomy and adenoidectomy Hx of atrioventricular node ablation (~04/05/19) Family History (Updated 03/02/22 @ 16:38 by Rossi Ochoa) Mother Stroke Coronary heart disease Father Stroke Sister Breast cancer Other Family history of coronary artery disease Family history of diabetes mellitus type II Social History (Updated 03/02/22 @ 16:35 by Rossi Ochoa) marital status: occupational status: retired smoking status: Never smoker alcohol intake frequency: a few times a week substance use type: does not use MEDS/ALLERGIES Home Medications and Allergies Home Medications Medication Instructions Recorded Confirmed Type apixaban 2.5 mg tablet (Eliquis) 2.5 mg PO BID 05/05/22 11/11/22 History atorvastatin 80 mg tablet 40 mg PO HS 05/05/22 11/11/22 History ferrous sulfate 325 mg (65 mg 325 mg PO QDAY 05/05/22 11/11/22 History iron) tablet (FeroSul) furosemide 20 mg tablet 20 mg PO QDAY 05/05/22 11/11/22 History gabapentin 100 mg capsule 100 mg PO HS 05/05/22 11/11/22 History glipizide 2.5 mg tablet, extended 2.5 mg PO QDAY 05/05/22 11/11/22 History release 24 hr metformin 1,000 mg tablet 1,000 mg PO BIDCC 05/05/22 11/11/22 History omeprazole 20 mg capsule,delayed 20 mg PO DAILY 05/05/22 11/11/22 History release diltiazem HCl 180 mg 180 mg PO DAILY #30 caps 05/13/22 11/11/22 Rx capsule,extended release 24 hr blood sugar diagnostic #120 ea 11/12/22 Rx blood-glucose meter #1 ea 11/12/22 Rx hydrocodone 5 mg-acetaminophen 325 1 tab PO Q6H PRN pain #30 tabs 11/12/22 Rx mg tablet insulin lispro 100 unit/mL See Protocol subcut ACHS #15 mL 11/12/22 Rx subcutaneous pen (Humalog KwikPen (U-100) Insulin) lancets #100 ea 11/12/22 Rx metoprolol succinate 100 mg 100 mg PO DAILY #1 tab 11/13/22 Rx tablet,extended release 24 hr Allergies Allergy/AdvReac Type Severity Reaction Status Date / Time No Known Drug Allergies Allergy Verified 11/10/22 18:16 Physical Examination Vital Signs Vital signs: Temp Pulse Resp BP Pulse Ox O2 Del Method 98.6 F 99 H 16 96/52 94 Room Air 11/15/22 15:09 11/15/22 15:09 11/15/22 15:09 11/15/22 15:09 11/15/22 15:09 11/15/22 15:09 General physical appearance General physical exam: well developed, well nourished and no distress Eyes Eye exam: PERRL and normal ocular movement ENT ENT exam: normal pinna, normal nares, normal mucosa, no hearing loss and no congestion Head Head exam IM: Present atraumatic and normocephalic Neck Neck exam: no masses, no bruits, trachea midline, no lymphadenopathy and no venous distension Cardiovascular Cardiovascular exam IM: Present normal rate and rhythm Respiratory Respiratory exam: normal expansion, normal respiratory effort, clear to percussion and clear to auscultation Abdomen Abdomen: Present soft, non tender and bowel sounds Hernia: Present none Genitourinary Genitourinary (Female): Present normal external genitalia Rectum Rectum: Present normal sphincter tone, no hemorrhoids, no tenderness, no masses and no bleeding Integumentary Integumentary: Present no rash, no growths and no abnormal pigmentation Neurologic Neurologic: Present normal coordination and normal sensation Musculoskeletal Musculoskeletal: Present normal gait and normal posture Psychiatric Psychiatric: Present oriented to time, oriented to person, oriented to place, speech is normal and memory intact Results Labs 11/15/22 07:45 11/15/22 07:45 Labs: Abnormal lab results 11/14/22 11/15/22 11/15/22 Range/Units 18:20 07:45 07:45 RBC 3.04 L (3.59-5.38) M/mcL Hgb 9.2 L (11.2-15.7) g/dL Hct 28.4 L (34.1-44.9) % RDW 14.7 H (11.5-14.5) % Seg Neutrophils % 79 H (38-78) % Lymphocytes % 8 L (15-49) % RBC Morphology Abnormal A (Normal) Polychromasia Few A (None Seen) Anisocytosis 1+ A (None Seen) Sodium 127 L (133-145) mmol/L Chloride 92 L (96-108) mmol/L Carbon Dioxide 18 L (22-30) mmol/L Anion Gap 17.0 H (8.0-16.0) BUN 70 H (8-23) mg/dL Creatinine 4.5 H (0.6-1.1) mg/dL Glucose 248 H (70-105) mg/dL Uric Acid 9.6 H (2.5-8.0) mg/dL Calcium 7.8 L (8.6-10.4) mg/dL Phosphorus 8.2 H* (2.5-4.5) mg/dL Direct Bilirubin 0.3 H (<0.3) mg/dL GGT 59 H (5-36) U/L AST 41 H (<32) U/L Total Protein 5.5 L (5.9-8.4) gm/dL Albumin 2.5 L (3.2-5.2) gm/dL Albumin/Globulin Ratio 0.8 L (1.0-2.3) Urine Appearance Turbid A (Clear) Urine Protein 100 A (Negative) mg/dL Ur Leukocyte Esterase 250 A (Negative) /uL Urine RBC > 182 H (0-1) /hpf Urine WBC > 182 H (0-4) /hpf Urine Yeast (Budding) Many A (None) /hpf Diabetes panel 11/15/22 Range/Units 07:45 Sodium 127 L (133-145) mmol/L Potassium 4.5 (3.3-5.1) mmol/L Chloride 92 L (96-108) mmol/L Carbon Dioxide 18 L (22-30) mmol/L BUN 70 H (8-23) mg/dL Creatinine 4.5 H (0.6-1.1) mg/dL Glucose 248 H (70-105) mg/dL Calcium 7.8 L (8.6-10.4) mg/dL AST 41 H (<32) U/L ALT 38 (<40) U/L Alkaline Phosphatase 100 (39-117) U/L Total Protein 5.5 L (5.9-8.4) gm/dL Albumin 2.5 L (3.2-5.2) gm/dL Triglycerides 94 (<150) mg/dL Calcium panel 11/15/22 Range/Units 07:45 Calcium 7.8 L (8.6-10.4) mg/dL Phosphorus 8.2 H* (2.5-4.5) mg/dL Albumin 2.5 L (3.2-5.2) gm/dL Pituitary panel 11/15/22 Range/Units 07:45 Sodium 127 L (133-145) mmol/L Potassium 4.5 (3.3-5.1) mmol/L Chloride 92 L (96-108) mmol/L Carbon Dioxide 18 L (22-30) mmol/L BUN 70 H (8-23) mg/dL Creatinine 4.5 H (0.6-1.1) mg/dL Glucose 248 H (70-105) mg/dL Calcium 7.8 L (8.6-10.4) mg/dL Adrenal panel 11/15/22 Range/Units 07:45 Sodium 127 L (133-145) mmol/L Potassium 4.5 (3.3-5.1) mmol/L Chloride 92 L (96-108) mmol/L Carbon Dioxide 18 L (22-30) mmol/L BUN 70 H (8-23) mg/dL Creatinine 4.5 H (0.6-1.1) mg/dL Glucose 248 H (70-105) mg/dL Calcium 7.8 L (8.6-10.4) mg/dL Total Bilirubin 0.6 (0.1-1.0) mg/dL AST 41 H (<32) U/L ALT 38 (<40) U/L Alkaline Phosphatase 100 (39-117) U/L Total Protein 5.5 L (5.9-8.4) gm/dL Albumin 2.5 L (3.2-5.2) gm/dL All other labs normal. A/P Assessment and plan (1) Hyperglycemia due to type 2 diabetes mellitus: Status: Acute (2) Displaced fracture of right humerus: Status: Acute Plan Asked to see the patient secondary to possible cholecystitis. At this time patient reports no pain although she is not very conversive. Recommended MRCP secondary to possible choledocholithiasis, she is unable to get MRCP secondary to pacemaker. Long discussion with patient's friend at the bedside about options including possible HIDA scan to rule out ch oledocholithiasis, ERCP or cholecystectomy with interoperative cholangiogram to rule out choledocholithiasis. At this time it is felt that she would want no intervention. Would recommend increased p.o. intake, IV antibiotics to assist with cholecystitis. Given that she has no pain at this time and she is diabetic her presentation is more consistent with chronic cholecystitis, possible choledoch olithiasis. If intervention is needed and patient does not desire surgery cholecystotomy tube would be an option. I will continue to follow the patient with you. Time Spent With Patient Time: Total time spent is greater than 50% in coordination of care (as documented) at patient's floor/unit and/or counseling patient:
[2022-11-15] MEDS: PIPERACILLIN SODIUM/TAZOBACTAM 2.25 GM in DEXTROSE 5% IN WATER 50 ML IV SCH ×2 (16:51→23:06)
[2022-11-15] MEDS: LACTATED RINGERS 1,000 ML IV SCH ×3 (16:58→21:38)
[2022-11-15 18:58] LABS: Hepatitis B Surface Antigen Negative (Negative); Hepatitis C Virus Antibody Non-Reactive (Non-Reactive)
[2022-11-15] MEDS: ATORVASTATIN 40 MG TABLET PO SCH (20:37)
[2022-11-15] MEDS: SENNOSIDES 1 TABLET PO SCH (20:37)
[2022-11-15] MEDS: GABAPENTIN 100 MG CAPSULE PO SCH (20:37)
[2022-11-15] MEDS: HEPARIN 5,000 UNIT/ML VIAL SQ SCH (20:37)
[2022-11-16] MEDS: METOPROLOL TARTRATE 5 MG/5 ML VIAL IV PRN ×2 (04:07→16:36)
[2022-11-16] MEDS: 0.9 % SODIUM CHLORIDE 1,000 ML IV SCH ×2 (05:11→11:53)
[2022-11-16] MEDS: PIPERACILLIN SODIUM/TAZOBACTAM 2.25 GM in DEXTROSE 5% IN WATER 50 ML IV SCH ×3 (05:42→22:12)
[2022-11-16 06:38] LABS: Hematocrit 26.2 % (34.1-44.9); Hemoglobin 8.5 g/dL (11.2-15.7)
--- NOTE | 2022-11-16 07:07 | Internal Med Progress Note ---
SUBJECTIVE Subjective Patient information: Note initiated : 11/16/22 at 7:02 am Service Date, if different from initiated Date: [] Patient: Nolvia Jalloh 87 y/o F admitted on 11/10/22 for Fall, on blood thinner. Chief Complaint: [] Interval history: Ms. Jalloh is a 87 year old F history of atrial fibrillation status post pacemaker, type 2 diabetes mellitus, chronic kidney disease, presenting with accidental fall. Earlier this evening when she was getting out of the bathroom, she had to put her pants on but she lost her balance and she fell and landed on her right shoulder. She denies hitting her head. She denies any loss of consciousness. She denies any chest pain palpitations or shortness of breath. She is currently complaining of 10 out of 10 sharp constant pain of her right shoulder and right upper arm. X-ray performed in the ED showing displaced fracture through the surgical neck of the proximal right humerus. In addition, labs also showing elevated blood sugar of 640. Serum pH 7.58, serum bicarb 23.1, lactic acid 2.7, and anion gap 11. In additions, patient is also commenting of increased urinary frequency over the past couple weeks but she denies any urgency or hesitancy and she denies any dysuria. UA pending. ER physicians contacted orthopedic surgeon Dr. Moreno who recommend against emergent surgery at this point. Instead, he recommended putting a sling on and he will see the patient in his office. Admission request is called for symptoms controlled of new onset right humeral fracture, uncontrolled type 2 diabetes mellitus with hyperglycemia, and suspected urinary tract infections. 4/2: There is no major overnight events. Afebrile overnight. Fasting sugar 113. Blood and urine culture no growth to date. Patient is still coming of severe right arm pain. Keep her right arm sling in place. No plan for surgery for the time being. Focus on symptoms controlled with narcotics as needed. Saline lock the patient's and changed the antibiotics from Rocephin to Bactrim DS for urinary tract infections while keeping an eye on blood and urine culture. Switch the insulin lispro sign scale insulin from high scale to low scale AC adjust. Accu- Chek ACHS. Physical therapy and Occupational Therapy evaluation and treatments. Overall condition stable. 4/3 Patient seems a bit tired this morning. Otherwise no overnight event or new complaints. Urine culture growing Klebsiella. Right arm sling in place. Will need follow-up outpatient with orthopedic surgery. 11/13 No overnight events or new complaints. However blood pressure has been running fairly soft. She is on Toprol 100 twice daily will decrease that to once a day. And monitor. 11/14 Patient has no subjective complaints. States she feels fine. Does appear tired though. Per nursing she has had poor urine output although she has been incontinent. Although she does admit to poor oral intake and she does have this low normal blood pressure. We will d/c her diltiazem and continue her Toprol. give her IV fluid today. 11/15 pt found to still have dirty urine, concerning continued UTI, rocephin restarted. Continued IVF d/t poor oral intake and soft BP. hold BP meds for now. Patient complains of shoulder pain but no other specific pains. No nausea vomiting chest pain stomach pain until we palpate on her abdomen. pending CT a/p. Patient denies fever chills. She does admit to feeling weak and tired. urine is dark in the Grider bag. Mild anemia noted on labs at 9.2 with a baseline in the tens. Hyponatremia note d at 127. Creatinine is significantly elevated. Metabolic acidosis. Elevated uric acid. CT a/p concerning for acute cholecystitis. Gallbladder ultrasound showing distended gallbladder with stones and sludge and with pericholecystic fluid. I discussed CODE STATUS with the patient to so I understood what her wishes would be and confirmed that DO NOT RESUSCITATE was more aligned with what her w ishes would be. We will have nurses provide the form to her 11/16 Patient says she is feeling okay. Seems to be slightly perkier than previous. No real complaints other than right arm pain and some occasional nausea. Renal function still quite decompensated but improved with IV fluid. Continue a ntibiotics for acute cholecystitis with surgery following. Urine output improving. Urine still concentrated but not as dark. Review of Systems: denies headache/fever/chills/vomiting/chest or abdominal pain/cough/dyspnea/diarrhea. Otherwise see above. PHYSICAL EXAM General: Alert, Awake, No acute Distress Eyes/N/T: EOMI, no scleral icterus, Head/Neck: neck supple, full ROM, CV: Irregular no murmurs, Pulm: Clear b/l, no wheezing/rhonchi/rales, no respiratory distress Abd: soft,mild tender RUQ.RLQ, +BS x4 Ext: no clubbing/cyanosis/edema, right arm sling in place Neuro: Alert, no focal deficits, moves all extremities, sensations intact b/l upper/lower Psychiatric: Skin: warm/dry, normal color Constitutional Vitals: Vital Signs Temp Pulse Resp BP Pulse Ox O2 Del Method 98.6 F 123 H 16 117/63 93 Room Air 11/15/22 23:10 11/16/22 05:03 11/16/22 03:59 11/16/22 03:59 11/16/22 05:03 11/16/22 05:03 Period Temp Pulse Resp BP Sys/Tidwell Pulse Ox O2 Del Method O2 Flow Rate Last 24 Hr 98.0 F-98.7 F 99-131 16-18 96-117/52-65 93-100 Room Air-Room Air Intake and Output 11/15/22 11/16/22 11/16/22 19:59 03:59 11:59 Intake Total 1050 1309 50 Output Total 300 375 Balance 750 934 50 Weight 47.854 kg 47.763 kg Intake & Output: Intake & Output 11/15/22 11/16/22 11/16/22 19:59 03:59 11:59 Intake Total 1050 1309 50 Output Total 300 375 Balance 750 934 50 Weight 47.854 kg 47.763 kg Intake: IV 1050 1309 50 Sodium Chloride 0.9% 1,000 ml @ 259 75 mls/hr IV .[id number] [facility] Rx#: [id number] Lactated Ringers 1,000 ml @ 500 1000 1000 mls/hr IV .Q2H [facility] Rx#: [id number] Zosyn 2.25 gm In Dextrose 5% in 50 50 50 Water 50 ml @ 100 mls/hr IV Q8H [facility] Rx#:[id number] Output: Urine Catheter Amount 300 375 Other: Urine Appearance Clear Cloudy Uretheral (Grider) Clear Cloudy Urine Color Yellow Dark Yellow Uretheral (Grider) Yellow Dark Yellow Urine Odor Strong Strong Uretheral (Grider) Strong Normal OBJ DATA Labs 11/16/22 05:30 11/16/22 05:30 Labs: Abnormal Lab Results 11/16/22 11/15/22 11/15/22 05:30 07:45 07:45 RBC 3.04 L Hgb 8.5 L 9.2 L Hct 26.2 L 28.4 L RDW 14.7 H Seg Neutrophils % 79 H Lymphocytes % 8 L RBC Morphology Abnormal A Polychromasia Few A Anisocytosis 1+ A Sodium 127 L Chloride 92 L Carbon Dioxide 18 L Anion Gap 17.0 H BUN 70 H Creatinine 4.5 H Glucose 248 H Uric Acid 9.6 H Calcium 7.8 L Phosphorus 8.2 H* Direct Bilirubin 0.3 H GGT 59 H AST 41 H Total Protein 5.5 L Albumin 2.5 L Albumin/Globulin Ratio 0.8 L Urine Appearance Urine Protein Ur Leukocyte Esterase Urine RBC Urine WBC Urine Yeast (Budding) 11/14/22 18:20 RBC Hgb Hct RDW Seg Neutrophils % Lymphocytes % RBC Morphology Polychromasia Anisocytosis Sodium Chloride Carbon Dioxide Anion Gap BUN Creatinine Glucose Uric Acid Calcium Phosphorus Direct Bilirubin GGT AST Total Protein Albumin Albumin/Globulin Ratio Urine Appearance Turbid A Urine Protein 100 A Ur Leukocyte Esterase 250 A Urine RBC > 182 H Urine WBC > 182 H Urine Yeast (Budding) Many A Meds: Medications Acetaminophen (Acetaminophen 325 Mg Tablet) 650 mg PO Q6HP PRN; Protocol PRN Reason: Per Pain Protocol/Fever > 101 Last Admin: 11/14/22 08:26 Dose: 650 mg Hydrocodone Bitart/Acetaminophen (Hydrocodone/Apap 5/325mg Tablet) 1 tab PO Q6HP PRN; Protocol PRN Reason: Per Pain Protocol Last Admin: 11/14/22 19:26 Dose: 1 tab Albuterol/Ipratropium (Ipratropium/Albuterol 3 Ml Ampul.Neb) 3 ml NEB Q4HRT PRN PRN Reason: Wheezing Atorvastatin Calcium (Atorvastatin 40 Mg Tablet) 40 mg PO HS [facility] Last Admin: 11/15/22 20:37 Dose: 40 mg Dextrose (Dextrose 50% 50 Ml Vial) 0 ml IV UD PRN PRN Reason: Per Sliding Scale Dextrose (Dextrose 50% 50 Ml Vial) 0 ml IV UD PRN PRN Reason: Per Sliding Scale Diagnostic Test (Pha) (Accu-Chek 1 Each Strip) 1 each FS ACHS [facility] Last Admin: 11/15/22 20:44 Dose: 1 each Docusate Sodium (Docusate Sodium 100 Mg Capsule) 100 mg PO BID [facility] Last Admin: 11/15/22 20:37 Dose: 100 mg Gabapentin (Gabapentin 100 Mg Capsule) 100 mg PO [facility] Last Admin: 11/15/22 20:37 Dose: 100 mg Glucose (Dextrose 31 Gm Oral.Susp) 15 gm PO PRN PRN PRN Reason: Hypoglycemia Glucose (Dextrose 31 Gm Oral.Susp) 15 gm PO PRN PRN PRN Reason: Hypoglycemia Heparin Sodium (Porcine) (Heparin 5,000 Unit/Ml Vial) 5,000 unit SQ Q12 [facility] Last Admin: 11/15/22 20:37 Dose: 5,000 unit Sodium Chloride (Sodium Chloride 0.9%) 1,000 mls @ 75 mls/hr IV .[id number] [facility] Last Admin: 11/16/22 05:11 Dose: Not Given Piperacillin Sod/Tazobactam (Sod 2.25 gm/ Dextrose) 50 mls @ 100 mls/hr IV Q8H [facility]; Protocol Last Infusion: 11/16/22 06:20 Dose: Infused Insulin Human Lispro (Insulin Lispro 1 Unit/0.01 Ml Unit) [facility]; Protocol Last Admin: 11/15/22 20:47 Dose: 6 units Metoprolol Tartrate (Metoprolol Tartrate 5 Mg/5 Ml Vial) 5 mg IV Q2HP PRN PRN Reason: Tachyarrhythmias HR>110 Last Admin: 11/16/22 04:07 Dose: 5 mg Omeprazole (Omeprazole 20 Mg Capsule) 20 mg PO DAILY [facility] Last Admin: 11/15/22 12:14 Dose: 20 mg Senna (Sennosides 1 Tablet) 2 tab PO [facility] Last Admin: 11/15/22 20:37 Dose: 2 tab Trazodone HCl (Trazodone Hcl 50 Mg Tablet) 25 mg PO HSP PRN PRN Reason: Insomnia A/P Narrative A/P Narrative: Assessment and Plans: *TANI on CKDIII: likely 2/2 poor oral intake -poor UOP but improving -Cr improving with IVF *Metabolic acidosis: improving *Hyperphosphatemia: improving *Borderline hypotension: better *Acute cholecystitis with ?possible choledocolithiasis: *Displaced fracture through surgical neck of the proximal right humerus: *Permanent atrial fibrillation with pacemaker: *Hyperglycemia w/DM2 with polyneuropathy/nephropathy: poorly controlled -HgA1c 15.8, did have good control last fall *UTI ( ):did complete Bactrim DS(possible contributor to TANI), but urine still looks dirty, restarted abx & pending UC *Hyponatremia: improving *Anemia, acute on chronic: likely dilutional *HTN: *Transaminitis,mild: Chronic but improved *GERD: P: -Zosyn -Dr Taylor following, no surgery at this time, treat with antibiotics. If intervention is needed and pt does not want surgery then cholecystostomy tube would be the next course of action -IVF's -f/u renal fxn/UOP/fluid balance -Avoid nephrotoxic agents -Dilt/BB stopped for low BP, prn IV lopressor, restart lower dose BB and titrate up -Hold oral hypoglycemics, SSI, may d/c with temporary SSI - may need long- acting, f/u with PCP -cont statin -I rediscussed with Dr. Moreno who intends to treat the arm conservatively, he will see in office. -Tylenol , [place] , Morphine -Physical therapy evaluation and treatment, Occupational therapy evaluation and treatment -CM for placement -ppx: Eliquis to heparin in anticipation of surgery / home ppi Code status: DNR Time Spent With Patient Time: Total time spent is greater than 50% in coordination of care (as documented) at patient's floor/unit and/or counseling patient: Subsequent: Total time with patient: 50 - 65 Minutes
[2022-11-16] MEDS: INSULIN LISPRO 1 UNIT/0.01 ML UNIT SQ SCH ×4 (07:24→20:39)
[2022-11-16 07:51] LABS: ALT/SGPT 33 U/L (<40); AST/SGOT 48 U/L (<32); Albumin 2.5 gm/dL (3.2-5.2); Alkaline Phosphatase 95 U/L (39-117); Bilirubin,Direct < 0.2 mg/dL (0-0.3); Bilirubin,Total 0.4 mg/dL (0.1-1.0); Blood Urea Nitrogen 59 mg/dL (8-23); Calcium 7.9 mg/dL (8.6-10.4); Carbon Dioxide 20 mmol/L (22-30); Chloride 101 mmol/L (96-108); Globulin 2.5 gm/dL (2.2-3.7); Glomerular Filtration Rate 11; Glucose 88 mg/dL (70-105); Lactate Dehydrogenase 199 U/L (135-225); Phosphorous 5.9 mg/dL (2.5-4.5); Triglycerides 85 mg/dL (<150)
[2022-11-16] MEDS: DOCUSATE SODIUM 100 MG CAPSULE PO SCH ×2 (08:20→19:40)
[2022-11-16] MEDS: HEPARIN 5,000 UNIT/ML VIAL SQ SCH ×2 (08:20→20:40)
[2022-11-16] MEDS: OMEPRAZOLE 20 MG CAPSULE PO SCH (08:20)
[2022-11-16] MEDS ORDERED: METOPROLOL TARTRATE 25 MG TABLET PO SCH ×2 (09:00→11:28)
[2022-11-16] MEDS ORDERED: FLUCONAZOLE 150 MG TABLET PO SCH (11:43)
--- NOTE | 2022-11-16 12:12 | Internal Med Progress Note ---
SUBJECTIVE Subjective Patient information: Note initiated : 11/16/22 at 12:06 pm Service Date, if different from initiated Date: [] Patient: Nolvia Jalloh 87 y/o F admitted on 11/10/22 for Fall, on blood thinner. Chief Complaint: [] Interval history: Ms. Jalloh is a 87 year old F history of atrial fibrillation status post pacemaker, type 2 diabetes mellitus, chronic kidney disease, presenting with accidental fall. Earlier this evening when she was getting out of the bathroom, she had to put her pants on but she lost her balance and she fell and landed on her right shoulder. She denies hitting her head. She denies any loss of consciousness. She denies any chest pain palpitations or shortness of breath. She is currently complaining of 10 out of 10 sharp constant pain of her right shoulder and right upper arm. X-ray performed in the ED showing displaced fracture through the surgical neck of the proximal right humerus. In addition, labs also showing elevated blood sugar of 640. Serum pH 7.58, serum bicarb 23.1, lactic acid 2.7, and anion gap 11. In additions, patient is also commenting of increased urinary frequency over the past couple weeks but she denies any urgency or hesitancy and she denies any dysuria. UA pending. ER physicians contacted orthopedic surgeon Dr. Moreno who recommend against emergent surgery at this point. Instead, he recommended putting a sling on and he will see the patient in his office. Admission request is called for symptoms controlled of new onset right humeral fracture, uncontrolled type 2 diabetes mellitus with hyperglycemia, and suspected urinary tract infections. 4/2: There is no major overnight events. Afebrile overnight. Fasting sugar 113. Blood and urine culture no growth to date. Patient is still coming of severe right arm pain. Keep her right arm sling in place. No plan for surgery for the time being. Focus on symptoms controlled with narcotics as needed. Saline lock the patient's and changed the antibiotics from Rocephin to Bactrim DS for urinary tract infections while keeping an eye on blood and urine culture. Switch the insulin lispro sign scale insulin from high scale to low scale AC adjust. Accu- Chek ACHS. Physical therapy and Occupational Therapy evaluation and treatments. Overall condition stable. 4/3 Patient seems a bit tired this morning. Otherwise no overnight event or new complaints. Urine culture growing Klebsiella. Right arm sling in place. Will need follow-up outpatient with orthopedic surgery. 11/13 No overnight events or new complaints. However blood pressure has been running fairly soft. She is on Toprol 100 twice daily will decrease that to once a day. And monitor. 11/14 Patient has no subjective complaints. States she feels fine. Does appear tired though. Per nursing she has had poor urine output although she has been incontinent. Although she does admit to poor oral intake and she does have this low normal blood pressure. We will d/c her diltiazem and continue her Toprol. give her IV fluid today. 11/15 pt found to still have dirty urine, concerning continued UTI, rocephin restarted. Continued IVF d/t poor oral intake and soft BP. hold BP meds for now. Patient complains of shoulder pain but no other specific pains. No nausea vomiting chest pain stomach pain until we palpate on her abdomen. pending CT a/p. Patient denies fever chills. She does admit to feeling weak and tired. urine is dark in the Grider bag. Mild anemia noted on labs at 9.2 with a baseline in the tens. Hyponatremia not ed at 127. Creatinine is significantly elevated. Metabolic acidosis. Elevated uric acid. CT a/p concerning for acute cholecystitis. Gallbladder ultrasound showing distended gallbladder with stones and sludge and with pericholecystic fluid. I discussed CODE STATUS with the patient to so I understood what her wishes would be and confirmed that DO NOT RESUSCITATE was more aligned with what her wishes would be. We will have nurses provide the form to her 11/16 Patient says she is feeling okay. Seems to be slightly perkier than previous. No real complaints other than right arm pain and some occasional nausea. Renal function still quite decompensated but improved with IV fluid. Continue antibiotics for acute cholecystitis with surgery following. Urine output improving. Urine still concentrated but not as dark. 11/17 Patient has had tachycardia overnight, EKG shows atrial fibrillation with rapid ventricular response.resumed home Cardizem, continue Lopressor. coffee supervisor ordered. Morning fasting glucose elevated, added Lantus 10 units daily, continue correction Humalog SSI medium dose. Renal function continues to improve, making urine. General surgery recommending against surgical intervention at this time. Continue IV fluid today and monitoring renal function. Discontinued fluconazole. Physical exam Head: Atraumatic, normal inspection. Eyes: normal appearance, no scleral icterus. Neck: full ROM Respiratory: no respiratory distress. Cardiovascular: Tachycardia, S1, S2. GI/Abdominal: soft, nontender, no guarding. Extremities: Right upper extremity tenderness with limited motion due to tenderness Neurological: CN II-XII intact, intact motor, intact sensation. Psychiatric: normal mood. Skin: warm, normal color Constitutional Vitals: Vital Signs Temp Pulse Resp BP Pulse Ox O2 Del Method 98.4 F 115 H 18 105/69 98 Room Air 11/16/22 11:21 11/16/22 11:21 11/16/22 11:21 11/16/22 11:21 11/16/22 11:21 11/16/22 11:21 Period Temp Pulse Resp BP Sys/Tidwell Pulse Ox O2 Del Method O2 Flow Rate Last 24 Hr 98.1 F-98.7 F 99-131 14-18 96-119/52-78 93-99 Room Air-Room Air Intake and Output 11/16/22 11/16/22 11/16/22 03:59 11:59 19:59 Intake Total 1309 1050 Output Total 375 Balance 934 1050 Weight 47.763 kg Intake & Output: Intake & Output 11/16/22 11/16/22 11/16/22 03:59 11:59 19:59 Intake Total 1309 1050 Output Total 375 Balance 934 1050 Weight 47.763 kg Intake: IV 1309 1050 Sodium Chloride 0.9% 1,000 ml @ 259 1000 75 mls/hr IV .[id number] [facility] Rx#: [id number] Lactated Ringers 1,000 ml @ 500 1000 mls/hr IV .Q2H [facility] Rx#: [id number] Zosyn 2.25 gm In Dextrose 5% in 50 50 Water 50 ml @ 100 mls/hr IV Q8H [facility] Rx#:[id number] Output: Urine Catheter Amount 375 Other: Urine Appearance Cloudy Uretheral (Grider) Cloudy Cloudy Urine Color Dark Yellow Uretheral (Grider) Dark Yellow Dark Yellow Urine Odor Strong Uretheral (Grider) Normal OBJ DATA Labs 11/17/22 05:15 11/17/22 05:15 Labs: Abnormal Lab Results 11/16/22 11/16/22 11/15/22 05:30 05:30 07:45 RBC 3.04 L Hgb 8.5 L 9.2 L Hct 26.2 L 28.4 L RDW 14.7 H Seg Neutrophils % 79 H Lymphocytes % 8 L RBC Morphology Abnormal A Polychromasia Few A Anisocytosis 1+ A Sodium Chloride Carbon Dioxide 20 L Anion Gap BUN 59 H Creatinine 3.4 H Glucose Uric Acid 9.0 H Calcium 7.9 L Phosphorus 5.9 H* Direct Bilirubin GGT 54 H AST 48 H Total Protein 5.0 L Albumin 2.5 L Albumin/Globulin Ratio Urine Appearance Urine Protein Ur Leukocyte Esterase Urine RBC Urine WBC Urine Yeast (Budding) 11/15/22 11/14/22 07:45 18:20 RBC Hgb Hct RDW Seg Neutrophils % Lymphocytes % RBC Morphology Polychromasia Anisocytosis Sodium 127 L Chloride 92 L Carbon Dioxide 18 L Anion Gap 17.0 H BUN 70 H Creatinine 4.5 H Glucose 248 H Uric Acid 9.6 H Calcium 7.8 L Phosphorus 8.2 H* Direct Bilirubin 0.3 H GGT 59 H AST 41 H Total Protein 5.5 L Albumin 2.5 L Albumin/Globulin Ratio 0.8 L Urine Appearance Turbid A Urine Protein 100 A Ur Leukocyte Esterase 250 A Urine RBC > 182 H Urine WBC > 182 H Urine Yeast (Budding) Many A Meds: Medications Acetaminophen (Acetaminophen 325 Mg Tablet) 650 mg PO Q6HP PRN; Protocol PRN Reason: Per Pain Protocol/Fever > 101 Last Admin: 11/14/22 08:26 Dose: 650 mg Hydrocodone Bitart/Acetaminophen (Hydrocodone/Apap 5/325mg Tablet) 1 tab PO Q6HP PRN; Protocol PRN Reason: Per Pain Protocol Last Admin: 11/14/22 19:26 Dose: 1 tab Albuterol/Ipratropium (Ipratropium/Albuterol 3 Ml Ampul.Neb) 3 ml NEB Q4HRT PRN PRN Reason: Wheezing Atorvastatin Calcium (Atorvastatin 40 Mg Tablet) 40 mg PO HS [facility] Last Admin: 11/15/22 20:37 Dose: 40 mg Dextrose (Dextrose 50% 50 Ml Vial) 0 ml IV UD PRN PRN Reason: Per Sliding Scale Diagnostic Test (Pha) (Accu-Chek 1 Each Strip) 1 each FS ACHS [facility] Last Admin: 11/16/22 11:25 Dose: 1 each Docusate Sodium (Docusate Sodium 100 Mg Capsule) 100 mg PO BID [facility] Last Admin: 11/16/22 08:20 Dose: 100 mg Fluconazole (Fluconazole 150 Mg Tablet) 150 mg PO ONCE [facility]; Protocol Stop: 11/16/22 15:00 Last Admin: 11/16/22 11:50 Dose: 150 mg Fluconazole (Fluconazole 150 Mg Tablet) 150 mg PO DAILY [facility]; Protocol Stop: 11/29/22 09:01 Gabapentin (Gabapentin 100 Mg Capsule) 100 mg PO HS [facility] Last Admin: 11/15/22 20:37 Dose: 100 mg Glucose (Dextrose 31 Gm Oral.Susp) 15 gm PO PRN PRN PRN Reason: Hypoglycemia Heparin Sodium (Porcine) (Heparin 5,000 Unit/Ml Vial) 5,000 unit SQ Q12 [facility] Last Admin: 11/16/22 08:20 Dose: 5,000 unit Piperacillin Sod/Tazobactam (Sod 2.25 gm/ Dextrose) 50 mls @ 100 mls/hr IV Q8H [facility]; Protocol Last Infusion: 11/16/22 06:20 Dose: Infused Sodium Chloride (Sodium Chloride 0.9%) 1,000 mls @ 75 mls/hr IV .[id number] [facility] Stop: 11/17/22 14:24 Last Admin: 11/16/22 11:53 Dose: 75 mls/hr Insulin Human Lispro (Insulin Lispro 1 Unit/0.01 Ml Unit) 0 unit SQ ACHS [facility]; Protocol Last Admin: 11/16/22 11:28 Dose: Not Given Metoprolol Tartrate (Metoprolol Tartrate 5 Mg/5 Ml Vial) 5 mg IV Q2HP PRN PRN Reason: Tachyarrhythmias HR>110 Last Admin: 11/16/22 04:07 Dose: 5 mg Metoprolol Tartrate (Metoprolol Tartrate 25 Mg Tablet) 50 mg PO BID [facility] Metoprolol Tartrate (Metoprolol Tartrate 25 Mg Tablet) 25 mg PO ONCE [facility] Stop: 11/16/22 13:00 Last Admin: 11/16/22 11:50 Dose: 25 mg Omeprazole (Omeprazole 20 Mg Capsule) 20 mg PO DAILY [facility] Last Admin: 11/16/22 08:20 Dose: 20 mg Senna (Sennosides 1 Tablet) 2 tab PO HS [facility] Last Admin: 11/15/22 20:37 Dose: 2 tab Trazodone HCl (Trazodone Hcl 50 Mg Tablet) 25 mg PO HSP PRN PRN Reason: Insomnia A/P Assessment and plan (1) Hyperglycemia due to type 2 diabetes mellitus: Status: Acute (2) Displaced fracture of right humerus: Status: Acute (3) Acute UTI: Status: Acute (4) Atrial fibrillation with rapid ventricular response: Status: Acute (5) Chronic kidney disease, stage 3a: Status: Chronic Narrative A/P Narrative: Assessment: 87-year-old female with a history of atrial fibrillation status post pacemaker, type 2 diabetes mellitus, chronic kidney disease admitted for a proximal right humerus fracture secondary to a ground-level fall. Orthopedic surgery recommended nonoperative management with sling placement and follow-up in the orthopedic surgery clinic. During the hospitalization the patient developed an acute kidney injury and there was a concern for acute cholecystitis and choledocholithiasis . The patient was unable to get an MRCP due to her pacemaker. *TANI on CKDIII: Improving *Metabolic acidosis *Hyperphosphatemia: Resolved *Atrial fibrillation with RVR permanent atrial fibrillation with pacemaker: *Cholelithiasis *Displaced fracture through surgical neck of the proximal right humerus: *Hyperglycemia w/DM2 with polyneuropathy/nephropathy: poorly controlled -HgA1c 15.8, did have good control last fall *UTI secondary to Klebsiella pneumoniae *Hyponatremia: improving *Anemia, acute on chronic: likely dilutional *Essential hypertension *Transaminitis,mild: Chronic but improved *GERD: Plan: -Continue IV fluid, follow renal function, urine output and volume status. -Resume home Cardizem 180 mg daily. -Continue Lopressor 50 mg twice daily and, prn IV Lopressor. -Resume home Eliquis (dose reduced for age and weight) -Start Lantus 10 units daily. -Continue correction Humalog SSImedium dose. -Discontinue Zosyn and fluconazole. -Consider oral bicarbonate if metabolic acidosis does not resolve. -Continue home atorvastatin, gabapentin, Prilosec. -Right upper extremity sling, follow-up with orthopedic surgery in clinic. -Analgesics as needed. -PT and OT. -CM for placement -ppx: Eliquis. -CODE STATUS: DNR/DNI -Disposition: Currently inpatient [facility], anticipate discharge to low intensity rehab if the patient is agreeable. Follow-up with orthopedic surgery and general surgery in clinic. Time Spent With Patient Time: Total time spent is greater than 50% in coordination of care (as documented) at patient's floor/unit and/or counseling patient:
[2022-11-16] MEDS: ACETAMINOPHEN 325 MG TABLET PO PRN (13:54)
[2022-11-16] MEDS: SENNOSIDES 1 TABLET PO SCH (19:40)
[2022-11-16] MEDS: METOPROLOL TARTRATE 25 MG TABLET PO SCH (20:40)
[2022-11-16] MEDS: ATORVASTATIN 40 MG TABLET PO SCH (20:40)
[2022-11-16] MEDS: GABAPENTIN 100 MG CAPSULE PO SCH (20:40)
[2022-11-16] MEDS: HYDROcodone/APAP 5/325MG TABLET PO PRN (22:12)
[2022-11-17] MEDS: 0.9 % SODIUM CHLORIDE 1,000 ML IV SCH (02:59)
[2022-11-17] MEDS: METOPROLOL TARTRATE 5 MG/5 ML VIAL IV PRN ×2 (04:32→15:47)
[2022-11-17] MEDS: PIPERACILLIN SODIUM/TAZOBACTAM 2.25 GM in DEXTROSE 5% IN WATER 50 ML IV SCH ×3 (05:59→21:53)
[2022-11-17 06:39] LABS: ALT/SGPT 40 U/L (<40); AST/SGOT 64 U/L (<32); Albumin 2.4 gm/dL (3.2-5.2); Albumin/Globulin Ratio 0.9 (1.0-2.3); Alkaline Phosphatase 96 U/L (39-117); Bilirubin,Direct < 0.2 mg/dL (0-0.3); Bilirubin,Total 0.4 mg/dL (0.1-1.0); Blood Urea Nitrogen 53 mg/dL (8-23); Carbon Dioxide 18 mmol/L (22-30); Chloride 105 mmol/L (96-108); Globulin 2.7 gm/dL (2.2-3.7); Glomerular Filtration Rate 15; Glucose 188 mg/dL (70-105); Lactate Dehydrogenase 228 U/L (135-225); Phosphorous 4.4 mg/dL (2.5-4.5); Triglycerides 91 mg/dL (<150)
[2022-11-17 06:42] LABS: Hematocrit 33.5 % (34.1-44.9); Hemoglobin 9.4 g/dL (11.2-15.7)
--- NOTE | 2022-11-17 07:36 | General Surgery Progress Note ---
SUBJECTIVE Subjective Patient information: Note initiated : 11/17/22 at 7:34 am Service Date, if different from initiated Date: [] Patient: Nolvia Jalloh 87 y/o F admitted on 11/10/22 for Fall, on blood thinner. Chief Complaint: [] Interval history: Patient has no complaints this morning, is tolerating diet, no abdominal pain. No nausea vomiting fevers or chills Constitutional Vitals: Vital Signs Temp Pulse Resp BP Pulse Ox O2 Del Method O2 Flow Rate 97.7 F 119 H 16 106/66 98 Room Air 0 11/17/22 04:27 11/17/22 06:01 11/17/22 04:27 11/17/22 04:27 11/17/22 04:27 11/17/22 04:27 11/16/22 16:00 Period Temp Pulse Resp BP Sys/Tidwell Pulse Ox O2 Del Method O2 Flow Rate Last 24 Hr 97.5 F-98.4 F 102-133 15-18 98-112/65-71 97-99 Room Air-Room Air 0 Intake and Output 11/16/22 11/17/22 11/17/22 19:59 03:59 11:59 Intake Total 300 1010 400 Output Total 600 400 Balance -300 1010 0 Weight 112 lb 14.4 oz Intake & Output: Intake & Output 11/16/22 11/17/22 11/17/22 19:59 03:59 11:59 Intake Total 300 1010 400 Output Total 600 400 Balance -300 1010 0 Weight 112 lb 14.4 oz Intake: IV 50 1010 Sodium Chloride 0.9% 1,000 ml @ 960 75 mls/hr IV .[id number] BONNY Rx#: [id number] Zosyn 2.25 gm In Dextrose 5% in 50 50 Water 50 ml @ 100 mls/hr IV Q8H BONNY Rx#:[id number] Oral 250 400 Output: Urine Catheter Amount 600 400 Other: Meal Lunch Percent of Meal Consumed 75% Feeding Ability Assist with Tray Set Up Urine Appearance Sediment Clear Uretheral (Grider) Sediment Clear Urine Color Dark Yellow Yellow Uretheral (Grider) Dark Yellow Yellow Urine Odor Strong Normal Uretheral (Grider) Normal Normal Stool Size Large Stool Color Brown Stool Consistency Liquid Loose # Bowel Movements 1 General appearance: cooperative and no acute distress GI/Abdominal GI/Abdominal exam: Present normal bowel sounds and soft; Absent distended or tenderness A/P Assessment and plan (1) Cholelithiasis: Plan: Cholelithiasis, no abdominal pain. No need for surgical intervention at this time. Please call with any further questions. Status: Acute Time Spent With Patient Time: Total time spent is greater than 50% in coordination of care (as documented) at patient's floor/unit and/or counseling patient:
[2022-11-17] MEDS: INSULIN LISPRO 1 UNIT/0.01 ML UNIT SQ SCH ×4 (08:06→20:12)
[2022-11-17] MEDS: OMEPRAZOLE 20 MG CAPSULE PO SCH (08:56)
[2022-11-17] MEDS: HYDROcodone/APAP 5/325MG TABLET PO PRN ×2 (08:56→20:13)
[2022-11-17] MEDS: METOPROLOL TARTRATE 25 MG TABLET PO SCH ×2 (08:56→20:14)
[2022-11-17] MEDS: DOCUSATE SODIUM 100 MG CAPSULE PO SCH ×2 (08:58→20:12)
[2022-11-17] MEDS ORDERED: FLUCONAZOLE 150 MG TABLET PO SCH (09:00)
[2022-11-17] MEDS: HEPARIN 5,000 UNIT/ML VIAL SQ SCH (12:16)
[2022-11-17] MEDS: DILTIAZEM 180 MG CAP.XL.24H PO SCH (14:13)
[2022-11-17] MEDS: INSULIN GLARGINE, HUMAN 1 UNIT/0.01 ML SQ SCH (14:13)
[2022-11-17] MEDS: SENNOSIDES 1 TABLET PO SCH (20:13)
[2022-11-17] MEDS: ATORVASTATIN 40 MG TABLET PO SCH (20:13)
[2022-11-17] MEDS: APIXABAN 5 MG TABLET PO SCH (20:13)
[2022-11-17] MEDS: GABAPENTIN 100 MG CAPSULE PO SCH (20:13)
[2022-11-17] MEDS ORDERED: QUEtiapine 25 MG TABLET PO PRN (23:06)
[2022-11-17] MEDS ORDERED: QUEtiapine 25 MG TABLET ONE (23:14)
[2022-11-18] MEDS: METOPROLOL TARTRATE 5 MG/5 ML VIAL IV PRN ×4 (00:07→06:43)
[2022-11-18] MEDS: PIPERACILLIN SODIUM/TAZOBACTAM 2.25 GM in DEXTROSE 5% IN WATER 50 ML IV SCH (05:59)
[2022-11-18] MEDS: DILTIAZEM 180 MG CAP.XL.24H PO SCH (07:30)
[2022-11-18] MEDS: OMEPRAZOLE 20 MG CAPSULE PO SCH (07:30)
[2022-11-18] MEDS: HYDROcodone/APAP 5/325MG TABLET PO PRN (07:30)
[2022-11-18] MEDS: APIXABAN 5 MG TABLET PO SCH ×3 (07:30→23:10)
[2022-11-18] MEDS: METOPROLOL TARTRATE 25 MG TABLET PO SCH ×3 (07:30→23:11)
[2022-11-18] MEDS: DOCUSATE SODIUM 100 MG CAPSULE PO SCH ×2 (08:18→20:56)
[2022-11-18 09:38] LABS: Basophils # (Auto) 0.02 K/mcL (0.00-0.30); Basophils % (Auto) 0.4 % (0.0-2.0); Eosinophils # (Auto) 0.07 K/mcL (0.00-0.70); Eosinophils % (Auto) 1.4 % (0.0-7.0); Hematocrit 27.6 % (34.1-44.9); Hemoglobin 8.6 g/dL (11.2-15.7); Lymphocytes # (Auto) 0.97 K/mcL (1.50-4.80); Lymphocytes % (Auto) 19.1 % (15.5-49.0); Mean Cell Volume 94.2 fL (80.0-100.0); Mean Corpuscular HGB Conc 31.2 g/dL (31.0-36.0); Mean Platelet Volume 9.4 fL (8.8-12.5); Monocytes # (Auto) 0.54 K/mcL (0.10-0.90); Monocytes % (Auto) 10.6 % (1.0-12.0); Neutrophils % (Auto) 67.9 % (38.0-78.0); Platelet Count 262 K/mcL (140-440); RBC 2.93 M/mcL (3.59-5.38); Red Cell Distribution Width 14.6 % (11.5-14.5); WBC 5.1 K/mcL (4.5-11.0)
[2022-11-18 10:13] LABS: ALT/SGPT 39 U/L (<40); AST/SGOT 52 U/L (<32); Albumin 2.7 gm/dL (3.2-5.2); Albumin/Globulin Ratio 0.9 (1.0-2.3); Alkaline Phosphatase 100 U/L (39-117); Bilirubin,Direct < 0.2 mg/dL (0-0.3); Bilirubin,Total 0.4 mg/dL (0.1-1.0); Blood Urea Nitrogen 31 mg/dL (8-23); Calcium 8.6 mg/dL (8.6-10.4); Carbon Dioxide 21 mmol/L (22-30); Chloride 105 mmol/L (96-108); Globulin 2.9 gm/dL (2.2-3.7); Glomerular Filtration Rate 26; Glucose 180 mg/dL (70-105); Lactate Dehydrogenase 200 U/L (135-225); Phosphorous 2.9 mg/dL (2.5-4.5); Triglycerides 111 mg/dL (<150); Uric Acid 5.2 mg/dL (2.5-8.0)
[2022-11-18] MEDS: INSULIN LISPRO 1 UNIT/0.01 ML UNIT SQ SCH ×4 (10:59→20:55)
[2022-11-18] MEDS: INSULIN GLARGINE, HUMAN 1 UNIT/0.01 ML SQ SCH (11:00)
[2022-11-18] MEDS: ACETAMINOPHEN 1,000 MG/100 ML BAG IV SCH ×2 (11:06→17:05)
--- NOTE | 2022-11-18 11:23 | Internal Med Progress Note ---
SUBJECTIVE Subjective Patient information: Note initiated : 11/18/22 at 11:22 am Service Date, if different from initiated Date: [] Patient: Nolvia Jalloh 87 y/o F admitted on 11/10/22 for Fall, on blood thinner. Chief Complaint: [] Interval history: Ms. Jalloh is a 87 year old F history of atrial fibrillation status post pacemaker, type 2 diabetes mellitus, chronic kidney disease, presenting with accidental fall. Earlier this evening when she was getting out of the bathroom, she had to put her pants on but she lost her balance and she fell and landed on her right shoulder. She denies hitting her head. She denies any loss of consciousness. She denies any chest pain palpitations or shortness of breath. She is currently complaining of 10 out of 10 sharp constant pain of her right shoulder and right upper arm. X-ray performed in the ED showing displaced fracture through the surgical neck of the proximal right humerus. In addition, labs also showing elevated blood sugar of 640. Serum pH 7.58, serum bicarb 23.1, lactic acid 2.7, and anion gap 11. In additions, patient is also commenting of increased urinary frequency over the past couple weeks but she denies any urgency or hesitancy and she denies any dysuria. UA pending. ER physicians contacted orthopedic surgeon Dr. Moreno who recommend against emergent surgery at this point. Instead, he recommended putting a sling on and he will see the patient in his office. Admission request is called for symptoms controlled of new onset right humeral fracture, uncontrolled type 2 diabetes mellitus with hyperglycemia, and suspected urinary tract infections. 4/2: There is no major overnight events. Afebrile overnight. Fasting sugar 113. Blood and urine culture no growth to date. Patient is still coming of severe right arm pain. Keep her right arm sling in place. No plan for surgery for the time being. Focus on symptoms controlled with narcotics as needed. Saline lock the patient's and changed the antibiotics from Rocephin to Bactrim DS for urinary tract infections while keeping an eye on blood and urine culture. Switch the insulin lispro sign scale insulin from high scale to low scale AC adjust. Accu- Chek ACHS. Physical therapy and Occupational Therapy evaluation and treatments. Overall condition stable. 4/3 Patient seems a bit tired this morning. Otherwise no overnight event or new complaints. Urine culture growing Klebsiella. Right arm sling in place. Will need follow-up outpatient with orthopedic surgery. 11/13 No overnight events or new complaints. However blood pressure has been running fairly soft. She is on Toprol 100 twice daily will decrease that to once a day. And monitor. 11/14 Patient has no subjective complaints. States she feels fine. Does appear tired though. Per nursing she has had poor urine output although she has been incontinent. Although she does admit to poor oral intake and she does have this low normal blood pressure. We will d/c her diltiazem and continue her Toprol. give her IV fluid today. 11/15 pt found to still have dirty urine, concerning continued UTI, rocephin restarted. Continued IVF d/t poor oral intake and soft BP. hold BP meds for now. Patient complains of shoulder pain but no other specific pains. No nausea vomiting chest pain stomach pain until we palpate on her abdomen. pending CT a/p. Patient denies fever chills. She does admit to feeling weak and tired. urine is dark in the Grider bag. Mild anemia noted on labs at 9.2 with a baseline in the tens. Hyponatremia not ed at 127. Creatinine is significantly elevated. Metabolic acidosis. Elevated uric acid. CT a/p concerning for acute cholecystitis. Gallbladder ultrasound showing distended gallbladder with stones and sludge and with pericholecystic fluid. I discussed CODE STATUS with the patient to so I understood what her wishes would be and confirmed that DO NOT RESUSCITATE was more aligned with what her wishes would be. We will have nurses provide the form to her 11/16 Patient says she is feeling okay. Seems to be slightly perkier than previous. No real complaints other than right arm pain and some occasional nausea. Renal function still quite decompensated but improved with IV fluid. Continue antibiotics for acute cholecystitis with surgery following. Urine output improving. Urine still concentrated but not as dark. 11/17 Patient has had tachycardia overnight, EKG shows atrial fibrillation with rapid ventricular response.resumed home Cardizem, continue Lopressor. library monitor ordered. Morning fasting glucose elevated, added Lantus 10 units daily, continue correction Humalog SSI medium dose. Renal function continues to improve, making urine. General surgery recommending against surgical intervention at this time. Continue IV fluid today and monitoring renal function. Discontinued fluconazole. 11/18 The patient did not sleep well last night, somewhat agitated. Started Seroquel as needed for agitation. This morning the patient quite confused, likely delirious. Started Seroquel at bedtime. Started scheduled off her med 1 g every 8 hours. Remove Grider catheter. Renal function continues to improve. Heart rate has improved after the addition of Cardizem yesterday. Morning glucose 148. Physical exam Head: Atraumatic, normal inspection. Eyes: normal appearance, no scleral icterus. Neck: full ROM Respiratory: no respiratory distress. Cardiovascular: Tachycardia, S1, S2. GI/Abdominal: soft, nontender, no guarding. Extremities: Right upper extremity tenderness with limited motion due to tenderness Neurological: CN II-XII intact, intact motor, intact sensation. Psychiatric: Impaired rate and cognition. Skin: warm, normal color Constitutional Vitals: Vital Signs Temp Pulse Resp BP Pulse Ox O2 Del Method O2 Flow Rate 98 F 104 H 18 123/72 98 Room Air 0 11/17/22 23:00 11/18/22 05:26 11/17/22 19:48 11/18/22 04:15 11/17/22 23:00 11/17/22 23:00 11/16/22 16:00 Period Temp Pulse Resp BP Sys/Tidwell Pulse Ox O2 Del Method O2 Flow Rate Last 24 Hr 98 F-98.3 F 104-142 16-20 103-123/60-86 98-100 Room Air-Room Air Intake and Output 11/17/22 11/18/22 11/18/22 19:59 03:59 11:59 Intake Total 1250 50 450 Output Total 750 450 Balance 500 50 0 Weight 52.481 kg Intake & Output: Intake & Output 11/17/22 11/18/22 11/18/22 19:59 03:59 11:59 Intake Total 1250 50 450 Output Total 750 450 Balance 500 50 0 Weight 52.481 kg Intake: IV 1050 50 50 Sodium Chloride 0.9% 1,000 ml @ 1000 75 mls/hr IV .[id number] [facility] Rx#: [id number] Zosyn 2.25 gm In Dextrose 5% in 50 50 50 Water 50 ml @ 100 mls/hr IV Q8H [facility] Rx#:[id number] Oral 200 400 Output: Urine Catheter Amount 750 450 Other: Meal ice cream x1 Percent of Meal Consumed 100% Feeding Ability Needs Supervision Urine Appearance Clear Cloudy Uretheral (Grider) Clear Clear Urine Color Yellow Yellow Uretheral (Grider) Yellow Yellow Urine Odor Normal Normal Uretheral (Grider) Normal Normal Stool Size Small Stool Color Brown Stool Consistency Loose # of times incontinent of 1 Bowels OBJ DATA Labs 11/18/22 09:08 11/18/22 09:08 Labs: Abnormal Lab Results 11/18/22 11/18/22 11/17/22 09:08 09:08 05:15 RBC 2.93 L Hgb 8.6 L Hct 27.6 L RDW 14.6 H Immature Gran % (Auto) 0.6 H Lymph # (Auto) 0.97 L Carbon Dioxide 21 L 18 L BUN 31 H 53 H Creatinine 1.7 H 2.7 H Glucose 180 H 188 H Uric Acid Calcium 8.0 L Phosphorus GGT 63 H 54 H AST 52 H 64 H ALT 40 H Lactate Dehydrogenase 228 H Total Protein 5.6 L 5.1 L Albumin 2.7 L 2.4 L Albumin/Globulin Ratio 0.9 L 0.9 L 11/17/22 11/16/22 11/16/22 05:15 05:30 05:30 RBC Hgb 9.4 L 8.5 L Hct 33.5 L 26.2 L RDW Immature Gran % (Auto) Lymph # (Auto) Carbon Dioxide 20 L BUN 59 H Creatinine 3.4 H Glucose Uric Acid 9.0 H Calcium 7.9 L Phosphorus 5.9 H* GGT 54 H AST 48 H ALT Lactate Dehydrogenase Total Protein 5.0 L Albumin 2.5 L Albumin/Globulin Ratio Meds: Medications Hydrocodone Bitart/Acetaminophen (Hydrocodone/Apap 5/325mg Tablet) 1 tab PO Q6HP PRN; Protocol PRN Reason: Per Pain Protocol Last Admin: 11/18/22 07:30 Dose: 1 tab Albuterol/Ipratropium (Ipratropium/Albuterol 3 Ml Ampul.Neb) 3 ml NEB Q4HRT PRN PRN Reason: Wheezing Apixaban (Apixaban 5 Mg Tablet) 2.5 mg PO BID [facility] Last Admin: 11/18/22 07:30 Dose: 2.5 mg Atorvastatin Calcium (Atorvastatin 40 Mg Tablet) 40 mg PO HS [facility] Last Admin: 11/17/22 20:13 Dose: 40 mg Dextrose (Dextrose 50% 50 Ml Vial) 0 ml IV UD PRN PRN Reason: Per Sliding Scale Diagnostic Test (Pha) (Accu-Chek 1 Each Strip) 1 each FS [facility] Last Admin: 11/18/22 07:38 Dose: 1 each Diltiazem HCl (Diltiazem 180 Mg Cap.Xl.24h) 180 mg PO DAILY [facility] Docusate Sodium (Docusate Sodium 100 Mg Capsule) 100 mg PO BID [facility] Last Admin: 11/18/22 08:18 Dose: Not Given Gabapentin (Gabapentin 100 Mg Capsule) 100 mg PO [facility] Last Admin: 11/17/22 20:13 Dose: 100 mg Glucose (Dextrose 31 Gm Oral.Susp) 15 gm PO PRN PRN PRN Reason: Hypoglycemia Acetaminophen (Ofirmev) 1,000 mg in 100 mls @ 200 mls/hr IV Q8H [facility]; Protocol Last Admin: 11/18/22 11:06 Dose: 200 mls/hr Insulin Glargine (Insulin Glargine, Human 1 Unit/0.01 Ml) 10 unit SQ DAILY [facility] Last Admin: 11/18/22 11:00 Dose: 10 units Insulin Human Lispro (Insulin Lispro 1 Unit/0.01 Ml Unit) 0 unit SQ [facility]; Protocol Last Admin: 11/18/22 10:59 Dose: 2 units Metoprolol Tartrate (Metoprolol Tartrate 5 Mg/5 Ml Vial) 5 mg IV Q2HP PRN PRN Reason: Tachyarrhythmias HR>110 Last Admin: 11/18/22 06:43 Dose: 5 mg Metoprolol Tartrate (Metoprolol Tartrate 25 Mg Tablet) 50 mg PO BID [facility] Last Admin: 11/18/22 07:30 Dose: 50 mg Omeprazole (Omeprazole 20 Mg Capsule) 20 mg PO DAILY [facility] Last Admin: 11/18/22 07:30 Dose: 20 mg Quetiapine Fumarate (Quetiapine 25 Mg Tablet) 25 mg PO DAILY@1700 [facility] Senna (Sennosides 1 Tablet) 2 tab PO [facility] Last Admin: 11/17/22 20:13 Dose: Not Given A/P Assessment and plan (1) Hyperglycemia due to type 2 diabetes mellitus: Status: Acute (2) Displaced fracture of right humerus: Status: Acute (3) Acute UTI: Status: Acute (4) Atrial fibrillation with rapid ventricular response: Status: Acute (5) Chronic kidney disease, stage 3a: Status: Chronic Narrative A/P Narrative: Assessment: 87-year-old female with a history of atrial fibrillation status post pacemaker, type 2 diabetes mellitus, chronic kidney disease admitted for a proximal right humerus fracture secondary to a ground-level fall. Orthopedic surgery recommended nonoperative management with sling placement and follow-up in the orthopedic surgery clinic. During the hospitalization the patient developed an acute kidney injury and there was a concern for acute cholecystitis and choledocholithiasis . The patient was unable to get an MRCP due to her pacemaker. *TANI on CKDIII: Improving *Metabolic acidosis *Hyperphosphatemia: Resolved *Atrial fibrillation with RVR permanent atrial fibrillation with pacemaker: *Cholelithiasis *Displaced fracture through surgical neck of the proximal right humerus: *Hyperglycemia w/DM2 with polyneuropathy/nephropathy: poorly controlled -HgA1c 15.8, did have good control last fall *UTI secondary to Klebsiella pneumoniae *Hyponatremia: improving *Anemia, acute on chronic: likely dilutional *Essential hypertension *Transaminitis,mild: Chronic but improved *GERD: Plan: -Monitor renal function, off IV fluid. -Continue home Cardizem 180 mg daily. -Continue Lopressor 50 mg twice daily and, prn IV Lopressor. -Continue home Eliquis (dose reduced for age and weight) -Continue Lantus 10 units daily. -Continue correction Humalog SSImedium dose. -Seroquel at bedtime. -Consider oral bicarbonate if metabolic acidosis does not resolve. -Continue home atorvastatin, gabapentin, Prilosec. -Right upper extremity sling, follow-up with orthopedic surgery in clinic. -Analgesics as needed, scheduled off her meds. -PT and OT. -CM for placement -ppx: Eliquis. -CODE STATUS: DNR/DNI -Disposition: Currently inpatient MedSurg, anticipate discharge to low intensity rehab if the patient is agreeable. Follow-up with orthopedic surgery and general surgery in clinic. Time Spent With Patient Time: Total time spent is greater than 50% in coordination of care (as documented) at patient's floor/unit and/or counseling patient:
[2022-11-18] MEDS: ATORVASTATIN 40 MG TABLET PO SCH ×2 (20:54→23:10)
[2022-11-18] MEDS: GABAPENTIN 100 MG CAPSULE PO SCH ×2 (20:55→23:11)
[2022-11-18] MEDS: QUEtiapine 25 MG TABLET PO SCH (20:56)
[2022-11-18] MEDS: SENNOSIDES 1 TABLET PO SCH (20:56)
[2022-11-18] MEDS ORDERED: QUEtiapine 25 MG TABLET PO PRN (21:00)
[2022-11-19] MEDS: ACETAMINOPHEN 1,000 MG/100 ML BAG IV SCH ×2 (02:32→09:36)
[2022-11-19] MEDS: METOPROLOL TARTRATE 5 MG/5 ML VIAL IV PRN ×2 (02:56→06:10)
[2022-11-19] MEDS: 0.9 % SODIUM CHLORIDE 10 ML SYRINGE IV SCH ×4 (02:56→22:04)
[2022-11-19] MEDS: INSULIN LISPRO 1 UNIT/0.01 ML UNIT SQ SCH ×4 (07:33→22:01)
[2022-11-19] MEDS: OMEPRAZOLE 20 MG CAPSULE PO SCH (09:34)
[2022-11-19] MEDS: APIXABAN 5 MG TABLET PO SCH ×2 (09:34→22:03)
[2022-11-19] MEDS: INSULIN GLARGINE, HUMAN 1 UNIT/0.01 ML SQ SCH (09:35)
[2022-11-19] MEDS: METOPROLOL TARTRATE 25 MG TABLET PO SCH ×2 (09:35→22:02)
[2022-11-19] MEDS: DILTIAZEM 180 MG CAP.XL.24H PO SCH (09:35)
[2022-11-19] MEDS: DOCUSATE SODIUM 100 MG CAPSULE PO SCH ×2 (09:36→22:03)
[2022-11-19] MEDS ORDERED: ACETAMINOPHEN 325 MG TABLET PO PRN (10:33)
--- NOTE | 2022-11-19 10:36 | Internal Med Progress Note ---
SUBJECTIVE Subjective Patient information: Note initiated : 11/19/22 at 10:33 am Service Date, if different from initiated Date: [] Patient: Nolvia Jalloh 87 y/o F admitted on 11/10/22 for Fall, on blood thinner. Chief Complaint: [] Interval history: Ms. Jalloh is a 87 year old F history of atrial fibrillation status post pacemaker, type 2 diabetes mellitus, chronic kidney disease, presenting with accidental fall. Earlier this evening when she was getting out of the bathroom, she had to put her pants on but she lost her balance and she fell and landed on her right shoulder. She denies hitting her head. She denies any loss of consciousness. She denies any chest pain palpitations or shortness of breath. She is currently complaining of 10 out of 10 sharp constant pain of her right shoulder and right upper arm. X-ray performed in the ED showing displaced fracture through the surgical neck of the proximal right humerus. In addition, labs also showing elevated blood sugar of 640. Serum pH 7.58, serum bicarb 23.1, lactic acid 2.7, and anion gap 11. In additions, patient is also commenting of increased urinary frequency over the past couple weeks but she denies any urgency or hesitancy and she denies any dysuria. UA pending. ER physicians contacted orthopedic surgeon Dr. Moreno who recommend against emergent surgery at this point. Instead, he recommended putting a sling on and he will see the patient in his office. Admission request is called for symptoms controlled of new onset right humeral fracture, uncontrolled type 2 diabetes mellitus with hyperglycemia, and suspected urinary tract infections. 4/2: There is no major overnight events. Afebrile overnight. Fasting sugar 113. Blood and urine culture no growth to date. Patient is still coming of severe right arm pain. Keep her right arm sling in place. No plan for surgery for the time being. Focus on symptoms controlled with narcotics as needed. Saline lock the patient's and changed the antibiotics from Rocephin to Bactrim DS for urinary tract infections while keeping an eye on blood and urine culture. Switch the insulin lispro sign scale insulin from high scale to low scale AC adjust. Accu- Chek ACHS. Physical therapy and Occupational Therapy evaluation and treatments. Overall condition stable. 4/3 Patient seems a bit tired this morning. Otherwise no overnight event or new complaints. Urine culture growing Klebsiella. Right arm sling in place. Will need follow-up outpatient with orthopedic surgery. 11/13 No overnight events or new complaints. However blood pressure has been running fairly soft. She is on Toprol 100 twice daily will decrease that to once a day. And monitor. 11/14 Patient has no subjective complaints. States she feels fine. Does appear tired though. Per nursing she has had poor urine output although she has been incontinent. Although she does admit to poor oral intake and she does have this low normal blood pressure. We will d/c her diltiazem and continue her Toprol. give her IV fluid today. 11/15 pt found to still have dirty urine, concerning continued UTI, rocephin restarted. Continued IVF d/t poor oral intake and soft BP. hold BP meds for now. Patient complains of shoulder pain but no other specific pains. No nausea vomiting chest pain stomach pain until we palpate on her abdomen. pending CT a/p. Patient denies fever chills. She does admit to feeling weak and tired. urine is dark in the Grider bag. Mild anemia noted on labs at 9.2 with a baseline in the tens. Hyponatremia not ed at 127. Creatinine is significantly elevated. Metabolic acidosis. Elevated uric acid. CT a/p concerning for acute cholecystitis. Gallbladder ultrasound showing distended gallbladder with stones and sludge and with pericholecystic fluid. I discussed CODE STATUS with the patient to so I understood what her wishes would be and confirmed that DO NOT RESUSCITATE was more aligned with what her wishes would be. We will have nurses provide the form to her 11/16 Patient says she is feeling okay. Seems to be slightly perkier than previous. No real complaints other than right arm pain and some occasional nausea. Renal function still quite decompensated but improved with IV fluid. Continue antibiotics for acute cholecystitis with surgery following. Urine output improving. Urine still concentrated but not as dark. 11/17 Patient has had tachycardia overnight, EKG shows atrial fibrillation with rapid ventricular response.resumed home Cardizem, continue Lopressor. cardiac monitor ordered. Morning fasting glucose elevated, added Lantus 10 units daily, continue correction Humalog SSI medium dose. Renal function continues to improve, making urine. General surgery recommending against surgical intervention at this time. Continue IV fluid today and monitoring renal function. Discontinued fluconazole. 11/18 The patient did not sleep well last night, somewhat agitated. Started Seroquel as needed for agitation. This morning the patient quite confused, likely delirious. Started Seroquel at bedtime. Started scheduled Ofirmev 1 g every 8 hours. Remove Grider catheter. Renal function continues to improve. Heart rate has improved after the addition of Cardizem yesterday. Morning glucose 148. 4/10 Slept well last night, heart rate still elevated so we will increase Lopressor to 75 mg twice daily, continue Cardizem 180 mg daily. Transition to oral Tylenol as needed, discontinued on Tylenol IV. Discussed with orthopedic surgery, Dr. Moreno, he will see the patient tomorrow and provide recommendations regarding management of the proximal humerus fracture. Physical exam Head: Atraumatic, normal inspection. Eyes: normal appearance, no scleral icterus. Neck: full ROM Respiratory: no respiratory distress. Cardiovascular: Tachycardia, S1, S2. GI/Abdominal: soft, nontender, no guarding. Extremities: Right upper extremity tenderness with limited motion due to te nderness Neurological: CN II-XII intact, intact motor, intact sensation. Psychiatric: Impaired rate and cognition. Skin: warm, normal color Constitutional Vitals: Vital Signs Temp Pulse Resp BP Pulse Ox O2 Del Method O2 Flow Rate 97.6 F 135 H 16 148/86 99 Room Air 0 11/19/22 10:03 11/19/22 10:03 11/19/22 04:03 11/19/22 10:03 11/19/22 10:03 11/19/22 10:03 11/18/22 12:00 Period Temp Pulse Resp BP Sys/Tidwell Pulse Ox O2 Del Method O2 Flow Rate Last 24 Hr 97.4 F-98.3 F 76-135 15-20 115-148/71-86 95-100 Room Air-Room Air 0 Intake and Output 11/18/22 11/19/22 11/19/22 19:59 03:59 11:59 Intake Total 220 100 50 Output Total 425 2 500 Balance -205 98 -450 Weight 51.256 kg Intake & Output: Intake & Output 11/18/22 11/19/22 11/19/22 19:59 03:59 11:59 Intake Total 220 100 50 Output Total 425 2 500 Balance -205 98 -450 Weight 51.256 kg Intake: IV 100 100 Oral 120 50 Output: Urine Catheter Amount 425 # of times incontinent of urine 2 Urine/Stool Mix 500 Other: Meal Breakfast Percent of Meal Consumed 50% Urine Appearance Cloudy Sediment Mucous Threads Uretheral (Grider) Cloudy Mucous Threads Urine Color Yellow Uretheral (Grider) Yellow Stool Size Small Smear Moderate Stool Color Brown Brown Black Stool Consistency Loose Liquid Watery Loose # Voids 1 # Bowel Movements 1 1 # of times incontinent of 1 1 1 Bowels OBJ DATA Labs 11/18/22 09:08 11/18/22 09:08 Labs: Abnormal Lab Results 11/18/22 11/18/22 11/17/22 09:08 09:08 05:15 RBC 2.93 L Hgb 8.6 L Hct 27.6 L RDW 14.6 H Immature Gran % (Auto) 0.6 H Lymph # (Auto) 0.97 L Carbon Dioxide 21 L 18 L BUN 31 H 53 H Creatinine 1.7 H 2.7 H Glucose 180 H 188 H Calcium 8.0 L GGT 63 H 54 H AST 52 H 64 H ALT 40 H Lactate Dehydrogenase 228 H Total Protein 5.6 L 5.1 L Albumin 2.7 L 2.4 L Albumin/Globulin Ratio 0.9 L 0.9 L 11/17/22 05:15 RBC Hgb 9.4 L Hct 33.5 L RDW Immature Gran % (Auto) Lymph # (Auto) Carbon Dioxide BUN Creatinine Glucose Calcium GGT AST ALT Lactate Dehydrogenase Total Protein Albumin Albumin/Globulin Ratio Meds: Medications Acetaminophen (Acetaminophen 325 Mg Tablet) 650 mg PO Q4HP PRN; Protocol PRN Reason: Per Pain Protocol Hydrocodone Bitart/Acetaminophen (Hydrocodone/Apap 5/325mg Tablet) 1 tab PO Q6HP PRN; Protocol PRN Reason: Per Pain Protocol Last Admin: 11/18/22 07:30 Dose: 1 tab Albuterol/Ipratropium (Ipratropium/Albuterol 3 Ml Ampul.Neb) 3 ml NEB Q4HRT PRN PRN Reason: Wheezing Apixaban (Apixaban 5 Mg Tablet) 2.5 mg PO BID [facility] Last Admin: 11/19/22 09:34 Dose: 2.5 mg Atorvastatin Calcium (Atorvastatin 40 Mg Tablet) 40 mg PO HS [facility] Last Admin: 11/18/22 23:10 Dose: Not Given Dextrose (Dextrose 50% 50 Ml Vial) 0 ml IV UD PRN PRN Reason: Per Sliding Scale Diagnostic Test (Pha) (Accu-Chek 1 Each Strip) 1 each FS [facility] Last Admin: 11/19/22 07:30 Dose: 1 each Diltiazem HCl (Diltiazem 180 Mg Cap.Xl.24h) 180 mg PO DAILY [facility] Last Admin: 11/19/22 09:35 Dose: 180 mg Docusate Sodium (Docusate Sodium 100 Mg Capsule) 100 mg PO BID [facility] Last Admin: 11/19/22 09:36 Dose: Not Given Gabapentin (Gabapentin 100 Mg Capsule) 100 mg PO [facility] Last Admin: 11/18/22 23:11 Dose: Not Given Glucose (Dextrose 31 Gm Oral.Susp) 15 gm PO PRN PRN PRN Reason: Hypoglycemia Insulin Glargine (Insulin Glargine, Human 1 Unit/0.01 Ml) 10 unit SQ DAILY [facility] Last Admin: 11/19/22 09:35 Dose: 10 units Insulin Human Lispro (Insulin Lispro 1 Unit/0.01 Ml Unit) 0 unit SQ [facility]; Protocol Last Admin: 11/19/22 07:33 Dose: Not Given Metoprolol Tartrate (Metoprolol Tartrate 5 Mg/5 Ml Vial) 5 mg IV Q2HP PRN PRN Reason: Tachyarrhythmias HR>110 Last Admin: 11/19/22 06:10 Dose: 5 mg Metoprolol Tartrate (Metoprolol Tartrate 25 Mg Tablet) 75 mg PO BID [facility] Omeprazole (Omeprazole 20 Mg Capsule) 20 mg PO DAILY [facility] Last Admin: 11/19/22 09:34 Dose: 20 mg Quetiapine Fumarate (Quetiapine 25 Mg Tablet) 25 mg PO DAILY@1700 [facility] Last Admin: 11/18/22 20:56 Dose: Not Given Senna (Sennosides 1 Tablet) 2 tab PO [facility] Last Admin: 11/18/22 20:56 Dose: Not Given Sodium Chloride (0.9 % Sodium Chloride 10 Ml Syringe) 10 ml IV Q8 [facility] Last Admin: 11/19/22 06:12 Dose: 10 ml A/P Assessment and plan (1) Hyperglycemia due to type 2 diabetes mellitus: Status: Acute (2) Displaced fracture of right humerus: Status: Acute (3) Acute UTI: Status: Acute (4) Atrial fibrillation with rapid ventricular response: Status: Acute (5) Chronic kidney disease, stage 3a: Status: Chronic Narrative A/P Narrative: Assessment: 87-year-old female with a history of atrial fibrillation status post pacemaker, type 2 diabetes mellitus, chronic kidney disease admitted for a proximal right humerus fracture secondary to a ground-level fall. Orthopedic surgery recommended nonoperative management with sling placement and follow-up in the orthopedic surgery clinic. During the hospitalization the patient developed an acute kidney injury and there was a concern for acute cholecystitis and choledocholithiasis . The patient was unable to get an MRCP due to her pacemaker. *Improving TANI on CKD III *Metabolic acidosis *Resolved hyperphosphatemia *Atrial fibrillation with RVR permanent atrial fibrillation with pacemaker: *Cholelithiasis *Displaced fracture through surgical neck of the proximal right humerus: *Hyperglycemia w/DM2 with polyneuropathy/nephropathy: poorly controlled -HgA1c 15.8, did have good control last fall *Treated UTI secondary to Klebsiella pneumoniae *Resolved hyponatremia *Anemia, acute on chronic: likely dilutional component *Essential hypertension *Transaminitis,mild: Improved d *GERD: Plan: -Monitor renal function, off IV fluid now. -Continue home Cardizem 180 mg daily. -Increase Lopressor to 75 mg twice daily, continue prn IV Lopressor. -Continue home Eliquis (dose reduced for age and weight) -Continue Lantus 10 units daily. -Continue correction Humalog SSImedium dose. -Seroquel 25 mg at bedtime. -Consider oral bicarbonate if metabolic acidosis does not resolve. -Continue home atorvastatin, gabapentin, Prilosec. -Right upper extremity sling, orthopedic surgery consult. -Analgesics as needed, scheduled off her meds. -PT and OT. -CM for placement -ppx: Eliquis. -CODE STATUS: DNR/DNI -Disposition: Currently inpatient MedSurg, anticipate discharge to low intensity rehab in 1 to 2 days if there are no further complications. Follow-up with orthopedic surgery and general surgery in clinic. Time Spent With Patient Time: Total time spent is greater than 50% in coordination of care (as documented) at patient's floor/unit and/or counseling patient:
[2022-11-19] MEDS: QUEtiapine 25 MG TABLET PO SCH (17:18)
--- NOTE | 2022-11-19 18:09 | Orthopedic Progress Note ---
SUBJECTIVE Subjective Patient information: Note initiated : 11/19/22 at 6:08 pm Service Date, if different from initiated Date: [] Patient: Nolvia Jalloh 87 y/o F admitted on 11/10/22 for Fall, on blood thinner. Chief Complaint: [right proximal humerus fracture] Constitutional Vitals: Vital Signs Temp Pulse Resp BP Pulse Ox O2 Del Method O2 Flow Rate 98.2 F 75 16 119/69 97 Room Air 0 11/19/22 15:58 11/19/22 15:58 11/19/22 15:58 11/19/22 15:58 11/19/22 15:58 11/19/22 15:58 11/18/22 12:00 Period Temp Pulse Resp BP Sys/Tidwell Pulse Ox O2 Del Method O2 Flow Rate Last 24 Hr 97.4 F-98.2 F 75-135 15-18 119-148/69-86 96-100 Room Air-Room Air Intake and Output 11/19/22 11/19/22 11/19/22 03:59 11:59 19:59 Intake Total 100 450 740 Output Total 2 500 1 Balance 98 -50 739 Weight 113 lb 113 lb Patient Weight 11/20/22 03:59 Weight 113 lb Intake & Output: Intake & Output 11/19/22 11/19/22 11/19/22 03:59 11:59 19:59 Intake Total 100 450 740 Output Total 2 500 1 Balance 98 -50 739 Weight 113 lb 113 lb Intake: Nourishment/Supplement quantity 240 (ml) IV 100 0 Oral 450 500 Output: # of times incontinent of urine 2 1 Urine/Stool Mix 500 Other: Meal Breakfast Dinner Percent of Meal Consumed 25% 100% Feeding Ability Independent Independent Nourishment/Supplement name strawberry ensure Urine Appearance Clear Urine Color Yellow Urine Odor Normal Stool Size Smear Moderate Small Stool Color Brown Brown Brown Black Stool Consistency Loose Liquid Soft Watery Formed Loose # Voids 1 # Bowel Movements 1 1 # of times incontinent of 1 1 1 Bowels OBJ DATA Labs 11/18/22 09:08 11/18/22 09:08 Labs: Abnormal Lab Results 11/18/22 11/18/22 11/17/22 09:08 09:08 05:15 RBC 2.93 L Hgb 8.6 L Hct 27.6 L RDW 14.6 H Immature Gran % (Auto) 0.6 H Lymph # (Auto) 0.97 L Carbon Dioxide 21 L 18 L BUN 31 H 53 H Creatinine 1.7 H 2.7 H Glucose 180 H 188 H Calcium 8.0 L GGT 63 H 54 H AST 52 H 64 H ALT 40 H Lactate Dehydrogenase 228 H Total Protein 5.6 L 5.1 L Albumin 2.7 L 2.4 L Albumin/Globulin Ratio 0.9 L 0.9 L 11/17/22 05:15 RBC Hgb 9.4 L Hct 33.5 L RDW Immature Gran % (Auto) Lymph # (Auto) Carbon Dioxide BUN Creatinine Glucose Calcium GGT AST ALT Lactate Dehydrogenase Total Protein Albumin Albumin/Globulin Ratio Meds: Medications Acetaminophen (Acetaminophen 325 Mg Tablet) 650 mg PO Q4HP PRN; Protocol PRN Reason: Per Pain Protocol Last Admin: 11/19/22 14:56 Dose: 650 mg Hydrocodone Bitart/Acetaminophen (Hydrocodone/Apap 5/325mg Tablet) 1 tab PO Q6HP PRN; Protocol PRN Reason: Per Pain Protocol Last Admin: 11/18/22 07:30 Dose: 1 tab Albuterol/Ipratropium (Ipratropium/Albuterol 3 Ml Ampul.Neb) 3 ml NEB Q4HRT PRN PRN Reason: Wheezing Apixaban (Apixaban 5 Mg Tablet) 2.5 mg PO BID [facility] Last Admin: 11/19/22 09:34 Dose: 2.5 mg Atorvastatin Calcium (Atorvastatin 40 Mg Tablet) 40 mg PO HS [facility] Last Admin: 11/18/22 23:10 Dose: Not Given Dextrose (Dextrose 50% 50 Ml Vial) 0 ml IV UD PRN PRN Reason: Per Sliding Scale Diagnostic Test (Pha) (Accu-Chek 1 Each Strip) 1 each FS ACHS [facility] Last Admin: 11/19/22 17:23 Dose: 1 each Diltiazem HCl (Diltiazem 180 Mg Cap.Xl.24h) 180 mg PO DAILY [facility] Last Admin: 11/19/22 09:35 Dose: 180 mg Docusate Sodium (Docusate Sodium 100 Mg Capsule) 100 mg PO BID [facility] Last Admin: 11/19/22 09:36 Dose: Not Given Gabapentin (Gabapentin 100 Mg Capsule) 100 mg PO HS [facility] Last Admin: 11/18/22 23:11 Dose: Not Given Glucose (Dextrose 31 Gm Oral.Susp) 15 gm PO PRN PRN PRN Reason: Hypoglycemia Insulin Glargine (Insulin Glargine, Human 1 Unit/0.01 Ml) 10 unit SQ DAILY [facility] Last Admin: 11/19/22 09:35 Dose: 10 units Insulin Human Lispro (Insulin Lispro 1 Unit/0.01 Ml Unit) 0 unit SQ ACHS [facility]; Protocol Last Admin: 11/19/22 17:18 Dose: 10 units Metoprolol Tartrate (Metoprolol Tartrate 5 Mg/5 Ml Vial) 5 mg IV Q2HP PRN PRN Reason: Tachyarrhythmias HR>110 Last Admin: 11/19/22 06:10 Dose: 5 mg Metoprolol Tartrate (Metoprolol Tartrate 25 Mg Tablet) 75 mg PO BID [facility] Omeprazole (Omeprazole 20 Mg Capsule) 20 mg PO DAILY [facility] Last Admin: 11/19/22 09:34 Dose: 20 mg Quetiapine Fumarate (Quetiapine 25 Mg Tablet) 25 mg PO DAILY@1700 [facility] Last Admin: 11/19/22 17:18 Dose: 25 mg Senna (Sennosides 1 Tablet) 2 tab PO HS [facility] Last Admin: 11/18/22 20:56 Dose: Not Given Sodium Chloride (0.9 % Sodium Chloride 10 Ml Syringe) 10 ml IV Q8 [facility] Last Admin: 11/19/22 15:39 Dose: 10 ml A/P Assessment and plan (1) Displaced fracture of right humerus: Assessment and plan: dictated consult note. Plan is for non operative treatment of right proximal humerus fracture with follow up orthopedics in 7-10 days. Status: Acute Time Spent With Patient Time: Total time spent is greater than 50% in coordination of care (as documented) at patient's floor/unit and/or counseling patient:
--- NOTE | 2022-11-19 19:19 | Consultation ---
DATE OF CONSULTATION: 11/19/2022 REASON FOR CONSULTATION: Right proximal humerus fracture. DATE OF CONSULTATION: 11/19/2022 CONSULTING PROVIDER: Dr. Sal HISTORY OF PRESENT ILLNESS: The patient is an 87-year-old female who has been in the hospital since 11/10/2022 secondary to a fall while going to the bathroom. She was found to have a proximal humerus fracture, but also hyperglycemic and likely UTI. She has been admitted for the past a week and a half for various reasons. She has gone through several episodes of care where she has a bit of confusion, delirium. Has undergone treatment for her UTI and acutre kidney injury. The patient reports a right shoulder pain. She reports that no other complaints at this time. PAST MEDICAL HISTORY: Uncontrolled type 2 diabetes, diabetic neuropathy, history of PA in 1992, she has a pacemaker with supraventricular tachycardia, encephalitis, and pulmonary hypertension. Acute kidney failure during hospitalization. PAST SURGICAL HISTORY: Angioplasty with stent placement, pacemaker placement, hysterectomy, oophorectomy, tonsillectomy and adenoidectomy, and atrioventricular node ablation. ALLERGIES: NO KNOWN DRUG ALLERGIES. MEDICATIONS: 1. Eliquis. 2. Aspirin. 3. Statin. 4. Iron. 5. Furosemide. 6. Glipizide. 7. Gabapentin. 8. Metformin. 9. Metoprolol. 10. Omeprazole. 11. Digoxin. 12. Diltiazem. 13. Hydrocodone. SOCIAL HISTORY: Resides by herself. She is relatively independent prior to this. She does have some son who lives in [place] and 2 additional children that live outside of the area. PHYSICAL EXAMINATION: GENERAL: The patient is alert, appropriate, eating dinner, not in acute distress with a sling on her right upper extremities. EXTREMITIES: The right shoulder was evaluated, which demonstrated obvious deformity with some ecchymosis and swelling about the shoulder itself. Range of motion deferred given known fracture. Sensation intact throughout the extremity. Hand is warm and well perfused. She can make a fist and a flat hand. IMAGING: She has plain radiographs demonstrating a proximal humerus fracture with a humeral head subluxed posteriorly and rotated a bit medially. The joint is reduced. LABORATORY DATA: She has an A1c of 15. Creatinine 1.7, BUN 31, and glucose is 180. Her CBC with a white count of 5.1, H and H 8.6 and 26.6 with platelets 262. She also has UA which is positive Klebsiella, which she was treated for. ASSESSMENT AND PLAN: This is an 87-year-old female who has right proximal humerus fracture. This is of the surgical neck. I discussed and reviewed this with her. My plan for her is nonoperative treatment. Keep her in a sling for the first 4-6 weeks and begin active range of motion and a bit of therapy at that time. She will follow up in clinic in another week for repeat x-rays. I discussed with her if this is not functional 6-[address], there are options. However, typically speaking, there is no difference between operative and nonoperative intervention for this type of the fractures. The patient understands okay to proceed in that fashion- non operative treatment via sling. Otherwise, questions answered. She will follow up in clinic in another week or so. BETY:terrell Job ID: [id number] Doc ID: [id number] Karlene Moreno MD [facility]
[2022-11-19] MEDS: GABAPENTIN 100 MG CAPSULE PO SCH (22:02)
[2022-11-19] MEDS: ATORVASTATIN 40 MG TABLET PO SCH (22:03)
[2022-11-19] MEDS: SENNOSIDES 1 TABLET PO SCH (22:03)
[2022-11-20] MEDS: METOPROLOL TARTRATE 5 MG/5 ML VIAL IV PRN (01:01)
[2022-11-20] MEDS: 0.9 % SODIUM CHLORIDE 10 ML SYRINGE IV SCH ×3 (05:28→22:00)
[2022-11-20 06:36] LABS: Hematocrit 27.2 % (34.1-44.9); Hemoglobin 8.4 g/dL (11.2-15.7)
[2022-11-20 07:08] LABS: Albumin 2.4 gm/dL (3.2-5.2); Blood Urea Nitrogen 28 mg/dL (8-23); Calcium 9.1 mg/dL (8.6-10.4); Carbon Dioxide 21 mmol/L (22-30); Chloride 109 mmol/L (96-108); Glomerular Filtration Rate 40; Glucose 272 mg/dL (70-105); Phosphorous 2.3 mg/dL (2.5-4.5)
[2022-11-20] MEDS: INSULIN LISPRO 1 UNIT/0.01 ML UNIT SQ SCH ×4 (07:44→21:58)
[2022-11-20] MEDS: APIXABAN 5 MG TABLET PO SCH ×2 (08:23→21:59)
[2022-11-20] MEDS: DILTIAZEM 180 MG CAP.XL.24H PO SCH (08:23)
[2022-11-20] MEDS: METOPROLOL TARTRATE 25 MG TABLET PO SCH (08:23)
[2022-11-20] MEDS: OMEPRAZOLE 20 MG CAPSULE PO SCH (08:24)
[2022-11-20] MEDS: NEUTRA PHOS 1 PACKET PO SCH ×2 (08:24→21:57)
[2022-11-20] MEDS: DOCUSATE SODIUM 100 MG CAPSULE PO SCH ×2 (08:25→22:00)
[2022-11-20] MEDS: INSULIN GLARGINE, HUMAN 1 UNIT/0.01 ML SQ SCH (08:25)
[2022-11-20] MEDS ORDERED: ACETAMINOPHEN 500 MG TABLET PO PRN (09:09)
--- NOTE | 2022-11-20 13:50 | Internal Med Progress Note ---
SUBJECTIVE Subjective Patient information: Note initiated : 11/20/22 at 1:48 pm Service Date, if different from initiated Date: [] Patient: Nolvia Jalloh 87 y/o F admitted on 11/10/22 for Fall, on blood thinner. Chief Complaint: [] Interval history: Ms. Jalloh is a 87 year old F history of atrial fibrillation status post pacemaker, type 2 diabetes mellitus, chronic kidney disease, presenting with accidental fall. Earlier this evening when she was getting out of the bathroom, she had to put her pants on but she lost her balance and she fell and landed on her right shoulder. She denies hitting her head. She denies any loss of consciousness. She denies any chest pain palpitations or shortness of breath. She is currently complaining of 10 out of 10 sharp constant pain of her right shoulder and right upper arm. X-ray performed in the ED showing displaced fracture through the surgical neck of the proximal right humerus. In addition, labs also showing elevated blood sugar of 640. Serum pH 7.58, serum bicarb 23.1, lactic acid 2.7, and anion gap 11. In additions, patient is also commenting of increased urinary frequency over the past couple weeks but she denies any urgency or hesitancy and she denies any dysuria. UA pending. ER physicians contacted orthopedic surgeon Dr. Moreno who recommend against emergent surgery at this point. Instead, he recommended putting a sling on and he will see the patient in his office. Admission request is called for symptoms controlled of new onset right humeral fracture, uncontrolled type 2 diabetes mellitus with hyperglycemia, and suspected urinary tract infections. 4/2: There is no major overnight events. Afebrile overnight. Fasting sugar 113. Blood and urine culture no growth to date. Patient is still coming of severe right arm pain. Keep her right arm sling in place. No plan for surgery for the time being. Focus on symptoms controlled with narcotics as needed. Saline lock the patient's and changed the antibiotics from Rocephin to Bactrim DS for urinary tract infections while keeping an eye on blood and urine culture. Switch the insulin lispro sign scale insulin from high scale to low scale AC adjust. Accu- Chek ACHS. Physical therapy and Occupational Therapy evaluation and treatments. Overall condition stable. 4/3 Patient seems a bit tired this morning. Otherwise no overnight event or new complaints. Urine culture growing Klebsiella. Right arm sling in place. Will need follow-up outpatient with orthopedic surgery. 11/13 No overnight events or new complaints. However blood pressure has been running fairly soft. She is on Toprol 100 twice daily will decrease that to once a day. And monitor. 11/14 Patient has no subjective complaints. States she feels fine. Does appear tired though. Per nursing she has had poor urine output although she has been incontinent. Although she does admit to poor oral intake and she does have this low normal blood pressure. We will d/c her diltiazem and continue her Toprol. give her IV fluid today. 11/15 pt found to still have dirty urine, concerning continued UTI, rocephin restarted. Continued IVF d/t poor oral intake and soft BP. hold BP meds for now. Patient complains of shoulder pain but no other specific pains. No nausea vomiting chest pain stomach pain until we palpate on her abdomen. pending CT a/p. Patient denies fever chills. She does admit to feeling weak and tired. urine is dark in the Grider bag. Mild anemia noted on labs at 9.2 with a baseline in the tens. Hyponatremia note d at 127. Creatinine is significantly elevated. Metabolic acidosis. Elevated uric acid. CT a/p concerning for acute cholecystitis. Gallbladder ultrasound showing distended gallbladder with stones and sludge and with pericholecystic fluid. I discussed CODE STATUS with the patient to so I understood what her wishes would be and confirmed that DO NOT RESUSCITATE was more aligned with what her w ishes would be. We will have nurses provide the form to her 11/16 Patient says she is feeling okay. Seems to be slightly perkier than previous. No real complaints other than right arm pain and some occasional nausea. Renal function still quite decompensated but improved with IV fluid. Continue a ntibiotics for acute cholecystitis with surgery following. Urine output improving. Urine still concentrated but not as dark. 11/17 Patient has had tachycardia overnight, EKG shows atrial fibrillation with rapid ventricular response.resumed home Cardizem, continue Lopressor. telemetry monitor ordered. Morning fasting glucose elevated, added Lantus 10 units daily, continue correction Humalog SSI medium dose. Renal function continues to improve, making urine. General surgery recommending against surgical intervention at this time. Continue IV fluid today and monitoring renal function. Discontinued fluconazole. 11/18 The patient did not sleep well last night, somewhat agitated. Started Seroquel as needed for agitation. This morning the patient quite confused, likely delirious. Started Seroquel at bedtime. Started scheduled Ofirmev 1 g every 8 hours. Remove Grider catheter. Renal function continues to improve. Heart rate has improved after the addition of Cardizem yesterday. Morning glucose 148. 11/19 Slept well last night, heart rate still elevated so we will increase Lopressor to 75 mg twice daily, continue Cardizem 180 mg daily. Transition to oral Tylenol as needed, discontinued on Tylenol IV. Discussed with orthopedic surgery, Dr. Moreno, he will see the patient tomorrow and provide recommendations regarding management of the proximal humerus fracture. 11/20 The patient's heart rate was in the low 100s overnight, atrial fibrillation. We will increase Lopressor to 100 mg twice daily. Renal function almost back to normal. The patient is complaining of more pain in her right shoulder, started scheduled oral Tylenol. No bed available per case management. Awaiting placement. Physical exam Head: Atraumatic, normal inspection. Eyes: normal appearance, no scleral icterus. Neck: full ROM Respiratory: no respiratory distress. Cardiovascular: Tachycardia, S1, S2. GI/Abdominal: soft, nontender, no guarding. Extremities: Right upper extremity tenderness with limited motion due to tenderness Neurological: CN II-XII intact, intact motor, intact sensation. Psychiatric: Impaired rate and cognition. Skin: warm, normal color Constitutional Vitals: Vital Signs Temp Pulse Resp BP Pulse Ox O2 Del Method O2 Flow Rate 97.7 F 104 H 20 131/77 95 Room Air 0 11/20/22 12:00 11/20/22 12:00 11/20/22 12:00 11/20/22 12:00 11/20/22 12:00 11/20/22 12:00 11/18/22 12:00 Period Temp Pulse Resp BP Sys/[place] Pulse Ox O2 Del Method O2 Flow Rate Last 24 Hr 97.3 F-98.2 F 74-118 16-22 117-138/60-89 91-98 Room Air-Room Air Intake and Output 11/20/22 11/20/22 11/20/22 03:59 11:59 19:59 Intake Total 525 720 240 Output Total 0 Balance 525 720 240 Intake & Output: Intake & Output 11/20/22 11/20/22 11/20/22 03:59 11:59 19:59 Intake Total 525 720 240 Output Total 0 Balance 525 720 240 Intake: Oral 525 720 240 Output: Void Amount 0 # of times incontinent of urine 0 Other: Meal [address] (1slice) Breakfast Lunch Percent of Meal Consumed 100% 100% 100% Feeding Ability Independent Urine Appearance Clear Urine Color Yellow Urine Odor Normal Stool Size Small Stool Color Black Stool Consistency Loose # Voids 0 1 # Bowel Movements 1 OBJ DATA Labs 11/20/22 05:41 11/20/22 05:41 Labs: Abnormal Lab Results 11/20/22 11/20/22 11/18/22 05:41 05:41 09:08 RBC Hgb 8.4 L Hct 27.2 L RDW Immature Gran % (Auto) Lymph # (Auto) Chloride 109 H Carbon Dioxide 21 L 21 L Anion Gap 7.0 L BUN 28 H 31 H Creatinine 1.2 H 1.7 H Glucose 272 H 180 H Phosphorus 2.3 L GGT 63 H AST 52 H Total Protein 5.6 L Albumin 2.4 L 2.7 L Albumin/Globulin Ratio 0.9 L 11/18/22 09:08 RBC 2.93 L Hgb 8.6 L Hct 27.6 L RDW 14.6 H Immature Gran % (Auto) 0.6 H Lymph # (Auto) 0.97 L Chloride Carbon Dioxide Anion Gap BUN Creatinine Glucose Phosphorus GGT AST Total Protein Albumin Albumin/Globulin Ratio Meds: Medications Acetaminophen (Acetaminophen 500 Mg Tablet) 1,000 mg PO Q8HP PRN; Protocol PRN Reason: Per Pain Protocol Last Admin: 11/20/22 10:54 Dose: 1,000 mg Hydrocodone Bitart/Acetaminophen (Hydrocodone/Apap 5/325mg Tablet) 1 tab PO Q6HP PRN; Protocol PRN Reason: Per Pain Protocol Last Admin: 11/18/22 07:30 Dose: 1 tab Albuterol/Ipratropium (Ipratropium/Albuterol 3 Ml Ampul.Neb) 3 ml NEB Q4HRT PRN PRN Reason: Wheezing Apixaban (Apixaban 5 Mg Tablet) 2.5 mg PO BID [facility] Last Admin: 11/20/22 08:23 Dose: 2.5 mg Atorvastatin Calcium (Atorvastatin 40 Mg Tablet) 40 mg PO [facility] Last Admin: 11/19/22 22:03 Dose: 40 mg Dextrose (Dextrose 50% 50 Ml Vial) 0 ml IV UD PRN PRN Reason: Per Sliding Scale Diagnostic Test (Pha) (Accu-Chek 1 Each Strip) 1 each FS [facility] Last Admin: 11/20/22 11:50 Dose: 1 each Diltiazem HCl (Diltiazem 180 Mg Cap.Xl.24h) 180 mg PO DAILY [facility] Last Admin: 11/20/22 08:23 Dose: 180 mg Docusate Sodium (Docusate Sodium 100 Mg Capsule) 100 mg PO BID [facility] Last Admin: 11/20/22 08:25 Dose: Not Given Gabapentin (Gabapentin 100 Mg Capsule) 100 mg PO [facility] Last Admin: 11/19/22 22:02 Dose: 100 mg Glucose (Dextrose 31 Gm Oral.Susp) 15 gm PO PRN PRN PRN Reason: Hypoglycemia Insulin Glargine (Insulin Glargine, Human 1 Unit/0.01 Ml) 10 unit SQ DAILY [facility] Last Admin: 11/20/22 08:25 Dose: 10 units Insulin Human Lispro (Insulin Lispro 1 Unit/0.01 Ml Unit) 0 unit SQ [facility]; Protocol Last Admin: 11/20/22 11:50 Dose: 8 units Metoprolol Tartrate (Metoprolol Tartrate 5 Mg/5 Ml Vial) 5 mg IV Q2HP PRN PRN Reason: Tachyarrhythmias HR>110 Last Admin: 11/20/22 01:01 Dose: 5 mg Metoprolol Tartrate (Metoprolol Tartrate 25 Mg Tablet) 75 mg PO BID [facility] Last Admin: 11/20/22 08:23 Dose: 75 mg Omeprazole (Omeprazole 20 Mg Capsule) 20 mg PO DAILY [facility] Last Admin: 11/20/22 08:24 Dose: 20 mg Potassium/Phosphorus/Sodium (Neutra Phos 1 Packet) 2 packet PO BID [facility] Stop: 11/23/22 08:59 Last Admin: 11/20/22 08:24 Dose: 2 packet Quetiapine Fumarate (Quetiapine 25 Mg Tablet) 25 mg PO DAILY@1700 [facility] Last Admin: 11/19/22 17:18 Dose: 25 mg Senna (Sennosides 1 Tablet) 2 tab PO [facility] Last Admin: 11/19/22 22:03 Dose: 2 tab Sodium Chloride (0.9 % Sodium Chloride 10 Ml Syringe) 10 ml IV Q8 [facility] Last Admin: 11/20/22 05:28 Dose: 10 ml A/P Assessment and plan (1) Hyperglycemia due to type 2 diabetes mellitus: Status: Acute (2) Displaced fracture of right humerus: Status: Acute (3) Acute UTI: Status: Acute (4) Atrial fibrillation with rapid ventricular response: Status: Acute (5) Chronic kidney disease, stage 3a: Status: Chronic Narrative A/P Narrative: Assessment: 87-year-old female with a history of atrial fibrillation status post pacemaker, type 2 diabetes mellitus, chronic kidney disease admitted for a proximal right humerus fracture secondary to a ground-level fall. Orthopedic surgery recommended nonoperative management with sling placement and follow-up in the orthopedic surgery clinic. During the hospitalization the patient developed an acute kidney injury and there was found to have cholelithiasis. General surgery was consulted and recommended against cholecystectomy at this time. The patient has improved clinically, acute kidney injury resolving. She is currently awaiting placement for low intensity rehab. *Resolving TANI on CKD III *Improved metabolic acidosis *Mild hyperphosphatemia *Atrial fibrillation with RVR permanent atrial fibrillation with pacemaker: *Cholelithiasis *Displaced fracture through surgical neck of the proximal right humerus: *Hyperglycemia w/DM2 with polyneuropathy/nephropathy: poorly controlled *Treated UTI secondary to Klebsiella pneumoniae *Resolved hyponatremia *Anemia, acute on chronic: likely dilutional component *Essential hypertension *Transaminitis,mild: Improved d *GERD: Plan: -Awaiting placement. -Monitor renal function, off IV fluid now. -Continue home Cardizem 180 mg daily. -Increase Lopressor to 100 mg twice daily, continue prn IV Lopressor. -Continue home Eliquis (dose reduced for age and weight) -Continue Lantus 10 units daily. -Continue correction Humalog SSImedium dose. -Seroquel 25 mg at bedtime. -Continue home atorvastatin, gabapentin, Prilosec. -Right upper extremity sling, follow-up with orthopedic surgery surgery in clinic -Analgesics as needed, scheduled off her meds. -PT and OT. -CM for placement -ppx: Eliquis. -CODE STATUS: DNR/DNI -Disposition: Currently inpatient MedSurg, awaiting placement for low intensity rehab. Time Spent With Patient Time: Total time spent is greater than 50% in coordination of care (as documented) at patient's floor/unit and/or counseling patient:
[2022-11-20] MEDS ORDERED: ACETAMINOPHEN 500 MG TABLET PO SCH (14:00)
[2022-11-20] MEDS: QUEtiapine 25 MG TABLET PO SCH (16:50)
[2022-11-20] MEDS: METOPROLOL TARTRATE 50 MG TABLET PO SCH (21:57)
[2022-11-20] MEDS: GABAPENTIN 100 MG CAPSULE PO SCH (21:59)
[2022-11-20] MEDS: ATORVASTATIN 40 MG TABLET PO SCH (21:59)
[2022-11-20] MEDS: SENNOSIDES 1 TABLET PO SCH (22:00)
[2022-11-21] MEDS: 0.9 % SODIUM CHLORIDE 10 ML SYRINGE IV SCH (05:51)
[2022-11-21] MEDS: INSULIN LISPRO 1 UNIT/0.01 ML UNIT SQ SCH ×2 (07:31→11:11)
[2022-11-21] MEDS: METOPROLOL TARTRATE 50 MG TABLET PO SCH (07:34)
[2022-11-21] MEDS: NEUTRA PHOS 1 PACKET PO SCH (08:19)
[2022-11-21] MEDS: INSULIN GLARGINE, HUMAN 1 UNIT/0.01 ML SQ SCH (08:20)
[2022-11-21] MEDS: APIXABAN 5 MG TABLET PO SCH (08:20)
[2022-11-21] MEDS: OMEPRAZOLE 20 MG CAPSULE PO SCH (08:20)
[2022-11-21] MEDS: DILTIAZEM 180 MG CAP.XL.24H PO SCH (08:25)
[2022-11-21] MEDS: HYDROcodone/APAP 5/325MG TABLET PO PRN (08:36)
[2022-11-21] MEDS: DOCUSATE SODIUM 100 MG CAPSULE PO SCH (08:40)
[2022-11-21] MEDS ORDERED: DOCUSATE SODIUM 100 MG CAPSULE PO PRN (10:02)
[2022-11-21] MEDS ORDERED: ACETAMINOPHEN 1,000 MG/100 ML BAG IV SCH (10:15)
--- NOTE | 2022-11-21 10:29 | Internal Med Progress Note ---
SUBJECTIVE Subjective Patient information: Note initiated : 11/21/22 at 10:22 am Service Date, if different from initiated Date: [] Patient: Nolvia Jalloh 87 y/o F admitted on 11/10/22 for Fall, on blood thinner. Chief Complaint: [] Interval history: Ms. Jalloh is a 87 year old F history of atrial fibrillation status post pacemaker, type 2 diabetes mellitus, chronic kidney disease, presenting with accidental fall. Earlier this evening when she was getting out of the bathroom, she had to put her pants on but she lost her balance and she fell and landed on her right shoulder. She denies hitting her head. She denies any loss of consciousness. She denies any chest pain palpitations or shortness of breath. She is currently complaining of 10 out of 10 sharp constant pain of her right shoulder and right upper arm. X-ray performed in the ED showing displaced fracture through the surgical neck of the proximal right humerus. In addition, labs also showing elevated blood sugar of 640. Serum pH 7.58, serum bicarb 23.1, lactic acid 2.7, and anion gap 11. In additions, patient is also commenting of increased urinary frequency over the past couple weeks but she denies any urgency or hesitancy and she denies any dysuria. UA pending. ER physicians contacted orthopedic surgeon Dr. Moreno who recommend against emergent surgery at this point. Instead, he recommended putting a sling on and he will see the patient in his office. Admission request is called for symptoms controlled of new onset right humeral fracture, uncontrolled type 2 diabetes mellitus with hyperglycemia, and suspected urinary tract infections. 4/2: There is no major overnight events. Afebrile overnight. Fasting sugar 113. Blood and urine culture no growth to date. Patient is still coming of severe right arm pain. Keep her right arm sling in place. No plan for surgery for the time being. Focus on symptoms controlled with narcotics as needed. Saline lock the patient's and changed the antibiotics from Rocephin to Bactrim DS for urinary tract infections while keeping an eye on blood and urine culture. Switch the insulin lispro sign scale insulin from high scale to low scale AC adjust. Accu- Chek ACHS. Physical therapy and Occupational Therapy evaluation and treatments. Overall condition stable. 4/3 Patient seems a bit tired this morning. Otherwise no overnight event or new complaints. Urine culture growing Klebsiella. Right arm sling in place. Will need follow-up outpatient with orthopedic surgery. 11/13 No overnight events or new complaints. However blood pressure has been running fairly soft. She is on Toprol 100 twice daily will decrease that to once a day. And monitor. 11/14 Patient has no subjective complaints. States she feels fine. Does appear tired though. Per nursing she has had poor urine output although she has been incontinent. Although she does admit to poor oral intake and she does have this low normal blood pressure. We will d/c her diltiazem and continue her Toprol. give her IV fluid today. 11/15 pt found to still have dirty urine, concerning continued UTI, rocephin restarted. Continued IVF d/t poor oral intake and soft BP. hold BP meds for now. Patient complains of shoulder pain but no other specific pains. No nausea vomiting chest pain stomach pain until we palpate on her abdomen. pending CT a/p. Patient denies fever chills. She does admit to feeling weak and tired. urine is dark in the Grider bag. Mild anemia noted on labs at 9.2 with a baseline in the tens. Hyponatremia not ed at 127. Creatinine is significantly elevated. Metabolic acidosis. Elevated uric acid. CT a/p concerning for acute cholecystitis. Gallbladder ultrasound showing distended gallbladder with stones and sludge and with pericholecystic fluid. I discussed CODE STATUS with the patient to so I understood what her wishes would be and confirmed that DO NOT RESUSCITATE was more aligned with what her wishes would be. We will have nurses provide the form to her 11/16 Patient says she is feeling okay. Seems to be slightly perkier than previous. No real complaints other than right arm pain and some occasional nausea. Renal function still quite decompensated but improved with IV fluid. Continue antibiotics for acute cholecystitis with surgery following. Urine output improving. Urine still concentrated but not as dark. 11/17 Patient has had tachycardia overnight, EKG shows atrial fibrillation with rapid ventricular response.resumed home Cardizem, continue Lopressor. color stripper ordered. Morning fasting glucose elevated, added Lantus 10 units daily, continue correction Humalog SSI medium dose. Renal function continues to improve, making urine. General surgery recommending against surgical intervention at this time. Continue IV fluid today and monitoring renal function. Discontinued fluconazole. 11/18 The patient did not sleep well last night, somewhat agitated. Started Seroquel as needed for agitation. This morning the patient quite confused, likely delirious. Started Seroquel at bedtime. Started scheduled Ofirmev 1 g every 8 hours. Remove Grider catheter. Renal function continues to improve. Heart rate has improved after the addition of Cardizem yesterday. Morning glucose 148. 11/19 Slept well last night, heart rate still elevated so we will increase Lopressor to 75 mg twice daily, continue Cardizem 180 mg daily. Transition to oral Tylenol as needed, discontinued on Tylenol IV. Discussed with orthopedic surgery, Dr. Moreno, he will see the patient tomorrow and provide recommendations regarding management of the proximal humerus fracture. 11/20 The patient's heart rate was in the low 100s overnight, atrial fibrillation. We will increase Lopressor to 100 mg twice daily. Renal function almost back to normal. The patient is complaining of more pain in her right shoulder, started scheduled oral Tylenol. No bed available per case management. Awaiting placement. 11/21 No significant events overnight, intermittent tachycardia secondary to A-fib. We will continue Cardizem and Lopressor at current doses. Increase correction Humalog sliding scale to high-dose, continue Lantus 10 units daily. Waiting for insurance prior authorization for low intensity rehab. Physical exam Head: Atraumatic, normal inspection. Eyes: normal appearance, no scleral icterus. Neck: full ROM Respiratory: no respiratory distress. Cardiovascular: Irregular tachycardia, S1, S2. GI/Abdominal: soft, nontender, no guarding. Extremities: Right upper extremity tenderness with limited motion due to tenderness Neurological: CN II-XII intact, intact motor, intact sensation. Psychiatric: Impaired rate and cognition. Skin: warm, normal color Constitutional Vitals: Vital Signs Temp Pulse Resp BP Pulse Ox O2 Del Method O2 Flow Rate 98.7 F 119 H 16 121/69 95 Room Air 0 11/21/22 07:00 11/21/22 07:00 11/21/22 07:00 11/21/22 07:00 11/21/22 07:00 11/21/22 07:00 11/18/22 12:00 Period Temp Pulse Resp BP Sys/T[place]well Pulse Ox O2 Del Method O2 Flow Rate Last 24 Hr 97.7 F-98.8 F 72-119 16-20 106-138/61-81 94-97 Room Air-Room Air Intake and Output 11/20/22 11/21/22 11/21/22 19:59 03:59 11:59 Intake Total 760 100 600 Balance 760 100 600 Weight 53.569 kg Intake & Output: Intake & Output 11/20/22 11/21/22 11/21/22 19:59 03:59 11:59 Intake Total 760 100 600 Balance 760 100 600 Weight 53.569 kg Intake: Oral 760 100 600 Other: Meal Dinner Breakfast Percent of Meal Consumed 100% 75% Feeding Ability Assist with Tray Set Up Stool Size Moderate Stool Color Brown Black Stool Consistency Loose # Bowel Movements 1 # of times incontinent of 1 Bowels OBJ DATA Labs 11/20/22 05:41 11/20/22 05:41 Labs: Abnormal Lab Results 11/20/22 11/20/22 05:41 05:41 Hgb 8.4 L Hct 27.2 L Chloride 109 H Carbon Dioxide 21 L Anion Gap 7.0 L BUN 28 H Creatinine 1.2 H Glucose 272 H Phosphorus 2.3 L Albumin 2.4 L Meds: Medications Hydrocodone Bitart/Acetaminophen (Hydrocodone/Apap 5/325mg Tablet) 1 tab PO Q6HP PRN; Protocol PRN Reason: Per Pain Protocol Last Admin: 11/21/22 08:36 Dose: 1 tab Albuterol/Ipratropium (Ipratropium/Albuterol 3 Ml Ampul.Neb) 3 ml NEB Q4HRT PRN PRN Reason: Wheezing Apixaban (Apixaban 5 Mg Tablet) 2.5 mg PO BID [facility] Last Admin: 11/21/22 08:20 Dose: 2.5 mg Atorvastatin Calcium (Atorvastatin 40 Mg Tablet) 40 mg PO HS [facility] Last Admin: 11/20/22 21:59 Dose: 40 mg Dextrose (Dextrose 50% 50 Ml Vial) 0 ml IV UD PRN PRN Reason: Per Sliding Scale Diagnostic Test (Pha) (Accu-Chek 1 Each Strip) 1 each FS ACHS [facility] Last Admin: 11/21/22 07:03 Dose: 1 each Diltiazem HCl (Diltiazem 180 Mg Cap.Xl.24h) 180 mg PO DAILY [facility] Last Admin: 11/21/22 08:25 Dose: 180 mg Docusate Sodium (Docusate Sodium 100 Mg Capsule) 100 mg PO BID PRN PRN Reason: constipation Gabapentin (Gabapentin 100 Mg Capsule) 100 mg PO [facility] Last Admin: 11/20/22 21:59 Dose: 100 mg Glucose (Dextrose 31 Gm Oral.Susp) 15 gm PO PRN PRN PRN Reason: Hypoglycemia Acetaminophen (Ofirmev) 1,000 mg in 100 mls @ 200 mls/hr IV Q8H [facility]; Protocol Insulin Glargine (Insulin Glargine, Human 1 Unit/0.01 Ml) 10 unit SQ DAILY [facility] Last Admin: 11/21/22 08:20 Dose: 10 units Insulin Human Lispro (Insulin Lispro 1 Unit/0.01 Ml Unit) 0 unit SQ ACHS [facility]; Protocol Last Admin: 11/21/22 07:31 Dose: 6 units Metoprolol Tartrate (Metoprolol Tartrate 5 Mg/5 Ml Vial) 5 mg IV Q2HP PRN PRN Reason: Tachyarrhythmias HR>110 Last Admin: 11/20/22 01:01 Dose: 5 mg Metoprolol Tartrate (Metoprolol Tartrate 50 Mg Tablet) 100 mg PO BID [facility] Last Admin: 11/21/22 07:34 Dose: 100 mg Omeprazole (Omeprazole 20 Mg Capsule) 20 mg PO DAILY [facility] Last Admin: 11/21/22 08:20 Dose: 20 mg Potassium/Phosphorus/Sodium (Neutra Phos 1 Packet) 2 packet PO BID [facility] Stop: 11/23/22 08:59 Last Admin: 11/21/22 08:19 Dose: 2 packet Quetiapine Fumarate (Quetiapine 25 Mg Tablet) 25 mg PO DAILY@1700 [facility] Last Admin: 11/20/22 16:50 Dose: 25 mg Senna (Sennosides 1 Tablet) 2 tab PO [facility] Last Admin: 11/20/22 22:00 Dose: Not Given Sodium Chloride (0.9 % Sodium Chloride 10 Ml Syringe) 10 ml IV Q8 [facility] Last Admin: 11/21/22 05:51 Dose: 10 ml A/P Assessment and plan (1) Hyperglycemia due to type 2 diabetes mellitus: Status: Acute (2) Displaced fracture of right humerus: Status: Acute (3) Acute UTI: Status: Acute (4) Atrial fibrillation with rapid ventricular response: Status: Acute (5) Chronic kidney disease, stage 3a: Status: Chronic Narrative A/P Narrative: Assessment: 87-year-old female with a history of atrial fibrillation status post pacemaker, type 2 diabetes mellitus, chronic kidney disease stage III admitted for a proximal right humerus fracture secondary to a ground-level fall. Orthopedic surgery recommended nonoperative management with sling placement and follow-up in the orthopedic surgery clinic. The patient was also treated for a UTI during this hospitalization secondary to Klebsiella pneumonia. During the hospitalization the patient developed an acute kidney injury and was found to have cholelithiasis. There is concern she had cholecystitis and the patient was also on antibiotics for that for a while in addition to the UTI. General surgery was consulted and recommended against cholecystectomy at this time. The patient had mild encephalopathy secondary to the UTI, she was started on low- dose Seroquel at bedtime and her mental status improved. The patient has improved clinically the acute kidney injury is nearly resolved however she is generally weak and continues to have right upper extremity pain from the fracture. She is currently awaiting placement for low intensity rehab. *Resolving TANI on CKD III *Improved metabolic acidosis *Mild hypo- *Permanent atrial fibrillation *Cholelithiasis *Displaced fracture through surgical neck of the proximal right humerus: *Hyperglycemia w/DM2 with polyneuropathy/nephropathy: poorly controlled *Treated UTI secondary to Klebsiella pneumoniae *Resolved hyponatremia *Anemia, acute on chronic: likely dilutional component *Essential hypertension *Transaminitis,mild: Improved d *GERD: Plan: -Awaiting placement. -Monitor renal function periodically, TANI nearly resolved. -Continue home Cardizem 180 mg daily. -Continue Lopressor to 100 mg twice daily, continue prn IV Lopressor. -Continue home Eliquis (dose reduced for age and weight) -Continue Lantus 10 units daily. -Continue correction Humalog SSImedium dose. -Seroquel 25 mg at bedtime. -Continue home atorvastatin, gabapentin, Prilosec. -Right upper extremity sling, follow-up with orthopedic surgery surgery in clinic -Analgesics as needed, scheduled off her meds. -PT and OT. -CM for placement -ppx: Eliquis. -CODE STATUS: DNR/DNI -Disposition: Currently inpatient MedSurg, awaiting placement for low intensity rehab. Time Spent With Patient Time: Total time spent is greater than 50% in coordination of care (as documented) at patient's floor/unit and/or counseling patient:
--- NOTE | 2022-11-21 10:57 | Discharge Summary ---
Discharge Provider Provider IMPORTANT FOLLOW-UP INFORMATION FOR PCP: Patient information: Note initiated : 11/21/22 at 10:51 am Service Date, if different from initiated Date: [] Patient: Nolvia Jalloh 87 y/o F admitted on 11/10/22 for Fall, on blood thinner. Chief Complaint: [] Date of admission: 11/10/22 22:39 Discharge date: 11/21/22 Primary care physician: Saige Sotomayor Consults: 11/10/22 Consult to Physician [CONS] Stat Comment: Consulting Provider: Alejandro Johnson Reason For Exam: Physician to Consult 11/13/22 09:08 Consult to Physician [CONS] Routine Comment: snf referral Consulting Provider: [facility] Reason For Exam: Physician to Consult 11/15/22 14:10 Consult to Physician [CONS] Routine Comment: Consulting Provider: Nawaf Taylor Reason For Exam: Physician to Consult 11/19/22 10:26 Consult to Physician [CONS] Routine Comment: Consulting Provider: Karlene Moreno Reason For Exam: Physician to Consult COURSE Hospital Course Hospital course: Ms. Jalloh is a 87 year old F history of atrial fibrillation status post pacemaker, type 2 diabetes mellitus, chronic kidney disease, presenting with accidental fall. Earlier this evening when she was getting out of the bathroom, she had to put her pants on but she lost her balance and she fell and landed on her right shoulder. She denies hitting her head. She denies any loss of consciousness. She denies any chest pain palpitations or shortness of breath. She is currently complaining of 10 out of 10 sharp constant pain of her right shoulder and right upper arm. X-ray performed in the ED showing displaced fracture through the surgical neck of the proximal right humerus. In addition, labs also showing elevated blood sugar of 640. Serum pH 7.58, serum bicarb 23.1, lactic acid 2.7, and anion gap 11. In additions, patient is also commenting of increased urinary frequency over the past couple weeks but she denies any urgency or hesitancy and she denies any dysuria. UA pending. ER physicians contacted orthopedic surgeon Dr. Moreno who recommend against emergent surgery at this point. Instead, he recommended putting a sling on and he will see the patient in his office. Admission request is called for symptoms controlled of new onset right humeral fracture, uncontrolled type 2 diabetes mellitus with hyperglycemia, and suspected urinary tract infections. 11/11: There is no major overnight events. Afebrile overnight. Fasting sugar 113. Blood and urine culture no growth to date. Patient is still coming of severe right arm pain. Keep her right arm sling in place. No plan for surgery for the time being. Focus on symptoms controlled with narcotics as needed. Saline lock the patient's and changed the antibiotics from Rocephin to Bactrim DS for urinary tract infections while keeping an eye on blood and urine culture. Switch the insulin lispro sign scale insulin from high scale to low scale AC adjust. Accu- Chek ACHS. Physical therapy and Occupational Therapy evaluation and treatments. Overall condition stable. 11/12 Patient seems a bit tired this morning. Otherwise no overnight event or new complaints. Urine culture growing Klebsiella. Right arm sling in place. Will need follow-up outpatient with orthopedic surgery. 11/13 No overnight events or new complaints. However blood pressure has been running fairly soft. She is on Toprol 100 twice daily will decrease that to once a day. And monitor. 11/14 Patient has no subjective complaints. States she feels fine. Does appear tired though. Per nursing she has had poor urine output although she has been incontinent. Although she does admit to poor oral intake and she does have this low normal blood pressure. We will d/c her diltiazem and continue her Toprol. give her IV fluid today. 11/15 pt found to still have dirty urine, concerning continued UTI, rocephin restarted. Continued IVF d/t poor oral intake and soft BP. hold BP meds for now. Patient complains of shoulder pain but no other specific pains. No nausea vomiting chest pain stomach pain until we palpate on her abdomen. pending CT a/p. Patient denies fever chills. She does admit to feeling weak and tired. urine is dark in the Grider bag. Mild anemia noted on labs at 9.2 with a baseline in the tens. Hyponatremia noted at 127. Creatinine is significantly elevated. Metabolic acidosis. Alvarado jay uric acid. CT a/p concerning for acute cholecystitis. Gallbladder ultrasound showing distended gallbladder with stones and sludge and with pericholecystic fluid. I discussed CODE STATUS with the patient to so I understood what her wishes would be and confirmed that DO NOT RESUSCITATE was more aligned with what her wishes would be. We will have nurses provide the form to her 11/16 Patient says she is feeling okay. Seems to be slightly perkier than previous. No real complaints other than right arm pain and some occasional nausea. Renal function still quite decompensated but improved with IV fluid. Continue antibiotics for acute cholecystitis with surgery following. Urine output improving. Urine still concentrated but not as dark. 11/17 Patient has had tachycardia overnight, EKG shows atrial fibrillation with rapid ventricular response.resumed home Cardizem, continue Lopressor. security monitor ordered. Morning fasting glucose elevated, added Lantus 10 units daily, continue correction Humalog SSI medium dose. Renal function continues to improve, making urine. General surgery recommending against surgical intervention at this time. Continue IV fluid today and monitoring renal function. Discontinued fluconazole. 11/18 The patient did not sleep well last night, somewhat agitated. Started Seroquel as needed for agitation. This morning the patient quite confused, likely delirious. Started Seroquel at bedtime. Started scheduled Ofirmev 1 g every 8 hours. Remove Grider catheter. Renal function continues to improve. Heart rate has improved after the addition of Cardizem yesterday. Morning glucose 148. 11/19 Slept well last night, heart rate still elevated so we will increase Lopressor to 75 mg twice daily, continue Cardizem 180 mg daily. Transition to oral Tylenol as needed, discontinued on Tylenol IV. Discussed with orthopedic surgery, Dr. Moreno, he will see the patient tomorrow and provide recommendations regarding management of the proximal humerus fracture. 11/20 The patient's heart rate was in the low 100s overnight, atrial fibrillation. We will increase Lopressor to 100 mg twice daily. Renal function almost back to normal. The patient is complaining of more pain in her right shoulder, started scheduled oral Tylenol. No bed available per case management. Awaiting placement. 11/21 No significant events overnight, intermittent tachycardia secondary to A-fib. We will continue Cardizem and Lopressor at current doses. Increase correction Humalog sliding scale to high-dose, continue Lantus 10 units daily. Insurance approved low intensity rehab, the patient was discharged to a [facility] facility for rehab. The patient was discharged on Lopressor 100 mg twice daily instead of Toprol which she appeared to have been taking prior to admission. Physical exam Head: Atraumatic, normal inspection. Eyes: normal appearance, no scleral icterus. Neck: full ROM Respiratory: no respiratory distress. Cardiovascular: Irregular tachycardia, S1, S2. GI/Abdominal: soft, nontender, no guarding. Extremities: Right upper extremity tenderness with limited motion due to tenderness Neurological: CN II-XII intact, intact motor, intact sensation. Psychiatric: normal mood Skin: warm, normal color Discharge diagnosis: Right proximal humerus fracture Secondary discharge diagnosis: UTI Cholelithiasis Time Spent with Patient Time attestation: Total time spent providing and/or coordinating discharge services: Time spent: Greater than 30 minutes EXAM Constitutional Vitals: Temp Pulse Resp BP Pulse Ox O2 Del Method O2 Flow Rate 98.7 F 119 H 16 121/69 95 Room Air 0 11/21/22 07:00 11/21/22 07:00 11/21/22 07:00 11/21/22 07:00 11/21/22 07:00 11/21/22 07:00 11/18/22 12:00 Discharge Plan Patient/Caregiver Discharge Instructions Activity: increase activity as tolerated and resume usual activities as tolerated Diet: Consistent Carbohydrate Instructions: Arm Fracture in Adults (ED) Activity Restrictions/Additional Instructions: Follow with orthopedic surgery in 7-10 days Maintain arm in a sling, non weight bearing. OK to move elbow up and down. Make a fist and flat hand OK to ice as needed. Use [place] pain medication As prescribed Seek medical attention symptoms worsen Prescriptions: New (DME) blood sugar diagnostic Strip See Rx Instructions .ROUTE .MEDSUPPLY Qty: 120 0RF Rx Instructions: As directed (DME) lancets Misc See Rx Instructions .ROUTE .MEDSUPPLY Qty: 100 0RF Rx Instructions: As directed (DME) blood-glucose meter Kit See Rx Instructions .ROUTE .MEDSUPPLY Qty: 1 0RF Rx Instructions: As directed insulin lispro [Humalog KwikPen Insulin] 100 unit/mL insulin pen See Protocol subcut ACHS MDD 40 units Qty: 15 0RF Protocol: Insulin Sliding Scale, Med Condition: HUMALOG/NOVALOG SC SLIDING Dose/Route: SCALE Condition: FSBS < 70 Dose/Route: Give 4 Oz juice, or 15gm oral Instruction: Glucose, or 25ml D50W IV if Dose/Route: unable to take PO. Recheck in Instruction: 15 min and repeat if FSBS < 70 Condition: FSBS 71-140 Dose/Route: NO COVERAGE Condition: FSBS 141-170 Dose/Route: 2 UNITS Condition: FSBS 171-200 Dose/Route: 4 UNITS Condition: FSBS 201-250 Dose/Route: 6 UNITS Condition: FSBS 251-300 Dose/Route: 8 UNITS Condition: FSBS 301-350 Dose/Route: 10 UNITS Condition: FSBS 351-400 Dose/Route: 12 UNITS Condition: FSBS > 400 Dose/Route: 14 UNITS; REPEAT Q2H X2 Instruction: CONTINUE FOLLOWING SLIDING Condition: SCALE; IF STILL > 400; CALL Dose/Route: PHYSICIAN hydrocodone-acetaminophen 5-325 mg tablet 1 tab PO Q6H PRN (Reason: pain) Qty: 30 0RF metoprolol tartrate 50 mg Tablet 100 mg PO BID Qty: 60 6RF acetaminophen [Tylenol Extra Strength] 500 mg tablet 500 mg PO Q4H PRN (Reason: pain) Qty: 60 0RF Continued atorvastatin 80 mg tablet 40 mg PO HS glipizide 2.5 mg tablet extended release 24hr 2.5 mg PO QDAY ferrous sulfate [FeroSul] 325 mg (65 mg iron) tablet 325 mg PO QDAY metformin 1,000 mg tablet 1,000 mg PO BIDCC omeprazole 20 mg capsule,delayed release(DR/EC) 20 mg PO DAILY furosemide 20 mg tablet 20 mg PO QDAY gabapentin 100 mg capsule 100 mg PO HS Eliquis 2.5 mg tablet 2.5 mg PO BID diltiazem HCl 180 mg Capsule,Extended Release 24hr 180 mg PO DAILY Qty: 30 0RF Changed metoprolol succinate 100 mg tablet extended release 24 hr 100 mg PO DAILY Qty: 1 0RF Follow Up Plan Follow up with: Karlene Moreno MD [Physician] - 11/13/22 (Right surgical neck fracture- 7- 10 days) Saige Sotomayor MD [Primary Care Provider] - Patient Disposition: Xfer SNF Prognosis: Fair Rehab Potential: Fair I certify that the patient requires SNF services: Yes Overall status at discharge: patient is progressing back to baseline Discharge Orders: Discharge Order (Routine); Ordered 11/21/22 Ordered By: Hieu Sal
--- NOTE | 2022-11-22 11:17 | EKG ---
[facility] Test Date: 2022-11-17 Pat Name: Nolvia Jalloh Department: 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
== END 2022-11-21 13:45 | DRG 563 ==
LOC: ED 18:13 → MEDSUR 22:39
PROVIDERS: ADMIT Internal Medicine; ATTEND Internal Medicine